=== PATIENT | female | born 1960 | race Caucasian/White ===

== ENCOUNTER 2016-06-26 20:22 | Inpatient (IN) | payer MEDICARE ==
[~2016-06-26] VITALS: Ht 162.6 cm; Wt 83.9 kg
[~2016-06-26 20:22] MED LIST: ASPI-482 PO; CARV6.25 PO; DOXY100C2 PO; FLUT1DIS3 IH; GABA-586 PO; INSU100C4 SQ; INSU100I13 SQ; LEVO125T5 PO; LISI2.5T PO; METF10002 PO; METO10TA81 PO; MONT10TA6 PO; OMEG1CAP6 PO; OXYC1TAB9 PO; PANT40GR PO; POTA20TA82 PO; PRED-220 PO; ROFL500T PO; SIMV80TA PO; SPIR25TA3 PO; TORS20TA2 PO; WARF5TAB PO; WARF7.5T PO
[2016-06-26 21:24] LABS: BASO # 0.1 x10^3/uL (0.0-0.2); BASO % 1 % (0-3); EOS % 1 % (0-3); HEMATOCRIT 34.4 % (36.0-47.0); LYMPH # 3.3 x10^3/uL (1.0-4.8); LYMPH % 22 % (24-48); MEAN CORPUSCULAR HEMOGLOBIN 30 pg (25-35); MEAN CORPUSCULAR HGB CONC 32 g/dL (31-37); MEAN CORPUSCULAR VOLUME 94 fL (79-100); MONO % 8 % (0-9); NEUT % 69 % (31-73); PLATELET COUNT 501 x10^3/uL (140-400); RED BLOOD COUNT 3.67 x10^6/uL (3.50-5.40)
[2016-06-26 21:37] LABS: CREATININE 1.4 mg/dL (0.6-1.0); GFR 38.8; POTASSIUM 3.4 mmol/L (3.5-5.1)
[2016-06-26 21:44] LABS: ALBUMIN 2.8 g/dL (3.4-5.0); ALBUMIN/GLOBULIN RATIO 0.5 (1.0-1.7); TOTAL BILIRUBIN 0.1 mg/dL (0.2-1.0); TOTAL PROTEIN 7.9 g/dL (6.4-8.2)
[2016-06-26 22:07] LABS: PROTHROMBIN TIME PATIENT 42.3 SEC (11.7-14.0)
[2016-06-26 22:09] LABS: INR 4.8 (0.8-1.1)
[2016-06-26 22:21] LABS: BILIRUBIN,URINE NEGATIVE (NEG); GLUCOSE,URINE NEGATIVE (NEG); NITRITE,URINE NEGATIVE (NEG); PROTEIN,URINE 30 mg/dL (NEG-TRACE); UROBILINOGEN,URINE 0.2 mg/dL (0.2 mg/dL)
[2016-06-26] MEDS ORDERED: methylPREDNISolone SOD SUCC PF 125 MG/2 ML VIAL. IV ONE (22:30)
[2016-06-26 22:31] LABS: BACTERIA,URINE FEW /HPF (0-FEW); SQUAMOUS EPITHELIAL CELL,UR FEW /LPF
--- NOTE | 2016-06-26 22:32 | ED.ADGEN ---
Past Medical History Past Medical History: Anxiety, CAD, CHF, COPD, CVA, Depression, Diabetes-Type II, High Cholesterol, Heart Disease, Hypertension, [place], Stroke, Other Additional Past Medical Histor: KS x 6, BLOOD CLOTS IN LLE AND ULE Past Surgical History: Angioplasty, Appendectomy, Cholecystectomy, Hysterectomy , Pacemaker, Other Additional Past Surgical Histo: THYROIDECTOMY, HEMORRHOIDECTOMY, PARTIAL HYST, R KNEE SCOPE, R CARPAL TUNNE Additional Information: 1 PACK EVERY 3-4 DAYS Alcohol Use: None Drug Use: None Adult General Chief Complaint Chief Complaint: SHORTNESS OF BREATH HPI HPI Patient is a 56 year old woman, history of COPD on 3 L nasal cannula at baseline as needed, CHF, history of DVT 3, on chronic anticoagulation with Coumadin, who presents the emergency department with a complaint of chills, cough productive of thick white sputum, generalized malaise and body aches over the past several days. Patient states that she is now having chest pressure and tightness, along with coughing that is worsened. She was seen by her primary care provider yesterday, received an x-ray but does not yet know the results of the x-ray. At that time physician was concerned that she had pneumonia in her left lower lobe, but was waiting for the results of the x-ray before prescribing antibiotics. Patient states that as she was feeling worse today she came to the ED for additional evaluation. She did do a breathing treatment at home prior to coming to the ED. Sick contacts in family members. She did receive a flu vaccination this year, and her pneumonia vaccine. No swelling extremities, no recent travel or surgery. States that her INR was checked last week and it was 3.4. Review of Systems Review of Systems Constitutional: Denies fever or chills. [] Eyes: Denies change in visual acuity. [] HENT: Denies nasal congestion or sore throat. [] Respiratory: Cough, shortness of breath, with chest heaviness. Cardiovascular: Denies chest pain or edema. [] GI: Denies abdominal pain, nausea, vomiting, bloody stools or diarrhea. [] : Denies dysuria. [] Musculoskeletal: Denies back pain or joint pain. [] Integument: Denies rash. [] Neurologic: Denies headache, focal weakness or sensory changes. [] Endocrine: Denies polyuria or polydipsia. [] Lymphatic: Denies swollen glands. [] Psychiatric: Denies depression or anxiety. [] Current Medications Current Medications Allergies Allergies Allergies Coded Allergies Type Severity Reaction Last Updated Verified Penicillins Allergy Intermediate Hives 11/28/14 Yes codeine Adverse Reaction Mild Nausea and Vomiting 06/26/16 Yes diphenhydramine HCl Adverse Reaction Mild hyperactive 06/26/16 Yes Physical Exam Physical Exam Constitutional: Well developed, well nourished, no acute distress, non-toxic appearance. [] HENT: Normocephalic, atraumatic, bilateral external ears normal, oropharynx moist, no oral exudates, nose normal. [] Eyes: PERRLA, EOMI, conjunctiva normal, no discharge. [] Neck: Normal range of motion, no tenderness, supple, no stridor. [] Cardiovascular:Heart rate regular rhythm, no murmur [] Lungs & Thorax: Bilateral breath sounds clear to auscultation [] Abdomen: Bowel sounds normal, soft, no tenderness, no masses, no pulsatile masses. [] Skin: Warm, dry, no erythema, no rash. [] Back: No tenderness, no CVA tenderness. [] Extremities: No tenderness, no cyanosis, no clubbing, ROM intact, no edema. [] Neurologic: Alert and oriented X 3, normal motor function, normal sensory function, no focal deficits noted. [] Psychologic: Affect normal, judgement normal, mood normal. [] Current Patient Data Vital Signs Vital Signs Date Time Temp Pulse Resp B/P Pulse Ox O2 Delivery O2 Flow Rate FiO2 06/26/16 22:00 78 109/63 95 Nasal Cannula 3 06/26/16 20:43 98.7 20 98.7 Lab Values Laboratory Tests Test 06/26/16 20:43 06/26/16 22:05 06/26/16 22:10 White Blood Count 15.0x10^3/uL (4.0-11.0) H Red Blood Count 3.67x10^6/uL (3.50-5.40) Hemoglobin 11.0g/dL (12.0-15.5) L Hematocrit 34.4% (36.0-47.0) L Mean Corpuscular Volume 94fL (79-100) Mean Corpuscular Hemoglobin 30pg (25-35) Mean Corpuscular Hemoglobin Concent 32g/dL (31-37) Red Cell Distribution Width 17.0% (11.5-14.5) H Platelet Count 501x10^3/uL (140-400) H Neutrophils (%) (Auto) 69% (31-73) Lymphocytes (%) (Auto) 22% (24-48) L Monocytes (%) (Auto) 8% (0-9) Eosinophils (%) (Auto) 1% (0-3) Basophils (%) (Auto) 1% (0-3) Neutrophils # (Auto) 10.4x10^3uL (1.8-7.7) H Lymphocytes # (Auto) 3.3x10^3/uL (1.0-4.8) Monocytes # (Auto) 1.1x10^3/uL (0.0-1.1) Eosinophils # (Auto) 0.1x10^3/uL (0.0-0.7) Basophils # (Auto) 0.1x10^3/uL (0.0-0.2) Prothrombin Time 42.3SEC (11.7-14.0) H Prothrombin Time INR 4.8 (0.8-1.1) *H PTT 56SEC (24-38) H Sodium Level 140mmol/L (136-145) Potassium Level 3.4mmol/L (3.5-5.1) L Chloride Level 99mmol/L (98-107) Carbon Dioxide Level 27mmol/L (21-32) Anion Gap 14 (6-14) Blood Urea Nitrogen 19mg/dL (7-20) Creatinine 1.4mg/dL (0.6-1.0) H Estimated GFR (Cockcroft-Gault) 38.8 BUN/Creatinine Ratio 14 (6-20) Glucose Level 228mg/dL (70-99) H Calcium Level 8.0mg/dL (8.5-10.1) L Total Bilirubin 0.1mg/dL (0.2-1.0) L Aspartate Amino Transferase (AST) 26U/L (15-37) Alanine Aminotransferase (ALT) 23U/L (14-59) Alkaline Phosphatase 60U/L (46-116) Troponin I Quantitative < 0.017ng/mL (0.000-0.055) YY-Sum-A-Type Natriuretic Peptide 729pg/mL (0-124) H Total Protein 7.9g/dL (6.4-8.2) Albumin 2.8g/dL (3.4-5.0) L Albumin/Globulin Ratio 0.5 (1.0-1.7) L Lipase 237U/L (73-393) Influenza Type A Antigen Negative (NEGATIVE) Influenza Type B Antigen Negative (NEGATIVE) Urine Collection Type Unknown Urine Color Yellow Urine Clarity Clear Urine pH 6.0 Urine Specific [place] 1.025 Urine Protein 30mg/dL (NEG-TRACE) Urine Glucose (UA) Negativemg/dL (NEG) Urine Ketones (Stick) Negativemg/dL (NEG) Urine Blood Small (NEG) Urine Nitrite Negative (NEG) Urine Bilirubin Negative (NEG) Urine Urobilinogen Dipstick 0.2mg/dL (0.2 mg/dL) Urine Leukocyte Esterase Negative (NEG) Urine RBC 1-2/HPF (0-2) Urine WBC 1-4/HPF (0-4) Urine Squamous Epithelial Cells Few/LPF Urine Bacteria Few/HPF (0-FEW) Urine Hyaline Casts Moderate/HPF Urine Mucus Slight/LPF Laboratory Tests 06/26/16 20:43 Laboratory Tests 06/26/16 20:43 EKG EKG EC: Sinus rhythm, heart rate 79 beats minute, moderate baseline artifact noted, patient with contour abnormalities noted in the lateral leads, inferior leads, with T-wave inversions noted, no ST elevations or depressions, QTC is mildly prolonged at 503, ID 110, QRS of 80, abnormal ECG, does not meet STEMI criteria. As interpreted by me. Radiology/Procedures Radiology/Procedures Chest x-ray: One view: Patient with hazy opacity noted in the left lower lobe, along with myocardial megaly, concerning for left lower lobe pneumonia. No pneumothorax, no effusion, no bony abnormalities identified. As interpreted by me. [] Course & Med Decision Making Course & Med Decision Making Pertinent Labs and Imaging studies reviewed. (See chart for details) Patient's examination and x-ray imaging are concerning for left lower lobe pneumonia, with patient's chest pain, worsening dyspnea and exertion, leukocytosis of 15, patient is agreeable for initial hospital for treatment with IV antibiotics and supportive measures. Steroids, nebulizer treatment, and Levaquin initiated in the emergency department, due to patient's history of anaphylactic type reaction to penicillins. Patient has tolerated Levaquin without issue previously. Community acquired pneumonia, no recent hospitalizations or other concerning history. Patient does not use steroids are the bases, she was given Solu-Medrol in the ED, along with antibiotics, findings as above discussed with Dr. Palmer, on-call for the patient's primary care provider, patient accepted on behalf of Dr. Gregorio, as a full admission to the medical surgical floor with oxygen monitoring, as patient remains stable on 3 L nasal cannula which is her baseline in the ED. Bridge orders entered per his request. Dragon Disclaimer Dragon Disclaimer This electronic medical record was generated, in whole or in part, using a voice recognition dictation system. Departure Impression: Primary Impression: CAP (community acquired pneumonia) Additional Impressions: Dyspnea on exertion Chest pain Disposition: ADMITTED INPATIENT Admitting Physician: Kristen Gregorio Condition: IMPROVED Problem Qualifiers Additional Impressions: Chest pain Chest pain type: unspecified Qualified Code: R07.9 - Chest pain, unspecified PÉREZ MIRZA DO Jun 26, 2016 22:32
[2016-06-26 22:34] LABS: OBC FLU VALID
[2016-06-26] MEDS ORDERED: LEVOFLOXACIN 750 MG TABLET. PO ONE (22:45)
[2016-06-26 23:45] VITALS: BP 128/79
[2016-06-26] MEDS ORDERED: ALPRAZOLAM 0.5 MG TABLET PO PRN (23:45)
[2016-06-26] MEDS ORDERED: ALBUTEROL SULFATE 2.5 MG/3 ML NEBU. NEB PRN (23:45)
[2016-06-26] MEDS: HYDROCODONE/APAP 5/325MG TABLET. PO PRN (23:49)
[2016-06-27] MEDS ORDERED: ACETAMINOPHEN 325 MG TABLET. PO PRN (00:30)
[2016-06-27] MEDS ORDERED: DEXTROSE 50% 25 GM / 50ML DISP.SYRIN. IV PRN (00:30)
[2016-06-27] MEDS ORDERED: HYDROCODONE/APAP 7.5/325MG TABLET. PO PRN (00:30)
[2016-06-27] MEDS ORDERED: ONDANSETRON PF 4 MG/2 ML VIAL. IV PRN (00:30)
--- NOTE | 2016-06-27 02:12 | EKG ---
[facility] [address] [place] [address] Test Date: 2016-06-26 Test Time: 20:31:36 Pat Name: ISATU LOUISE Department: Room: Gender: F Shirt Folder: : 1960 Requested By: PÉREZ MIRZA Order Number: [id number] Reading MD: Measurements Intervals Sloan Rate: 79 P: -114 LA: 110 QRS: 56 QRSD: 80 T: -154 QT: 438 QTc: 503 Interpretive Statements SINUS RHYTHM QRS(T) CONTOUR ABNORMALITY CONSISTENT WITH ANTEROSEPTAL INFARCT PROBABLY OLD T ABNORMALITY IN ANTEROLATERAL LEADS INFEROLATERAL LEADS ABNORMAL ECG RI6.01 No previous ECG available for comparison
[2016-06-27 03:03] VITALS: BP 116/71
[2016-06-27 07:00] VITALS: BP 115/55
[2016-06-27] MEDS ORDERED: IPRATRPIUM/ALBUTEROL 0.5/2.5MG 3 ML NEBU. NEB SCH (08:00)
[2016-06-27] MEDS: IPRATRPIUM/ALBUTEROL 0.5/2.5MG 3 ML NEBU. NEB SCH ×4 (08:16→19:20)
[2016-06-27] MEDS: HYDROCODONE/APAP 5/325MG TABLET. PO PRN ×3 (08:18→20:44)
[2016-06-27] MEDS: GUAIFENESIN DM 200MG/20MG 10 ML SYRUP. PO PRN ×3 (08:19→20:48)
--- NOTE | 2016-06-27 08:24 | RAD ---
Indication chest pain. A single view of the chest was obtained. Comparison is made to an examination 11/29/2014. Heart size is at the upper limits of normal. There are suspect background changes of fibrosis. There is no focal consolidated pneumonia. Gross congestive heart failure is not seen. Significant pleural fluid is not present and there is no pneumothorax. A significant change when compared to the previous exam is not seen. Defibrillating and bipolar cardiac pacing device is noted as well as a cardiac stent. IMPRESSION: Chronic changes. No acute process. No significant change
[2016-06-27] MEDS: INSULIN ASPART 300 UNITS/3 ML INSULN.PEN SQ SCH ×5 (08:28→17:12)
[2016-06-27] MEDS ORDERED: NON FORMULARY ITEM (Fluticasone/Salmeterol (Advair 250-50 Diskus) 1 EACH) IH SCH (09:00)
[2016-06-27] MEDS ORDERED: LISINOPRIL 2.5 MG TABLET PO SCH (09:00)
[2016-06-27] MEDS ORDERED: TORSEMIDE 20 MG TABLET. PO SCH (09:00)
[2016-06-27] MEDS ORDERED: PREDNISONE 10 MG TABLET PO SCH (09:00)
[2016-06-27] MEDS ORDERED: CARVEDILOL 6.25 MG TABLET PO SCH (09:00)
[2016-06-27] MEDS ORDERED: GABAPENTIN 300 MG CAPSULE. PO SCH (09:00)
[2016-06-27] MEDS ORDERED: ROFLUMILAST 500 MCG TABLET. PO SCH (09:00)
[2016-06-27] MEDS: METFORMIN 1,000 MG TABLET PO SCH ×2 (09:06→17:03)
[2016-06-27] MEDS: MONTELUKAST SODIUM 10 MG TABLET. PO SCH (09:06)
[2016-06-27] MEDS: METOCLOPRAMIDE 10 MG TABLET PO SCH ×2 (09:06→20:43)
[2016-06-27] MEDS: SPIRONOLACTONE 25 MG TABLET PO SCH (09:06)
[2016-06-27] MEDS: ASPIRIN ENTERIC COATED 81 MG TABLET.DR. PO SCH (09:06)
[2016-06-27] MEDS: PANTOPRAZOLE 40 MG TABLET. PO SCH ×2 (09:07→17:04)
[2016-06-27] MEDS: methylPREDNISolone SOD SUCC PF 125 MG/2 ML VIAL. IV SCH ×3 (09:07→22:13)
[2016-06-27] MEDS: NICOTINE 14MG PATCH. TD SCH (09:07)
[2016-06-27] MEDS ORDERED: CARV3.122 PO (09:24)
[2016-06-27] MEDS ORDERED: GABA-586 PO (09:24)
[2016-06-27] MEDS ORDERED: ALPR0.254 PO (09:24)
[2016-06-27] MEDS: CARVEDILOL 3.125 MG TABLET PO SCH ×2 (10:00→17:00)
[2016-06-27 11:00] VITALS: BP 112/62
[2016-06-27] MEDS: ALBUTEROL SULFATE 2.5 MG/3 ML NEBU. NEB SCH ×2 (12:03→16:15)
--- NOTE | 2016-06-27 12:13 | PDOC ---
Provider Note Provider Note Pt seen.H&P dictated. #[id number] MAYELIN ORTEGA MD Jun 27, 2016 12:13
[2016-06-27] MEDS: IV NORMAL SALINE 1000ML BAG 1,000 ML IV SCH (12:46)
[2016-06-27] MEDS: BUDESONIDE 0.5 MG/2 ML NEBU NEB SCH ×2 (13:00→19:20)
[2016-06-27] MEDS: GABAPENTIN 300 MG CAPSULE. PO SCH ×2 (14:37→20:43)
[2016-06-27 15:00] VITALS: BP 108/57
[2016-06-27] MEDS ORDERED: ALBUTEROL SULFATE 2.5 MG/3 ML NEBU. NEB PRN (17:45)
--- NOTE | 2016-06-27 18:23 | HP ---
ADMIT DATE: 06/27/2016 LOCATION: 404. ATTENDING PHYSICIAN: Sultana Gregorio MD. REASON FOR ADMISSION TO THE HOSPITAL: Healthcare-associated pneumonia. HISTORY OF PRESENT ILLNESS: The patient is a 56-year-old female, patient of Dr. Sultana Gregorio, was having cough and chest congestion, came to the Emergency Room, had an x-ray, shows infiltrate in the lung. White count was elevated at 15,000, was admitted for suspected gram-negative pneumonia. Influenza A and B was negative. PAST MEDICAL HISTORY: Coronary artery disease; heart attack, multiple times; heart failure; hypertension; peripheral disease; DVT, on Coumadin; COPD; fatty liver; diverticulosis; gastritis; hemorrhoids; IBS; arthritis; allergic rhinitis; diabetes. PAST SURGICAL HISTORY: Had a CT thrombectomy in the left arm, EGD with dilatation, hemorrhoidectomy, appendectomy, gallbladder surgery, bypass surgery in 2006, hysterectomy and PCI, 9 stents so far. FAMILY HISTORY: Colon cancer in the father, is alive. SOCIAL HISTORY: History of smoking for 30 years, quit smoking recently. Denies alcohol or drug abuse. ALLERGIES: PENICILLIN, CODEINE, BENADRYL. MEDICATIONS AT HOME: Coumadin 7.5 mg daily; doxycycline, recently; Xanax 0.25 twice a day; aspirin 81 mg daily; Coreg 3.125 twice a day; Advair 250/50 twice a day; gabapentin 300 mg 3 times a day; insulin 7 units three times daily; Lantus 36 units daily; levothyroxine 125 mcg daily; metformin 1000 mg twice a day; Reglan 10 mg 4 times a day; Singulair 10 mg daily; Protonix 40 mg daily; prednisone 10 mg daily; Zocor 80 mg daily; spironolactone 25 mg daily; torsemide 20 mg daily. REVIEW OF SYMPTOMS: LUNGS: Complains of cough, congestion, shortness of breath. GASTROINTESTINAL: No nausea or vomiting. CONSTITUTIONAL: Has some low-grade fever. Rest of the 14-system was reviewed and negative. PHYSICAL EXAMINATION: GENERAL: The patient is not in any distress. VITAL SIGNS: Temperature 98, pulse 85, respirations 20, blood pressure 132/72, and 91 on room air, 95% on 3 liters. HEENT: Head is atraumatic. Pupils equal. Oral cavity, no congestion. NECK: Supple. Thyroid not enlarged. JVD not elevated. CHEST: Symmetrical, scar of heart surgery. CARDIOVASCULAR: S1, S2. LUNGS: Few crackles at the base. ABDOMEN: Soft, bowel sounds present. No mass palpable. EXTERNAL GENITALIA: No Arias. RECTAL: Deferred. EXTREMITIES: No calf tenderness, no edema. Pulses 1+. NEUROLOGIC: Cranial nerves intact, power 5/5, moving all extremities. No focal deficits noted. LABORATORY DATA: Shows a white count of 15, hemoglobin 11, platelets 501. Electrolytes show sodium 140, potassium 3.4, chloride 99, bicarbonate 27, BUN 19, creatinine 1.4, glucose 228. LFTs were normal. BNP 729. Urine was negative. INR is 4.8. Serology was negative for influenza A and B. Chest x-ray shows questionable infiltrate in the right lung. FINAL IMPRESSION: 1. Pneumonia ?HCAP. 2. Suspect Gram-negative. 3. Chronic obstructive pulmonary disease, smoking history. 4. Coronary artery disease, bypass surgery. 5. Automatic implantable cardioverter-defibrillator. 6. Couple of cardiac stents. 7. Hypertension. 8. Hypothyroidism. 9. Hyperlipidemia. PLAN: At this time, was admitted to hospital. The patient is on IV Solu-Medrol, IV Levaquin. Monitor. Patient's INR is high. Hold Coumadin and monitor INR. Breathing treatments, sputum cultures, and see how the patient's condition improves MAYELIN ORTEGA MD DR: MARSHAL/natanael JOB#: [id number] / [id number] SULTANA Lozada MD
[2016-06-27 19:15] VITALS: BP 93/44
[2016-06-27] MEDS: SIMVASTATIN 40 MG TABLET. PO SCH (20:43)
[2016-06-27] MEDS: ALPRAZOLAM 0.25 MG TABLET PO SCH (20:43)
[2016-06-27] MEDS ORDERED: INSULIN DETEMIR 300 UNITS/3 ML INSULN.PEN. SQ SCH (21:00)
[2016-06-27] MEDS: INSULIN DETEMIR 300 UNITS/3 ML INSULN.PEN. SQ SCH (21:08)
[2016-06-27 23:09] VITALS: BP 119/72
[2016-06-28] MEDS: HYDROCODONE/APAP 5/325MG TABLET. PO PRN ×4 (02:46→20:31)
[2016-06-28 03:27] VITALS: BP 106/60
[2016-06-28] MEDS: IV NORMAL SALINE 1000ML BAG 1,000 ML IV SCH (05:02)
[2016-06-28] MEDS: methylPREDNISolone SOD SUCC PF 125 MG/2 ML VIAL. IV SCH (06:09)
[2016-06-28 06:49] LABS: BASO % 0 % (0-3); EOS % 0 % (0-3); HEMATOCRIT 33.1 % (36.0-47.0); HEMOGLOBIN 10.4 g/dL (12.0-15.5); LYMPH # 1.4 x10^3/uL (1.0-4.8); LYMPH % 8 % (24-48); MEAN CORPUSCULAR HEMOGLOBIN 29 pg (25-35); MEAN CORPUSCULAR HGB CONC 31 g/dL (31-37); MEAN CORPUSCULAR VOLUME 94 fL (79-100); MONO % 4 % (0-9); NEUT % 88 % (31-73); PLATELET COUNT 517 x10^3/uL (140-400); RED BLOOD COUNT 3.54 x10^6/uL (3.50-5.40); RED CELL DISTRIBUTION WIDTH 16.4 % (11.5-14.5); WHITE BLOOD COUNT 16.8 x10^3/uL (4.0-11.0)
[2016-06-28 06:52] LABS: PROTHROMBIN TIME PATIENT 41.4 SEC (11.7-14.0)
[2016-06-28 07:00] VITALS: BP 97/40
[2016-06-28 07:03] LABS: INR 4.6 (0.8-1.1)
[2016-06-28 07:06] LABS: CALCIUM 8.1 mg/dL (8.5-10.1); CREATININE 1.6 mg/dL (0.6-1.0); GFR 33.2; POTASSIUM 3.7 mmol/L (3.5-5.1)
[2016-06-28] MEDS: IPRATRPIUM/ALBUTEROL 0.5/2.5MG 3 ML NEBU. NEB SCH ×4 (07:16→20:07)
[2016-06-28] MEDS: BUDESONIDE 0.5 MG/2 ML NEBU NEB SCH ×2 (07:16→20:07)
[2016-06-28 07:29] LABS: PLT ESTIMATE INCREASED (ADEQUATE)
[2016-06-28] MEDS: CARVEDILOL 3.125 MG TABLET PO SCH ×2 (08:00→16:55)
[2016-06-28] MEDS: POTASSIUM CHLORIDE 20 MEQ TABLET.ER. PO SCH (08:00)
[2016-06-28] MEDS: ALPRAZOLAM 0.25 MG TABLET PO SCH ×2 (08:25→21:17)
[2016-06-28] MEDS: GUAIFENESIN DM 200MG/20MG 10 ML SYRUP. PO PRN ×3 (08:25→20:30)
[2016-06-28] MEDS: ASPIRIN ENTERIC COATED 81 MG TABLET.DR. PO SCH (08:26)
[2016-06-28] MEDS: GABAPENTIN 300 MG CAPSULE. PO SCH ×3 (08:26→21:17)
[2016-06-28] MEDS: SPIRONOLACTONE 25 MG TABLET PO SCH (08:27)
[2016-06-28] MEDS: PANTOPRAZOLE 40 MG TABLET. PO SCH ×2 (08:28→16:55)
[2016-06-28] MEDS: LEVOTHYROXINE 125 MCG TABLET PO SCH (08:28)
[2016-06-28] MEDS: METFORMIN 1,000 MG TABLET PO SCH ×2 (08:28→16:55)
[2016-06-28] MEDS: METOCLOPRAMIDE 10 MG TABLET PO SCH ×2 (08:28→21:17)
[2016-06-28] MEDS: NICOTINE 14MG PATCH. TD SCH (08:29)
[2016-06-28] MEDS: INSULIN ASPART 300 UNITS/3 ML INSULN.PEN SQ SCH ×5 (08:38→16:58)
[2016-06-28] MEDS: MONTELUKAST SODIUM 10 MG TABLET. PO SCH (08:39)
--- NOTE | 2016-06-28 10:19 | RAD ---
Indication pneumonia. PA and lateral views of the chest were obtained and are compared to a single view examination 2 days previously. There is now, in contrast to the previous exam, a patchy infiltrate in the right middle lobe compatible with atelectasis or pneumonia. A focal process in the left lung is not seen. The heart and pulmonary vessels are unchanged. There is no significant pleural fluid. There is no pneumothorax. Defibrillating and bipolar cardiac pacing device is noted. Cardiac stent is noted IMPRESSION: Patchy infiltrate, compatible with atelectasis or pneumonia, in the right middle lobe on today's exam
[2016-06-28 11:00] VITALS: BP 115/60
[2016-06-28] MEDS: LEVOFLOXACIN 500 MG TABLET PO SCH (13:41)
--- NOTE | 2016-06-28 13:42 | PDOC ---
PROGRESS NOTES Subjective Subjective feels better ,anxious to go home soon Objective Objective Vital Signs Date Time Temp Pulse Resp B/P Pulse Ox O2 Delivery O2 Flow Rate FiO2 06/28/16 11:03 97 Nasal Cannula 3.0 06/28/16 11:00 97.9 79 20 115/60 97.9 Intake and Output 06/28/16 07:00 Intake Total 2520 ml Balance 2520 ml Intake Oral 720 ml IV Total 900 ml Other 900 ml # Voids 4 Physical Exam Abdomen: Normal bowel sounds, Soft Heart: Regular rate, Normal S1, Normal S2 Extremities: No clubbing General: Alert HEENT: Atraumatic Lungs: Other (few crackles at bases) MUSCULOSKELETAL: No deformity Neck: Supple Neuro: Normal speech Psych/Mental Status: Mental status NL Skin: No breakdown Diagnosis Problem List Problems Medical Problems: (1) CAP (community acquired pneumonia) Status: Acute (2) Chest pain Status: Acute (3) Dyspnea on exertion Status: Acute (4) Supratherapeutic INR Status: Acute Assessment Assessment Problems Medical Problems: (1) CAP (community acquired pneumonia) Status: Acute (2) Chest pain Status: Acute (3) Dyspnea on exertion Status: Acute (4) Supratherapeutic INR Status: Acute FINAL IMPRESSION: 1. Pneumonia.community acquired 2. suspect Gram-negative. 3. Chronic obstructive pulmonary disease, smoking history. 4. Coronary artery disease, bypass surgery. 5. Automatic implantable cardioverter-defibrillator. 6. Couple of cardiac stents. 7. Hypertension. 8. Hypothyroidism. 9. Hyperlipidemia. PLAN: slow improvement change to oral today. may be d/c home tomorrow cxr showed pneumonia upper lobe. inr 4.2 hold coumadin. At this time, was admitted to hospital. The patient is on IV Solu-Medrol, IV Levaquin. Monitor. Patient's INR is high. Hold Coumadin and monitor INR. Breathing treatments, sputum cultures, and see how the patient's condition improves Problems: Plan Plan of Care Problems Medical Problems: (1) CAP (community acquired pneumonia) Status: Acute (2) Chest pain Status: Acute (3) Dyspnea on exertion Status: Acute (4) Supratherapeutic INR Status: Acute Comment Review of Relevant I have reviewed the following items jarod (where applicable) has been applied. Labs Laboratory Tests Test 06/27/16 16:59 06/27/16 21:04 06/28/16 05:15 06/28/16 07:38 Glucose (Fingerstick) 187mg/dL (70-99) 200mg/dL (70-99) 162mg/dL (70-99) White Blood Count 16.8x10^3/uL (4.0-11.0) Red Blood Count 3.54x10^6/uL (3.50-5.40) Hemoglobin 10.4g/dL (12.0-15.5) Hematocrit 33.1% (36.0-47.0) Mean Corpuscular Volume 94fL (79-100) Mean Corpuscular Hemoglobin 29pg (25-35) Mean Corpuscular Hemoglobin Concent 31g/dL (31-37) Red Cell Distribution Width 16.4% (11.5-14.5) Platelet Count 517x10^3/uL (140-400) Neutrophils (%) (Auto) 88% (31-73) Lymphocytes (%) (Auto) 8% (24-48) Monocytes (%) (Auto) 4% (0-9) Eosinophils (%) (Auto) 0% (0-3) Basophils (%) (Auto) 0% (0-3) Neutrophils # (Auto) 14.8x10^3uL (1.8-7.7) Lymphocytes # (Auto) 1.4x10^3/uL (1.0-4.8) Monocytes # (Auto) 0.6x10^3/uL (0.0-1.1) Eosinophils # (Auto) 0.0x10^3/uL (0.0-0.7) Basophils # (Auto) 0.0x10^3/uL (0.0-0.2) Segmented Neutrophils % 91% (35-66) Lymphocytes % 7% (24-48) Monocytes % 2% (0-10) Platelet Estimate Increased (ADEQUATE) Large Platelets Present Prothrombin Time 41.4SEC (11.7-14.0) Prothromb Time International Ratio 4.6 (0.8-1.1) Sodium Level 143mmol/L (136-145) Potassium Level 3.7mmol/L (3.5-5.1) Chloride Level 102mmol/L (98-107) Carbon Dioxide Level 28mmol/L (21-32) Anion Gap 13 (6-14) Blood Urea Nitrogen 32mg/dL (7-20) Creatinine 1.6mg/dL (0.6-1.0) Estimated GFR (Cockcroft-Gault) 33.2 Glucose Level 169mg/dL (70-99) Calcium Level 8.1mg/dL (8.5-10.1) Test 06/28/16 11:40 Glucose (Fingerstick) 183mg/dL (70-99) Medications Current Medications Albuterol Sulfate (Ventolin Neb Soln) 2.5 mg PRN Q4HRS PRN NEB SHORTNESS OF BREATH; Start 06/27/16 at 17:45 Alprazolam (Xanax) 0.25 mg BID PO Last administered on 06/28/16 08:25; Start 06/27/16 at 21:00 Gabapentin (Neurontin) 900 mg TID PO Last administered on 06/28/16 08:26; Start 06/27/16 at 14:00 Insulin Aspart (Novolog) 7 units TIDBFRMEAL SQ Last administered on 06/28/16 08:38; Start 06/27/16 at 16:30 Insulin Detemir (Levemir) 30 units QHS SQ ; Start 06/27/16 at 21:00; Status Cancel Insulin Detemir (Levemir) 44 units HS SQ Last administered on 06/27/16 21:08; Start 06/27/16 at 21:00 Levofloxacin (Levaquin) 500 mg DAILY06 PO ; Start 06/28/16 at 13:30 Levofloxacin/ Dextrose (LEVAQUIN 250mg PREMIX) 50 ml @ 50 mls/hr Q24H IV ; Start 06/28/16 at 17:00; Stop 06/28/16 at 17:00; Status DC Levofloxacin/ Dextrose (LEVAQUIN 500mg PREMIX) 100 ml @ 100 mls/hr Q24H IV Last administered on 06/27/16 17:08; Start 06/27/16 at 16:00; Stop 06/28/16 at 11:09; Status DC Levothyroxine Sodium (Synthroid) 125 mcg DAILYAC PO Last administered on 08:28; Start 06/28/16 at 07:30 Methylprednisolone Sodium Succinate (Solu-Medrol 125mg Vial) 60 mg BID IV ; Start 06/28/16 at 21:00; Stop 06/28/16 at 21:01 Montelukast Sodium 10 mg 10 mg HS PO ; Start 06/28/16 at 21:00 Non-Formulary Medication 20 meq 3X/WEEK PO ; Start 06/29/16 at 09:00; Stop 06/29 at 09:00; Status DC Potassium Chloride 20 meq 20 meq DAILYWBKFT PO ; Start 06/28/16 at 08:00 Prednisone (Prednisone) 50 mg DAILY PO ; Start 06/29/16 at 09:00 Simvastatin (Zocor) 80 mg QHS PO Last administered on 06/27/16t 20:43; Start at 21:00 Vitals/I & O Vital Sign - Last 24 Hours 06/27/16 06/27/16 06/27/16 06/27/16 14:37 15:00 16:14 19:15 Temp 98.5 97.6 98.5 97.6 Pulse 74 85 Resp 20 18 B/P 108/57 93/44 Pulse Ox 91 90 O2 Delivery Nasal Cannula Nasal Cannula Nasal Cannula Room Air O2 Flow Rate 3.0 3.0 06/27/16 06/27/16 06/27/16 06/27/16 19:20 19:22 19:50 20:44 Resp 18 Pulse Ox 88 88 O2 Delivery Room Air Room Air Nasal Cannula Nasal Cannula O2 Flow Rate 3.0 2.0 06/27/16 06/28/16 06/28/16 06/28/16 23:09 02:46 03:27 03:46 Temp 98.6 98.5 98.6 98.5 Pulse 89 75 Resp 18 18 20 18 B/P 119/72 106/60 Pulse Ox 95 96 O2 Delivery Nasal Cannula Nasal Cannula Nasal Cannula O2 Flow Rate 3.0 2.0 3.0 06/28/16 06/28/16 06/28/16 06/28/16 07:00 07:18 07:19 07:45 Temp 98.0 98.0 Pulse 77 Resp 20 B/P 97/40 Pulse Ox 91 97 97 O2 Delivery Nasal Cannula Nasal Cannula Nasal Cannula Room Air O2 Flow Rate 3.0 3.0 3.0 06/28/16 06/28/16 06/28/16 06/28/16 08:00 08:26 09:30 11:00 Temp 97.9 97.9 Pulse 77 79 Resp 20 B/P 97/40 115/60 Pulse Ox 97 90 O2 Delivery Nasal Cannula Nasal Cannula Nasal Cannula O2 Flow Rate 3.0 3.0 3.0 06/28/16 11:03 Pulse Ox 97 O2 Delivery Nasal Cannula O2 Flow Rate 3.0 Intake and Output 06/27/16 06/27/16 06/28/16 15:00 23:00 07:00 Intake Total 2520 ml Balance 2520 ml MAYELIN ORTEGA MD Jun 28, 2016 13:42
[2016-06-28 15:00] VITALS: BP 122/62
[2016-06-28 19:15] VITALS: BP 155/67
[2016-06-28] MEDS ORDERED: MONTELUKAST SODIUM 10 MG TABLET. PO SCH (21:00)
[2016-06-28] MEDS ORDERED: methylPREDNISolone SOD SUCC PF 125 MG/2 ML VIAL. IV SCH (21:00)
[2016-06-28] MEDS: SIMVASTATIN 40 MG TABLET. PO SCH (21:17)
[2016-06-28] MEDS: INSULIN DETEMIR 300 UNITS/3 ML INSULN.PEN. SQ SCH (21:22)
[2016-06-28 22:57] VITALS: BP 124/65
[2016-06-29] MEDS: HYDROCODONE/APAP 5/325MG TABLET. PO PRN ×2 (02:45→08:37)
[2016-06-29 03:00] VITALS: BP 111/56
[2016-06-29] MEDS: LEVOFLOXACIN 500 MG TABLET PO SCH (05:58)
[2016-06-29 06:08] LABS: BASO % 0 % (0-3); EOS % 0 % (0-3); HEMATOCRIT 32.4 % (36.0-47.0); HEMOGLOBIN 10.5 g/dL (12.0-15.5); LYMPH # 1.4 x10^3/uL (1.0-4.8); LYMPH % 10 % (24-48); MEAN CORPUSCULAR HEMOGLOBIN 30 pg (25-35); MEAN CORPUSCULAR HGB CONC 33 g/dL (31-37); MEAN CORPUSCULAR VOLUME 93 fL (79-100); MONO % 3 % (0-9); NEUT % 87 % (31-73); PLATELET COUNT 502 x10^3/uL (140-400); RED BLOOD COUNT 3.48 x10^6/uL (3.50-5.40); RED CELL DISTRIBUTION WIDTH 17.1 % (11.5-14.5); WHITE BLOOD COUNT 14.3 x10^3/uL (4.0-11.0)
[2016-06-29 06:32] LABS: INR 3.1 (0.8-1.1); PROTHROMBIN TIME PATIENT 30.4 SEC (11.7-14.0)
[2016-06-29 06:35] LABS: CREATININE 1.3 mg/dL (0.6-1.0); GFR 42.2; POTASSIUM 4.6 mmol/L (3.5-5.1)
[2016-06-29] MEDS: IPRATRPIUM/ALBUTEROL 0.5/2.5MG 3 ML NEBU. NEB SCH (06:52)
[2016-06-29] MEDS: BUDESONIDE 0.5 MG/2 ML NEBU NEB SCH (06:52)
[2016-06-29 07:00] VITALS: BP 124/64
[2016-06-29] MEDS: INSULIN ASPART 300 UNITS/3 ML INSULN.PEN SQ SCH ×4 (07:30→08:47)
--- NOTE | 2016-06-29 07:48 | PDOC3 ---
ANNETTEJOCELYN [employer]OR [employer]IC 06/29/16 0748: IM DISCHARGE & PROGRESS NOTES Date of Admission Date of Admission Date of Admission: Jun 26, 2016 at 22:19 Date of Discharge Date of Discharge 06/29/16 Primary Diagnosis Primary Diagnosis 1. HCAP pneumonia gram negative 2. mild AECOPD 3. CAD with h/o OH multiple, PCI Stents multiple, and CABG 4. CKD II no ARF, JIA 5. acute on chronic respiratory failure with underlying pneumonia, COPD, emphysema 6. DM II with neuropathy, PVD 7. DVT in past with chronic coumadin therapy 8. ICM/CHF systolic not acute 9. HTN 10. Hyperlipidemia 11. chronic pain management by [facility] 12. h/o fatty liver 13. h/o non obstructing R renal calculus 14. hypothyroid Consults Consults None Procedures Procedures None Labs Labs Laboratory Tests Test 06/26/16 20:43 06/26/16 22:05 06/26/16 22:10 06/27/16 01:50 White Blood Count 15.0x10^3/uL (4.0-11.0) Red Blood Count 3.67x10^6/uL (3.50-5.40) Hemoglobin 11.0g/dL (12.0-15.5) Hematocrit 34.4% (36.0-47.0) Mean Corpuscular Volume 94fL (79-100) Mean Corpuscular Hemoglobin 30pg (25-35) Mean Corpuscular Hemoglobin Concent 32g/dL (31-37) Red Cell Distribution Width 17.0% (11.5-14.5) Platelet Count 501x10^3/uL (140-400) Neutrophils (%) (Auto) 69% (31-73) Lymphocytes (%) (Auto) 22% (24-48) Monocytes (%) (Auto) 8% (0-9) Eosinophils (%) (Auto) 1% (0-3) Basophils (%) (Auto) 1% (0-3) Neutrophils # (Auto) 10.4x10^3uL (1.8-7.7) Lymphocytes # (Auto) 3.3x10^3/uL (1.0-4.8) Monocytes # (Auto) 1.1x10^3/uL (0.0-1.1) Eosinophils # (Auto) 0.1x10^3/uL (0.0-0.7) Basophils # (Auto) 0.1x10^3/uL (0.0-0.2) Prothrombin Time 42.3SEC (11.7-14.0) Prothromb Time International Ratio 4.8 (0.8-1.1) Activated Partial Thromboplast Time 56SEC (24-38) Sodium Level 140mmol/L (136-145) Potassium Level 3.4mmol/L (3.5-5.1) Chloride Level 99mmol/L (98-107) Carbon Dioxide Level 27mmol/L (21-32) Anion Gap 14 (6-14) Blood Urea Nitrogen 19mg/dL (7-20) Creatinine 1.4mg/dL (0.6-1.0) Estimated GFR (Cockcroft-Gault) 38.8 BUN/Creatinine Ratio 14 (6-20) Glucose Level 228mg/dL (70-99) Calcium Level 8.0mg/dL (8.5-10.1) Total Bilirubin 0.1mg/dL (0.2-1.0) Aspartate Amino Transf (AST/SGOT) 26U/L (15-37) Alanine Aminotransferase (ALT/SGPT) 23U/L (14-59) Alkaline Phosphatase 60U/L (46-116) Troponin I Quantitative < 0.017ng/mL (0.000-0.055) < 0.017ng/mL (0.000-0.055) KT-Eti-H-Type Natriuretic Peptide 729pg/mL (0-124) Total Protein 7.9g/dL (6.4-8.2) Albumin 2.8g/dL (3.4-5.0) Albumin/Globulin Ratio 0.5 (1.0-1.7) Lipase 237U/L (73-393) Influenza Type A Antigen Negative (NEGATIVE) Influenza Type B Antigen Negative (NEGATIVE) Urine Collection Type Unknown Urine Color Yellow Urine Clarity Clear Urine pH 6.0 Urine Specific [place] 1.025 Urine Protein 30mg/dL (NEG-TRACE) Urine Glucose (UA) Negativemg/dL (NEG) Urine Ketones (Stick) Negativemg/dL (NEG) Urine Blood Small (NEG) Urine Nitrite Negative (NEG) Urine Bilirubin Negative (NEG) Urine Urobilinogen Dipstick 0.2mg/dL (0.2 mg/dL) Urine Leukocyte Esterase Negative (NEG) Urine RBC 1-2/HPF (0-2) Urine WBC 1-4/HPF (0-4) Urine Squamous Epithelial Cells Few/LPF Urine Bacteria Few/HPF (0-FEW) Urine Hyaline Casts Moderate/HPF Urine Mucus Slight/LPF Test 06/27/16 07:48 06/27/16 08:05 06/27/16 11:51 06/27/16 16:59 Glucose (Fingerstick) 231mg/dL (70-99) 215mg/dL (70-99) 187mg/dL (70-99) Troponin I Quantitative < 0.017ng/mL (0.000-0.055) Test 06/27/16 21:04 06/28/16 05:15 06/28/16 07:38 06/28/16 11:40 Glucose (Fingerstick) 200mg/dL (70-99) 162mg/dL (70-99) 183mg/dL (70-99) White Blood Count 16.8x10^3/uL (4.0-11.0) Red Blood Count 3.54x10^6/uL (3.50-5.40) Hemoglobin 10.4g/dL (12.0-15.5) Hematocrit 33.1% (36.0-47.0) Mean Corpuscular Volume 94fL (79-100) Mean Corpuscular Hemoglobin 29pg (25-35) Mean Corpuscular Hemoglobin Concent 31g/dL (31-37) Red Cell Distribution Width 16.4% (11.5-14.5) Platelet Count 517x10^3/uL (140-400) Neutrophils (%) (Auto) 88% (31-73) Lymphocytes (%) (Auto) 8% (24-48) Monocytes (%) (Auto) 4% (0-9) Eosinophils (%) (Auto) 0% (0-3) Basophils (%) (Auto) 0% (0-3) Neutrophils # (Auto) 14.8x10^3uL (1.8-7.7) Lymphocytes # (Auto) 1.4x10^3/uL (1.0-4.8) Monocytes # (Auto) 0.6x10^3/uL (0.0-1.1) Eosinophils # (Auto) 0.0x10^3/uL (0.0-0.7) Basophils # (Auto) 0.0x10^3/uL (0.0-0.2) Segmented Neutrophils % 91% (35-66) Lymphocytes % 7% (24-48) Monocytes % 2% (0-10) Platelet Estimate Increased (ADEQUATE) Large Platelets Present Prothrombin Time 41.4SEC (11.7-14.0) Prothromb Time International Ratio 4.6 (0.8-1.1) Sodium Level 143mmol/L (136-145) Potassium Level 3.7mmol/L (3.5-5.1) Chloride Level 102mmol/L (98-107) Carbon Dioxide Level 28mmol/L (21-32) Anion Gap 13 (6-14) Blood Urea Nitrogen 32mg/dL (7-20) Creatinine 1.6mg/dL (0.6-1.0) Estimated GFR (Cockcroft-Gault) 33.2 Glucose Level 169mg/dL (70-99) Calcium Level 8.1mg/dL (8.5-10.1) Test 06/28/16 16:43 06/28/16 21:08 06/29/16 05:15 Glucose (Fingerstick) 127mg/dL (70-99) 136mg/dL (70-99) White Blood Count 14.3x10^3/uL (4.0-11.0) Red Blood Count 3.48x10^6/uL (3.50-5.40) Hemoglobin 10.5g/dL (12.0-15.5) Hematocrit 32.4% (36.0-47.0) Mean Corpuscular Volume 93fL (79-100) Mean Corpuscular Hemoglobin 30pg (25-35) Mean Corpuscular Hemoglobin Concent 33g/dL (31-37) Red Cell Distribution Width 17.1% (11.5-14.5) Platelet Count 502x10^3/uL (140-400) Neutrophils (%) (Auto) 87% (31-73) Lymphocytes (%) (Auto) 10% (24-48) Monocytes (%) (Auto) 3% (0-9) Eosinophils (%) (Auto) 0% (0-3) Basophils (%) (Auto) 0% (0-3) Neutrophils # (Auto) 12.4x10^3uL (1.8-7.7) Lymphocytes # (Auto) 1.4x10^3/uL (1.0-4.8) Monocytes # (Auto) 0.5x10^3/uL (0.0-1.1) Eosinophils # (Auto) 0.0x10^3/uL (0.0-0.7) Basophils # (Auto) 0.0x10^3/uL (0.0-0.2) Prothrombin Time 30.4SEC (11.7-14.0) Prothromb Time International Ratio 3.1 (0.8-1.1) Sodium Level 146mmol/L (136-145) Potassium Level 4.6mmol/L (3.5-5.1) Chloride Level 106mmol/L (98-107) Carbon Dioxide Level 27mmol/L (21-32) Anion Gap 13 (6-14) Blood Urea Nitrogen 33mg/dL (7-20) Creatinine 1.3mg/dL (0.6-1.0) Estimated GFR (Cockcroft-Gault) 42.2 Glucose Level 124mg/dL (70-99) Calcium Level 8.0mg/dL (8.5-10.1) Medications Medications Medications reviewed and reconciled for discharge. Brief hospital course Brief hospital course This 56 year old female who presented with acute on chronic respiratory failure with HCAP pneumonia was admitted. The following is a summary of her treatment: HCFA pneumonia (RML) negative sepsis Levaquin IV changed to oral 06/28/16 IV steroids changed to tapering steroids at discharge nebulizer treatment O2 chronic 3L NC continuous DM II FSBS SSI BS -124-183 HTN controlled continue home meds CKD II Admit BUN 06/29 33 Cr 1.4 1.3 K 3.4 4.6 no ARF anticoagulation INR 3.1 Warfarin held 06/28/16 leukocytosis Admit 15.0 06/29 14.3-steroid DVT/GI prophylaxis warfarin PPI For more details regarding the past history, family history, social history, surgical history and other details, please refer to History and Physical. Subjective still cough and wheezing,but is improving Objective no distress Vitals Vital Signs Date Time Temp Pulse Resp B/P Pulse Ox O2 Delivery O2 Flow Rate FiO2 06/29/16 06:53 94 Nasal Cannula 3.0 06/29/16 03:45 18 06/29/16 03:00 98.7 81 111/56 98.7 Physical Exam General appearance - alert, ill appearing, and in no distress Mental Status - alert, oriented to person, place, and time, affect appropriate to mood Head - normal Chest - wheezing ant/post, coarse R post > L Heart - S1 and S2 normal Abdomen - soft, nontender, nondistended, BS+, obese Neurological - no acute focal neurological deficit noted. Musculoskeletal - no muscular tenderness noted Extremities - no pedal edema Skin - warm and dry Medications Medications reviewed. Allergy Allergies Coded Allergies Type Severity Reaction Last Updated Verified Penicillins Allergy Intermediate Hives 11/28/14 Yes codeine Adverse Reaction Mild Nausea and Vomiting 06/26/16 Yes diphenhydramine HCl Adverse Reaction Mild hyperactive 06/26/16 Yes Follow up Wednesday Disposition: Home Comments Discharge Management - 35 minutes. For other details please refer to discharge instructions SULTANA MONTGOMERY MD 06/29/16 0956: IM DISCHARGE & PROGRESS NOTES Brief hospital course Brief hospital course Lungs clear. The patient was seen and examined by me. Chart reviewed and plan of care formulated. Discussed with, reviewed and agree with [facility]'s notes, plan of care and orders with modifications as necessary. For more details regarding further plans, please refer to the orders. JOCELYN BRYANT APRN Jun 29, 2016 07:48 SULTANA MONTGOMERY MD Jun 29, 2016 09:56
--- NOTE | 2016-06-29 07:50 | DISCH ---
DISCHARGE INSTRUCTIONS Condition on Discharge Condition on Discharge: Stable Activity After Discharge Activity Instructions for Disc: Activity as tolerated Diet after Discharge Diet after Discharge: Cardiac (no concentrated sweets ), Low Fat Checks after Discharge DC Comment: check blood sugar before meals Contacting the after DC Call your doctor for: Concerns you may have Follow-Up Follow up with: Dr. Gregorio on Wednesday Treatment/Equipment after DC Discharge Respiratory Equipmen: Oxygen (3L continuous ), Nebulizer (four times daily ) JOCELYN BRYANT APRN Jun 29, 2016 07:50
[2016-06-29] MEDS ORDERED: POTA20TA4 PO (07:59)
[2016-06-29] MEDS ORDERED: LEVO500T38 PO (07:59)
[2016-06-29] MEDS ORDERED: PRED-220 PO (07:59)
[2016-06-29] MEDS ORDERED: WARF5TAB7 PO (07:59)
[2016-06-29] MEDS ORDERED: GUAI12003 PO (07:59)
[2016-06-29] MEDS ORDERED: INSU100I17 SQ (07:59)
[2016-06-29] MEDS: ASPIRIN ENTERIC COATED 81 MG TABLET.DR. PO SCH (08:32)
[2016-06-29] MEDS: GABAPENTIN 300 MG CAPSULE. PO SCH (08:32)
[2016-06-29] MEDS: POTASSIUM CHLORIDE 20 MEQ TABLET.ER. PO SCH (08:33)
[2016-06-29 08:34] VITALS: BP 111/56
[2016-06-29] MEDS: SPIRONOLACTONE 25 MG TABLET PO SCH (08:34)
[2016-06-29] MEDS: PANTOPRAZOLE 40 MG TABLET. PO SCH (08:34)
[2016-06-29] MEDS: LEVOTHYROXINE 125 MCG TABLET PO SCH (08:34)
[2016-06-29] MEDS: METOCLOPRAMIDE 10 MG TABLET PO SCH (08:34)
[2016-06-29] MEDS: METFORMIN 1,000 MG TABLET PO SCH (08:34)
[2016-06-29] MEDS: CARVEDILOL 3.125 MG TABLET PO SCH (08:34)
[2016-06-29] MEDS: ALPRAZOLAM 0.25 MG TABLET PO SCH (08:35)
[2016-06-29] MEDS: NICOTINE 14MG PATCH. TD SCH (08:35)
[2016-06-29] MEDS ORDERED: NON FORMULARY ITEM (Potassium Chloride 20 MEQ) PO SCH (09:00)
[2016-06-29] MEDS ORDERED: PREDNISONE 10 MG TABLET PO SCH (09:00)
== END 2016-06-29 11:00 | disposition home or self-care (01) | DRG 189 ==
LOC: ER 20:22 → 4 NORTH 22:19
PROVIDERS: ADMIT Internal Medicine; ATTEND Internal Medicine
DX: J96.20 Acute and chronic respiratory failure, unspecified whether with hypoxia or hypercapnia (principal); J15.6 Pneumonia due to other Gram-negative bacteria; I13.0 Hypertensive heart and chronic kidney disease with heart failure and stage 1 through stage 4 chronic kidney disease, or unspecified chronic kidney disease; J44.0 Chronic obstructive pulmonary disease with (acute) lower respiratory infection; J44.1 Chronic obstructive pulmonary disease with (acute) exacerbation; I50.20 Unspecified systolic (congestive) heart failure; E03.9 Hypothyroidism, unspecified; E11.22 Type 2 diabetes mellitus with diabetic chronic kidney disease; E66.9 Obesity, unspecified; E78.00 Pure hypercholesterolemia, unspecified; E78.5 Hyperlipidemia, unspecified; I25.10 Atherosclerotic heart disease of native coronary artery without angina pectoris; K58.9 Irritable bowel syndrome, unspecified; K76.0 Fatty (change of) liver, not elsewhere classified; N18.2 Chronic kidney disease, stage 2 (mild); Y95 Nosocomial condition; F32.9 Major depressive disorder, single episode, unspecified; F41.9 Anxiety disorder, unspecified; E11.51 Type 2 diabetes mellitus with diabetic peripheral angiopathy without gangrene; J30.9 Allergic rhinitis, unspecified; K57.90 Diverticulosis of intestine, part unspecified, without perforation or abscess without bleeding; M19.90 Unspecified osteoarthritis, unspecified site; Z79.01 Long term (current) use of anticoagulants; Z80.0 Family history of malignant neoplasm of digestive organs; Z86.718 Personal history of other venous thrombosis and embolism; Z86.73 Personal history of transient ischemic attack (TIA), and cerebral infarction without residual deficits; I25.2 Old myocardial infarction; Z87.891 Personal history of nicotine dependence; Z95.5 Presence of coronary angioplasty implant and graft; Z90.49 Acquired absence of other specified parts of digestive tract; Z90.710 Acquired absence of both cervix and uterus; Z95.0 Presence of cardiac pacemaker; Z88.5 Allergy status to narcotic agent; Z88.0 Allergy status to penicillin; Z88.8 Allergy status to other drugs, medicaments and biological substances; Z68.31 Body mass index [BMI] 31.0-31.9, adult; Z79.82 Long term (current) use of aspirin; Z79.899 Other long term (current) drug therapy; Z79.4 Long term (current) use of insulin
CPT/HCPCS: 36415; 71010; 71020; 80048; 80053; 81001; 82947; 83690; 83880; 84484; 85007; 85027; 85610; 85730; 87804; 93005; 94250; 94640; 94760; 96374; J1815; J1956; J2930; J7030; J7512; J7620; J8597; 99285-25

== ENCOUNTER 2016-07-27 09:44 | Inpatient (IN) | payer MEDICARE ==
[~2016-07-27] VITALS: Ht 167.6 cm; Wt 90.0 kg
[~2016-07-27 09:44] MED LIST changes: +ALPR0.254 PO; +CARV3.122 PO; +GUAI12003 PO; +INSU100I17 SQ; +LEVO500T38 PO; +POTA20TA4 PO; +WARF5TAB7 PO
[2016-07-27] MEDS ORDERED: MORPHINE SULFATE 4 MG/ML DISP.SYRIN. IV ONE (10:30)
[2016-07-27 10:43] LABS: BASO # 0.1 x10^3/uL (0.0-0.2); BASO % 1 % (0-3); EOS % 3 % (0-3); HEMATOCRIT 35.5 % (36.0-47.0); HEMOGLOBIN 11.6 g/dL (12.0-15.5); LYMPH # 2.6 x10^3/uL (1.0-4.8); LYMPH % 28 % (24-48); MEAN CORPUSCULAR HEMOGLOBIN 30 pg (25-35); MEAN CORPUSCULAR HGB CONC 33 g/dL (31-37); MEAN CORPUSCULAR VOLUME 91 fL (79-100); MONO % 9 % (0-9); NEUT % 59 % (31-73); PLATELET COUNT 352 x10^3/uL (140-400); RED BLOOD COUNT 3.88 x10^6/uL (3.50-5.40); RED CELL DISTRIBUTION WIDTH 16.1 % (11.5-14.5); WHITE BLOOD COUNT 9.2 x10^3/uL (4.0-11.0)
[2016-07-27 10:53] LABS: INR 3.1 (0.8-1.1); PROTHROMBIN TIME PATIENT 30.2 SEC (11.7-14.0)
[2016-07-27 11:12] LABS: ANION GAP 14 (6-14); BLOOD UREA NITROGEN 17 mg/dL (7-20); CALCIUM 7.8 mg/dL (8.5-10.1); CARBON DIOXIDE 26 mmol/L (21-32); CHLORIDE 101 mmol/L (98-107); CREATININE 1.3 mg/dL (0.6-1.0); GFR 42.2; GLUCOSE 289 mg/dL (70-99); POTASSIUM 4.1 mmol/L (3.5-5.1); SODIUM 141 mmol/L (136-145)
--- NOTE | 2016-07-27 11:14 | RAD ---
Portable chest, 07/27/2016: History: Left arm weakness and heaviness Comparison is made to a study from 06/28/2016. A left-sided transvenous pacemaker remains in place with 2 leads extending into the right heart. The heart is at the upper limits of normal in size. A coronary artery stent is projected over the left side of the heart superiorly. The pulmonary vascularity is normal. No pulmonary infiltrates are seen. There is no evidence of pleural fluid. IMPRESSION: 1. A transvenous pacemaker remains in place. 2. Coronary artery disease. 3. No acute cardiopulmonary abnormality is detected.
[2016-07-27 11:15] LABS: ALBUMIN 3.4 g/dL (3.4-5.0); ALK PHOS 59 U/L (46-116); ALT (SGPT) 27 U/L (14-59); AST (SGOT) 24 U/L (15-37); DIRECT BILIRUBIN < 0.1 mg/dL (0.0-0.2); TOTAL BILIRUBIN 0.3 mg/dL (0.2-1.0); TOTAL PROTEIN 7.4 g/dL (6.4-8.2)
[2016-07-27] MEDS ORDERED: IOHEXOL 350 MG/ML 100ML VIAL. IV ONE (11:15)
--- NOTE | 2016-07-27 11:33 | RAD ---
Left upper extremity venous ultrasound, 07/27/2016: History: Arm heaviness Duplex evaluation of the major veins in the left upper extremity was performed including grayscale, color-flow and spectral Doppler analysis. The left internal jugular, subclavian, axillary and brachial veins are patent. Patent cephalic, basilic, radial and ulnar veins are also evident. IMPRESSION: No sonographic evidence of deep vein thrombosis in the left upper extremity.
[2016-07-27] MEDS ORDERED: IV NORMAL SALINE 1000ML BAG 1,000 ML IV ONE ×2 (12:00→14:00)
[2016-07-27] MEDS ORDERED: HYDROMORPHONE 2 MG/ML VIAL. IV ONE (12:00)
--- NOTE | 2016-07-27 12:41 | EKG ---
[facility] [address] [place] [address] Test Date: 2016-07-27 Test Time: 09:54:57 Pat Name: ISATU LOUISE Department: Room: Gender: F Record Center Coordinator: : 1960 Requested By: MELO MARINO Order Number: [id number] Reading MD: Measurements Intervals [place] Rate: 71 P: 34 UT: 164 QRS: 38 QRSD: 74 T: 118 QT: 428 QTc: 470 Interpretive Statements SINUS RHYTHM ATRIAL PREMATURE COMPLEX(ES) QRS(T) CONTOUR ABNORMALITY CONSISTENT WITH ANTERIOR INFARCT AGE UNDETERMINED T ABNORMALITY IN LATERAL LEADS ABNORMAL ECG RI6.01 No previous ECG available for comparison
--- NOTE | 2016-07-27 12:51 | RAD ---
CTA of the left upper extremity, 07/27/2016: History: Left upper extremity heaviness, decreased radial pulse Multidetector CT imaging was performed following an IV bolus injection of iodinated contrast material. Multiplanar reconstructions were produced as well as 3-D volume rendered reconstructions of the major arteries. The upper most scans included the lateral aspect of the subclavian artery which is widely patent. The left axillary artery is unremarkable. The brachial artery in the upper aspect of the upper arm is patent with atherosclerotic irregularity. Distally in the upper arm the brachial artery appears to be occluded. There is reconstitution more inferiorly, apparently via collateral circulation. The occluded segment measures approximately 4 cm. Opacification of the distal arteries is suboptimal due to the proximal occlusion, however, the radial and ulnar arteries both appear to be patent. IMPRESSION: Occlusion of the left brachial artery in the inferior aspect of the upper arm with reconstitution of distal blood flow via collateral circulation. PQRS Compliance Statement: One or more of the following individualized dose reduction techniques were utilized for this examination: 1. Automated exposure control 2. Adjustment of the mA and/or kV according to patient size 3. Use of iterative reconstruction technique
--- NOTE | 2016-07-27 13:25 | PHYS DOC ---
Past Medical History Past Medical History: Anxiety, CAD, CHF, COPD, CVA, Depression, Diabetes-Type II, High Cholesterol, Heart Disease, Hypertension, CO, Stroke, Other Additional Past Medical Histor: CO x 6, BLOOD CLOTS IN LLE AND ULE, + previous surgical removal of AC blood Past Surgical History: Angioplasty, Appendectomy, Cholecystectomy, Hysterectomy , Pacemaker, Other Additional Past Surgical Histo: THYROIDECTOMY, HEMORRHOIDECTOMY, PARTIAL HYST, R KNEE SCOPE, R CARPAL TUNNE Alcohol Use: None Drug Use: None Adult General Chief Complaint Chief Complaint: UPPER EXTREMITY PAIN HPI HPI Patient is a 56 year old female who presents with LUE pain. Patient reports she awoke ~0300 this morning with pain and heaviness in her LUE, most prominently just proximal to the elbow. Patient reports h/o clot in the same arm (she is unable to recall exactly whether it was in the artery or vein where the clot was) and has had surgery for it twice (Dr. Estevez). She does take warfarin and has been compliant with this med. She has not taken anything for pain today. She denies any chest discomfort or SOB. No other acute complaints. Review of Systems Review of Systems Constitutional: Denies fever or chills Eyes: Denies change in visual acuity or eye pain HENT: Denies nasal congestion or sore throat Respiratory: Denies cough or shortness of breath Cardiovascular: Denies chest pain GI: Denies abdominal pain, nausea, vomiting, bloody stools or diarrhea : Denies dysuria or hematuria Musculoskeletal: LUE pain and heaviness Integument: Denies rash or skin lesions Neurologic: Denies headache, focal weakness or sensory changes Current Medications Current Medications Current Medications Medications (Trade) Dose Ordered Sig/Irena Start Time Stop Time Status Last Admin Dose Admin Fentanyl Citrate (Fentanyl 2ml Vial) 50 mcg PRN Q5MIN PRN 07/27/16 14:00 07/28/16 13:59 Hydromorphone HCl (Dilaudid) 0.5 mg PRN Q10MIN PRN 07/27/16 14:00 07/28/16 13:59 Iohexol 75 ml 75 ml 1X ONCE 07/27/16 11:15 07/27/16 11:18 DC 07/27/16 12:10 75 ML Lactated Ringer's (Iv Lactated Ringers) 1,000 ml @ 30 mls/hr Q24H 07/27/16 13:47 07/28/16 01:46 Lidocaine HCl 2 ml 1X PRN PRN 07/27/16 14:00 07/28/16 13:59 Morphine Sulfate 1 mg 1 mg PRN Q10MIN PRN 07/27/16 14:00 07/28/16 13:59 Ondansetron HCl (Zofran) 4 mg PRN Q6HRS PRN 07/27/16 14:00 07/28/16 13:59 Sodium Chloride (Iv Sodium Chloride 0.9% 1000ml Bag) 1,000 ml @ 500 mls/hr 1X ONCE 07/27/16 12:00 07/27/16 13:59 07/27/16 12:00 500 MLS/HR Allergies Allergies Allergies Coded Allergies Type Severity Reaction Last Updated Verified Penicillins Allergy Intermediate Hives 11/28/14 Yes codeine Adverse Reaction Mild Nausea and Vomiting 06/26/16 Yes diphenhydramine HCl Adverse Reaction Mild hyperactive 06/26/16 Yes Physical Exam Physical Exam Constitutional: Well developed, well nourished, no acute distress, non-toxic appearance HENT: Normocephalic, atraumatic, bilateral external ears normal Eyes: EOMI, conjunctiva normal, no discharge Neck: Normal range of motion, no stridor Cardiovascular: Heart rate normal, regular rhythm, no murmur Lungs & Thorax: Bilateral breath sounds clear to auscultation Abdomen: Bowel sounds normal, soft, non-distended, no TTP Skin: Warm, dry, no erythema, no rash Back: No tenderness Extremities: LUE TTP at elbow and just proximal; no significant erythema or warmth to touch; minimally palpable radial pulse (but strong signal on doppler) , noticeably less strong than radial pulse on R; brisk cap refill on either side Neurologic: Alert and oriented X 3, no gross deficits noted Current Patient Data Vital Signs Vital Signs Date Time Temp Pulse Resp B/P Pulse Ox O2 Delivery O2 Flow Rate FiO2 07/27/16 13:00 70 18 132/64 98 Room Air 07/27/16 09:45 98.2 98.2 Lab Values Laboratory Tests Test 07/27/16 10:00 White Blood Count 9.2x10^3/uL (4.0-11.0) Red Blood Count 3.88x10^6/uL (3.50-5.40) Hemoglobin 11.6g/dL (12.0-15.5) L Hematocrit 35.5% (36.0-47.0) L Mean Corpuscular Volume 91fL (79-100) Mean Corpuscular Hemoglobin 30pg (25-35) Mean Corpuscular Hemoglobin Concent 33g/dL (31-37) Red Cell Distribution Width 16.1% (11.5-14.5) H Platelet Count 352x10^3/uL (140-400) Neutrophils (%) (Auto) 59% (31-73) Lymphocytes (%) (Auto) 28% (24-48) Monocytes (%) (Auto) 9% (0-9) Eosinophils (%) (Auto) 3% (0-3) Basophils (%) (Auto) 1% (0-3) Neutrophils # (Auto) 5.5x10^3uL (1.8-7.7) Lymphocytes # (Auto) 2.6x10^3/uL (1.0-4.8) Monocytes # (Auto) 0.8x10^3/uL (0.0-1.1) Eosinophils # (Auto) 0.3x10^3/uL (0.0-0.7) Basophils # (Auto) 0.1x10^3/uL (0.0-0.2) Prothrombin Time 30.2SEC (11.7-14.0) H Prothrombin Time INR 3.1 (0.8-1.1) H Sodium Level 141mmol/L (136-145) Potassium Level 4.1mmol/L (3.5-5.1) Chloride Level 101mmol/L (98-107) Carbon Dioxide Level 26mmol/L (21-32) Anion Gap 14 (6-14) Blood Urea Nitrogen 17mg/dL (7-20) Creatinine 1.3mg/dL (0.6-1.0) H Estimated GFR (Cockcroft-Gault) 42.2 Glucose Level 289mg/dL (70-99) H Calcium Level 7.8mg/dL (8.5-10.1) L Total Bilirubin 0.3mg/dL (0.2-1.0) Direct Bilirubin < 0.1mg/dL (0.0-0.2) Aspartate Amino Transferase (AST) 24U/L (15-37) Alanine Aminotransferase (ALT) 27U/L (14-59) Alkaline Phosphatase 59U/L (46-116) Troponin I Quantitative < 0.017ng/mL (0.000-0.055) Total Protein 7.4g/dL (6.4-8.2) Albumin 3.4g/dL (3.4-5.0) Laboratory Tests 07/27/16 10:00 Laboratory Tests 07/27/16 10:00 EKG EKG EKG (My read): sinus rhythm, rate 71, normal axis, QTc 470ms, TWI lead I/V5-6, nonspecific ST changes Radiology/Procedures Radiology/Procedures CXR: IMPRESSION: 1. A transvenous pacemaker remains in place. 2. Coronary artery disease. 3. No acute cardiopulmonary abnormality is detected. CTA LUE: IMPRESSION: Occlusion of the left brachial artery in the inferior aspect of the upper arm with reconstitution of distal blood flow via collateral circulation. LUE US: IMPRESSION: No sonographic evidence of deep vein thrombosis in the left upper extremity. Course & Med Decision Making Course & Med Decision Making Pertinent Labs and Imaging studies reviewed. (See chart for details) Patient is 56-year-old female who presents with left upper extremity heaviness and pain. Concerning for DVT or arterial occlusion, given history of same. Will obtain EKG, chest x-ray, imaging of left upper extremity including ultrasound CTA, labs to evaluate. Pain medication ordered for patient comfort. Imaging results as above. Labs unremarkable; INR 3.1, minimally supratherapeutic. Discussed results with patient, who continues to have significant pain. Discussed with Dr. Estevez, who will take patient to OR. FFP transfusion ordered per his request. Discussed with Dr. Montgomery, will admit under his care after OR. Dragon Disclaimer Dragon Disclaimer This electronic medical record was generated, in whole or in part, using a voice recognition dictation system. Departure Departure Impression: Primary Impression: Brachial artery occlusion, left Disposition: ADMITTED INPATIENT Admitting Physician: Sultana Montgomery Condition: STABLE Referrals: SULTANA MONTGOMERY MD (PCP) MELO MARINO MD Jul 27, 2016 13:25
[2016-07-27] MEDS ORDERED: IV RINGERS,LACTATED 1000ML 1,000 ML IV SCH (13:47)
[2016-07-27] MEDS ORDERED: ACETAMINOPHEN 325 MG TABLET. PO PRN (14:00)
[2016-07-27] MEDS ORDERED: ONDANSETRON PF 4 MG/2 ML VIAL. IV PRN ×2 (14:00)
[2016-07-27] MEDS ORDERED: FENTANYL PF 100 MCG/2 ML VIAL. IV PRN ×2 (14:00)
[2016-07-27] MEDS ORDERED: HYDROMORPHONE 2 MG/ML VIAL. IV PRN (14:00)
[2016-07-27] MEDS ORDERED: MORPHINE SULFATE 2 MG/ML DISP.SYRIN. IV PRN (14:00)
[2016-07-27] MEDS ORDERED: LIDOCAINE 1% 1 ML SYRINGE. ID PRN (14:00)
[2016-07-27] MEDS ORDERED: SURGICEL FIBRILLAR 1X2 EACH. ONE (14:04)
[2016-07-27] MEDS ORDERED: LIDOCAINE 1% PF 30 ML VIAL. ONE (14:04)
[2016-07-27] MEDS ORDERED: EPHEDRINE PF IN SALINE 50 MG/5 ML DISP.SYRIN. IV ONE (14:23)
[2016-07-27] MEDS ORDERED: CEFAZOLIN SODIUM 1 GM in IV NORMAL SALINE 500ML BAG 500 ML IRR ONE (14:30)
[2016-07-27] MEDS ORDERED: PHENYLEPHRINE in 0.9% NACL PF 1 MG/10 ML DISP.SYRIN. IV ONE (14:30)
[2016-07-27] MEDS ORDERED: HEPARIN S0DIUM 5,000 UNIT in IV NORMAL SALINE 500ML BAG 500 ML IRR ONE (14:30)
[2016-07-27] MEDS ORDERED: PROPOFOL 20 ML IV ONE (14:31)
[2016-07-27] MEDS ORDERED: LIDOCAINE 2% 100 MG/5 ML DISP.SYRIN. ONE (14:31)
[2016-07-27] MEDS ORDERED: SUCCINYLCHOLINE 200 MG/10 ML VIAL. ONE (14:33)
[2016-07-27] MEDS ORDERED: VANCOMYCIN 1GM IVPB FOR OMNI 250 ML ONE (14:42)
[2016-07-27] MEDS ORDERED: FENTANYL PF 100 MCG/2 ML VIAL. ONE (14:54)
--- NOTE | 2016-07-27 14:58 | PDOC2 ---
CONSULT Date of Consult Date of Consult DATE: 07/27/16 TIME: 14:55 Past Medical History Cardiovascular: CAD, CHF, HTN, VT, Other Pulmonary: Asthma, COPD CENTRAL NERVOUS SYSTEM: Carpal Tunnel Syndrome, CVA, Migraine, Other GI: Diverticulosis, GERD, Gastritis, Hemorrhoids, Irritable bowel disease, Peptic Ulcer disease, Other Psych: Anxiety Musculoskeletal: Osteoarthritis, Other Endocrine: Diabetes Past Surgical History Past Surgical History: Appendectomy, Cholecystectomy, CABG, Hysterectomy, Other Current Problem List Problem List Problems Medical Problems: (1) Brachial artery occlusion, left Status: Acute Current Medications Current Medications Current Medications Morphine Sulfate 4 mg 1X ONCE IV Last administered on 07/27/16 11:00; Start 07/27/16 at 10:30; Stop 07/27/16 at 10:34; Status DC Iohexol 75 ml 75 ml 1X ONCE IV Last administered on 07/27/16 12:10; Start at 11:15; Stop 07/27/16 at 11:18; Status DC Sodium Chloride (Iv Sodium Chloride 0.9% 1000ml Bag) 1,000 ml @ 500 mls/hr 1X ONCE IV Last administered on 07/27/16 12:00; Start 07/27/16 at 12:00; Stop at 13:59; Status DC Hydromorphone HCl (Dilaudid) 1 mg 1X ONCE IV Last administered on 07/27/16 12 :29; Start 07/27/16 at 12:00; Stop 07/27/16 at 12:02; Status DC Ondansetron HCl (Zofran) 4 mg PRN Q6HRS PRN IV Nausea; Start 07/27/16 at 14:00 ; Stop 07/27/16 at 14:14; Status DC Fentanyl Citrate (Fentanyl 2ml Vial) 25 mcg PRN Q5MIN PRN IV MILD PAIN; Start 07/27/16 at 14:00; Stop 07/27/16 at 14:14; Status DC Fentanyl Citrate (Fentanyl 2ml Vial) 50 mcg PRN Q5MIN PRN IV MODERATE PAIN; Start 07/27/16 at 14:00; Stop 07/27/16 at 14:14; Status DC Morphine Sulfate 1 mg 1 mg PRN Q10MIN PRN IV SEVERE PAIN; Start 07/27/16 at 14: 00; Stop 07/27/16 at 14:14; Status DC Lactated Ringer's (Iv Lactated Ringers) 1,000 ml @ 30 mls/hr Q24H IV ; Start at 13:47; Stop 07/27/16 at 14:14; Status DC Lidocaine HCl 2 ml 1X PRN PRN ID IV START; Start 07/27/16 at 14:00; Stop at 14:14; Status DC Hydromorphone HCl 0.5 mg 0.5 mg PRN Q10MIN PRN IV SEV PAIN,Second choice; Start 07/27/16 at 14:00; Stop 07/27/16 at 14:14; Status DC Heparin Sodium (Porcine) 5000 unit/Sodium Chloride 505 ml @ 505 mls/hr 1X PERIOP ONCE IRR ; Start 07/27/16 at 14:30; Stop 07/27/16 at 14:30; Status DC Cefazolin Sodium/ Sodium Chloride (Ancef/Iv Sodium Chloride 0.9% 500ml Bag) 500 ml @ 500 mls/hr 1X PERIOP ONCE IRR ; Start 07/27/16 at 14:30; Stop 07/27/16 at 14:30; Status DC Ondansetron HCl (Zofran) 4 mg PRN Q8HRS PRN IV NAUSEA/VOMITING; Start 07/27/16 at 14:00; Stop 07/27/16 at 14:14; Status DC Acetaminophen (Tylenol) 650 mg PRN Q4HRS PRN PO FEVER; Start 07/27/16 at 14:00 ; Stop 07/27/16 at 14:14; Status DC Hydromorphone HCl 0.5 mg 0.5 mg PRN Q2HRS PRN IV MODERATE TO SEVERE PAIN; Start 07/27/16 at 14:00; Stop 07/27/16 at 14:14; Status DC Sodium Chloride (Iv Sodium Chloride 0.9% 1000ml Bag) 1,000 ml @ 125 mls/hr 1X ONCE IV ; Start 07/27/16 at 14:00; Stop 07/27/16 at 14:14; Status DC Cellulose 1 each STK-MED ONCE .ROUTE ; Start 07/27/16 at 14:04; Stop 07/27/16 at 14:05; Status DC Lidocaine HCl 30 ml STK-MED ONCE .ROUTE ; Start 07/27/16 at 14:04; Stop at 14:05; Status DC Ephedrine Sulfate 50 mg STK-MED ONCE IV ; Start 07/27/16 at 14:23; Stop at 14:24; Status DC Phenylephrine HCl 1 mg 1 mg STK-MED ONCE IV ; Start 07/27/16 at 14:30; Stop at 14:31; Status DC Propofol (Diprivan) 20 ml @ As Directed STK-MED ONCE IV ; Start 07/27/16 at 14: 31; Stop 07/27/16 at 14:32; Status DC Lidocaine HCl 100 mg STK-MED ONCE .ROUTE ; Start 07/27/16 at 14:31; Stop at 14:32; Status DC Succinylcholine Chloride 200 mg 200 mg STK-MED ONCE .ROUTE ; Start 07/27/16 at 14:33; Stop 07/27/16 at 14:34; Status DC Vancomycin HCl 250 ml @ As Directed STK-MED ONCE .ROUTE ; Start 07/27/16 at 14: 42; Stop 07/27/16 at 14:43; Status DC Active Scripts Active Mucinex (Guaifenesin) 1,200 Mg Tbmp.12hr 1 Tab PO BID Prednisone 10 Mg Tablet 10 Mg PO DIRECTED Levaquin (Levofloxacin) 500 Mg Tablet 500 Mg PO DAILY06 Klor-Con M20 (Potassium Chloride) 20 Meq Tab.er.prt 20 Meq PO DAILYWBKFT Warfarin Sodium 5 Mg Tablet 1 Tab PO DAILY Novolog Flexpen (Insulin Aspart) 100 Unit/1 Ml Insuln.pen 7 Units SQ TIDBFRMEAL Reported Alprazolam 0.25 Mg Tablet 1 Tab PO BID Gabapentin 300 Mg Capsule 900 Mg PO TID Carvedilol 3.125 Mg Tablet 1 Tab PO BID Spironolactone 25 Mg Tablet 25 Mg PO DAILY Levothyroxine Sodium 125 Mcg Tablet 125 Mcg PO DAILYAC Torsemide 20 Mg Tablet 20 Mg PO Zocor (Simvastatin) 80 Mg Tablet 80 Mg PO DAILY Metformin Hcl 1,000 Mg Tablet 1,000 Mg PO BID Lantus Solostar (Insulin Glargine,Hum.rec.anlog) 100 Unit/1 Ml Insuln.pen 44 Unit SQ DAILYWBKFT Reglan (Metoclopramide Hcl) 10 Mg Tablet 10 Mg PO QID Protonix (Pantoprazole Sodium) 40 Mg Granpkt.dr 40 Mg PO BID Advair 250-50 Diskus (Fluticasone/Salmeterol) 1 Each Disk.w.dev 1 Each IH BID Singulair Tablet (Montelukast Sodium) 10 Mg Tablet 10 Mg PO DAILY Aspir 81 (Aspirin) 81 Mg Tablet.dr 81 Mg PO DAILY Allergies Allergies: Coded Allergies: Penicillins (Verified Allergy, Intermediate, Hives, 07/27/16) Tolerated rocephin during prior admit codeine (Verified Adverse Reaction, Mild, Nausea and Vomiting, 06/26/16) diphenhydramine HCl (Verified Adverse Reaction, Mild, hyperactive, 06/26/16 ) Vitals VITALS Vital Signs Date Time Temp Pulse Resp B/P Pulse Ox O2 Delivery O2 Flow Rate FiO2 07/27/16 13:00 70 18 132/64 98 Room Air 07/27/16 09:45 98.2 98.2 Labs Labs Laboratory Tests Test 07/27/16 10:00 White Blood Count 9.2x10^3/uL (4.0-11.0) Red Blood Count 3.88x10^6/uL (3.50-5.40) Hemoglobin 11.6g/dL (12.0-15.5) Hematocrit 35.5% (36.0-47.0) Mean Corpuscular Volume 91fL (79-100) Mean Corpuscular Hemoglobin 30pg (25-35) Mean Corpuscular Hemoglobin Concent 33g/dL (31-37) Red Cell Distribution Width 16.1% (11.5-14.5) Platelet Count 352x10^3/uL (140-400) Neutrophils (%) (Auto) 59% (31-73) Lymphocytes (%) (Auto) 28% (24-48) Monocytes (%) (Auto) 9% (0-9) Eosinophils (%) (Auto) 3% (0-3) Basophils (%) (Auto) 1% (0-3) Neutrophils # (Auto) 5.5x10^3uL (1.8-7.7) Lymphocytes # (Auto) 2.6x10^3/uL (1.0-4.8) Monocytes # (Auto) 0.8x10^3/uL (0.0-1.1) Eosinophils # (Auto) 0.3x10^3/uL (0.0-0.7) Basophils # (Auto) 0.1x10^3/uL (0.0-0.2) Prothrombin Time 30.2SEC (11.7-14.0) Prothromb Time International Ratio 3.1 (0.8-1.1) Sodium Level 141mmol/L (136-145) Potassium Level 4.1mmol/L (3.5-5.1) Chloride Level 101mmol/L (98-107) Carbon Dioxide Level 26mmol/L (21-32) Anion Gap 14 (6-14) Blood Urea Nitrogen 17mg/dL (7-20) Creatinine 1.3mg/dL (0.6-1.0) Estimated GFR (Cockcroft-Gault) 42.2 Glucose Level 289mg/dL (70-99) Calcium Level 7.8mg/dL (8.5-10.1) Total Bilirubin 0.3mg/dL (0.2-1.0) Direct Bilirubin < 0.1mg/dL (0.0-0.2) Aspartate Amino Transf (AST/SGOT) 24U/L (15-37) Alanine Aminotransferase (ALT/SGPT) 27U/L (14-59) Alkaline Phosphatase 59U/L (46-116) Troponin I Quantitative < 0.017ng/mL (0.000-0.055) Total Protein 7.4g/dL (6.4-8.2) Albumin 3.4g/dL (3.4-5.0) Laboratory Tests Test 07/27/16 10:00 White Blood Count 9.2x10^3/uL (4.0-11.0) Red Blood Count 3.88x10^6/uL (3.50-5.40) Hemoglobin 11.6g/dL (12.0-15.5) Hematocrit 35.5% (36.0-47.0) Mean Corpuscular Volume 91fL (79-100) Mean Corpuscular Hemoglobin 30pg (25-35) Mean Corpuscular Hemoglobin Concent 33g/dL (31-37) Red Cell Distribution Width 16.1% (11.5-14.5) Platelet Count 352x10^3/uL (140-400) Neutrophils (%) (Auto) 59% (31-73) Lymphocytes (%) (Auto) 28% (24-48) Monocytes (%) (Auto) 9% (0-9) Eosinophils (%) (Auto) 3% (0-3) Basophils (%) (Auto) 1% (0-3) Neutrophils # (Auto) 5.5x10^3uL (1.8-7.7) Lymphocytes # (Auto) 2.6x10^3/uL (1.0-4.8) Monocytes # (Auto) 0.8x10^3/uL (0.0-1.1) Eosinophils # (Auto) 0.3x10^3/uL (0.0-0.7) Basophils # (Auto) 0.1x10^3/uL (0.0-0.2) Prothrombin Time 30.2SEC (11.7-14.0) Prothromb Time International Ratio 3.1 (0.8-1.1) Sodium Level 141mmol/L (136-145) Potassium Level 4.1mmol/L (3.5-5.1) Chloride Level 101mmol/L (98-107) Carbon Dioxide Level 26mmol/L (21-32) Anion Gap 14 (6-14) Blood Urea Nitrogen 17mg/dL (7-20) Creatinine 1.3mg/dL (0.6-1.0) Estimated GFR (Cockcroft-Gault) 42.2 Glucose Level 289mg/dL (70-99) Calcium Level 7.8mg/dL (8.5-10.1) Total Bilirubin 0.3mg/dL (0.2-1.0) Direct Bilirubin < 0.1mg/dL (0.0-0.2) Aspartate Amino Transf (AST/SGOT) 24U/L (15-37) Alanine Aminotransferase (ALT/SGPT) 27U/L (14-59) Alkaline Phosphatase 59U/L (46-116) Troponin I Quantitative < 0.017ng/mL (0.000-0.055) Total Protein 7.4g/dL (6.4-8.2) Albumin 3.4g/dL (3.4-5.0) Assessment/Plan Assessment/Plan Vascular Consult dictated Imp: 1. 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 2. status post prior embolectomy with patch repair left brachial artery 3. dm 4. tobaccoism 5. obesity Rec: 1. left brachial artery exploration, possible thrombectomy, possible vein bypass left brachial artery. KYLE HAM II, MD Jul 27, 2016 14:58
--- NOTE | 2016-07-27 16:06 | ACF ---
Admission Forms Criteria VASCULAR DISEASE GRG Clinical Indications for Admission to Inpatient Care (Place 'X' for any and all applicable criteria): Hospital admission is needed for appropriate care of the patient because of ANY ONE of the following (1)(2)(3)(4): [ ]I. Life-threatening or limb-threatening skin ulcer as indicated by ANY ONE of the following(5): [ ]a) Surrounding cellulitis unresponsive to outpatient treatment [ ]b) Wet gangrene [ ]c) Lymphangitis [ ]d) Bacteremia [ ]II. Gangrene requiring intensity and frequency of care not manageable to outpatient, emergency, or observation level of care(5) [X]III. Severe pain requiring acute inpatient management [ ]IV. Interventional revascularization (eg, surgery, thrombolysis) needed (eg , critical limb ischemia)(21) [ ]V. Urgent inpatient IV anticoagulation needed due to ALL of the following: [ ]a) Temporary subtherapeutic anticoagulation unacceptable because of high risk of short-term venous or arterial thromboembolism due to ANY ONE of the following(7)(8)(9): [ ]i) Venous thromboembolism within the past 12 months [ ]ii) Underlying malignancy [ ]iii) Patient with mechanical cardiac valve(10)(11) [ ]iv) Underlying hypercoagulable state (eg, protein C or protein S deficiency, antithrombin deficiency, antiphospholipid antibodies) [ ]v) Patient at high risk of thromboembolism (eg, status post orthopedic surgery, history of recurrent venous thromboembolism) [ ]vi) Atrial fibrillation with rheumatic valvular heart disease [ ]vii) Atrial fibrillation with 3 or MORE of the following : [ ]1) Congestive heart failure [ ]2) Hypertension [ ]3) Age 65 years or older [ ]4) Diabetes mellitus [ ]5) History of thromboembolism (eg, stroke, TIA , or systemic embolization) more than 3 months ago [ ]6) Female gender [ ]b) Contraindications to outpatient use of "bridging" agent or alternative oral anticoagulant as indicated by ALL of the following: [ ]i) Contraindication to outpatient use of low-molecular -weight heparin as "bridging" agent as indicated by ANY ONE of the following(8) : [ ]1) Documented current or history of heparin- induced thrombocytopenia(12) [ ]2) Severe thrombocytopenia (eg, platelet count less than 50,000/mm3 (50 x109/L)) [ ]3) Documented allergy to heparin, low- molecular-weight heparin, or pork products [ ]4) Renal failure (creatinine clearance < 30 mL /min/1.73m2 (0.50 mL/sec/1.73m2) or on dialysis) [ ]5) Inability to manage self-injection (eg, by patient, caregiver, or visiting nurse) [ ]ii) Contraindication to outpatient use of fondaparinux as "bridging" agent as indicated by ANY ONE of the following(13)(14)(15)(16): [ ]1) Severe thrombocytopenia (eg, platelet count less than 50,000/mm3 (50 x109/L)) [ ]2) Hypersensitivity to fondaparinux, related drugs, or product components [ ]3) Renal failure (creatinine clearance less than 30 mL/min/1.73m2 (0.50 mL/sec/1.73m2) or on dialysis) [ ]4) Inability to manage self-injection (eg, by patient, caregiver, or visiting nurse) [ ]iii) Oral direct thrombin inhibitor (eg, dabigatran) or oral coagulation factor Xa inhibitor (eg, rivaroxaban) not appropriate as oral anticoagulation (eg, indication not appropriate) or contraindicated (eg, hypersensitivity, renal failure)(13)(16)(17)(18)(19)(20) [ ]. Suspected severe acute ischemia due to peripheral vascular disease as indicated by ANY ONE of the following(5)(6): [ ]a) Tissue necrosis [ ]b) Severe pain [ ]c) Acute pulselessness [ ]d) Other evidence of acute severe ischemia (eg, lactic acidosis , motor dysfunction) [ ]VII. Acute or newly diagnosed major vessel (eg, aorta) dissection, rupture, or leakage(5)(6)(22)(23) [ ]VIII.Vascular Disease and ALL of the following: [ ]a) Symptom or finding for which emergency and observation care have failed or are not considered appropriate (Use General Criteria: Observation Care as appropriate) [ ]b) Presence of ANY ONE of the following: [ ]i) A General Admission Criteria [ ]ii) A Pediatric General Admission Criteria The original [facility] content created by [facility] has been revised. The portions of the content which have been revised are identified through the use of italic text or in bold, and [facility] has neither reviewed nor approved the modified material. All other unmodified content is copyright [facility]. Please see references footnoted in the original [facility] edition 2016 Admission Criteria Met?: Yes RASHI CONROY Jul 27, 2016 16:06
[2016-07-27] MEDS ORDERED: HEPARIN for IV BOLUS 10,000 UNIT/10 ML VIAL. ONE (16:22)
[2016-07-27] MEDS ORDERED: SEVOFLURANE > 120 MINUTES. IH ONE (18:40)
[2016-07-27] MEDS ORDERED: PHENYLEPHRINE 10 MG/ML VIAL. ONE ×2 (18:40→20:10)
--- NOTE | 2016-07-27 20:49 | PDOC4 ---
Operative Note Operative Note Op note dictated DX; 1. chronic arterial insufficiency left arm secondary to severe diffuse intimal hyperpasia with webbing Op: 1. exploration left brachial artery, left proximal axillary artery to mid forearm radial artery bypass with saphenous vein Surg: Herb GOT to rr in sat cond; 2+ graft and radial pulses. KYLE HAM II, MD Jul 27, 2016 20:49
[2016-07-27 21:47] VITALS: BP 108/71
[2016-07-27 22:02] VITALS: BP 118/71
[2016-07-27 22:17] VITALS: BP 111/69
[2016-07-27 22:32] VITALS: BP 100/65
[2016-07-27] MEDS: HYDROMORPHONE 2 MG/ML VIAL. IV PRN (22:49)
[2016-07-27] MEDS ORDERED: DEXTROSE 50% 25 GM / 50ML DISP.SYRIN. IV PRN (23:00)
[2016-07-27 23:02] VITALS: BP 109/58
[2016-07-27 23:32] VITALS: BP 106/62
--- NOTE | 2016-07-27 23:42 | OP ---
DATE OF SURGERY: 07/27/2016 PREOPERATIVE DIAGNOSIS: Arterial insufficiency of the left arm and forearm, critical. 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 OPERATIONS PERFORMED: 1. Left brachial exploration with attempted thrombectomy. 2. Exploration of the mid forearm radial artery and left proximal axillary artery with left proximal axillary artery to mid left forearm artery bypass using nonreversed great saphenous vein harvested from the right leg. 3. Aneurysmectomy of the saphenous vein graft with end-to-end anastomosis. SURGEON: Kyle Estevez M.D. CAMPUS RECRUITING COORDINATOR: None. ANESTHESIA: General. INDICATIONS: This is a 56-year-old female who presented to the Emergency Room today with complaints of severe left arm and forearm pain. She has had prior left brachial thrombectomy with vein patch performed in 2006. At that time, she had adherent clots, probably due to chronicity. She had a CT angiogram today, which showed occlusion of the distal brachial artery with reconstitution of the radial and ulnar arteries in the forearm. The operation, risks, and benefits were explained. OPERATIVE FINDINGS: The brachial artery was small and upon opening contained significant amount of intimal hyperplastic changes with webbing. There was no thrombus present. The catheter was able to be passed proximally, but again, no clot was retrieved and there was severe resistance to withdrawal of the catheter with the balloon inflated likely due to all the intimal changes. For this reason, the artery was dissected in both directions. The artery seemed to be very unhealthy proximally and distally. For this reason, the radial artery was dissected in the mid forearm and this appeared to be a nice vessel by palpation. The proximal axillary artery likewise was dissected and it too was soft with a good pulse. Approximately 9 inches of great saphenous vein was then harvested from the right leg in the usual manner. There were two aneurysmal segments of the vein, which had to be resected with end-to-end anastomosis of the vein graft. This was then sutured end-to-side proximally to the axillary artery and end-to-side to the mid forearm radial artery. There was excellent flow through the graft and a palpable radial pulse and a palpable graft pulse at the end of the procedure. DESCRIPTION OF PROCEDURE: After general anesthetic was administered, the left arm and right leg were prepped and draped in the usual manner. A longitudinal incision was made over the brachial artery, which was audible with Doppler. Brachial artery was dissected and encircled with vessel loops proximally and distally. A longitudinal arteriotomy was made. The patient's INR was 3.2, and she was also given 3000 units of heparin. The catheter was then placed; however, upon opening of the artery, there was no clear-cut lumen. There was a lot of the intimal type scarring and webbing. A #2 catheter was placed proximally with a little bit of resistance, but a lot of resistance to withdraw the catheter with the balloon inflated. No clot was retrieved. It was thought therefore that her symptoms were due to severe tandem diffuse disease of the distal brachial and proximal radial and ulnar arteries. Dissection was then carried in both directions as described above. Finally, the radial artery was exposed in the mid forearm. This was a nice vessel. It was encircled with vessel loops proximally and distally. Likewise, the axillary artery was dissected and the left upper arm. Care was taken to preserve the nerve structures. The vein was then harvested from the great saphenous vein. Incision was made in the right groin. The great saphenous vein was identified and dissected for approximately 9-10 inches. The vein was harvested in the usual manner using 3-0 silk ligatures on the vein side and clips on the patient's side. The vein was distended with heparinized saline. A valve lysis was performed with the retrograde valvulotome. There were two aneurysmal segments, which were resected and end-to-end venoanastomosis was done using 7-0 Prolene, loupe magnification. The patient was then re-bolused with 3000 units of heparin and the axillary artery was incised longitudinally. There was fair amount of intimal type thickening at this location as well and the intimectomy was performed and approximately 4 inches of intimal cord was removed from the vessel. The vein graft was then sutured end-to-side using a 7-0 Prolene suture. After completing the anastomosis, there was excellent pulsatile flow through the vein graft, which was then irrigated retrograde with heparinized saline. The vein graft was then tunneled in a subcutaneous fashion down to the left radial artery, which had been previously exposed. A longitudinal arteriotomy was made and the graft was sutured end-to-side using 7-0 Prolene, loupe magnification. Prior to completing anastomosis, back bleeding was assessed ____ bleeding likewise and the flow was restored. Wounds were then irrigated with antibiotic irrigation and closed with absorbable suture, the skin with 4-0 nylon with regards to the arm. The right leg was closed with 2-0 Vicryl and cayla. Sterile dressings were applied to all wounds. The patient was taken to the recovery room in satisfactory condition. KYLE ESTEVEZ MD DR: FRANNIE/natanael JOB#: [id number] / [id number]
[2016-07-28] VITALS (8 sets, daily range): BP systolic 94–118; BP diastolic 53–70
--- NOTE | 2016-07-28 00:41 | CONS ---
DATE OF CONSULTATION: 07/27/2016 VASCULAR SURGERY CONSULTATION CLINICAL HISTORY: A 56-year-old female who was awakened from sleep at 3:00 this morning with acute pain in her left arm. She has had prior embolectomy on 2 occasions, the latest of which occurred in 2006 requiring thrombectomy of some adherent clot and a patch repair. She has been doing well until this morning. She has been maintained on warfarin for cardiac issues. She continues to smoke and she is a diabetic. She has a significant amount of pain in the left forearm requiring narcotic medication. She is noted to have arterial flow by Doppler in the radial artery. CT angiogram was done, which demonstrates occlusion of a fairly atherosclerotic brachial artery distally with reconstitution of the radial and ulnar arteries. PAST MEDICAL HISTORY: Significant for the above. MEDICATIONS: Reviewed. Include medication for diabetes. REVIEW OF SYSTEMS: She has no complaints of claudication, no complaints of abdominal pain, or weight loss. Only complaints are referable to the left arm. Otherwise, a 12-point review of systems is negative. ALLERGIES: INCLUDE PENICILLIN, CODEINE. PHYSICAL EXAMINATION: GENERAL: The patient is alert and awake. She is in no distress. LUNGS: Chest is clear. CARDIOVASCULAR: Tones are normal. EXTREMITIES: Radial and brachial pulses on the right are easily palpable. Carotid pulses are palpable. Absent left brachial and pedal pulses. The left hand is warm with intact neuromotor function. She has a palpable dorsal pedal pulses bilaterally. LABORATORY DATA: White count is 9000, hemoglobin is 11.6. Serum creatinine is 1.3. CT angiogram was done and was reviewed. ASSESSMENT: 1. Subacute arterial insufficiency of the left arm, recurrent, probably due to thrombotic occlusion of an atherosclerotic disease, brachial artery. 2. History of diabetes. 3. History of tobaccoism. 4. Moderate obesity. RECOMMENDATION: Urgent left brachial exploration with possible thrombectomy, but more likely vein bypass. The operation risks and benefits were explained to the patient and she understands and wishes to proceed. KYLE HAM MD DR: FRANNIE/natanael JOB#: [id number] / [id number]
[2016-07-28 05:12] LABS: BASO % 0 % (0-3); EOS % 0 % (0-3); HEMATOCRIT 31.7 % (36.0-47.0); LYMPH # 1.2 x10^3/uL (1.0-4.8); LYMPH % 10 % (24-48); MEAN CORPUSCULAR HEMOGLOBIN 30 pg (25-35); MEAN CORPUSCULAR HGB CONC 32 g/dL (31-37); MEAN CORPUSCULAR VOLUME 94 fL (79-100); MONO % 8 % (0-9); NEUT % 82 % (31-73); PLATELET COUNT 296 x10^3/uL (140-400); RED BLOOD COUNT 3.38 x10^6/uL (3.50-5.40); RED CELL DISTRIBUTION WIDTH 16.3 % (11.5-14.5); WHITE BLOOD COUNT 12.4 x10^3/uL (4.0-11.0)
[2016-07-28 05:24] LABS: INR 2.1 (0.8-1.1); PROTHROMBIN TIME PATIENT 22.3 SEC (11.7-14.0)
[2016-07-28 05:43] LABS: ALBUMIN 2.8 g/dL (3.4-5.0); ALBUMIN/GLOBULIN RATIO 0.6 (1.0-1.7); CALCIUM 7.2 mg/dL (8.5-10.1); CREATININE 1.3 mg/dL (0.6-1.0); GFR 42.2; POTASSIUM 4.4 mmol/L (3.5-5.1); TOTAL BILIRUBIN 0.4 mg/dL (0.2-1.0); TOTAL PROTEIN 7.2 g/dL (6.4-8.2)
[2016-07-28] MEDS: LEVOTHYROXINE 125 MCG TABLET PO SCH (06:17)
[2016-07-28] MEDS: PANTOPRAZOLE 40 MG TABLET. PO SCH ×2 (06:17→16:08)
[2016-07-28] MEDS: METOCLOPRAMIDE 10 MG TABLET PO SCH ×4 (06:17→21:09)
[2016-07-28] MEDS: INSULIN ASPART 300 UNITS/3 ML INSULN.PEN SQ SCH ×6 (07:30→17:00)
[2016-07-28] MEDS ORDERED: BUDESONIDE 0.5 MG/2 ML NEBU NEB SCH (08:00)
[2016-07-28] MEDS: HYDROMORPHONE 2 MG/ML VIAL. IV PRN (08:28)
--- NOTE | 2016-07-28 08:36 | PDOC1 ---
JOCELYN BRYANT [employer]ICKER 07/28/16 0836: HISTORY AND PHYSICAL Chief Complaint Chief Complaint This 56 year old female has been admitted with a chief complaint of acute LUE pain. She reports the onset of pain was 3AM this morning with heavy feeling present also. She presented to the ED for evaluation. Cardiac w/u was negative. Doppler RUE was negative DVT. A CT revealed an occlusion in the brachial artery. Dr. Song was consulted and saw Stacey in the ED. He diagnosed a subacute arterial insufficiency LA secondary to brachial artery occlusion. Stacey was taken to surgery urgently. Dr. Mcdowell's surgical note : Left brachial exploration with attempted thrombectomy. 2. Exploration of the mid forearm radial artery and left proximal axillary artery with left proximal axillary artery to mid left forearm artery bypass using nonreversed great saphenous vein harvested from the right leg. 3. Aneurysmectomy of the saphenous vein graft with end-to-end anastomosis. She is admitted to the [facility] post op. . Problem List Problems Medical Problems: (1) Brachial artery occlusion, left Status: Acute Past Medical History Cardiovascular: CAD (multiple IA, PCI stents multiple and CABG ), CHF (ICM systolic ), HTN, IA, Other Pulmonary: COPD (emphysema ), Pneumonia (Jun 2015) CENTRAL NERVOUS SYSTEM: Carpal Tunnel Syndrome, CVA, Migraine GI: Diverticulosis, GERD, Gastritis (h/o), Hemorrhoids, Irritable bowel disease , Peptic Ulcer disease (h/o), Other (h/o fatty liver) Heme/Onc: Anemia NOS Psych: Anxiety Musculoskeletal: Osteoarthritis, Other (chronic pain management by [facility] ) ENT: Allergic Rhinitis Renal/: Chronic renal insuff (CKD II ), Other (h/o non obstructing R renal calculus ) Endocrine: Diabetes (Type II neuropathy, PVD) Past Surgical History PSH h/o CT thrombectomy LA with dilation, hemorrhoidectomy, PCI CAD-h/o 9 stents Past Surgical History: Appendectomy, Cholecystectomy, CABG (2006), Hysterectomy , Other Past Family History Family History: Cancer (Colon father ) Past Social History PSH , disabled, h/o smoking x 30 year, quit 2016. Negative ETOH or illicit drug use. Review of Symptoms Review of Symptoms A 14 point ROS was completed with the following noted as positive: per HPI Other systems reviewed and negative. Medications Medications reviewed and reconciled Allergy Allergies Coded Allergies Type Severity Reaction Last Updated Verified Penicillins Allergy Intermediate Hives 07/27/16 Yes codeine Adverse Reaction Mild Nausea and Vomiting 07/27/16 Yes diphenhydramine HCl Adverse Reaction Mild hyperactive 07/27/16 Yes Physical Exam Physical Exam General appearance - alert, ill appearing, and in mild distress r/t post op pain Mental Status - alert, oriented to person, place, and time, affect appropriate to mood Head - normal Chest - clear to auscultation, no wheezes, rales or rhonchi, symmetric air entry Heart - S1 and S2 normal Abdomen - soft, nontender, nondistended, BS+ Neurological - no acute focal neurological deficit noted Musculoskeletal - no muscular tenderness noted Extremities - no pedal edema, dressings insitu LUE, R thigh. Circ check WNL RUE. Skin - warm and dry VTE Prophylaxis Ordered VTE Prophylaxis Devices: Yes VTE Pharmacological Prophylaxi: No Assessment Labs Laboratory Tests Test 07/27/16 10:00 07/27/16 20:58 07/27/16 21:54 07/28/16 04:10 White Blood Count 9.2x10^3/uL (4.0-11.0) 12.4x10^3/uL (4.0-11.0) Red Blood Count 3.88x10^6/uL (3.50-5.40) 3.38x10^6/uL (3.50-5.40) Hemoglobin 11.6g/dL (12.0-15.5) 10.0g/dL (12.0-15.5) Hematocrit 35.5% (36.0-47.0) 31.7% (36.0-47.0) Mean Corpuscular Volume 91fL (79-100) 94fL (79-100) Mean Corpuscular Hemoglobin 30pg (25-35) 30pg (25-35) Mean Corpuscular Hemoglobin Concent 33g/dL (31-37) 32g/dL (31-37) Red Cell Distribution Width 16.1% (11.5-14.5) 16.3% (11.5-14.5) Platelet Count 352x10^3/uL (140-400) 296x10^3/uL (140-400) Neutrophils (%) (Auto) 59% (31-73) 82% (31-73) Lymphocytes (%) (Auto) 28% (24-48) 10% (24-48) Monocytes (%) (Auto) 9% (0-9) 8% (0-9) Eosinophils (%) (Auto) 3% (0-3) 0% (0-3) Basophils (%) (Auto) 1% (0-3) 0% (0-3) Neutrophils # (Auto) 5.5x10^3uL (1.8-7.7) 10.1x10^3uL (1.8-7.7) Lymphocytes # (Auto) 2.6x10^3/uL (1.0-4.8) 1.2x10^3/uL (1.0-4.8) Monocytes # (Auto) 0.8x10^3/uL (0.0-1.1) 1.0x10^3/uL (0.0-1.1) Eosinophils # (Auto) 0.3x10^3/uL (0.0-0.7) 0.0x10^3/uL (0.0-0.7) Basophils # (Auto) 0.1x10^3/uL (0.0-0.2) 0.0x10^3/uL (0.0-0.2) Prothrombin Time 30.2SEC (11.7-14.0) 22.3SEC (11.7-14.0) Prothromb Time International Ratio 3.1 (0.8-1.1) 2.1 (0.8-1.1) Sodium Level 141mmol/L (136-145) Potassium Level 4.1mmol/L (3.5-5.1) Chloride Level 101mmol/L (98-107) Carbon Dioxide Level 26mmol/L (21-32) Anion Gap 14 (6-14) Blood Urea Nitrogen 17mg/dL (7-20) Creatinine 1.3mg/dL (0.6-1.0) Estimated GFR (Cockcroft-Gault) 42.2 Glucose Level 289mg/dL (70-99) Calcium Level 7.8mg/dL (8.5-10.1) Total Bilirubin 0.3mg/dL (0.2-1.0) Direct Bilirubin < 0.1mg/dL (0.0-0.2) Aspartate Amino Transf (AST/SGOT) 24U/L (15-37) Alanine Aminotransferase (ALT/SGPT) 27U/L (14-59) Alkaline Phosphatase 59U/L (46-116) Troponin I Quantitative < 0.017ng/mL (0.000-0.055) Total Protein 7.4g/dL (6.4-8.2) Albumin 3.4g/dL (3.4-5.0) Glucose (Fingerstick) 199mg/dL (70-99) 221mg/dL (70-99) Test 07/28/16 04:20 07/28/16 07:53 Sodium Level 142mmol/L (136-145) Potassium Level 4.4mmol/L (3.5-5.1) Chloride Level 104mmol/L (98-107) Carbon Dioxide Level 27mmol/L (21-32) Anion Gap 11 (6-14) Blood Urea Nitrogen 18mg/dL (7-20) Creatinine 1.3mg/dL (0.6-1.0) Estimated GFR (Cockcroft-Gault) 42.2 BUN/Creatinine Ratio 14 (6-20) Glucose Level 234mg/dL (70-99) Calcium Level 7.2mg/dL (8.5-10.1) Total Bilirubin 0.4mg/dL (0.2-1.0) Aspartate Amino Transf (AST/SGOT) 34U/L (15-37) Alanine Aminotransferase (ALT/SGPT) 30U/L (14-59) Alkaline Phosphatase 55U/L (46-116) Total Protein 7.2g/dL (6.4-8.2) Albumin 2.8g/dL (3.4-5.0) Albumin/Globulin Ratio 0.6 (1.0-1.7) Glucose (Fingerstick) 191mg/dL (70-99) Laboratory Tests Test 07/27/16 10:00 07/27/16 20:58 07/27/16 21:54 07/28/16 04:10 White Blood Count 9.2x10^3/uL (4.0-11.0) 12.4x10^3/uL (4.0-11.0) Red Blood Count 3.88x10^6/uL (3.50-5.40) 3.38x10^6/uL (3.50-5.40) Hemoglobin 11.6g/dL (12.0-15.5) 10.0g/dL (12.0-15.5) Hematocrit 35.5% (36.0-47.0) 31.7% (36.0-47.0) Mean Corpuscular Volume 91fL (79-100) 94fL (79-100) Mean Corpuscular Hemoglobin 30pg (25-35) 30pg (25-35) Mean Corpuscular Hemoglobin Concent 33g/dL (31-37) 32g/dL (31-37) Red Cell Distribution Width 16.1% (11.5-14.5) 16.3% (11.5-14.5) Platelet Count 352x10^3/uL (140-400) 296x10^3/uL (140-400) Neutrophils (%) (Auto) 59% (31-73) 82% (31-73) Lymphocytes (%) (Auto) 28% (24-48) 10% (24-48) Monocytes (%) (Auto) 9% (0-9) 8% (0-9) Eosinophils (%) (Auto) 3% (0-3) 0% (0-3) Basophils (%) (Auto) 1% (0-3) 0% (0-3) Neutrophils # (Auto) 5.5x10^3uL (1.8-7.7) 10.1x10^3uL (1.8-7.7) Lymphocytes # (Auto) 2.6x10^3/uL (1.0-4.8) 1.2x10^3/uL (1.0-4.8) Monocytes # (Auto) 0.8x10^3/uL (0.0-1.1) 1.0x10^3/uL (0.0-1.1) Eosinophils # (Auto) 0.3x10^3/uL (0.0-0.7) 0.0x10^3/uL (0.0-0.7) Basophils # (Auto) 0.1x10^3/uL (0.0-0.2) 0.0x10^3/uL (0.0-0.2) Prothrombin Time 30.2SEC (11.7-14.0) 22.3SEC (11.7-14.0) Prothromb Time International Ratio 3.1 (0.8-1.1) 2.1 (0.8-1.1) Sodium Level 141mmol/L (136-145) Potassium Level 4.1mmol/L (3.5-5.1) Chloride Level 101mmol/L (98-107) Carbon Dioxide Level 26mmol/L (21-32) Anion Gap 14 (6-14) Blood Urea Nitrogen 17mg/dL (7-20) Creatinine 1.3mg/dL (0.6-1.0) Estimated GFR (Cockcroft-Gault) 42.2 Glucose Level 289mg/dL (70-99) Calcium Level 7.8mg/dL (8.5-10.1) Total Bilirubin 0.3mg/dL (0.2-1.0) Direct Bilirubin < 0.1mg/dL (0.0-0.2) Aspartate Amino Transf (AST/SGOT) 24U/L (15-37) Alanine Aminotransferase (ALT/SGPT) 27U/L (14-59) Alkaline Phosphatase 59U/L (46-116) Troponin I Quantitative < 0.017ng/mL (0.000-0.055) Total Protein 7.4g/dL (6.4-8.2) Albumin 3.4g/dL (3.4-5.0) Glucose (Fingerstick) 199mg/dL (70-99) 221mg/dL (70-99) Test 07/28/16 04:20 07/28/16 07:53 Sodium Level 142mmol/L (136-145) Potassium Level 4.4mmol/L (3.5-5.1) Chloride Level 104mmol/L (98-107) Carbon Dioxide Level 27mmol/L (21-32) Anion Gap 11 (6-14) Blood Urea Nitrogen 18mg/dL (7-20) Creatinine 1.3mg/dL (0.6-1.0) Estimated GFR (Cockcroft-Gault) 42.2 BUN/Creatinine Ratio 14 (6-20) Glucose Level 234mg/dL (70-99) Calcium Level 7.2mg/dL (8.5-10.1) Total Bilirubin 0.4mg/dL (0.2-1.0) Aspartate Amino Transf (AST/SGOT) 34U/L (15-37) Alanine Aminotransferase (ALT/SGPT) 30U/L (14-59) Alkaline Phosphatase 55U/L (46-116) Total Protein 7.2g/dL (6.4-8.2) Albumin 2.8g/dL (3.4-5.0) Albumin/Globulin Ratio 0.6 (1.0-1.7) Glucose (Fingerstick) 191mg/dL (70-99) Plan Plan 1. 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 ICM CHF EF systolic, not acute 3. CAD with h/o IA multiple, PCI Stents multiple, and CABG 4. CKD II 5 chronic respiratory failure with underlying COPD, emphysema 6. 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 DVT in past with chronic coumadin therapy 8. hypothyroid 9. HTN 10. Hyperlipidemia 11. chronic pain management by [facility] 12. h/o fatty liver 13. h/o non obstructing R renal calculus PLAN: L brachial artery occlusion surgical consult s/p bypass with SVG obtained R thigh Tm 100.5 last evening Admit WBC 9.2 07/28 12.4 Ancef pre op CHF daily weight IO DM II FSBS /SSI BS [id number] Anemia chronic Admit 11.6 07/28 10.0 DVT/anticoagulation Admit INR 3.1 07/28 04:00 2.1 pharmacy managing warfarin CDK II Admit BUN 17 07/28 18 Cr 1.3 1.3 K 4.1 4.4 DVT/GI prophylaxis SCD/REYMUNDO warfarin PPI For more details regarding further plans, please refer to the orders. SULTANA MONTGOMERY MD 07/28/16 1104: HISTORY AND PHYSICAL Plan Plan The patient was seen and examined by me. Chart reviewed and plan of care formulated. Discussed with, reviewed and agree with APPRENTICE COOK's notes, plan of care and orders with modifications as necessary. For more details regarding further plans, please refer to the orders. JOCELYN BRYANT APRN Jul 28, 2016 08:36 SULTANA MONTGOMERY MD Jul 28, 2016 11:04
[2016-07-28] MEDS: INSULIN DETEMIR 300 UNITS/3 ML INSULN.PEN. SQ SCH (08:44)
[2016-07-28] MEDS ORDERED: NON FORMULARY ITEM (Fluticasone/Salmeterol (Advair 250-50 Diskus) 1 EACH) IH SCH (09:00)
[2016-07-28] MEDS ORDERED: GUAIFENESIN ER 600 MG TABLET.ER PO SCH (09:00)
[2016-07-28] MEDS: ALBUTEROL SULFATE 2.5 MG/3 ML NEBU. NEB SCH ×4 (09:01→20:13)
[2016-07-28] MEDS: CARVEDILOL 3.125 MG TABLET PO SCH ×2 (09:29→16:09)
[2016-07-28] MEDS: PREDNISONE 10 MG TABLET PO SCH (09:29)
[2016-07-28] MEDS: SPIRONOLACTONE 25 MG TABLET PO SCH (09:29)
[2016-07-28] MEDS: MONTELUKAST SODIUM 10 MG TABLET. PO SCH (09:29)
[2016-07-28] MEDS: ALPRAZOLAM 0.25 MG TABLET PO SCH ×2 (09:29→21:09)
[2016-07-28] MEDS: ASPIRIN ENTERIC COATED 81 MG TABLET.DR. PO SCH (09:29)
[2016-07-28] MEDS: GABAPENTIN 300 MG CAPSULE. PO SCH ×2 (09:30→21:09)
[2016-07-28] MEDS: POTASSIUM CHLORIDE 20 MEQ TABLET.ER. PO SCH (09:30)
[2016-07-28] MEDS: METFORMIN 1,000 MG TABLET PO SCH ×2 (09:30→16:08)
[2016-07-28] MEDS: TORSEMIDE 20 MG TABLET. PO SCH (09:33)
[2016-07-28] MEDS ORDERED: HYDROCODONE/APAP 7.5/325MG TABLET. PO PRN (11:00)
--- NOTE | 2016-07-28 11:08 | PDOC ---
PROGRESS NOTES Subjective Subjective "My arm feels so much better. No pain and it's warm." Objective Objective Vascular Surgery - POD#1 Urgent LUE bypass for acute occlusion O: No acute distress. at bedside. CV: RRR Pulm: Anteriorly with exp wheezes. Supplemental oxygen on at 2L Abd: + sounds. No nausea LUE: Dressing D&I. Left hand pink, warm and 1-2 sec circ return. [place] nail beds. Strong bypass graft palpated. RLE: Right thigh dressing D&I. Assessment/Plan: 1. Recurrent acute occlusion LUE - POD#1 urgent bypass to re-establish arterial circulation into hand using SVG from right thigh. Unable to perform thrombectomy. 2. Recurrent thrombus on warfarin. Continue to anticoagulation on warfarin and antiplatelet therapy on ASA. Will discuss with Dr. Estevez whether consideration should be made with adding Plavix in addition as patient did have recurrent clot while therapeutic on warfarin. Hypercoagulable? 3. ABSOLUTELY needs to stop smoking!! Long discussion with patient and about this. Will add Nicotine patch today. Patient verbalized understanding of what smoking does to her blood and blood vessels and that she is interested in continuing towards cessation. 4. Ambulate today, d/c ovalle, stop IV narcotics and anticipate dressing change in a.m. If INR remains therapeutic tomorrow, ready for d/c to home? 5. Follow up appt with Dr. Estevez scheduled for August 11 at 2:00 p.m. Vital Signs Date Time Temp Pulse Resp B/P Pulse Ox O2 Delivery O2 Flow Rate FiO2 07/28/16 09:29 79 118/64 07/28/16 09:06 96 Nasal Cannula 2.0 07/28/16 06:59 98.1 16 98.1 Intake and Output 07/28/16 07:00 Intake Total 1000 ml Output Total 650 ml Balance 350 ml Intake Oral 500 ml IV Total 500 ml Output Urine Total 650 ml Assessment Assessment Problems Medical Problems: (1) Brachial artery occlusion, left Status: Acute Comment Review of Relevant I have reviewed the following items jarod (where applicable) has been applied. Labs Laboratory Tests Test 07/27/16 10:00 07/27/16 20:58 07/27/16 21:54 07/28/16 04:10 White Blood Count 9.2x10^3/uL (4.0-11.0) 12.4x10^3/uL (4.0-11.0) Red Blood Count 3.88x10^6/uL (3.50-5.40) 3.38x10^6/uL (3.50-5.40) Hemoglobin 11.6g/dL (12.0-15.5) 10.0g/dL (12.0-15.5) Hematocrit 35.5% (36.0-47.0) 31.7% (36.0-47.0) Mean Corpuscular Volume 91fL (79-100) 94fL (79-100) Mean Corpuscular Hemoglobin 30pg (25-35) 30pg (25-35) Mean Corpuscular Hemoglobin Concent 33g/dL (31-37) 32g/dL (31-37) Red Cell Distribution Width 16.1% (11.5-14.5) 16.3% (11.5-14.5) Platelet Count 352x10^3/uL (140-400) 296x10^3/uL (140-400) Neutrophils (%) (Auto) 59% (31-73) 82% (31-73) Lymphocytes (%) (Auto) 28% (24-48) 10% (24-48) Monocytes (%) (Auto) 9% (0-9) 8% (0-9) Eosinophils (%) (Auto) 3% (0-3) 0% (0-3) Basophils (%) (Auto) 1% (0-3) 0% (0-3) Neutrophils # (Auto) 5.5x10^3uL (1.8-7.7) 10.1x10^3uL (1.8-7.7) Lymphocytes # (Auto) 2.6x10^3/uL (1.0-4.8) 1.2x10^3/uL (1.0-4.8) Monocytes # (Auto) 0.8x10^3/uL (0.0-1.1) 1.0x10^3/uL (0.0-1.1) Eosinophils # (Auto) 0.3x10^3/uL (0.0-0.7) 0.0x10^3/uL (0.0-0.7) Basophils # (Auto) 0.1x10^3/uL (0.0-0.2) 0.0x10^3/uL (0.0-0.2) Prothrombin Time 30.2SEC (11.7-14.0) 22.3SEC (11.7-14.0) Prothromb Time International Ratio 3.1 (0.8-1.1) 2.1 (0.8-1.1) Sodium Level 141mmol/L (136-145) Potassium Level 4.1mmol/L (3.5-5.1) Chloride Level 101mmol/L (98-107) Carbon Dioxide Level 26mmol/L (21-32) Anion Gap 14 (6-14) Blood Urea Nitrogen 17mg/dL (7-20) Creatinine 1.3mg/dL (0.6-1.0) Estimated GFR (Cockcroft-Gault) 42.2 Glucose Level 289mg/dL (70-99) Calcium Level 7.8mg/dL (8.5-10.1) Total Bilirubin 0.3mg/dL (0.2-1.0) Direct Bilirubin < 0.1mg/dL (0.0-0.2) Aspartate Amino Transf (AST/SGOT) 24U/L (15-37) Alanine Aminotransferase (ALT/SGPT) 27U/L (14-59) Alkaline Phosphatase 59U/L (46-116) Troponin I Quantitative < 0.017ng/mL (0.000-0.055) Total Protein 7.4g/dL (6.4-8.2) Albumin 3.4g/dL (3.4-5.0) Glucose (Fingerstick) 199mg/dL (70-99) 221mg/dL (70-99) Test 07/28/16 04:20 07/28/16 07:53 Sodium Level 142mmol/L (136-145) Potassium Level 4.4mmol/L (3.5-5.1) Chloride Level 104mmol/L (98-107) Carbon Dioxide Level 27mmol/L (21-32) Anion Gap 11 (6-14) Blood Urea Nitrogen 18mg/dL (7-20) Creatinine 1.3mg/dL (0.6-1.0) Estimated GFR (Cockcroft-Gault) 42.2 BUN/Creatinine Ratio 14 (6-20) Glucose Level 234mg/dL (70-99) Calcium Level 7.2mg/dL (8.5-10.1) Total Bilirubin 0.4mg/dL (0.2-1.0) Aspartate Amino Transf (AST/SGOT) 34U/L (15-37) Alanine Aminotransferase (ALT/SGPT) 30U/L (14-59) Alkaline Phosphatase 55U/L (46-116) Total Protein 7.2g/dL (6.4-8.2) Albumin 2.8g/dL (3.4-5.0) Albumin/Globulin Ratio 0.6 (1.0-1.7) Glucose (Fingerstick) 191mg/dL (70-99) Laboratory Tests Test 07/27/16 20:58 07/27/16 21:54 07/28/16 04:10 07/28/16 04:20 Glucose (Fingerstick) 199mg/dL (70-99) 221mg/dL (70-99) White Blood Count 12.4x10^3/uL (4.0-11.0) Red Blood Count 3.38x10^6/uL (3.50-5.40) Hemoglobin 10.0g/dL (12.0-15.5) Hematocrit 31.7% (36.0-47.0) Mean Corpuscular Volume 94fL (79-100) Mean Corpuscular Hemoglobin 30pg (25-35) Mean Corpuscular Hemoglobin Concent 32g/dL (31-37) Red Cell Distribution Width 16.3% (11.5-14.5) Platelet Count 296x10^3/uL (140-400) Neutrophils (%) (Auto) 82% (31-73) Lymphocytes (%) (Auto) 10% (24-48) Monocytes (%) (Auto) 8% (0-9) Eosinophils (%) (Auto) 0% (0-3) Basophils (%) (Auto) 0% (0-3) Neutrophils # (Auto) 10.1x10^3uL (1.8-7.7) Lymphocytes # (Auto) 1.2x10^3/uL (1.0-4.8) Monocytes # (Auto) 1.0x10^3/uL (0.0-1.1) Eosinophils # (Auto) 0.0x10^3/uL (0.0-0.7) Basophils # (Auto) 0.0x10^3/uL (0.0-0.2) Prothrombin Time 22.3SEC (11.7-14.0) Prothromb Time International Ratio 2.1 (0.8-1.1) Sodium Level 142mmol/L (136-145) Potassium Level 4.4mmol/L (3.5-5.1) Chloride Level 104mmol/L (98-107) Carbon Dioxide Level 27mmol/L (21-32) Anion Gap 11 (6-14) Blood Urea Nitrogen 18mg/dL (7-20) Creatinine 1.3mg/dL (0.6-1.0) Estimated GFR (Cockcroft-Gault) 42.2 BUN/Creatinine Ratio 14 (6-20) Glucose Level 234mg/dL (70-99) Calcium Level 7.2mg/dL (8.5-10.1) Total Bilirubin 0.4mg/dL (0.2-1.0) Aspartate Amino Transf (AST/SGOT) 34U/L (15-37) Alanine Aminotransferase (ALT/SGPT) 30U/L (14-59) Alkaline Phosphatase 55U/L (46-116) Total Protein 7.2g/dL (6.4-8.2) Albumin 2.8g/dL (3.4-5.0) Albumin/Globulin Ratio 0.6 (1.0-1.7) Test 07/28/16 07:53 Glucose (Fingerstick) 191mg/dL (70-99) Medications Current Medications Morphine Sulfate 4 mg 1X ONCE IV Last administered on 07/27/16 11:00; Start 07/27/16 at 10:30; Stop 07/27/16 at 10:34; Status DC Iohexol 75 ml 75 ml 1X ONCE IV Last administered on 07/27/16 12:10; Start at 11:15; Stop 07/27/16 at 11:18; Status DC Sodium Chloride (Iv Sodium Chloride 0.9% 1000ml Bag) 1,000 ml @ 500 mls/hr 1X ONCE IV Last administered on 07/27/16 12:00; Start 07/27/16 at 12:00; Stop at 13:59; Status DC Hydromorphone HCl (Dilaudid) 1 mg 1X ONCE IV Last administered on 07/27/16 12 :29; Start 07/27/16 at 12:00; Stop 07/27/16 at 12:02; Status DC Ondansetron HCl (Zofran) 4 mg PRN Q6HRS PRN IV Nausea; Start 07/27/16 at 14:00 ; Stop 07/28/16 at 13:59 Fentanyl Citrate (Fentanyl 2ml Vial) 25 mcg PRN Q5MIN PRN IV MILD PAIN; Start 07/27/16 at 14:00; Stop 07/28/16 at 10:52; Status DC Fentanyl Citrate (Fentanyl 2ml Vial) 50 mcg PRN Q5MIN PRN IV MODERATE PAIN Last administered on 07/27/16 21:34; Start 07/27/16 at 14:00; Stop 07/28/16 at 10:52; Status DC Morphine Sulfate 1 mg 1 mg PRN Q10MIN PRN IV SEVERE PAIN; Start 07/27/16 at 14: 00; Stop 07/28/16 at 13:59 Lactated Ringer's (Iv Lactated Ringers) 1,000 ml @ 30 mls/hr Q24H IV ; Start at 13:47; Stop 07/28/16 at 01:46; Status DC Lidocaine HCl 2 ml 1X PRN PRN ID IV START; Start 07/27/16 at 14:00; Stop at 13:59 Hydromorphone HCl 0.5 mg 0.5 mg PRN Q10MIN PRN IV SEV PAIN,Second choice Last administered on 07/28/16 10:51; Start 07/27/16 at 14:00; Stop 07/28/16 at 10:52 ; Status DC Heparin Sodium (Porcine) 5000 unit/Sodium Chloride 505 ml @ 505 mls/hr 1X PERIOP ONCE IRR Last administered on 07/27/16 15:39; Start 07/27/16 at 14:30 ; Stop 07/27/16 at 15:29; Status DC Cefazolin Sodium/ Sodium Chloride (Ancef/Iv Sodium Chloride 0.9% 500ml Bag) 500 ml @ 500 mls/hr 1X PERIOP ONCE IRR Last administered on 07/27/16t 15:38; Start 07/27/16 at 14:30; Stop 07/27/16 at 15:29; Status DC Ondansetron HCl (Zofran) 4 mg PRN Q8HRS PRN IV NAUSEA/VOMITING; Start 07/27/16 at 14:00; Stop 07/28/16 at 13:59 Acetaminophen (Tylenol) 650 mg PRN Q4HRS PRN PO FEVER; Start 07/27/16 at 14:00 ; Stop 07/28/16 at 13:59 Hydromorphone HCl 0.5 mg 0.5 mg PRN Q2HRS PRN IV MODERATE TO SEVERE PAIN Last administered on 07/28/16 08:28; Start 07/27/16 at 14:00; Stop 07/28/16 at 10:52 ; Status DC Sodium Chloride (Iv Sodium Chloride 0.9% 1000ml Bag) 1,000 ml @ 125 mls/hr 1X ONCE IV ; Start 07/27/16 at 14:00; Stop 07/27/16 at 21:59; Status DC Cellulose 1 each STK-MED ONCE .ROUTE ; Start 07/27/16 at 14:04; Stop 07/27/16 at 14:05; Status DC Lidocaine HCl 30 ml STK-MED ONCE .ROUTE ; Start 07/27/16 at 14:04; Stop at 14:05; Status DC Ephedrine Sulfate 50 mg STK-MED ONCE IV ; Start 07/27/16 at 14:23; Stop at 14:24; Status DC Phenylephrine HCl 1 mg 1 mg STK-MED ONCE IV ; Start 07/27/16 at 14:30; Stop at 14:31; Status DC Propofol (Diprivan) 20 ml @ As Directed STK-MED ONCE IV ; Start 07/27/16 at 14: 31; Stop 07/27/16 at 14:32; Status DC Lidocaine HCl 100 mg STK-MED ONCE .ROUTE ; Start 07/27/16 at 14:31; Stop at 14:32; Status DC Succinylcholine Chloride 200 mg 200 mg STK-MED ONCE .ROUTE ; Start 07/27/16 at 14:33; Stop 07/27/16 at 14:34; Status DC Vancomycin HCl 250 ml @ As Directed STK-MED ONCE .ROUTE ; Start 07/27/16 at 14: 42; Stop 07/27/16 at 14:43; Status DC Fentanyl Citrate (Fentanyl 2ml Vial) 100 mcg STK-MED ONCE .ROUTE ; Start at 14:54; Stop 07/27/16 at 14:55; Status DC Heparin Sodium (Porcine) 10,000 unit STK-MED ONCE .ROUTE ; Start 07/27/16 at 16: 22; Stop 07/27/16 at 16:23; Status DC Sevoflurane (Ultane) 90 ml STK-MED ONCE IH ; Start 07/27/16 at 18:40; Stop 07/27 at 18:41; Status DC Phenylephrine HCl (Francis-Synephrine Inj) 10 mg STK-MED ONCE .ROUTE ; Start at 18:40; Stop 07/27/16 at 18:41; Status DC Phenylephrine HCl (Francis-Synephrine Inj) 10 mg STK-MED ONCE .ROUTE ; Start at 20:10; Stop 07/27/16 at 20:11; Status DC Insulin Aspart (Novolog) 0-7 UNITS TIDWMEALS SQ Last administered on 07/28/16 08:00; Start 07/28/16 at 08:00 Dextrose 12.5 gm PRN Q15MIN PRN IV SEE COMMENTS; Start 07/27/16 at 23:00 Alprazolam (Xanax) 0.25 mg BID PO Last administered on 07/28/16 09:29; Start 07/28/16 at 09:00 Aspirin (Ecotrin) 81 mg DAILY PO Last administered on 07/28/16 09:29; Start at 09:00 Carvedilol (Coreg) 3.125 mg BIDWMEALS PO Last administered on 07/28/16 09:29; Start 07/28/16 at 08:00 Gabapentin (Neurontin) 900 mg BID PO Last administered on 07/28/16 09:30; Start 07/28/16 at 09:00 Insulin Aspart (Novolog) 7 units TIDBFRMEAL SQ Last administered on 07/28/16 07:30; Start 07/28/16 at 07:30 Levothyroxine Sodium (Synthroid) 125 mcg DAILY07 PO Last administered on 06:17; Start 07/28/16 at 07:00 Metformin HCl (Glucophage) 1,000 mg BIDWMEALS PO Last administered on 09:30; Start 07/28/16 at 08:00 Metoclopramide HCl (Reglan) 10 mg QIDACHS PO Last administered on 07/28/16 06: 17; Start 07/28/16 at 07:30 Montelukast Sodium (Singulair) 10 mg DAILY PO Last administered on 07/28/16 09 :29; Start 07/28/16 at 09:00 Potassium Chloride (Klor-Con) 20 meq DAILYWBKFT PO Last administered on 09:30; Start 07/28/16 at 08:00 Prednisone (Prednisone) 10 mg DAILY PO Last administered on 07/28/16 09:29; Start 07/28/16 at 09:00 Spironolactone (Aldactone) 25 mg DAILY PO Last administered on 07/28/16 09:29 ; Start 07/28/16 at 09:00 Torsemide (Demadex) 20 mg DAILY PO Last administered on 07/28/16 09:33; Start 07/28/16 at 09:00 Warfarin Sodium (Coumadin) 5 mg DAILY16 PO ; Start 07/28/16 at 16:00 Non-Formulary Medication 1 each BID IH ; Start 07/28/16 at 09:00; Status UNV Guaifenesin (Mucinex) 1,200 mg BID PO ; Start 07/28/16 at 09:00; Stop 07/28/16 at 09:00; Status DC Insulin Detemir (Levemir) 44 units DAILYWBKFT SQ Last administered on 08:44; Start 07/28/16 at 08:00 Pantoprazole Sodium (Protonix) 40 mg BIDAC PO Last administered on 07/28/16 06 :17; Start 07/28/16 at 07:30 Simvastatin (Zocor) 80 mg QHS PO ; Start 07/28/16 at 21:00 Warfarin Sodium (Coumadin Per Physician) 1 each PRN DAILY PRN MC SEE COMMENTS Last administered on 07/28/16 03:23; Start 07/27/16 at 23:45; Stop 07/28/16 at 08:15; Status DC Budesonide (Pulmicort) 0.5 mg RTBID NEB Last administered on 07/28/16 08:58; Start 07/28/16 at 08:00; Stop 07/28/16 at 10:52; Status DC Albuterol Sulfate (Ventolin Neb Soln) 2.5 mg RTQID NEB Last administered on 09:01; Start 07/28/16 at 08:00 Warfarin Sodium (Coumadin Per Pharmacy) 1 each PRN DAILY PRN MC SEE COMMENTS; Start 07/28/16 at 08:15 Active Scripts Active Mucinex (Guaifenesin) 1,200 Mg Tbmp.12hr 1 Tab PO BID Prednisone 10 Mg Tablet 10 Mg PO DIRECTED Levaquin (Levofloxacin) 500 Mg Tablet 500 Mg PO DAILY06 Klor-Con M20 (Potassium Chloride) 20 Meq Tab.er.prt 20 Meq PO DAILYWBKFT Warfarin Sodium 5 Mg Tablet 1 Tab PO DAILY Novolog Flexpen (Insulin Aspart) 100 Unit/1 Ml Insuln.pen 7 Units SQ TIDBFRMEAL Reported Alprazolam 0.25 Mg Tablet 1 Tab PO BID Gabapentin 300 Mg Capsule 900 Mg PO TID Carvedilol 3.125 Mg Tablet 1 Tab PO BID Spironolactone 25 Mg Tablet 25 Mg PO DAILY Levothyroxine Sodium 125 Mcg Tablet 125 Mcg PO DAILYAC Torsemide 20 Mg Tablet 20 Mg PO Zocor (Simvastatin) 80 Mg Tablet 80 Mg PO DAILY Metformin Hcl 1,000 Mg Tablet 1,000 Mg PO BID Lantus Solostar (Insulin Glargine,Hum.rec.anlog) 100 Unit/1 Ml Insuln.pen 44 Unit SQ DAILYWBKFT Reglan (Metoclopramide Hcl) 10 Mg Tablet 10 Mg PO QID Protonix (Pantoprazole Sodium) 40 Mg [place]t 40 Mg PO BID Advair 250-50 Diskus (Fluticasone/Salmeterol) 1 Each Disk.w.dev 1 Each IH BID Singulair Tablet (Montelukast Sodium) 10 Mg Tablet 10 Mg PO DAILY Aspir 81 (Aspirin) 81 Mg Tablet. 81 Mg PO DAILY Vitals/I & O Vital Sign - Last 24 Hours 07/27/16 07/27/16 07/27/16 07/27/16 11:00 11:28 12:30 13:00 Pulse 74 74 70 70 Resp 18 18 18 B/P 130/68 131/64 136/66 132/64 Pulse Ox 98 99 98 98 O2 Delivery Room Air Room Air Room Air Room Air 07/27/16 07/27/16 07/27/16 07/27/16 14:03 20:44 20:50 20:59 Temp 98.2 100.5 98.2 100.5 Pulse 70 94 100 Resp 16 16 16 B/P 119/67 137/70 129/63 Pulse Ox 92 100 94 O2 Delivery Room Air Simple Mask Mask Nasal Cannula O2 Flow Rate 10 3 07/27/16 07/27/16 07/27/16 07/27/16 21:14 21:29 21:34 21:47 Temp 98.8 98.8 Pulse 93 94 91 Resp 16 16 18 16 B/P 115/69 130/69 108/71 Pulse Ox 92 94 92 94 O2 Delivery Nasal Cannula Nasal Cannula Nasal Cannula Nasal Cannula O2 Flow Rate 2 2 3.0 07/27/16 07/27/16 07/27/16 07/27/16 21:47 21:50 22:02 22:17 Temp 98.8 98.6 98.0 98.8 98.6 98.0 Pulse 91 88 89 Resp 16 16 18 B/P 108/71 118/71 111/69 Pulse Ox 94 95 95 O2 Delivery Nasal Cannula Nasal Cannula Nasal Cannula Nasal Cannula O2 Flow Rate 3.0 3.0 2.0 2.0 07/27/16 07/27/16 07/27/16 07/27/16 22:32 22:49 22:50 23:02 Temp 97.9 98.0 97.9 98.0 Pulse 87 80 Resp 18 18 18 14 B/P 100/65 109/58 Pulse Ox 94 95 95 94 O2 Delivery Nasal Cannula Nasal Cannula Nasal Cannula Nasal Cannula O2 Flow Rate 2.0 3.0 3.0 2.0 07/27/16 07/27/16 07/28/16 07/28/16 23:20 23:32 00:32 01:32 Temp 97.7 97.9 98.3 97.7 97.9 98.3 Pulse 82 82 79 Resp 16 16 16 16 B/P 106/62 107/70 110/66 Pulse Ox 95 96 96 96 O2 Delivery Nasal Cannula Nasal Cannula Nasal Cannula Nasal Cannula O2 Flow Rate 2.0 2.0 2.0 07/28/16 07/28/16 07/28/16 07/28/16 03:19 06:59 08:28 09:06 Temp 97.7 98.1 97.7 98.1 Pulse 67 79 Resp 16 16 B/P 102/63 118/64 Pulse Ox 96 95 96 O2 Delivery Nasal Cannula Nasal Cannula Room Air Nasal Cannula O2 Flow Rate 2.0 2.0 3.0 2.0 07/28/16 09:29 Pulse 79 B/P 118/64 Intake and Output 07/27/16 07/27/16 07/28/16 15:00 23:00 07:00 Intake Total 500 ml 500 ml Output Total 350 ml 300 ml Balance 500 ml -350 ml 200 ml LUIS CHO APRN Jul 28, 2016 11:08
[2016-07-28] MEDS: NICOTINE 21MG PATCH. TD SCH (12:34)
[2016-07-28] MEDS ORDERED: WARFARIN 5 MG TABLET. PO SCH (16:00)
[2016-07-28] MEDS: HYDROCODONE/APAP 7.5/325MG TABLET. PO PRN ×2 (17:30→21:43)
[2016-07-28] MEDS ORDERED: SIMVASTATIN 40 MG TABLET. PO SCH (21:00)
[2016-07-29 03:00] VITALS: BP 132/60
[2016-07-29 04:41] LABS: BASO # 0.1 x10^3/uL (0.0-0.2); BASO % 1 % (0-3); EOS % 3 % (0-3); HEMATOCRIT 28.5 % (36.0-47.0); HEMOGLOBIN 9.3 g/dL (12.0-15.5); LYMPH # 2.2 x10^3/uL (1.0-4.8); LYMPH % 18 % (24-48); MEAN CORPUSCULAR HEMOGLOBIN 30 pg (25-35); MEAN CORPUSCULAR HGB CONC 33 g/dL (31-37); MEAN CORPUSCULAR VOLUME 92 fL (79-100); MONO % 11 % (0-9); NEUT % 68 % (31-73); PLATELET COUNT 269 x10^3/uL (140-400); RED BLOOD COUNT 3.11 x10^6/uL (3.50-5.40); RED CELL DISTRIBUTION WIDTH 16.2 % (11.5-14.5); WHITE BLOOD COUNT 12.2 x10^3/uL (4.0-11.0)
[2016-07-29 04:52] LABS: CREATININE 1.3 mg/dL (0.6-1.0); GFR 42.2; MAGNESIUM 1.8 mg/dL (1.8-2.4); POTASSIUM 3.8 mmol/L (3.5-5.1)
[2016-07-29 05:14] LABS: INR 1.7 (0.8-1.1); PROTHROMBIN TIME PATIENT 19.1 SEC (11.7-14.0)
[2016-07-29] MEDS: LEVOTHYROXINE 125 MCG TABLET PO SCH (05:31)
[2016-07-29] MEDS: PANTOPRAZOLE 40 MG TABLET. PO SCH (05:31)
[2016-07-29] MEDS: METOCLOPRAMIDE 10 MG TABLET PO SCH (05:31)
[2016-07-29] MEDS: HYDROCODONE/APAP 7.5/325MG TABLET. PO PRN (05:35)
[2016-07-29 07:00] VITALS: BP 112/62
[2016-07-29] MEDS: ALBUTEROL SULFATE 2.5 MG/3 ML NEBU. NEB SCH ×2 (07:44→11:25)
[2016-07-29] MEDS: INSULIN ASPART 300 UNITS/3 ML INSULN.PEN SQ SCH ×2 (08:00→09:16)
--- NOTE | 2016-07-29 08:20 | PDOC3 ---
IM DISCHARGE & PROGRESS NOTES Date of Admission Date of Admission Date of Admission: Jul 27, 2016 at 13:55 Date of Discharge Date of Discharge 07/29/16 Primary Diagnosis Primary Diagnosis Plan 1. 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 ICM CHF EF systolic, not acute 3. CAD with h/o CO multiple, PCI Stents multiple, and CABG 4. CKD II 5 chronic respiratory failure with underlying COPD, emphysema 6. 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 DVT in past with chronic coumadin therapy 8. hypothyroid 9. HTN 10. Hyperlipidemia 11. chronic pain management by [facility] 12. h/o fatty liver 13. h/o non obstructing R renal calculus 14. hypocalcemia POA Consults Consults Kyle Estevez II, MD Procedures Procedures DATE OF SURGERY: 07/27/2016 PREOPERATIVE DIAGNOSIS: Arterial insufficiency of the left arm and forearm, critical. 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 OPERATIONS PERFORMED: 1. Left brachial exploration with attempted thrombectomy. 2. Exploration of the mid forearm radial artery and left proximal axillary artery with left proximal axillary artery to mid left forearm artery bypass using nonreversed great saphenous vein harvested from the right leg. 3. Aneurysmectomy of the saphenous vein graft with end-to-end anastomosis. SURGEON: Kyle Estevez M.D. MEDICAL OFFICER: None. ANESTHESIA: General. INDICATIONS: This is a 56-year-old female who presented to the Emergency Room today with complaints of severe left arm and forearm pain. She has had prior left brachial thrombectomy with vein patch performed in 2006. At that time, she had adherent clots, probably due to chronicity. She had a CT angiogram today, which showed occlusion of the distal brachial artery with reconstitution of the radial and ulnar arteries in the forearm. The operation, risks, and benefits were explained. OPERATIVE FINDINGS: The brachial artery was small and upon opening contained significant amount of intimal hyperplastic changes with webbing. There was no thrombus present. The catheter was able to be passed proximally, but again, no clot was retrieved and there was severe resistance to withdrawal of the catheter with the balloon inflated likely due to all the intimal changes. For this reason, the artery was dissected in both directions. The artery seemed to be very unhealthy proximally and distally. For this reason, the radial artery was dissected in the mid forearm and this appeared to be a nice vessel by palpation. The proximal axillary artery likewise was dissected and it too was soft with a good pulse. Approximately 9 inches of great saphenous vein was then harvested from the right leg in the usual manner. There were two aneurysmal segments of the vein, which had to be resected with end-to-end anastomosis of the vein graft. This was then sutured end-to-side proximally to the axillary artery and end-to-side to the mid forearm radial artery. There was excellent flow through the graft and a palpable radial pulse and a palpable graft pulse at the end of the procedure. DESCRIPTION OF PROCEDURE: After general anesthetic was administered, the left arm and right leg were prepped and draped in the usual manner. A longitudinal incision was made over the brachial artery, which was audible with Doppler. Brachial artery was dissected and encircled with vessel loops proximally and distally. A longitudinal arteriotomy was made. The patient's INR was 3.2, and she was also given 3000 units of heparin. The catheter was then placed; however, upon opening of the artery, there was no clear-cut lumen. There was a lot of the intimal type scarring and webbing. A #2 catheter was placed proximally with a little bit of resistance, but a lot of resistance to withdraw the catheter with the balloon inflated. No clot was retrieved. It was thought therefore that her symptoms were due to severe tandem diffuse disease of the distal brachial and proximal radial and ulnar arteries. Dissection was then carried in both directions as described above. Finally, the radial artery was exposed in the mid forearm. This was a nice vessel. It was encircled with vessel loops proximally and distally. Likewise, the axillary artery was dissected and the left upper arm. Care was taken to preserve the nerve structures. The vein was then harvested from the great saphenous vein. Incision was made in the right groin. The great saphenous vein was identified and dissected for approximately 9-10 inches. The vein was harvested in the usual manner using 3-0 silk ligatures on the vein side and clips on the patient's side. The vein was distended with heparinized saline. A valve lysis was performed with the retrograde valvulotome. There were two aneurysmal segments, which were resected and end-to-end venoanastomosis was done using 7-0 Prolene, loupe magnification. The patient was then re-bolused with 3000 units of heparin and the axillary artery was incised longitudinally. There was fair amount of intimal type thickening at this location as well and the intimectomy was performed and approximately 4 inches of intimal cord was removed from the vessel. The vein graft was then sutured end-to-side using a 7-0 Prolene suture. After completing the anastomosis, there was excellent pulsatile flow through the vein graft, which was then irrigated retrograde with heparinized saline. The vein graft was then tunneled in a subcutaneous fashion down to the left radial artery, which had been previously exposed. A longitudinal arteriotomy was made and the graft was sutured end-to-side using 7-0 Prolene, loupe magnification. Prior to completing anastomosis, back bleeding was assessed ____ bleeding likewise and the flow was restored. Wounds were then irrigated with antibiotic irrigation and closed with absorbable suture, the skin with 4-0 nylon with regards to the arm. The right leg was closed with 2-0 Vicryl and cayla. Sterile dressings were applied to all wounds. The patient was taken to the recovery room in satisfactory condition. KYLE ESTEVEZ MD DR: FRANNIE/natanael JOB#: [id number] / [id number] DICTATED BY: KYLE ESTEVEZ II, MD 07/27/16 2100 Labs Labs Laboratory Tests Test 07/27/16 10:00 07/27/16 20:58 07/27/16 21:54 07/28/16 04:10 White Blood Count 9.2x10^3/uL (4.0-11.0) 12.4x10^3/uL (4.0-11.0) Red Blood Count 3.88x10^6/uL (3.50-5.40) 3.38x10^6/uL (3.50-5.40) Hemoglobin 11.6g/dL (12.0-15.5) 10.0g/dL (12.0-15.5) Hematocrit 35.5% (36.0-47.0) 31.7% (36.0-47.0) Mean Corpuscular Volume 91fL (79-100) 94fL (79-100) Mean Corpuscular Hemoglobin 30pg (25-35) 30pg (25-35) Mean Corpuscular Hemoglobin Concent 33g/dL (31-37) 32g/dL (31-37) Red Cell Distribution Width 16.1% (11.5-14.5) 16.3% (11.5-14.5) Platelet Count 352x10^3/uL (140-400) 296x10^3/uL (140-400) Neutrophils (%) (Auto) 59% (31-73) 82% (31-73) Lymphocytes (%) (Auto) 28% (24-48) 10% (24-48) Monocytes (%) (Auto) 9% (0-9) 8% (0-9) Eosinophils (%) (Auto) 3% (0-3) 0% (0-3) Basophils (%) (Auto) 1% (0-3) 0% (0-3) Neutrophils # (Auto) 5.5x10^3uL (1.8-7.7) 10.1x10^3uL (1.8-7.7) Lymphocytes # (Auto) 2.6x10^3/uL (1.0-4.8) 1.2x10^3/uL (1.0-4.8) Monocytes # (Auto) 0.8x10^3/uL (0.0-1.1) 1.0x10^3/uL (0.0-1.1) Eosinophils # (Auto) 0.3x10^3/uL (0.0-0.7) 0.0x10^3/uL (0.0-0.7) Basophils # (Auto) 0.1x10^3/uL (0.0-0.2) 0.0x10^3/uL (0.0-0.2) Prothrombin Time 30.2SEC (11.7-14.0) 22.3SEC (11.7-14.0) Prothromb Time International Ratio 3.1 (0.8-1.1) 2.1 (0.8-1.1) Sodium Level 141mmol/L (136-145) Potassium Level 4.1mmol/L (3.5-5.1) Chloride Level 101mmol/L (98-107) Carbon Dioxide Level 26mmol/L (21-32) Anion Gap 14 (6-14) Blood Urea Nitrogen 17mg/dL (7-20) Creatinine 1.3mg/dL (0.6-1.0) Estimated GFR (Cockcroft-Gault) 42.2 Glucose Level 289mg/dL (70-99) Calcium Level 7.8mg/dL (8.5-10.1) Total Bilirubin 0.3mg/dL (0.2-1.0) Direct Bilirubin < 0.1mg/dL (0.0-0.2) Aspartate Amino Transf (AST/SGOT) 24U/L (15-37) Alanine Aminotransferase (ALT/SGPT) 27U/L (14-59) Alkaline Phosphatase 59U/L (46-116) Troponin I Quantitative < 0.017ng/mL (0.000-0.055) Total Protein 7.4g/dL (6.4-8.2) Albumin 3.4g/dL (3.4-5.0) Glucose (Fingerstick) 199mg/dL (70-99) 221mg/dL (70-99) Test 07/28/16 04:20 07/28/16 07:53 07/28/16 12:10 07/28/16 16:53 Sodium Level 142mmol/L (136-145) Potassium Level 4.4mmol/L (3.5-5.1) Chloride Level 104mmol/L (98-107) Carbon Dioxide Level 27mmol/L (21-32) Anion Gap 11 (6-14) Blood Urea Nitrogen 18mg/dL (7-20) Creatinine 1.3mg/dL (0.6-1.0) Estimated GFR (Cockcroft-Gault) 42.2 BUN/Creatinine Ratio 14 (6-20) Glucose Level 234mg/dL (70-99) Calcium Level 7.2mg/dL (8.5-10.1) Total Bilirubin 0.4mg/dL (0.2-1.0) Aspartate Amino Transf (AST/SGOT) 34U/L (15-37) Alanine Aminotransferase (ALT/SGPT) 30U/L (14-59) Alkaline Phosphatase 55U/L (46-116) Total Protein 7.2g/dL (6.4-8.2) Albumin 2.8g/dL (3.4-5.0) Albumin/Globulin Ratio 0.6 (1.0-1.7) Glucose (Fingerstick) 191mg/dL (70-99) 175mg/dL (70-99) 201mg/dL (70-99) Test 07/28/16 20:49 07/29/16 04:12 Glucose (Fingerstick) 143mg/dL (70-99) White Blood Count 12.2x10^3/uL (4.0-11.0) Red Blood Count 3.11x10^6/uL (3.50-5.40) Hemoglobin 9.3g/dL (12.0-15.5) Hematocrit 28.5% (36.0-47.0) Mean Corpuscular Volume 92fL (79-100) Mean Corpuscular Hemoglobin 30pg (25-35) Mean Corpuscular Hemoglobin Concent 33g/dL (31-37) Red Cell Distribution Width 16.2% (11.5-14.5) Platelet Count 269x10^3/uL (140-400) Neutrophils (%) (Auto) 68% (31-73) Lymphocytes (%) (Auto) 18% (24-48) Monocytes (%) (Auto) 11% (0-9) Eosinophils (%) (Auto) 3% (0-3) Basophils (%) (Auto) 1% (0-3) Neutrophils # (Auto) 8.3x10^3uL (1.8-7.7) Lymphocytes # (Auto) 2.2x10^3/uL (1.0-4.8) Monocytes # (Auto) 1.3x10^3/uL (0.0-1.1) Eosinophils # (Auto) 0.3x10^3/uL (0.0-0.7) Basophils # (Auto) 0.1x10^3/uL (0.0-0.2) Prothrombin Time 19.1SEC (11.7-14.0) Prothromb Time International Ratio 1.7 (0.8-1.1) Sodium Level 143mmol/L (136-145) Potassium Level 3.8mmol/L (3.5-5.1) Chloride Level 105mmol/L (98-107) Carbon Dioxide Level 30mmol/L (21-32) Anion Gap 8 (6-14) Blood Urea Nitrogen 22mg/dL (7-20) Creatinine 1.3mg/dL (0.6-1.0) Estimated GFR (Cockcroft-Gault) 42.2 Glucose Level 88mg/dL (70-99) Calcium Level 7.0mg/dL (8.5-10.1) Magnesium Level 1.8mg/dL (1.8-2.4) Medications Medications Medications reviewed and reconciled for discharge. Brief hospital course Brief hospital course This 58 year old female who presented with acute LUE pain due to L brachial artery occlusion was admitted. The following is a summary of her treatment: L brachial artery occlusion surgical consult s/p bypass with SVG obtained R thigh Tm 100.5 last evening Admit WBC 9.2 07/28 12.4 Ancef pre op POD #2-pain decreased, bending arm at elbow. Leukocytosis Admit WBC 9.2 07/29 12.2 no fever CHF daily weight IO Admit 196.3# 07/29 198.37 DM II FSBS /SSI BS 88-201 Anemia chronic Admit 11.6 07/29 9.3 DVT/anticoagulation Admit INR 3.1 07/28 04:00 2.1 07/29 1.7 pharmacy managing warfarin 07/28 Warfarin 7.5mg CDK II Admit BUN 17 07/29 22 Cr 1.3 1.3 K 4.1 3.8 DVT/GI prophylaxis SCD/REYMUNDO warfarin PPI hypocalcemia Admit Ca 7.8 07/28 7.2 07/29 7.0 Alb 3.4 2.8 For more details regarding the past history, family history, social history, surgical history and other details, please refer to History and Physical. Subjective pain improved LUE Objective no distress Vitals Vital Signs Date Time Temp Pulse Resp B/P Pulse Ox O2 Delivery O2 Flow Rate FiO2 07/29/16 07:45 94 Room Air 07/29/16 05:35 16 07/29/16 03:00 98.4 77 132/60 3.0 98.4 Physical Exam General appearance - alert,well appearing, and in no distress Mental Status - alert, oriented to person, place, and time, affect appropriate to mood Head - normal Chest - clear to auscultation, no wheezes, rales or rhonchi, symmetric air entry Heart - S1 and S2 normal Abdomen - soft, nontender, nondistended, no masses or organomegaly Neurological - no acute focal neurological deficit noted Musculoskeletal - no muscular tenderness noted dressing LUE R thigh Extremities - no pedal edema Skin - warm and dry Medications Medications reviewed. Allergy Allergies Coded Allergies Type Severity Reaction Last Updated Verified Penicillins Allergy Intermediate Hives 07/27/16 Yes codeine Adverse Reaction Mild Nausea and Vomiting 07/27/16 Yes diphenhydramine HCl Adverse Reaction Mild hyperactive 07/27/16 Yes Follow up Wednesday Disposition: Home Comments Discharge Management - 35 minutes. For other details please refer to discharge instructions JOCELYN BRYANT APRN Jul 29, 2016 08:20
--- NOTE | 2016-07-29 08:25 | DISCH ---
DISCHARGE FINAL DIAGNOSIS Problems Medical Problems: (1) Brachial artery occlusion, left Status: Acute CONDITION ON DISCHARGE: Stable POST DISCHARGE ORDERS ACTIVITY ORDERS: Activity as tolerated WEIGHT BEARING STATUS: No restrictions DIET AFTER DISCHARGE: Cardiac OTHER WOUND INSTRUCTIONS: Wound care per Dr. Mcdowell instructions CHECKS AFTER DISCHARGE COMMENTS: Check blood sugar before breakfast and at supper. FOLLOW-UP PHYSICIAN FOLLOW-UP: Dr. Gregorio on Wednesday ADDITIONAL FOLLOW-UP: Dr. Mcdowell per his instructions WARFARIN FOLLOW-UP NEEDED: Dr. Milton-she has home machine to monitor and calls to his office TREATMENT/EQUIPMENT ORDERS RESPIRATORY EQUIPMENT NEEDED: Oxygen (3L NC), Nebulizer (QID ) JOCELYN BRYANT APRN Jul 29, 2016 08:25
[2016-07-29] MEDS ORDERED: HYDR-2762 PO (08:30)
[2016-07-29] MEDS ORDERED: WARF2TAB7 PO (08:30)
[2016-07-29] MEDS: NICOTINE 21MG PATCH. TD SCH (09:07)
[2016-07-29] MEDS: MONTELUKAST SODIUM 10 MG TABLET. PO SCH (09:08)
[2016-07-29] MEDS: METFORMIN 1,000 MG TABLET PO SCH (09:08)
[2016-07-29] MEDS: ALPRAZOLAM 0.25 MG TABLET PO SCH (09:08)
[2016-07-29] MEDS: SPIRONOLACTONE 25 MG TABLET PO SCH (09:08)
[2016-07-29] MEDS: PREDNISONE 10 MG TABLET PO SCH (09:08)
[2016-07-29] MEDS: POTASSIUM CHLORIDE 20 MEQ TABLET.ER. PO SCH (09:08)
[2016-07-29 09:09] VITALS: BP 112/88
[2016-07-29] MEDS: TORSEMIDE 20 MG TABLET. PO SCH (09:09)
[2016-07-29] MEDS: GABAPENTIN 300 MG CAPSULE. PO SCH (09:09)
[2016-07-29] MEDS: ASPIRIN ENTERIC COATED 81 MG TABLET.DR. PO SCH (09:09)
[2016-07-29] MEDS: CARVEDILOL 3.125 MG TABLET PO SCH (09:09)
[2016-07-29] MEDS: INSULIN DETEMIR 300 UNITS/3 ML INSULN.PEN. SQ SCH (09:17)
--- NOTE | 2016-07-29 10:21 | PDOC ---
PROGRESS NOTES Subjective Subjective "I've been up, my pain is well controlled and I hope to go home today." Objective Objective Vascular Surgery - POD#2 Urgent bypass to LUE for acute occlusion O: In no acute distress. at bedside. CV: Vital signs stable. Pulm: On room air now. No audible wheezing this morning. RA SaO2=94% LUE: Hand warm and pink. Strong, palpable bypass graft and radial pulse. No motor or sensory deficits. Incisions: Dressings removed from LUE and RLE thigh. Leg incision intact and without drainage. LUE incisions x2 intact. Noted skin markings around upper incision that appears like the patient had a skin reaction to something square - hyper reactive? No blistering or rash just deep reddish, purple in color. Protime: 1.7 today. Assessment/Plan: 1. PAD with acute occlusion to LUE - urgent bypass with SVG from right thigh. Patent bypass graft. 2. Dr. Estevez states occlusion was chronic and not fresh clot. Ok to just be on anticoagulation with warfarin and daily aspirin. 3. INR 1.7 today. Patient already has lovenox at home and does her own INR checks. Ok to discharge from vascular surgery perspective with plan to bridge anticoagulation with Lovenox - as directed by Dr. Gregorio. 4. Follow up with Dr. Yan on August 11 at 2:00 p.m. 5. Reviewed once again that patient MUST stop smoking. Patient is working on this and states her goal is to stop COLE. Vital Signs Date Time Temp Pulse Resp B/P Pulse Ox O2 Delivery O2 Flow Rate FiO2 07/29/16 09:09 112/88 07/29/16 07:45 94 Room Air 07/29/16 07:00 98.0 89 18 3.0 98.0 Intake and Output 07/29/16 07:00 Intake Total 410 ml Balance 410 ml Intake Oral 410 ml Assessment Assessment Problems Medical Problems: (1) Brachial artery occlusion, left Status: Acute Comment Review of Relevant I have reviewed the following items jarod (where applicable) has been applied. Labs Laboratory Tests Test 07/27/16 20:58 07/27/16 21:54 07/28/16 04:10 07/28/16 04:20 Glucose (Fingerstick) 199mg/dL (70-99) 221mg/dL (70-99) White Blood Count 12.4x10^3/uL (4.0-11.0) Red Blood Count 3.38x10^6/uL (3.50-5.40) Hemoglobin 10.0g/dL (12.0-15.5) Hematocrit 31.7% (36.0-47.0) Mean Corpuscular Volume 94fL (79-100) Mean Corpuscular Hemoglobin 30pg (25-35) Mean Corpuscular Hemoglobin Concent 32g/dL (31-37) Red Cell Distribution Width 16.3% (11.5-14.5) Platelet Count 296x10^3/uL (140-400) Neutrophils (%) (Auto) 82% (31-73) Lymphocytes (%) (Auto) 10% (24-48) Monocytes (%) (Auto) 8% (0-9) Eosinophils (%) (Auto) 0% (0-3) Basophils (%) (Auto) 0% (0-3) Neutrophils # (Auto) 10.1x10^3uL (1.8-7.7) Lymphocytes # (Auto) 1.2x10^3/uL (1.0-4.8) Monocytes # (Auto) 1.0x10^3/uL (0.0-1.1) Eosinophils # (Auto) 0.0x10^3/uL (0.0-0.7) Basophils # (Auto) 0.0x10^3/uL (0.0-0.2) Prothrombin Time 22.3SEC (11.7-14.0) Prothromb Time International Ratio 2.1 (0.8-1.1) Sodium Level 142mmol/L (136-145) Potassium Level 4.4mmol/L (3.5-5.1) Chloride Level 104mmol/L (98-107) Carbon Dioxide Level 27mmol/L (21-32) Anion Gap 11 (6-14) Blood Urea Nitrogen 18mg/dL (7-20) Creatinine 1.3mg/dL (0.6-1.0) Estimated GFR (Cockcroft-Gault) 42.2 BUN/Creatinine Ratio 14 (6-20) Glucose Level 234mg/dL (70-99) Calcium Level 7.2mg/dL (8.5-10.1) Total Bilirubin 0.4mg/dL (0.2-1.0) Aspartate Amino Transf (AST/SGOT) 34U/L (15-37) Alanine Aminotransferase (ALT/SGPT) 30U/L (14-59) Alkaline Phosphatase 55U/L (46-116) Total Protein 7.2g/dL (6.4-8.2) Albumin 2.8g/dL (3.4-5.0) Albumin/Globulin Ratio 0.6 (1.0-1.7) Test 07/28/16 07:53 07/28/16 12:10 07/28/16 16:53 07/28/16 20:49 Glucose (Fingerstick) 191mg/dL (70-99) 175mg/dL (70-99) 201mg/dL (70-99) 143mg/dL (70-99) Test 07/29/16 04:12 07/29/16 08:36 White Blood Count 12.2x10^3/uL (4.0-11.0) Red Blood Count 3.11x10^6/uL (3.50-5.40) Hemoglobin 9.3g/dL (12.0-15.5) Hematocrit 28.5% (36.0-47.0) Mean Corpuscular Volume 92fL (79-100) Mean Corpuscular Hemoglobin 30pg (25-35) Mean Corpuscular Hemoglobin Concent 33g/dL (31-37) Red Cell Distribution Width 16.2% (11.5-14.5) Platelet Count 269x10^3/uL (140-400) Neutrophils (%) (Auto) 68% (31-73) Lymphocytes (%) (Auto) 18% (24-48) Monocytes (%) (Auto) 11% (0-9) Eosinophils (%) (Auto) 3% (0-3) Basophils (%) (Auto) 1% (0-3) Neutrophils # (Auto) 8.3x10^3uL (1.8-7.7) Lymphocytes # (Auto) 2.2x10^3/uL (1.0-4.8) Monocytes # (Auto) 1.3x10^3/uL (0.0-1.1) Eosinophils # (Auto) 0.3x10^3/uL (0.0-0.7) Basophils # (Auto) 0.1x10^3/uL (0.0-0.2) Prothrombin Time 19.1SEC (11.7-14.0) Prothromb Time International Ratio 1.7 (0.8-1.1) Sodium Level 143mmol/L (136-145) Potassium Level 3.8mmol/L (3.5-5.1) Chloride Level 105mmol/L (98-107) Carbon Dioxide Level 30mmol/L (21-32) Anion Gap 8 (6-14) Blood Urea Nitrogen 22mg/dL (7-20) Creatinine 1.3mg/dL (0.6-1.0) Estimated GFR (Cockcroft-Gault) 42.2 Glucose Level 88mg/dL (70-99) Calcium Level 7.0mg/dL (8.5-10.1) Magnesium Level 1.8mg/dL (1.8-2.4) Glucose (Fingerstick) 105mg/dL (70-99) Laboratory Tests Test 07/28/16 12:10 07/28/16 16:53 07/28/16 20:49 07/29/16 04:12 Glucose (Fingerstick) 175mg/dL (70-99) 201mg/dL (70-99) 143mg/dL (70-99) White Blood Count 12.2x10^3/uL (4.0-11.0) Red Blood Count 3.11x10^6/uL (3.50-5.40) Hemoglobin 9.3g/dL (12.0-15.5) Hematocrit 28.5% (36.0-47.0) Mean Corpuscular Volume 92fL (79-100) Mean Corpuscular Hemoglobin 30pg (25-35) Mean Corpuscular Hemoglobin Concent 33g/dL (31-37) Red Cell Distribution Width 16.2% (11.5-14.5) Platelet Count 269x10^3/uL (140-400) Neutrophils (%) (Auto) 68% (31-73) Lymphocytes (%) (Auto) 18% (24-48) Monocytes (%) (Auto) 11% (0-9) Eosinophils (%) (Auto) 3% (0-3) Basophils (%) (Auto) 1% (0-3) Neutrophils # (Auto) 8.3x10^3uL (1.8-7.7) Lymphocytes # (Auto) 2.2x10^3/uL (1.0-4.8) Monocytes # (Auto) 1.3x10^3/uL (0.0-1.1) Eosinophils # (Auto) 0.3x10^3/uL (0.0-0.7) Basophils # (Auto) 0.1x10^3/uL (0.0-0.2) Prothrombin Time 19.1SEC (11.7-14.0) Prothromb Time International Ratio 1.7 (0.8-1.1) Sodium Level 143mmol/L (136-145) Potassium Level 3.8mmol/L (3.5-5.1) Chloride Level 105mmol/L (98-107) Carbon Dioxide Level 30mmol/L (21-32) Anion Gap 8 (6-14) Blood Urea Nitrogen 22mg/dL (7-20) Creatinine 1.3mg/dL (0.6-1.0) Estimated GFR (Cockcroft-Gault) 42.2 Glucose Level 88mg/dL (70-99) Calcium Level 7.0mg/dL (8.5-10.1) Magnesium Level 1.8mg/dL (1.8-2.4) Test 07/29/16 08:36 Glucose (Fingerstick) 105mg/dL (70-99) Medications Current Medications Morphine Sulfate 4 mg 1X ONCE IV Last administered on 07/27/16 11:00; Start 07/27/16 at 10:30; Stop 07/27/16 at 10:34; Status DC Iohexol 75 ml 75 ml 1X ONCE IV Last administered on 07/27/16 12:10; Start at 11:15; Stop 07/27/16 at 11:18; Status DC Sodium Chloride (Iv Sodium Chloride 0.9% 1000ml Bag) 1,000 ml @ 500 mls/hr 1X ONCE IV Last administered on 07/27/16 12:00; Start 07/27/16 at 12:00; Stop at 13:59; Status DC Hydromorphone HCl (Dilaudid) 1 mg 1X ONCE IV Last administered on 07/27/16 12 :29; Start 07/27/16 at 12:00; Stop 07/27/16 at 12:02; Status DC Ondansetron HCl (Zofran) 4 mg PRN Q6HRS PRN IV Nausea; Start 07/27/16 at 14:00 ; Stop 07/28/16 at 13:59; Status DC Fentanyl Citrate (Fentanyl 2ml Vial) 25 mcg PRN Q5MIN PRN IV MILD PAIN; Start 07/27/16 at 14:00; Stop 07/28/16 at 10:52; Status DC Fentanyl Citrate (Fentanyl 2ml Vial) 50 mcg PRN Q5MIN PRN IV MODERATE PAIN Last administered on 07/27/16 21:34; Start 07/27/16 at 14:00; Stop 07/28/16 at 10:52; Status DC Morphine Sulfate 1 mg 1 mg PRN Q10MIN PRN IV SEVERE PAIN; Start 07/27/16 at 14: 00; Stop 07/28/16 at 13:59; Status DC Lactated Ringer's (Iv Lactated Ringers) 1,000 ml @ 30 mls/hr Q24H IV ; Start at 13:47; Stop 07/28/16 at 01:46; Status DC Lidocaine HCl 2 ml 1X PRN PRN ID IV START; Start 07/27/16 at 14:00; Stop at 13:59; Status DC Hydromorphone HCl 0.5 mg 0.5 mg PRN Q10MIN PRN IV SEV PAIN,Second choice Last administered on 07/28/16 10:51; Start 07/27/16 at 14:00; Stop 07/28/16 at 10:52 ; Status DC Heparin Sodium (Porcine) 5000 unit/Sodium Chloride 505 ml @ 505 mls/hr 1X PERIOP ONCE IRR Last administered on 07/27/16 15:39; Start 07/27/16 at 14:30 ; Stop 07/27/16 at 15:29; Status DC Cefazolin Sodium/ Sodium Chloride (Ancef/Iv Sodium Chloride 0.9% 500ml Bag) 500 ml @ 500 mls/hr 1X PERIOP ONCE IRR Last administered on 07/27/16 15:38; Start 07/27/16 at 14:30; Stop 07/27/16 at 15:29; Status DC Ondansetron HCl (Zofran) 4 mg PRN Q8HRS PRN IV NAUSEA/VOMITING; Start 07/27/16 at 14:00; Stop 07/28/16 at 13:59; Status DC Acetaminophen (Tylenol) 650 mg PRN Q4HRS PRN PO FEVER; Start 07/27/16 at 14:00 ; Stop 07/28/16 at 13:59; Status DC Hydromorphone HCl 0.5 mg 0.5 mg PRN Q2HRS PRN IV MODERATE TO SEVERE PAIN Last administered on 07/28/16t 08:28; Start 07/27/16 at 14:00; Stop 07/28/16 at 10:52 ; Status DC Sodium Chloride (Iv Sodium Chloride 0.9% 1000ml Bag) 1,000 ml @ 125 mls/hr 1X ONCE IV ; Start 07/27/16 at 14:00; Stop 07/27/16 at 21:59; Status DC Cellulose 1 each STK-MED ONCE .ROUTE ; Start 07/27/16 at 14:04; Stop 07/27/16 at 14:05; Status DC Lidocaine HCl 30 ml STK-MED ONCE .ROUTE ; Start 07/27/16 at 14:04; Stop at 14:05; Status DC Ephedrine Sulfate 50 mg STK-MED ONCE IV ; Start 07/27/16 at 14:23; Stop at 14:24; Status DC Phenylephrine HCl 1 mg 1 mg STK-MED ONCE IV ; Start 07/27/16 at 14:30; Stop at 14:31; Status DC Propofol (Diprivan) 20 ml @ As Directed STK-MED ONCE IV ; Start 07/27/16 at 14: 31; Stop 07/27/16 at 14:32; Status DC Lidocaine HCl 100 mg STK-MED ONCE .ROUTE ; Start 07/27/16 at 14:31; Stop at 14:32; Status DC Succinylcholine Chloride 200 mg 200 mg STK-MED ONCE .ROUTE ; Start 07/27/16 at 14:33; Stop 07/27/16 at 14:34; Status DC Vancomycin HCl 250 ml @ As Directed STK-MED ONCE .ROUTE ; Start 07/27/16 at 14: 42; Stop 07/27/16 at 14:43; Status DC Fentanyl Citrate (Fentanyl 2ml Vial) 100 mcg STK-MED ONCE .ROUTE ; Start at 14:54; Stop 07/27/16 at 14:55; Status DC Heparin Sodium (Porcine) 10,000 unit STK-MED ONCE .ROUTE ; Start 07/27/16 at 16: 22; Stop 07/27/16 at 16:23; Status DC Sevoflurane (Ultane) 90 ml STK-MED ONCE IH ; Start 07/27/16 at 18:40; Stop 07/27 at 18:41; Status DC Phenylephrine HCl (Francis-Synephrine Inj) 10 mg STK-MED ONCE .ROUTE ; Start at 18:40; Stop 07/27/16 at 18:41; Status DC Phenylephrine HCl (Francis-Synephrine Inj) 10 mg STK-MED ONCE .ROUTE ; Start at 20:10; Stop 07/27/16 at 20:11; Status DC Insulin Aspart (Novolog) 0-7 UNITS TIDWMEALS SQ Last administered on 07/28/16 17:00; Start 07/28/16 at 08:00 Dextrose 12.5 gm PRN Q15MIN PRN IV SEE COMMENTS; Start 07/27/16 at 23:00 Alprazolam (Xanax) 0.25 mg BID PO Last administered on 07/29/16 09:08; Start 07/28/16 at 09:00 Aspirin (Ecotrin) 81 mg DAILY PO Last administered on 07/29/16 09:09; Start at 09:00 Carvedilol (Coreg) 3.125 mg BIDWMEALS PO Last administered on 07/29/16 09:09; Start 07/28/16 at 08:00 Gabapentin (Neurontin) 900 mg BID PO Last administered on 07/29/16 09:09; Start 07/28/16 at 09:00 Insulin Aspart (Novolog) 7 units TIDBFRMEAL SQ Last administered on 07/29/16 09:16; Start 07/28/16 at 07:30 Levothyroxine Sodium (Synthroid) 125 mcg DAILY07 PO Last administered on 05:31; Start 07/28/16 at 07:00 Metformin HCl (Glucophage) 1,000 mg BIDWMEALS PO Last administered on 09:08; Start 07/28/16 at 08:00 Metoclopramide HCl (Reglan) 10 mg QIDACHS PO Last administered on 07/29/16 05: 31; Start 07/28/16 at 07:30 Montelukast Sodium (Singulair) 10 mg DAILY PO Last administered on 07/29/16 09 :08; Start 07/28/16 at 09:00 Potassium Chloride (Klor-Con) 20 meq DAILYWBKFT PO Last administered on 09:08; Start 07/28/16 at 08:00 Prednisone (Prednisone) 10 mg DAILY PO Last administered on 07/29/16 09:08; Start 07/28/16 at 09:00 Spironolactone (Aldactone) 25 mg DAILY PO Last administered on 07/29/16 09:08 ; Start 07/28/16 at 09:00 Torsemide (Demadex) 20 mg DAILY PO Last administered on 07/29/16 09:09; Start 07/28/16 at 09:00 Warfarin Sodium (Coumadin) 5 mg DAILY16 PO Last administered on 07/28/16 16:08 ; Start 07/28/16 at 16:00; Stop 07/29/16 at 07:51; Status DC Non-Formulary Medication 1 each BID IH ; Start 07/28/16 at 09:00; Status UNV Guaifenesin (Mucinex) 1,200 mg BID PO ; Start 07/28/16 at 09:00; Stop 07/28/16 at 09:00; Status DC Insulin Detemir (Levemir) 44 units DAILYWBKFT SQ Last administered on 09:17; Start 07/28/16 at 08:00 Pantoprazole Sodium (Protonix) 40 mg BIDAC PO Last administered on 07/29/16 05 :31; Start 07/28/16 at 07:30 Simvastatin (Zocor) 80 mg QHS PO Last administered on 07/28/16 21:09; Start at 21:00 Warfarin Sodium (Coumadin Per Physician) 1 each PRN DAILY PRN MC SEE COMMENTS Last administered on 07/28/16 03:23; Start 07/27/16 at 23:45; Stop 07/28/16 at 08:15; Status DC Budesonide (Pulmicort) 0.5 mg RTBID NEB Last administered on 07/28/16 08:58; Start 07/28/16 at 08:00; Stop 07/28/16 at 10:52; Status DC Albuterol Sulfate (Ventolin Neb Soln) 2.5 mg RTQID NEB Last administered on 07:44; Start 07/28/16 at 08:00 Warfarin Sodium (Coumadin Per Pharmacy) 1 each PRN DAILY PRN MC SEE COMMENTS Last administered on 07/29/16 07:56; Start 07/28/16 at 08:15 Acetaminophen/ Hydrocodone Bitart (Lortab 7.5/325) 1 tab PRN Q4HRS PRN PO PAIN Last administered on 07/28/16 12:34; Start 07/28/16 at 11:00 Acetaminophen/ Hydrocodone Bitart (Lortab 7.5/325) 2 tab PRN Q4HRS PRN PO SEVERE PAIN Last administered on 07/29/16 05:35; Start 07/28/16 at 11:00 Nicotine (Nicoderm Cq 21mg) 1 patch DAILY TD Last administered on 07/29/16 09: 07; Start 07/28/16 at 11:00 Warfarin Sodium (Coumadin) 7.5 mg 1X WARF ONCE PO ; Start 07/29/16 at 16:00; Stop 07/29/16 at 16:01 Active Scripts Active Mucinex (Guaifenesin) 1,200 Mg Tbmp.12hr 1 Tab PO BID Klor-Con M20 (Potassium Chloride) 20 Meq Tab.er.prt 20 Meq PO DAILYWBKFT Novolog Flexpen (Insulin Aspart) 100 Unit/1 Ml Insuln.pen 7 Units SQ TIDBFRMEAL Reported Alprazolam 0.25 Mg Tablet 1 Tab PO BID Gabapentin 300 Mg Capsule 900 Mg PO TID Carvedilol 3.125 Mg Tablet 1 Tab PO BID Spironolactone 25 Mg Tablet 25 Mg PO DAILY Levothyroxine Sodium 125 Mcg Tablet 125 Mcg PO DAILYAC Torsemide 20 Mg Tablet 20 Mg PO Zocor (Simvastatin) 80 Mg Tablet 80 Mg PO DAILY Metformin Hcl 1,000 Mg Tablet 1,000 Mg PO BID Lantus Solostar (Insulin Glargine,Hum.rec.anlog) 100 Unit/1 Ml Insuln.pen 44 Unit SQ DAILYWBKFT Reglan (Metoclopramide Hcl) 10 Mg Tablet 10 Mg PO QID Protonix (Pantoprazole Sodium) 40 Mg Granlynn. 40 Mg PO BID Advair 250-50 Diskus (Fluticasone/Salmeterol) 1 Each Disk.w.dev 1 Each IH BID Singulair Tablet (Montelukast Sodium) 10 Mg Tablet 10 Mg PO DAILY Aspir 81 (Aspirin) 81 Mg Tablet. 81 Mg PO DAILY Vitals/I & O Vital Sign - Last 24 Hours 07/28/16 07/28/16 07/28/16 07/28/16 11:02 12:18 12:34 14:59 Temp 97.8 97.9 97.8 97.9 Pulse 72 79 Resp 18 18 B/P 94/53 114/62 Pulse Ox 95 93 O2 Delivery Room Air Nasal Cannula Room Air Room Air O2 Flow Rate 2.0 07/28/16 07/28/16 07/28/16 07/28/16 15:08 16:09 17:30 19:05 Pulse 79 B/P 114/62 O2 Delivery Room Air Room Air Room Air 07/28/16 07/28/16 07/28/16 07/28/16 19:05 20:13 21:43 22:41 Temp 98.2 98.2 Pulse 78 Resp 18 16 16 B/P 113/61 Pulse Ox 92 92 92 O2 Delivery Room Air Nasal Cannula Room Air O2 Flow Rate 2.0 07/28/16 07/29/16 07/29/16 07/29/16 22:56 03:00 05:35 06:35 Temp 98.2 98.4 98.2 98.4 Pulse 85 77 Resp 20 18 16 B/P 110/59 132/60 Pulse Ox 93 95 93 O2 Delivery Nasal Cannula Nasal Cannula Room Air Room Air O2 Flow Rate 2.0 3.0 07/29/16 07/29/16 07/29/16 07:00 07:45 09:09 Temp 98.0 98.0 Pulse 89 Resp 18 B/P 112/62 112/88 Pulse Ox 97 94 O2 Delivery Nasal Cannula Room Air O2 Flow Rate 3.0 Intake and Output 07/28/16 07/28/16 07/29/16 15:00 23:00 07:00 Intake Total 300 ml 110 ml Balance 300 ml 110 ml LUIS CHO APRN Jul 29, 2016 10:21
[2016-07-29] MEDS ORDERED: WARFARIN 7.5 MG TABLET. PO ONE (16:00)
== END 2016-07-29 12:16 | disposition home or self-care (01) | DRG 253 ==
LOC: ER 09:44 → 4 NORTH 13:55 → 2 SOUTH 21:25
PROVIDERS: ADMIT Internal Medicine; ATTEND Internal Medicine
PROC: 06BP0ZZ Excision of Right Saphenous Vein, Open Approach (ICD-10-PCS; 2016-07-27)
PROC: 031 Upper Arteries, Bypass (ICD-10-PCS; principal; 2016-07-27 14:00)
DX: E11.51 Type 2 diabetes mellitus with diabetic peripheral angiopathy without gangrene (principal); I50.22 Chronic systolic (congestive) heart failure; I13.0 Hypertensive heart and chronic kidney disease with heart failure and stage 1 through stage 4 chronic kidney disease, or unspecified chronic kidney disease; J96.10 Chronic respiratory failure, unspecified whether with hypoxia or hypercapnia; I74.2 Embolism and thrombosis of arteries of the upper extremities; I74.9 Embolism and thrombosis of unspecified artery; D72.829 Elevated white blood cell count, unspecified; D64.9 Anemia, unspecified; E11.22 Type 2 diabetes mellitus with diabetic chronic kidney disease; E11.40 Type 2 diabetes mellitus with diabetic neuropathy, unspecified; Z68.32 Body mass index [BMI] 32.0-32.9, adult; E78.00 Pure hypercholesterolemia, unspecified; F17.200 Nicotine dependence, unspecified, uncomplicated; E66.8 Other obesity; I25.10 Atherosclerotic heart disease of native coronary artery without angina pectoris; J44.9 Chronic obstructive pulmonary disease, unspecified; J45.909 Unspecified asthma, uncomplicated; K21.9 Gastro-esophageal reflux disease without esophagitis; K58.9 Irritable bowel syndrome, unspecified; K76.0 Fatty (change of) liver, not elsewhere classified; N18.2 Chronic kidney disease, stage 2 (mild); Z79.01 Long term (current) use of anticoagulants; Z80.0 Family history of malignant neoplasm of digestive organs; Z86.73 Personal history of transient ischemic attack (TIA), and cerebral infarction without residual deficits; Z87.11 Personal history of peptic ulcer disease; Z87.442 Personal history of urinary calculi; Z95.1 Presence of aortocoronary bypass graft; Z90.710 Acquired absence of both cervix and uterus; Z90.49 Acquired absence of other specified parts of digestive tract; Z88.0 Allergy status to penicillin; Z88.6 Allergy status to analgesic agent; Z88.8 Allergy status to other drugs, medicaments and biological substances
CPT/HCPCS: 36415; 71010; 73201; 80048; 80053; 80076; 82947; 83735; 84484; 85027; 85610; 86850; 86900; 86901; 93005; 93971; 94250; 94640; 96361; 96374; 96375; J0330; J0690; J1170; J1815; J2270; J2370; J2704; J3010; J3370; J7030; J7040; J7512; J8597; Q9967; 99285-25

== ENCOUNTER → 2016-09-28 | Outpatient (CLI) | payer MEDICARE ==
[~2016-09-28] MED LIST changes: +HYDR-2762 PO; +METF-620 PO; -METF10002 PO; -ROFL500T PO; +ROFL500T7 PO; +WARF-78 PO; +WARF2TAB7 PO; -WARF5TAB PO; -WARF7.5T PO; +WARF7.5T48 PO
--- NOTE | 2016-09-28 09:23 | RAD ---
Indication chronic pain. AP and frog leg views of the left hip were obtained. There is suspect bony demineralization. An acute finding is not seen. Substantial degenerative changes are not apparent on plain films.
--- NOTE | 2016-09-28 09:48 | RAD ---
Indication swelling and pain. Axial images through the left knee were obtained. Images were reformatted in the coronal and sagittal planes. Note is made that the patient is not a candidate for MRI. A significant soft tissue finding is not seen. There is a small joint effusion. No acute or significant bony finding is seen. There appears to be ossification or calcification associated with the lateral meniscus. This is probably a reflection of chondrocalcinosis. IMPRESSION: No acute finding. Probable chondrocalcinosis. Plain film imaging may be useful. PQRS Compliance Statement: One or more of the following individualized dose reduction techniques were utilized for this examination: 1. Automated exposure control 2. Adjustment of the mA and/or kV according to patient size 3. Use of iterative reconstruction technique
== END | disposition home or self-care (01) ==
LOC: CT 09:05
PROVIDERS: ATTEND Internal Medicine
DX: M25.552 Pain in left hip (principal); M25.462 Effusion, left knee
CPT/HCPCS: 73502; 73700

== ENCOUNTER → 2016-12-01 | Day surgery (SDC) | payer MEDICARE ==
[~2016-12-01] MED LIST changes: -LEVO500T38 PO; +LEVO500T59 PO; +LIDOCAINE 2% PF Vial for OR 5 ML VIAL. ONE; +PROPOFOL 40 ML IV ONE
--- NOTE | 2016-12-01 09:34 | PDOC1 ---
HISTORY & PHYSICAL H&P Stacey Salazar [id number] 1960 11/06/2016 10:00 AM 05/10 [place] [employer] [facility], [facility] OUR PATIENTS COME FIRST [address] [place] [address] Ph. [phone] Patient: Stacey Salazar Date of : 1960 Date: 11/06/2016 10:00 AM Visit Type: Office Visit This 56 year old female presents for Diarrhea and H/o colorectal polyp. History of Present Illness: 1. Diarrhea Stool frequency: 8 to 10 times a day. The patient describes it as loose and watery. Associated symptoms include abdominal pain and tenesmus. Pertinent negatives include blood in stool, fecal incontinence, fever and vomiting. 2. H/o colorectal polyp Prior screening: colonoscopy. Denies risk factors. Associated symptoms include abdominal pain and diarrhea. Pertinent negatives include change in bowel habits, change in stool caliber, constipation, decreased appetite, melena , nausea, rectal bleeding, vomiting, weight gain and weight loss. Additional information: No family history of colon cancer, No family history of Crohn's/ colitis and No NSAID/ASA use. INTAKE COMMENTS: Intake Comments: Nurse Note: the pt is here today with complaints of diarrhea. The pt has a hx of colon polyp in 2004. PROBLEM LIST: Problem Description Onset Date Allergic conjunctivitis, bilateral 09/17/2015 Vaginal pain 03/25/2015 Frequent loose stools 04/08/2015 Herpes zoster without complication 04/08/2015 Bilateral carpal tunnel syndrome 06/13/2015 Uncontrolled type 2 diabetes mellitus with diabetic polyneuropathy, with long- term current use of insulin 02/05/2016 Recurrent major depressive disorder, in partial remission 02/05/2016 Anxiety 02/05/2016 Dysphagia, unspecified type 05/15/2015 Closed fracture of pelvis 10/31/2012 COPD mixed type 11/15/2015 Skin rash 11/15/2015 H/O adenomatous polyp of colon 05/15/2015 Peripheral artery disease 01/10/2016 Acute exacerbation of COPD 10/31/2012 Diabetes with neurological manifestations 02/05/2010 Benign essential hypertension 02/05/2010 Old myocardial infarction 02/05/2010 Peripheral vascular disease 02/05/2010 H/O: cardiovascular disease 02/05/2010 Gastro-esophageal reflux disease with esophagitis 02/05/2010 Chronic systolic heart failure 02/05/2010 Hyperlipidemia 02/05/2010 Medicare annual wellness visit, subsequent 07/11/2014 Dry mouth 12/13/2015 Irritable bowel syndrome 03/10/2010 Coronary atherosclerosis 03/10/2010 Chronic obstructive lung disease 03/10/2010 Allergic rhinitis 03/10/2010 Degenerative joint disease involving multiple joints 03/10/2010 Headache 03/10/2010 Congestive heart failure 03/10/2010 Chronic respiratory failure with hypoxia and hypercapnia 10/18/2015 PAST MEDICAL/SURGICAL HISTORY (Detailed) Disease/disorder Onset Date Management Date Comments Cholecystectomy Appendectomy EGD with biopsy 04/21/2007 Arthrocentesis of the right knee joint Arthrocentesis of the right ankle joint Oophorectomy Lt foot surgery stent placement x 9 pacemaker placement Allergies anal fissure 2009 Anxiety asthma as child Bronchitis Carpal tunnel syndrome carpal tunnel release Carpal tunnel syndrome Carpal tunnel release 09/26/2015 Chronic Pain Syndrome Colonic polyps colonoscopy with polypectomy 04/21/2005 COPD Coronary artery disease 2009 Coronary artery bypass graft (CABG) Deep vein thrombosis left arm brachial thromboembolectomy 2006 Diabetes mellitus with neuropathy Diverticulosis esophageal reflux Protonix bid Esophageal Stricture EGD with dilation 02/22/2009 Fatty infiltration of the liver 2013 gastritis Headaches Migraine Hemorrhoids hemorrhoidectomy Hiatal Hernia History of post hysterectomy bleeding Hyperlipidemia Hypertension ICM AICD placement Dr. Milton Insomnia Irritable bowel disease Ischemic cardiomyopathy with severe LV dysfunction EF 30% systolic/diastolic dysfunction ECHO 09/21/2011 DR. Milton Myocardial infarction x6 multiple stents OA Knee arthroscopy 1998 OA bilateral knees Peptic ulcer disease Peripheral vascular disease 2010 atherectomy and REGISTERED ART THERAPIST of left popliteal artery R cerebral stroke post CC 2007 RA as child uterine fibroids hyst with bilat ooph 1998 Varicose Veins DIAGNOSTICS HISTORY: Test Ordered Interpretation Result completed CT of Lt knee 08/05/2009 Mild DJD, no acute fracture 08/05/2009 EGD 12/31/2009 HH, reflux esophagitis 12/31/2009 Cardiac Cath 02/13/2008 stent LAD EF 20% 02/13/2008 CT brain 03/06/2008 R parietal infarct 03/06/2008 Echocardiogram 06/07/2008 EF 25-30% diastolic 06/07/2008 US LUE 01/17/2007 DVT 01/17/2007 arteriogram bilat LE 04/20/2005 segmental occlusion distal R ant tibial art. R tibioperoneal trunk occluded at origin. R post tibial artery reconstitutes in the midcalf & cont to ankle where fills plantar artery. Occlusion L popliteal art just below knee. L ant tibial reconstitutes at the proxiaml calf & is patent to the anlkle filling the dorsalis pedis art. 04/20/2005 CT abd/ pelvis 02/06/2010 Mod diffuse fatty infiltration of the liver, Decompressed colon, no acute findings 02/06/2010 Colonoscopy 04/21/2005 04/21/2005 EGD 04/21/2005 04/21/2005 RT lower venous doppler 09/01/2009 Normal 09/01/2009 X-ray Rt ankle 09/01/2009 Normal no acute findings 09/01/2009 X-ray chest 05/23/2009 Normal No acute disease is seen in the chest 05/23/2009 EGD 12/31/2009 12/31/2009 EGD 02/22/2009 02/22/2009 Stress Test 02/16/2009 EF 37% 02/16/2009 Cardiac Cath 09/18/2010 Had cardiac stent 09/18/2010 [facility] GI ENDOSCOPY, DIAGNOSIS 08/19/2011 abnormal Imp: Small hiatal hernia, initial difficulity of the esophageal intubation probably secondary to cricopharyngeal hypertrophy or dysfunction, Successful Hunt dilation with 54 lao. 12/25/[address] WITH Contrast 07/20/2012 Imp: No acute abdominal or pelvic abnormality. There is diffuse fatty infiltration of the liver. There is bilateral renal cortical scarring, worse on the left. 07/22/2012 Test Ordered Ordering Comments Modifier CT of Lt knee 08/05/2009 Diagnostic Images EGD 12/31/2009 Gastroenterology Cardiac Cath 02/13/[address] brain 03/06/2008 Other Reports Echocardiogram 06/07/2008 Cardiac Studies US LUE 01/17/2007 Other Reports arteriogram bilat LE 04/20/[address] abd/ pelvis 02/06/2010 Diagnostic Images Colonoscopy 04/21/2005 Gastroenterology EGD 04/21/2005 Gastroenterology RT lower venous doppler 09/01/2009 Diagnostic Images X-ray Rt ankle 09/01/2009 Diagnostic Images X-ray chest 05/23/2009 Diagnostic Images EGD 12/31/2009 Gastroenterology EGD 02/22/2009 Gastroenterology Stress Test 02/16/2009 Cardiac Studies Cardiac Cath 09/18/2010 Cardiac Studies [facility] GI ENDOSCOPY, DIAGNOSIS 08/19/[address] WITH Contrast 07/20/2012 Patient is postmenopausal. OBSTETRIC HISTORY: Not currently . Medications (Active): Started Medication Directions Instruction Stopped 11/11/2012 Advair Diskus 250 mcg-50 mcg/dose for Inhalation inhale 1 puff by inhalation route 2 times every day in the morning and evening approximately 12 hours apart 10/23/2016 alprazolam 0.25 mg tablet take 1 tablet po BID PRN 10/13/2010 Aspir-81 81 mg Tab take 1 tablet (81MG) by oral route every day 08/04/2016 CELEXA 20 MG TABLET TAKE ONE TABLET BY MOUTH DAILY. 08/04/2016 COREG 3.125 MG TABLET TAKE ONE TABLET BY MOUTH 2 TIMES DAILY WITH FOOD 03/14/2013 Coumadin 1 mg tablet 5mg one day weekly and 7.[address] Milton manages 09/17/2015 Flonase 50 mcg/actuation nasal spray,suspension spray 2 spray by intranasal route every day in each nostril 10/23/2016 hydrocodone 7.5 mg-acetaminophen 325 mg tablet take 1 tablet by oral route every 6 hours as needed for pain 05/07/2016 Lantus Solostar 100 unit/mL (3 mL) subcutaneous insulin pen 40 UNITS EVERY MORNING 06/21/2016 levothyroxine 150 mcg tablet take 1 tablet by oral route every day 08/09/2016 magnesium oxide 400 mg tablet take 1 tablet by oral route 3 times every day 10/29/2016 metformin ER 500 mg tablet,extended release 24 hr take 2 tablet by oral route 2 times every day with meals 06/15/2016 mupirocin 2 % topical ointment apply by topical route 2 times every day a small amount to the affected area 08/11/2016 Neurontin 300 mg capsule take 3 capsule by oral route twice a day and 4 at bed time daily Nitrostat 0.[address] 1 tablet (0.4MG) by sublingual route at the 1st sign of attack; may repeat every 5 min until relief; if pain persists after 3 tablets in 15 min, prompt medical attention is recommended 05/13/2010 Novolog 100 unit/mL Sub-Q inject by Subcutaneous route 7 UNITS TID 03/06/2009 omega-3 fatty acids-vitamin E 1,000 mg Cap 1 cap po bid 01/14/2011 One Touch Ultra Test Strips TO CHECK BLOOD SUGAR QID DIABETES 250.02 01/14/2011 One Touch UltraSoft Lancets TO CHECK BLOOD SUGAR 4 TIMES DAILY DIABETES UNCONTROLLED 250.02 10/27/2016 POTASSIUM CL ER 20 MEQ TABLET TAKE ONE TABLET BY MOUTH DAILY WITH BREAKFAST 08/14/2016 SINGULAIR 10 MG TABLET TAKE (1) TABLET BY MOUTH ONCE DAILY AT BEDTIME spironolactone 25 mg tablet take 1 tablet by oral route every day 09/02/2015 Symbicort 160 mcg-4.5 mcg/actuation HFA aerosol inhaler inhale 2 puff by inhalation route 2 times every day in the morning and evening.Rinse mouth after use. 06/13/2015 tizanidine 4 mg tablet take 1 tablet by oral route every 6 hours as needed for muscle spasms torsemide 20 mg tablet take one tablet by mouth daily Tudorza Pressair 400 mcg/actuation Breath Activated inhale 1 puff (400MCG) by inhalation in the am and 1 puff in the pm 03/31/2013 Ultra Comfort Insulin Syringe 1/2 mL 31 x 5/16" USE ONE PER INSULIN AWHLUPUXU-3-5 TIMES DAILY Vitamin D3 1,000 unit capsule take 1 capsule by oral route every day 08/22/2014 Voltaren 1 % topical gel apply (2G) by topical route 4 times every day to left side neck 1 tube = 100 gram 09/17/2015 Zaditor 0.025 % (0.035 %) eye drops instill 1 drop by ophthalmic route 2 times every day into affected eye(s) 08/17/2016 Zocor 80 mg tablet TAKE [1] TABLET EVERY EVENING. 09/17/2015 Zyrtec 10 mg tablet take 1 tablet by ORAL route every day at bedtime Allergies: Ingredient Reaction Medication Name Comment CODEINE Nausea PENICILLINS Hives IODINE REVIEW OF SYSTEMS System Neg/Pos Details Constitutional Negative Chills, fever, malaise, weight gain and weight loss. ENMT Negative Sore throat. Eyes Negative Double vision. Respiratory Negative Dyspnea and wheezing. Cardio Negative Chest pain and irregular heartbeat/palpitations. GI Positive Abdominal pain, Diarrhea, Tenesmus, See HPI. GI Negative Blood in stool, change in bowel habits, change in stool caliber, constipation, decreased appetite, fecal incontinence, melena, nausea, see HPI, rectal bleeding and vomiting. Negative Dysuria and hematuria. Endocrine Negative Cold intolerance and heat intolerance. Psych Negative Anxiety. Integumentary Negative Hives and rash. MS Negative Joint pain. Moises/Lymph Negative Easy bleeding and easy bruising. Allergic/Immuno Negative Food allergies. VITAL SIGNS Time BP mm/Hg Pulse /min Resp /min Temp F Ht ft Ht in Ht cm Wt lb Wt kg BMI kg/ m2 BSA m2 O2 Sat% 10:46 AM 138/86 90 98.2 5.0 6.00 167.64 195.60 88.723 31.57 91 Time Measured by 10:46 AM Soha Reilly PHYSICAL EXAM: Exam Findings Details Constitutional Normal Well developed. Eyes Normal Conjunctiva - Right: Normal, Left: Normal. Sclera - Right: Normal, Left: Normal. Nasopharynx Normal Lips/teeth/gums - Normal. Neck Exam Normal Inspection - Normal. Thyroid gland - Normal. Respiratory Normal Inspection - Normal. Auscultation - Normal. Cardiovascular Normal Regular rate and rhythm. No murmurs, gallops, or rubs. Vascular Normal Pulses - Carotids: Normal, Femoral: Normal, Dorsalis pedis: Normal. Abdomen Normal Inspection - Normal. Anterior palpation - No guarding. No abdominal tenderness. No hepatic enlargement. No splenic enlargement. No hernia. No Ascites. Skin Normal Inspection - Normal. Extremity Normal No edema. Psychiatric Normal Oriented to time, place, person, and situation. Appropriate mood and effect. Assessment/Plan # Detail Type Description 1. Assessment Functional diarrhea (K59.1). Patient Plan Stool c.diff. Stool culture. Stool for wbc. Discontinue Protonix and Reglan Plan Orders C. Diff, Fecal WBC today and Stool Culture to be performed today. 2. Assessment History of colon polyps (Z86.010). Plan Orders Further diagnostic evaluations ordered today include(s) Colonoscopy to be performed today. She is to schedule a follow-up visit with Anita Gregorio MD upon completion of work-up Electronically signed by: Anita Gregorio MD 11/06/2016 12:37 PM Document generated by: Anita Gregorio 11/06/2016 12:37 PM Stephen Grubbs MD, Family Practice; Pedro Peters MD Internal Medicine; Nitesh Palmer MD, Internal Medicine; Kristen Gregorio MD Internal Medicine; Anita Gregorio MD, Gastroenterology; Arvin Barker MD, Rheumatology, S. Stanton Resendiz, Physical Medicine/Rehab Jane Tuttle DIGITAL MANAGER ------ 12/01/16 Patient seen and examined. Patient has been also having significant upper abdominal pain and GERD. Will also do EGD along with colonoscopy for further evaluation. ANITA GREGORIO MD Dec 01, 2016 09:33
[2016-12-01 10:37] VITALS: BP 125/65
--- NOTE | 2016-12-02 11:28 | PATHOLOGY ---
PATHOLOGY REPORT * * * * * * * * FINAL DIAGNOSIS: Colonic mucosa, random colon biopsies: - No significant pathologic abnormalities. COMMENT: Sections of the random colon biopsy reveal multiple segments of colonic mucosa. There is no evidence of a chronic destructive colitis, lymphocytic colitis, or collagenous colitis. (JPM:mgr; 12/02/2016) REPORT ELECTRONICALLY SIGNED BY: Jack Henriquez M.D. DATE/TIME: 12/02/2016 11:25 * * * * * * * * GROSS PATHOLOGY: Received in formalin labeled "Stacey Louise, random colon biopsies," are multiple segments of pitts soft tissue measuring from 0.1 up to 0.3 cm in maximum dimension. The specimen is submitted entirely in cassette A1. (JPM; 12/01/16) INITIAL CPT CODE(S): A; 14243 Professional services performed [place] [facility] [place] [address] Technical services performed by [facility] at [address] [place] [address], [facility] [address], [place] [address]. SPECIMEN(S) RECEIVED: A.Random colon biopsies CLINICAL HISTORY: Diarrhea PATIENT: STACEY LOUISE S /AGE: 9 1960 (Age: 56) PATIENT #: [id number] ALT CASE #: SPECIMEN COLLECTION DATE: 12/01/2016 SPECIMEN RECEIVED DATE: 12/01/2016 [facility] - [address] [place] [address] - PHONE: [phone] * * * END OF REPORT * * *
== END ==
LOC: ENDOS 09:03
PROVIDERS: ATTEND Internal Medicine Gastroenterology
DX: K57.30 Diverticulosis of large intestine without perforation or abscess without bleeding (principal); Z86.010 Personal history of colon polyps; K21.0 Gastro-esophageal reflux disease with esophagitis; K44.9 Diaphragmatic hernia without obstruction or gangrene; Z86.69 Personal history of other diseases of the nervous system and sense organs; Z86.73 Personal history of transient ischemic attack (TIA), and cerebral infarction without residual deficits; I25.10 Atherosclerotic heart disease of native coronary artery without angina pectoris; E10.51 Type 1 diabetes mellitus with diabetic peripheral angiopathy without gangrene; E78.00 Pure hypercholesterolemia, unspecified; I10 Essential (primary) hypertension; J44.9 Chronic obstructive pulmonary disease, unspecified; E03.9 Hypothyroidism, unspecified; F41.9 Anxiety disorder, unspecified; F32.9 Major depressive disorder, single episode, unspecified; Z86.718 Personal history of other venous thrombosis and embolism; Z87.01 Personal history of pneumonia (recurrent); Z90.49 Acquired absence of other specified parts of digestive tract; Z90.710 Acquired absence of both cervix and uterus; Z87.39 Personal history of other diseases of the musculoskeletal system and connective tissue; Z88.6 Allergy status to analgesic agent; Z88.0 Allergy status to penicillin; Z88.8 Allergy status to other drugs, medicaments and biological substances
CPT/HCPCS: 43235; 45380; 82962; 88305; J2001; J2704

== ENCOUNTER 2017-02-10 10:02 | Emergency (ER) | payer MEDICARE ==
[~2017-02-10] VITALS: Ht 162.6 cm; Wt 83.9 kg
[~2017-02-10 10:02] MED LIST changes: -LIDOCAINE 2% PF Vial for OR 5 ML VIAL. ONE; -PROPOFOL 40 ML IV ONE
--- NOTE | 2017-02-10 10:20 | PHYS DOC ---
Past Medical History Past Medical History: Anxiety, CAD, CHF, COPD, CVA, Depression, Diabetes-Type II, High Cholesterol, Heart Disease, Hypertension, [place], Stroke, Other Additional Past Medical Histor: IN x 6, BLOOD CLOTS IN LLE AND ULE, + previous surgical removal of AC blood Past Surgical History: Angioplasty, Appendectomy, Cholecystectomy, Hysterectomy , Pacemaker, Other Additional Past Surgical Histo: THYROIDECTOMY, HEMORRHOIDECTOMY, PARTIAL HYST, R KNEE SCOPE, R CARPAL TUNNE Alcohol Use: None Drug Use: None Adult General Chief Complaint Chief Complaint: LOWER EXTREMITY SWELLING HPI HPI Patient is a 57 year old female presents the ED complaining of left ankle injury 2 weeks. Patient states that she tripped over her dog and twisted her ankle. Denies fall. States she had it x-rayed and she was told no fracture but the pain has continued. Describes the pain as sharp. Rates the pain as 7 out of 10. Denies LOC, vision changes, head/neck injury, chest pain or shortness of breath. Review of Systems Review of Systems Constitutional: Denies fever or chills [] Eyes: Denies change in visual acuity, redness, or eye pain [] HENT: Denies nasal congestion or sore throat [] Respiratory: Denies cough or shortness of breath [] Cardiovascular: No additional information not addressed in HPI [] GI: Denies abdominal pain, nausea, vomiting, bloody stools or diarrhea [] : Denies dysuria or hematuria [] Musculoskeletal: Denies back pain. Complains of left ankle pain [] Integument: Denies rash or skin lesions [] Neurologic: Denies headache, focal weakness or sensory changes [] Endocrine: Denies polyuria or polydipsia [] Current Medications Current Medications Current Medications Medications (Trade) Dose Ordered Sig/Irena Start Time Stop Time Status Last Admin Dose Admin Acetaminophen/ Hydrocodone Bitart (Lortab 5/325) 1 tab 1X ONCE 02/10/17 10:30 02/10/17 10:31 DC 02/10/17 10:35 1 TAB Allergies Allergies Allergies Coded Allergies Type Severity Reaction Last Updated Verified Penicillins Allergy Intermediate Hives 02/10/17 Yes codeine Adverse Reaction Mild Nausea and Vomiting 02/10/17 Yes diphenhydramine HCl Adverse Reaction Mild hyperactive 02/10/17 Yes Physical Exam Physical Exam Constitutional: Well developed, well nourished, no acute distress, non-toxic appearance. [] HENT: Normocephalic, atraumatic, bilateral external ears normal, oropharynx moist, no oral exudates, nose normal. [] Eyes: PERRLA, EOMI, conjunctiva normal, no discharge. [] Neck: Normal range of motion, no tenderness, supple, no stridor. [] Cardiovascular:Heart rate regular rhythm, no murmur [] Lungs & Thorax: Bilateral breath sounds clear to auscultation [] Abdomen: Bowel sounds normal, soft, no tenderness, no masses, no pulsatile masses. [] Skin: Warm, dry, no erythema, no rash. [] Back: No tenderness, no CVA tenderness. [] Extremities: MILD LEFT LATERAL ANKLE TENDERNESS/SWELLING, no cyanosis, no clubbing, ROM intact, no edema. [] Neurologic: Alert and oriented X 3, normal motor function, normal sensory function, no focal deficits noted. [] Psychologic: Affect normal, judgement normal, mood normal. [] Current Patient Data Vital Signs Vital Signs Date Time Temp Pulse Resp B/P (MAP) Pulse Ox O2 Delivery O2 Flow Rate FiO2 02/10/17 12:15 68 20 108/56 (73) 94 Room Air 02/10/17 10:15 98.6 98.6 EKG EKG [] Radiology/Procedures Radiology/Procedures PATIENT: ISATU LOUISE ACCOUNT: [id number] : 1960 LOCATION: ER AGE: 57 SEX: F EXAM [id number] STATUS: REG ER ORD. PHYSICIAN: RAINER JEFFERSON REASON: injury,pt states fell 6 weeks ago, having pain ankle and foot. PROCEDURE: ANKLE LEFT 3V; FOOT LEFT 3V Left ankle, 3 views, 02/10/2017: History: Fall, pain There is patchy bony demineralization. No acute fracture or dislocation is identified. There is mild spurring at the ankle joint. There is moderate diffuse soft tissue swelling. Left foot, 3 views, 02/10/2017: There is moderate patchy bony demineralization. There are mild scattered degenerative changes. No fracture or destructive bony lesion is seen. There is diffuse subcutaneous edema. IMPRESSION: 1. Severe patchy bony demineralization. 2. No acute bony abnormality is detected. [] PROCEDURE: VENOUS LOWER EXTREMITY LEFT Ultrasound venous left lower activity Indication: Left leg pain Technique: Grayscale, color Doppler and spectral waveform ultrasound images of the left lower extremity deep veins. Comparison: None Findings: The left lower extremity deep veins are compressible and demonstrate evidence of blood flow with normal respiratory variation and response to augmentation. Impression: No sonographic evidence of acute DVT of the interrogated left lower extremity deep veins. Course & Med Decision Making Course & Med Decision Making Pertinent Labs and Imaging studies reviewed. (See chart for details) []Discussed imaging with patient. Patient's pain improved. Vital stable, no acute distress. Pee wrap placed. Neurovascular intact post placement. Walker given. Patient able to ambulate safely with a walker. Discussed symptomatic treatment at home. Discussed follow-up with patient. Discussed reasons to return to the ED. Patient understands and agrees with plan. Dragon Disclaimer Dragon Disclaimer This electronic medical record was generated, in whole or in part, using a voice recognition dictation system. Departure Departure Impression: Primary Impression: Ankle sprain Disposition: 01 HOME, SELF-CARE Condition: IMPROVED Referrals: SULTANA MONTGOMERY MD (PCP) Patient Instructions: Ankle Sprain Scripts Hydrocodone/Apap 5-325 (NORCO 5-325 TABLET) 1 Each Tablet 1 TAB PO BID, #8 TAB Prov: RAINER JEFFERSON 02/10/17 RAINER JEFFERSON Feb 10, 2017 10:20
[2017-02-10] MEDS: HYDROcodone/APAP 5/325MG 1 TAB TABLET PO ONE (10:35)
--- NOTE | 2017-02-10 10:52 | RAD ---
Left ankle, 3 views, 02/10/2017: History: Fall, pain There is patchy bony demineralization. No acute fracture or dislocation is identified. There is mild spurring at the ankle joint. There is moderate diffuse soft tissue swelling. Left foot, 3 views, 02/10/2017: There is moderate patchy bony demineralization. There are mild scattered degenerative changes. No fracture or destructive bony lesion is seen. There is diffuse subcutaneous edema. IMPRESSION: 1. Severe patchy bony demineralization. 2. No acute bony abnormality is detected.
--- NOTE | 2017-02-10 11:04 | RAD ---
Ultrasound venous left lower activity Indication: Left leg pain Technique: Grayscale, color Doppler and spectral waveform ultrasound images of the left lower extremity deep veins. Comparison: None Findings: The left lower extremity deep veins are compressible and demonstrate evidence of blood flow with normal respiratory variation and response to augmentation. Impression: No sonographic evidence of acute DVT of the interrogated left lower extremity deep veins.
--- NOTE | 2017-02-10 11:58 | RAD ---
Tibia and fibula x-ray Indication: Patient fell and has pain in the lower leg above ankle. Comparison: None Technique: AP and lateral views of the left tibia and fibula Findings: No acute fracture or dislocation. Knee joint is within normal limits. No soft tissue abnormality. Mild demineralization of the bones. Impression: No acute findings.
[2017-02-10] MEDS ORDERED: HYDR-971 PO (12:04)
[2017-02-10 12:15] VITALS: BP 108/56
== END 2017-02-10 12:30 | disposition home or self-care (01) ==
LOC: ER 10:02
DX: S93.402A Sprain of unspecified ligament of left ankle, initial encounter (principal); E78.00 Pure hypercholesterolemia, unspecified; E11.9 Type 2 diabetes mellitus without complications; I11.0 Hypertensive heart disease with heart failure; I50.9 Heart failure, unspecified; I25.10 Atherosclerotic heart disease of native coronary artery without angina pectoris; Z86.73 Personal history of transient ischemic attack (TIA), and cerebral infarction without residual deficits; J44.9 Chronic obstructive pulmonary disease, unspecified; Z95.0 Presence of cardiac pacemaker; I25.2 Old myocardial infarction; Z90.710 Acquired absence of both cervix and uterus; Z90.49 Acquired absence of other specified parts of digestive tract; Z88.0 Allergy status to penicillin; Z88.5 Allergy status to narcotic agent; W01.0XXA Fall on same level from slipping, tripping and stumbling without subsequent striking against object, initial encounter; Y93.89 Activity, other specified; Y99.8 Other external cause status; Y92.89 Other specified places as the place of occurrence of the external cause; Z88.8 Allergy status to other drugs, medicaments and biological substances
CPT/HCPCS: 73590; 73610; 73630; 93971; 99284

== ENCOUNTER 2017-05-25 13:01 | Inpatient (IN) | payer MEDICARE ==
[2017-05-25 13:38] LABS: ADD MAN DIFF? NO
[2017-05-25 13:41] LABS: BASO # 0.1 x10^3/uL (0.0-0.2); BASO % 1 % (0-3); EOS # 0.1 x10^3/uL (0.0-0.7); EOS % 2 % (0-3); HEMATOCRIT 35.1 % (36.0-47.0); HEMOGLOBIN 11.2 g/dL (12.0-15.5); LYMPH # 2.7 x10^3/uL (1.0-4.8); LYMPH % 33 % (24-48); MEAN CORPUSCULAR HEMOGLOBIN 26 pg (25-35); MEAN CORPUSCULAR HGB CONC 32 g/dL (31-37); MEAN CORPUSCULAR VOLUME 83 fL (79-100); MONO # 0.7 x10^3/uL (0.0-1.1); MONO % 8 % (0-9); NEUT # 4.8 x10^3uL (1.8-7.7); NEUT % 57 % (31-73); PLATELET COUNT 498 x10^3/uL (140-400); RED BLOOD COUNT 4.24 x10^6/uL (3.50-5.40); WHITE BLOOD COUNT 8.4 x10^3/uL (4.0-11.0)
[2017-05-25 13:44] LABS: BILIRUBIN,URINE NEGATIVE (NEG); CLARITY,URINE CLEAR; COLOR,URINE YELLOW; GLUCOSE,URINE NEGATIVE (NEG); NITRITE,URINE NEGATIVE (NEG); PROTEIN,URINE NEGATIVE (NEG-TRACE); UROBILINOGEN,URINE 0.2 mg/dL (0.2 mg/dL)
[2017-05-25 13:54] LABS: ANION GAP 13 (6-14); BACTERIA,URINE 0 /HPF (0-FEW); BLOOD UREA NITROGEN 15 mg/dL (7-20); CALCIUM 8.1 mg/dL (8.5-10.1); CARBON DIOXIDE 27 mmol/L (21-32); CHLORIDE 101 mmol/L (98-107); CREATININE 1.4 mg/dL (0.6-1.0); GFR 38.6; GLUCOSE 142 mg/dL (70-99); POTASSIUM 4.2 mmol/L (3.5-5.1); RBC,URINE 0 /HPF (0-2); SODIUM 141 mmol/L (136-145); SQUAMOUS EPITHELIAL CELL,UR FEW /LPF; WBC,URINE 0 /HPF (0-4)
[2017-05-25 13:57] LABS: BARBITURATES NEG (NEG); BENZODIAZEPINES NEG (NEG); CANNABINOIDS NEG (NEG); COCAINE NEG (NEG); METHADONE NEG (NEG); OPIATES NEG (NEG); PHENCYCLIDINE NEG (NEG)
[2017-05-25 13:59] LABS: AMPHETAMINE/METHAMPHETAMINE NEG (NEG); ETHANOL, URINE NEG (NEG); INFLUENZA A PATIENT NEGATIVE (NEGATIVE); INFLUENZA B PATIENT NEGATIVE (NEGATIVE); OBC FLU VALID
[2017-05-25 14:01] LABS: ALBUMIN 2.9 g/dL (3.4-5.0); ALK PHOS 86 U/L (46-116); ALT (SGPT) 16 U/L (14-59); AST (SGOT) 24 U/L (15-37); DIRECT BILIRUBIN 0.1 mg/dL (0.0-0.2); MAGNESIUM 1.8 mg/dL (1.8-2.4); TOTAL BILIRUBIN 0.2 mg/dL (0.2-1.0); TOTAL PROTEIN 8.1 g/dL (6.4-8.2)
[2017-05-25 14:03] LABS: TROPONINI < 0.017 ng/mL (0.000-0.055)
[2017-05-25 14:08] LABS: THYROID STIM HORMONE (TSH) 3.244 uIU/mL (0.358-3.74)
[2017-05-25 14:10] LABS: CKMB MASS < 0.5 ng/mL (0.0-3.6); CREATINE KINASE 51 U/L (26-192)
[2017-05-25] MEDS ORDERED: fentaNYL PF VIAL 100 MCG/2 ML VIAL IV (14:45)
[2017-05-25] MEDS ORDERED: ONDANSETRON PF 4 MG/2 ML VIAL. IV (14:45)
[2017-05-25] MEDS: fentaNYL PF VIAL 100 MCG/2 ML VIAL IV ×3 (15:03→16:04)
[2017-05-25] MEDS: HYDROcodone/APAP 7.5/325MG 1 TAB TABLET PO ×2 (17:58→22:13)
[2017-05-25] MEDS: PANTOPRAZOLE 40 MG TABLET.DR. PO (20:05)
[2017-05-25] MEDS: GABAPENTIN 300 MG CAPSULE. PO (20:05)
[2017-05-25] MEDS ORDERED: HYDROcodone/APAP 7.5/325MG 1 TAB TABLET PO (20:15)
[2017-05-25 20:50] LABS: POC GLUCOSE 174 mg/dL (70-99)
[2017-05-25] MEDS ORDERED: NON FORMULARY ITEM (Fluticasone/Salmeterol (Advair 250-50 Diskus) 1 EACH) IH (21:00)
[2017-05-25] MEDS: BUDESONIDE 0.5 MG/2 ML NEBU. NEB (22:00)
[2017-05-25] MEDS: GABAPENTIN 400 MG CAPSULE. PO (22:00)
[2017-05-25] MEDS: METOCLOPRAMIDE 10 MG TABLET. PO (22:12)
[2017-05-25] MEDS: ALPRAZolam 0.25 MG TABLET PO (22:13)
[2017-05-25 23:34] LABS: INR 2.9 (0.8-1.1); PROTHROMBIN TIME PATIENT 28.4 SEC (11.7-14.0)
[2017-05-25 23:48] LABS: TROPONINI < 0.017 ng/mL (0.000-0.055)
[2017-05-26] MEDS ORDERED: INFLUENZA VAX SCREEN BY RX. MC (02:00)
[2017-05-26 02:50] LABS: ADD MAN DIFF? NO
[2017-05-26 02:53] LABS: BASO # 0.1 x10^3/uL (0.0-0.2); BASO % 1 % (0-3); EOS # 0.2 x10^3/uL (0.0-0.7); EOS % 2 % (0-3); HEMATOCRIT 32.5 % (36.0-47.0); HEMOGLOBIN 10.3 g/dL (12.0-15.5); LYMPH # 3.1 x10^3/uL (1.0-4.8); LYMPH % 35 % (24-48); MEAN CORPUSCULAR HEMOGLOBIN 26 pg (25-35); MEAN CORPUSCULAR HGB CONC 32 g/dL (31-37); MEAN CORPUSCULAR VOLUME 82 fL (79-100); MONO # 0.7 x10^3/uL (0.0-1.1); MONO % 8 % (0-9); NEUT # 4.6 x10^3uL (1.8-7.7); NEUT % 53 % (31-73); PLATELET COUNT 447 x10^3/uL (140-400); RED BLOOD COUNT 3.95 x10^6/uL (3.50-5.40); RED CELL DISTRIBUTION WIDTH 20.4 % (11.5-14.5); WHITE BLOOD COUNT 8.7 x10^3/uL (4.0-11.0)
[2017-05-26 03:03] LABS: INR 2.6 (0.8-1.1); PROTHROMBIN TIME PATIENT 26.6 SEC (11.7-14.0)
[2017-05-26 03:18] LABS: TROPONINI < 0.017 ng/mL (0.000-0.055)
[2017-05-26 03:25] LABS: ANION GAP 11 (6-14); BLOOD UREA NITROGEN 21 mg/dL (7-20); CALCIUM 8.2 mg/dL (8.5-10.1); CARBON DIOXIDE 29 mmol/L (21-32); CHLORIDE 102 mmol/L (98-107); CREATININE 1.5 mg/dL (0.6-1.0); GFR 35.7; GLUCOSE 110 mg/dL (70-99); POTASSIUM 4.3 mmol/L (3.5-5.1); SODIUM 142 mmol/L (136-145)
[2017-05-26 03:35] LABS: ANISOCYTOSIS MOD; HYPOCHROMIA MOD; PLT ESTIMATE ADEQUATE (ADEQUATE)
[2017-05-26] MEDS: HYDROcodone/APAP 7.5/325MG 1 TAB TABLET PO ×4 (06:26→20:46)
[2017-05-26] MEDS: LEVOTHYROXINE 125 MCG TABLET PO (06:26)
[2017-05-26] MEDS: BUDESONIDE 0.5 MG/2 ML NEBU. NEB ×2 (07:28→20:58)
[2017-05-26] MEDS: ALBUTEROL SULFATE 2.5 MG/3 ML NEBU. NEB ×5 (07:28→23:58)
[2017-05-26 07:40] LABS: POC GLUCOSE 112 mg/dL (70-99)
[2017-05-26] MEDS: GABAPENTIN 300 MG CAPSULE. PO ×3 (09:58→20:47)
[2017-05-26] MEDS: ALPRAZolam 0.25 MG TABLET PO ×2 (09:59→20:46)
[2017-05-26] MEDS: METOCLOPRAMIDE 10 MG TABLET. PO ×2 (09:59→16:16)
[2017-05-26] MEDS: MAGNESIUM OXIDE 400 MG TABLET PO (09:59)
[2017-05-26] MEDS: TORSEMIDE 20 MG TABLET. PO (09:59)
[2017-05-26] MEDS: POTASSIUM CHLORIDE 20 MEQ TABLET.ER. PO (09:59)
[2017-05-26] MEDS: PANTOPRAZOLE 40 MG TABLET.DR. PO ×2 (10:00→16:16)
[2017-05-26] MEDS: ASPIRIN ENTERIC COATED 81 MG TABLET.DR. PO (10:00)
[2017-05-26] MEDS: CARVEDILOL 3.125 MG TABLET. PO ×2 (10:00→18:36)
[2017-05-26] MEDS: MONTELUKAST SODIUM 10 MG TABLET. PO (10:02)
[2017-05-26] MEDS: SPIRONOLACTONE 25 MG TABLET PO (10:06)
[2017-05-26] MEDS: INSULIN DETEMIR 300 UNITS/3 ML INSULN.PEN. SQ (10:10)
[2017-05-26] MEDS: INSULIN ASPART 300 UNITS/3 ML INSULN.PEN SQ ×3 (10:11→18:39)
[2017-05-26] MEDS: BUPIVACAINE MPF 0.25% 10 ML VIAL. IJ (10:30)
[2017-05-26] MEDS: methylPREDNISolone ACETATE 40 MG/ML VIAL. IM (10:30)
[2017-05-26 10:41] LABS: CREATINE KINASE 46 U/L (26-192)
[2017-05-26 10:41] LABS: MAGNESIUM 1.9 mg/dL (1.8-2.4)
[2017-05-26 11:18] LABS: POC GLUCOSE 227 mg/dL (70-99)
[2017-05-26] MEDS: predniSONE 10 MG TABLET PO (12:14)
[2017-05-26] MEDS: DICLOFENAC SODIUM 1% TOPICAL GEL 100GM TUBE. TP ×2 (12:15→20:45)
[2017-05-26] MEDS: WARFARIN 2 MG TABLET. PO (16:16)
[2017-05-26] MEDS: FLU VACC QS2017-18 (36MOS+)/PF 0.5 ML SYRINGE. VAX IM (16:25)
[2017-05-26 16:37] LABS: POC GLUCOSE 156 mg/dL (70-99)
[2017-05-26] MEDS: SIMVASTATIN 40 MG TABLET. PO (20:47)
[2017-05-26 21:16] LABS: POC GLUCOSE 225 mg/dL (70-99)
[2017-05-27] MEDS: HYDROcodone/APAP 7.5/325MG 1 TAB TABLET PO ×4 (05:06→22:38)
[2017-05-27 05:57] LABS: ADD MAN DIFF? NO
[2017-05-27 06:16] LABS: BASO # 0.1 x10^3/uL (0.0-0.2); BASO % 1 % (0-3); EOS # 0.1 x10^3/uL (0.0-0.7); EOS % 1 % (0-3); HEMATOCRIT 32.2 % (36.0-47.0); HEMOGLOBIN 10.3 g/dL (12.0-15.5); LYMPH # 2.7 x10^3/uL (1.0-4.8); LYMPH % 25 % (24-48); MEAN CORPUSCULAR HEMOGLOBIN 27 pg (25-35); MEAN CORPUSCULAR HGB CONC 32 g/dL (31-37); MEAN CORPUSCULAR VOLUME 83 fL (79-100); MONO % 9 % (0-9); NEUT # 6.9 x10^3uL (1.8-7.7); NEUT % 64 % (31-73); PLATELET COUNT 430 x10^3/uL (140-400); RED CELL DISTRIBUTION WIDTH 20.3 % (11.5-14.5); WHITE BLOOD COUNT 10.8 x10^3/uL (4.0-11.0)
[2017-05-27 06:28] LABS: INR 1.7 (0.8-1.1); PROTHROMBIN TIME PATIENT 18.8 SEC (11.7-14.0)
[2017-05-27] MEDS: LEVOTHYROXINE 125 MCG TABLET PO (06:44)
[2017-05-27 06:54] LABS: ALBUMIN 2.8 g/dL (3.4-5.0); ALBUMIN/GLOBULIN RATIO 0.6 (1.0-1.7); ALK PHOS 77 U/L (46-116); ALT (SGPT) 16 U/L (14-59); ANION GAP 11 (6-14); AST (SGOT) 30 U/L (15-37); BLOOD UREA NITROGEN 24 mg/dL (7-20); BUN/CREATININE RATIO 20 (6-20); CALCIUM 8.5 mg/dL (8.5-10.1); CARBON DIOXIDE 28 mmol/L (21-32); CHLORIDE 102 mmol/L (98-107); CREATININE 1.2 mg/dL (0.6-1.0); GFR 46.1; GLUCOSE 88 mg/dL (70-99); POTASSIUM 4.3 mmol/L (3.5-5.1); SODIUM 141 mmol/L (136-145); TOTAL BILIRUBIN 0.2 mg/dL (0.2-1.0); TOTAL PROTEIN 7.7 g/dL (6.4-8.2)
[2017-05-27] MEDS: BUDESONIDE 0.5 MG/2 ML NEBU. NEB ×2 (07:00→20:38)
[2017-05-27] MEDS: ALBUTEROL SULFATE 2.5 MG/3 ML NEBU. NEB ×3 (07:00→20:38)
[2017-05-27] MEDS: SPIRONOLACTONE 25 MG TABLET PO (09:05)
[2017-05-27] MEDS: PANTOPRAZOLE 40 MG TABLET.DR. PO ×2 (09:05→17:13)
[2017-05-27] MEDS: TORSEMIDE 20 MG TABLET. PO (09:05)
[2017-05-27] MEDS: GABAPENTIN 300 MG CAPSULE. PO ×3 (09:05→22:38)
[2017-05-27] MEDS: MAGNESIUM OXIDE 400 MG TABLET PO (09:05)
[2017-05-27] MEDS: predniSONE 10 MG TABLET PO (09:06)
[2017-05-27] MEDS: MONTELUKAST SODIUM 10 MG TABLET. PO (09:06)
[2017-05-27] MEDS: ASPIRIN ENTERIC COATED 81 MG TABLET.DR. PO (09:06)
[2017-05-27] MEDS: POTASSIUM CHLORIDE 20 MEQ TABLET.ER. PO (09:06)
[2017-05-27] MEDS: CARVEDILOL 3.125 MG TABLET. PO ×2 (09:07→17:12)
[2017-05-27] MEDS: INSULIN ASPART 300 UNITS/3 ML INSULN.PEN SQ ×3 (09:10→17:22)
[2017-05-27] MEDS: METOCLOPRAMIDE 10 MG TABLET. PO ×2 (09:24→17:13)
[2017-05-27] MEDS: ALPRAZolam 0.25 MG TABLET PO ×2 (09:24→22:38)
[2017-05-27] MEDS: INSULIN DETEMIR 300 UNITS/3 ML INSULN.PEN. SQ (09:32)
[2017-05-27] MEDS: DICLOFENAC SODIUM 1% TOPICAL GEL 100GM TUBE. TP ×2 (09:34→21:00)
[2017-05-27] MEDS: WARFARIN 3 MG TABLET. PO (17:13)
[2017-05-27 17:24] LABS: POC GLUCOSE 121 mg/dL (70-99)
[2017-05-27 21:25] LABS: POC GLUCOSE 132 mg/dL (70-99)
[2017-05-27] MEDS: SIMVASTATIN 40 MG TABLET. PO (22:39)
[2017-05-28] MEDS: ALBUTEROL SULFATE 2.5 MG/3 ML NEBU. NEB ×3 (01:52→10:59)
[2017-05-28 02:23] LABS: POC GLUCOSE 85 mg/dL (70-99)
[2017-05-28 02:23] LABS: POC GLUCOSE 132 mg/dL (70-99)
[2017-05-28] MEDS: HYDROcodone/APAP 7.5/325MG 1 TAB TABLET PO ×2 (03:29→08:55)
[2017-05-28] MEDS: BUDESONIDE 0.5 MG/2 ML NEBU. NEB (06:53)
[2017-05-28 07:00] LABS: ADD MAN DIFF? NO
[2017-05-28 07:07] LABS: BASO # 0.1 x10^3/uL (0.0-0.2); BASO % 1 % (0-3); EOS # 0.2 x10^3/uL (0.0-0.7); EOS % 2 % (0-3); HEMATOCRIT 33.6 % (36.0-47.0); HEMOGLOBIN 10.5 g/dL (12.0-15.5); LYMPH # 2.8 x10^3/uL (1.0-4.8); LYMPH % 30 % (24-48); MEAN CORPUSCULAR HEMOGLOBIN 26 pg (25-35); MEAN CORPUSCULAR HGB CONC 31 g/dL (31-37); MEAN CORPUSCULAR VOLUME 83 fL (79-100); MONO # 0.8 x10^3/uL (0.0-1.1); MONO % 9 % (0-9); NEUT # 5.6 x10^3uL (1.8-7.7); NEUT % 59 % (31-73); PLATELET COUNT 441 x10^3/uL (140-400); RED BLOOD COUNT 4.06 x10^6/uL (3.50-5.40); RED CELL DISTRIBUTION WIDTH 19.6 % (11.5-14.5); WHITE BLOOD COUNT 9.5 x10^3/uL (4.0-11.0)
[2017-05-28 07:15] LABS: INR 1.4 (0.8-1.1); PROTHROMBIN TIME PATIENT 16.7 SEC (11.7-14.0)
[2017-05-28 07:31] LABS: ALBUMIN 2.9 g/dL (3.4-5.0); ALBUMIN/GLOBULIN RATIO 0.6 (1.0-1.7); ALK PHOS 80 U/L (46-116); ALT (SGPT) 29 U/L (14-59); ANION GAP 11 (6-14); AST (SGOT) 42 U/L (15-37); BLOOD UREA NITROGEN 28 mg/dL (7-20); BUN/CREATININE RATIO 22 (6-20); CALCIUM 8.4 mg/dL (8.5-10.1); CARBON DIOXIDE 30 mmol/L (21-32); CHLORIDE 101 mmol/L (98-107); CREATININE 1.3 mg/dL (0.6-1.0); GFR 42.1; GLUCOSE 66 mg/dL (70-99); POTASSIUM 3.9 mmol/L (3.5-5.1); SODIUM 142 mmol/L (136-145); TOTAL BILIRUBIN 0.3 mg/dL (0.2-1.0); TOTAL PROTEIN 7.7 g/dL (6.4-8.2)
[2017-05-28] MEDS: MONTELUKAST SODIUM 10 MG TABLET. PO (08:53)
[2017-05-28] MEDS: CARVEDILOL 3.125 MG TABLET. PO (08:54)
[2017-05-28] MEDS: GABAPENTIN 300 MG CAPSULE. PO (08:54)
[2017-05-28] MEDS: METOCLOPRAMIDE 10 MG TABLET. PO (08:55)
[2017-05-28] MEDS: TORSEMIDE 20 MG TABLET. PO (08:55)
[2017-05-28] MEDS: predniSONE 10 MG TABLET PO (08:55)
[2017-05-28] MEDS: ALPRAZolam 0.25 MG TABLET PO (08:56)
[2017-05-28] MEDS: PANTOPRAZOLE 40 MG TABLET.DR. PO (08:56)
[2017-05-28] MEDS: LEVOTHYROXINE 125 MCG TABLET PO (08:56)
[2017-05-28] MEDS: POTASSIUM CHLORIDE 20 MEQ TABLET.ER. PO (08:56)
[2017-05-28] MEDS: SPIRONOLACTONE 25 MG TABLET PO (08:56)
[2017-05-28] MEDS: ASPIRIN ENTERIC COATED 81 MG TABLET.DR. PO (09:00)
[2017-05-28] MEDS: DICLOFENAC SODIUM 1% TOPICAL GEL 100GM TUBE. TP (09:00)
[2017-05-28] MEDS: INSULIN DETEMIR 300 UNITS/3 ML INSULN.PEN. SQ (09:05)
[2017-05-28] MEDS: INSULIN ASPART 300 UNITS/3 ML INSULN.PEN SQ ×2 (09:06→11:30)
[2017-05-28] MEDS: MAGNESIUM OXIDE 400 MG TABLET PO (09:53)
[2017-05-28 11:08] LABS: POC GLUCOSE 132 mg/dL (70-99)
[2017-05-28 11:08] LABS: POC GLUCOSE 81 mg/dL (70-99)
== END 2017-05-28 12:10 | disposition home health service (06) | DRG 558 ==
LOC: ER 13:01 → ED HOLD 14:20 → 6 SOUTH 18:09
DX: M77.9 Enthesopathy, unspecified (principal); J96.10 Chronic respiratory failure, unspecified whether with hypoxia or hypercapnia; E11.22 Type 2 diabetes mellitus with diabetic chronic kidney disease; E11.40 Type 2 diabetes mellitus with diabetic neuropathy, unspecified; I50.22 Chronic systolic (congestive) heart failure; I13.0 Hypertensive heart and chronic kidney disease with heart failure and stage 1 through stage 4 chronic kidney disease, or unspecified chronic kidney disease; I50.20 Unspecified systolic (congestive) heart failure; R53.1 Weakness; D64.9 Anemia, unspecified; E03.9 Hypothyroidism, unspecified; E11.51 Type 2 diabetes mellitus with diabetic peripheral angiopathy without gangrene; E66.9 Obesity, unspecified; E78.5 Hyperlipidemia, unspecified; G89.29 Other chronic pain; I25.10 Atherosclerotic heart disease of native coronary artery without angina pectoris; I25.2 Old myocardial infarction; I70.202 Unspecified atherosclerosis of native arteries of extremities, left leg; J43.9 Emphysema, unspecified; K21.9 Gastro-esophageal reflux disease without esophagitis; K58.9 Irritable bowel syndrome, unspecified; K76.0 Fatty (change of) liver, not elsewhere classified; M16.11 Unilateral primary osteoarthritis, right hip; F41.9 Anxiety disorder, unspecified; G43.909 Migraine, unspecified, not intractable, without status migrainosus; M17.0 Bilateral primary osteoarthritis of knee; K57.90 Diverticulosis of intestine, part unspecified, without perforation or abscess without bleeding; M81.0 Age-related osteoporosis without current pathological fracture; N18.2 Chronic kidney disease, stage 2 (mild); Z79.01 Long term (current) use of anticoagulants; Z86.718 Personal history of other venous thrombosis and embolism; Z86.73 Personal history of transient ischemic attack (TIA), and cerebral infarction without residual deficits; Z87.11 Personal history of peptic ulcer disease; Z87.442 Personal history of urinary calculi; Z88.0 Allergy status to penicillin; Z88.5 Allergy status to narcotic agent; Z90.710 Acquired absence of both cervix and uterus; Z95.0 Presence of cardiac pacemaker; Z95.1 Presence of aortocoronary bypass graft; Z95.5 Presence of coronary angioplasty implant and graft; Z99.81 Dependence on supplemental oxygen; Z87.01 Personal history of pneumonia (recurrent); Z68.30 Body mass index [BMI] 30.0-30.9, adult
CPT/HCPCS: 36415; 71045; 73501; 73565; 73610; 80048; 80053; 80076; 80307; 81001; 82550; 82553; 82962; 83735; 84443; 84484; 85025; 85610; 87804; 87804-59; 90686; 93005; 93971; 94640; 94760; 96374; 97162-GP; 97166-GO; 99285; 99285-25; J1815; J3010; J7512; J7613; J7626; J8597

== ENCOUNTER 2017-10-22 05:43 | Day surgery (SDC) | payer MEDICARE ==
[2017-10-22] MEDS ORDERED: LIDOCAINE 1% PF 2 ML VIAL. ID (07:00)
[2017-10-22] MEDS ORDERED: ONDANSETRON PF 4 MG/2 ML VIAL. IV (07:00)
[2017-10-22] MEDS ORDERED: MORPHINE SULFATE 2 MG/ML DISP.SYRIN. IV (07:00)
[2017-10-22] MEDS ORDERED: PROPOFOL 20 ML IV (07:06)
[2017-10-22] MEDS ORDERED: LIDOCAINE 2% PF Vial for OR 5 ML VIAL. (07:06)
[2017-10-22] MEDS ORDERED: ONDANSETRON PF 4 MG/2 ML VIAL. (07:08)
[2017-10-22] MEDS ORDERED: DEXAMETHASONE SOD PHOS 20 MG/5 ML VIAL. (07:08)
[2017-10-22] MEDS ORDERED: MIDAZOLAM HCL/PF 2 MG/2 ML VIAL. (07:09)
[2017-10-22] MEDS: IV RINGERS,LACTATED 1000ML 1,000 ML IV (07:12)
[2017-10-22 07:18] LABS: ADD MAN DIFF? NO
[2017-10-22 07:23] LABS: BASO # 0.1 x10^3/uL (0.0-0.2); BASO % 1 % (0-3); EOS # 0.3 x10^3/uL (0.0-0.7); EOS % 4 % (0-3); HEMATOCRIT 29.9 % (36.0-47.0); HEMOGLOBIN 9.8 g/dL (12.0-15.5); LYMPH # 2.5 x10^3/uL (1.0-4.8); LYMPH % 27 % (24-48); MEAN CORPUSCULAR HEMOGLOBIN 26 pg (25-35); MEAN CORPUSCULAR HGB CONC 33 g/dL (31-37); MEAN CORPUSCULAR VOLUME 81 fL (79-100); MONO # 0.8 x10^3/uL (0.0-1.1); MONO % 9 % (0-9); NEUT # 5.3 x10^3uL (1.8-7.7); NEUT % 59 % (31-73); PLATELET COUNT 498 x10^3/uL (140-400); RED BLOOD COUNT 3.69 x10^6/uL (3.50-5.40); RED CELL DISTRIBUTION WIDTH 19.5 % (11.5-14.5)
[2017-10-22 07:33] LABS: POC GLUCOSE 146 mg/dL (70-99)
[2017-10-22 07:34] LABS: ANION GAP 11 (6-14); BLOOD UREA NITROGEN 18 mg/dL (7-20); CALCIUM 7.9 mg/dL (8.5-10.1); CARBON DIOXIDE 26 mmol/L (21-32); CHLORIDE 96 mmol/L (98-107); CREATININE 1.4 mg/dL (0.6-1.0); GFR 38.6; GLUCOSE 172 mg/dL (70-99); SODIUM 133 mmol/L (136-145)
[2017-10-22 07:37] LABS: INR 1.3 (0.8-1.1); PARTIAL THROMBOPLASTIN TIME 28 SEC (24-38); PROTHROMBIN TIME PATIENT 15.7 SEC (11.7-14.0)
[2017-10-22] MEDS ORDERED: fentaNYL PF VIAL 100 MCG/2 ML VIAL ×4 (08:03→13:00)
[2017-10-22] MEDS ORDERED: SEVOFLURANE 31 TO 60 MINUTES. IH (08:20)
[2017-10-22 08:35] LABS: POC GLUCOSE 138 mg/dL (70-99)
[2017-10-22] MEDS: fentaNYL PF VIAL 100 MCG/2 ML VIAL IV ×5 (09:08→13:29)
[2017-10-22] MEDS ORDERED: HYDROcodone/APAP 5/325MG 1 TAB TABLET (10:50)
[2017-10-22] MEDS: HYDROcodone/APAP 5/325MG 1 TAB TABLET PO (11:01)
[2017-10-22] MEDS ORDERED: fentaNYL PF VIAL 100 MCG/2 ML VIAL IV (13:30)
== END 2017-10-22 13:25 | disposition home or self-care (01) ==
LOC: SURG 05:43
DX: L76.34 Postprocedural seroma of skin and subcutaneous tissue following other procedure (principal); I11.0 Hypertensive heart disease with heart failure; I50.9 Heart failure, unspecified; K21.9 Gastro-esophageal reflux disease without esophagitis; I25.119 Atherosclerotic heart disease of native coronary artery with unspecified angina pectoris; J44.9 Chronic obstructive pulmonary disease, unspecified; E66.9 Obesity, unspecified; Z68.32 Body mass index [BMI] 32.0-32.9, adult; Z88.0 Allergy status to penicillin; Z88.5 Allergy status to narcotic agent; Z88.8 Allergy status to other drugs, medicaments and biological substances; Z98.890 Other specified postprocedural states; Z86.73 Personal history of transient ischemic attack (TIA), and cerebral infarction without residual deficits; Z95.1 Presence of aortocoronary bypass graft; Z95.5 Presence of coronary angioplasty implant and graft; Z95.810 Presence of automatic (implantable) cardiac defibrillator; Z79.01 Long term (current) use of anticoagulants; E78.00 Pure hypercholesterolemia, unspecified; Z86.718 Personal history of other venous thrombosis and embolism; Z86.010 Personal history of colon polyps; Z90.49 Acquired absence of other specified parts of digestive tract; Z87.01 Personal history of pneumonia (recurrent); Z90.710 Acquired absence of both cervix and uterus; Z90.79 Acquired absence of other genital organ(s); Z90.721 Acquired absence of ovaries, unilateral; M17.11 Unilateral primary osteoarthritis, right knee; M81.0 Age-related osteoporosis without current pathological fracture; F41.9 Anxiety disorder, unspecified; F32.9 Major depressive disorder, single episode, unspecified; E89.0 Postprocedural hypothyroidism; F17.200 Nicotine dependence, unspecified, uncomplicated; Y83.8 Other surgical procedures as the cause of abnormal reaction of the patient, or of later complication, without mention of misadventure at the time of the procedure; I25.5 Ischemic cardiomyopathy; G43.909 Migraine, unspecified, not intractable, without status migrainosus; I25.2 Old myocardial infarction; E11.42 Type 2 diabetes mellitus with diabetic polyneuropathy; I47.2 Ventricular tachycardia; Z79.899 Other long term (current) drug therapy; Z79.4 Long term (current) use of insulin; Z83.3 Family history of diabetes mellitus; Z82.49 Family history of ischemic heart disease and other diseases of the circulatory system; Z82.3 Family history of stroke; Z81.8 Family history of other mental and behavioral disorders; Z83.49 Family history of other endocrine, nutritional and metabolic diseases
CPT/HCPCS: 10140; 36415; 80048; 82962; 85025; 85610; 85730; 87071; 87075; 87205; J0690; J1100; J2001; J2250; J2405; J2704; J3010

== ENCOUNTER → 2017-10-25 | Outpatient (CLI) | payer MEDICARE | END | disposition home or self-care (01) | LOC: PMGWOUND 12:14 | DX: T81.31XA Disruption of external operation (surgical) wound, not elsewhere classified, initial encounter (principal); E11.40 Type 2 diabetes mellitus with diabetic neuropathy, unspecified; E11.51 Type 2 diabetes mellitus with diabetic peripheral angiopathy without gangrene; E11.22 Type 2 diabetes mellitus with diabetic chronic kidney disease; I13.0 Hypertensive heart and chronic kidney disease with heart failure and stage 1 through stage 4 chronic kidney disease, or unspecified chronic kidney disease; N18.2 Chronic kidney disease, stage 2 (mild); I50.20 Unspecified systolic (congestive) heart failure; F41.9 Anxiety disorder, unspecified; M19.071 Primary osteoarthritis, right ankle and foot; M16.11 Unilateral primary osteoarthritis, right hip; G89.29 Other chronic pain; I25.10 Atherosclerotic heart disease of native coronary artery without angina pectoris; K21.9 Gastro-esophageal reflux disease without esophagitis; E78.5 Hyperlipidemia, unspecified; E03.9 Hypothyroidism, unspecified; G43.909 Migraine, unspecified, not intractable, without status migrainosus; I25.2 Old myocardial infarction; M81.0 Age-related osteoporosis without current pathological fracture; J96.11 Chronic respiratory failure with hypoxia; F17.210 Nicotine dependence, cigarettes, uncomplicated; Z79.01 Long term (current) use of anticoagulants; Z90.710 Acquired absence of both cervix and uterus; Z86.73 Personal history of transient ischemic attack (TIA), and cerebral infarction without residual deficits; Z95.1 Presence of aortocoronary bypass graft; Y83.8 Other surgical procedures as the cause of abnormal reaction of the patient, or of later complication, without mention of misadventure at the time of the procedure; Y92.89 Other specified places as the place of occurrence of the external cause | CPT/HCPCS: 97605 ==

== ENCOUNTER → 2017-11-01 | Outpatient (CLI) | payer MEDICARE | END | disposition home or self-care (01) | LOC: PMGWOUND 13:03 | DX: T81.31XD Disruption of external operation (surgical) wound, not elsewhere classified, subsequent encounter (principal); E11.40 Type 2 diabetes mellitus with diabetic neuropathy, unspecified; E11.51 Type 2 diabetes mellitus with diabetic peripheral angiopathy without gangrene; E11.22 Type 2 diabetes mellitus with diabetic chronic kidney disease; I13.0 Hypertensive heart and chronic kidney disease with heart failure and stage 1 through stage 4 chronic kidney disease, or unspecified chronic kidney disease; N18.2 Chronic kidney disease, stage 2 (mild); I50.20 Unspecified systolic (congestive) heart failure; F41.9 Anxiety disorder, unspecified; M19.071 Primary osteoarthritis, right ankle and foot; M16.11 Unilateral primary osteoarthritis, right hip; G89.29 Other chronic pain; I25.10 Atherosclerotic heart disease of native coronary artery without angina pectoris; K21.9 Gastro-esophageal reflux disease without esophagitis; E78.5 Hyperlipidemia, unspecified; E03.9 Hypothyroidism, unspecified; G43.909 Migraine, unspecified, not intractable, without status migrainosus; I25.2 Old myocardial infarction; M81.0 Age-related osteoporosis without current pathological fracture; J96.11 Chronic respiratory failure with hypoxia; F17.210 Nicotine dependence, cigarettes, uncomplicated; Z79.01 Long term (current) use of anticoagulants; Z90.710 Acquired absence of both cervix and uterus; Z86.73 Personal history of transient ischemic attack (TIA), and cerebral infarction without residual deficits; Z95.1 Presence of aortocoronary bypass graft; Y83.8 Other surgical procedures as the cause of abnormal reaction of the patient, or of later complication, without mention of misadventure at the time of the procedure | CPT/HCPCS: 97605 ==

== ENCOUNTER → 2017-11-08 | Outpatient (CLI) | payer MEDICARE | END | disposition home or self-care (01) | LOC: PMGWOUND 12:37 | DX: T81.31XD Disruption of external operation (surgical) wound, not elsewhere classified, subsequent encounter (principal); E11.40 Type 2 diabetes mellitus with diabetic neuropathy, unspecified; E11.51 Type 2 diabetes mellitus with diabetic peripheral angiopathy without gangrene; E11.22 Type 2 diabetes mellitus with diabetic chronic kidney disease; I13.0 Hypertensive heart and chronic kidney disease with heart failure and stage 1 through stage 4 chronic kidney disease, or unspecified chronic kidney disease; N18.2 Chronic kidney disease, stage 2 (mild); I50.20 Unspecified systolic (congestive) heart failure; F41.9 Anxiety disorder, unspecified; M19.071 Primary osteoarthritis, right ankle and foot; M16.11 Unilateral primary osteoarthritis, right hip; G89.29 Other chronic pain; I25.10 Atherosclerotic heart disease of native coronary artery without angina pectoris; K21.9 Gastro-esophageal reflux disease without esophagitis; E78.5 Hyperlipidemia, unspecified; E03.9 Hypothyroidism, unspecified; G43.909 Migraine, unspecified, not intractable, without status migrainosus; I25.2 Old myocardial infarction; M81.0 Age-related osteoporosis without current pathological fracture; J96.11 Chronic respiratory failure with hypoxia; F17.210 Nicotine dependence, cigarettes, uncomplicated; Z79.01 Long term (current) use of anticoagulants; Z90.710 Acquired absence of both cervix and uterus; Z86.73 Personal history of transient ischemic attack (TIA), and cerebral infarction without residual deficits; Z95.1 Presence of aortocoronary bypass graft; Y83.8 Other surgical procedures as the cause of abnormal reaction of the patient, or of later complication, without mention of misadventure at the time of the procedure | CPT/HCPCS: 99214 ==

== ENCOUNTER → 2017-11-15 | Outpatient (CLI) | payer MEDICARE | END | disposition home or self-care (01) | LOC: PMGWOUND 12:05 | DX: T81.31XD Disruption of external operation (surgical) wound, not elsewhere classified, subsequent encounter (principal); E11.40 Type 2 diabetes mellitus with diabetic neuropathy, unspecified; E11.51 Type 2 diabetes mellitus with diabetic peripheral angiopathy without gangrene; E11.22 Type 2 diabetes mellitus with diabetic chronic kidney disease; I13.0 Hypertensive heart and chronic kidney disease with heart failure and stage 1 through stage 4 chronic kidney disease, or unspecified chronic kidney disease; N18.2 Chronic kidney disease, stage 2 (mild); I50.20 Unspecified systolic (congestive) heart failure; F41.9 Anxiety disorder, unspecified; M19.071 Primary osteoarthritis, right ankle and foot; M16.11 Unilateral primary osteoarthritis, right hip; G89.29 Other chronic pain; I25.10 Atherosclerotic heart disease of native coronary artery without angina pectoris; K21.9 Gastro-esophageal reflux disease without esophagitis; E78.5 Hyperlipidemia, unspecified; E03.9 Hypothyroidism, unspecified; G43.909 Migraine, unspecified, not intractable, without status migrainosus; I25.2 Old myocardial infarction; M81.0 Age-related osteoporosis without current pathological fracture; E78.00 Pure hypercholesterolemia, unspecified; F32.9 Major depressive disorder, single episode, unspecified; J96.11 Chronic respiratory failure with hypoxia; F17.210 Nicotine dependence, cigarettes, uncomplicated; Z79.01 Long term (current) use of anticoagulants; Z90.710 Acquired absence of both cervix and uterus; Z79.4 Long term (current) use of insulin; Z86.73 Personal history of transient ischemic attack (TIA), and cerebral infarction without residual deficits; Z95.1 Presence of aortocoronary bypass graft; Y83.8 Other surgical procedures as the cause of abnormal reaction of the patient, or of later complication, without mention of misadventure at the time of the procedure | CPT/HCPCS: 99214 ==

== ENCOUNTER → 2017-11-22 | Outpatient (CLI) | payer MEDICARE | END | disposition home or self-care (01) | LOC: PMGWOUND 11:36 | DX: T81.31XD Disruption of external operation (surgical) wound, not elsewhere classified, subsequent encounter (principal); M81.0 Age-related osteoporosis without current pathological fracture; F41.9 Anxiety disorder, unspecified; F32.9 Major depressive disorder, single episode, unspecified; I25.10 Atherosclerotic heart disease of native coronary artery without angina pectoris; K21.9 Gastro-esophageal reflux disease without esophagitis; E11.22 Type 2 diabetes mellitus with diabetic chronic kidney disease; I13.0 Hypertensive heart and chronic kidney disease with heart failure and stage 1 through stage 4 chronic kidney disease, or unspecified chronic kidney disease; N18.2 Chronic kidney disease, stage 2 (mild); I50.20 Unspecified systolic (congestive) heart failure; E78.5 Hyperlipidemia, unspecified; E03.9 Hypothyroidism, unspecified; I25.2 Old myocardial infarction; G89.29 Other chronic pain; M19.071 Primary osteoarthritis, right ankle and foot; M16.11 Unilateral primary osteoarthritis, right hip; M17.11 Unilateral primary osteoarthritis, right knee; E78.00 Pure hypercholesterolemia, unspecified; J44.9 Chronic obstructive pulmonary disease, unspecified; E11.51 Type 2 diabetes mellitus with diabetic peripheral angiopathy without gangrene; E11.42 Type 2 diabetes mellitus with diabetic polyneuropathy; F17.210 Nicotine dependence, cigarettes, uncomplicated; Z90.49 Acquired absence of other specified parts of digestive tract; Z90.710 Acquired absence of both cervix and uterus; Z86.73 Personal history of transient ischemic attack (TIA), and cerebral infarction without residual deficits; Z86.718 Personal history of other venous thrombosis and embolism; Z95.1 Presence of aortocoronary bypass graft; Z95.810 Presence of automatic (implantable) cardiac defibrillator; Z79.4 Long term (current) use of insulin; Z79.01 Long term (current) use of anticoagulants; Y83.8 Other surgical procedures as the cause of abnormal reaction of the patient, or of later complication, without mention of misadventure at the time of the procedure | CPT/HCPCS: 17250 ==

== ENCOUNTER 2018-01-14 18:34 | Inpatient (IN) | payer MEDICARE ==
[~2018-01-14] VITALS: Ht 162.6 cm; Wt 86.9 kg
[~2018-01-14 18:34] MED LIST changes: +BUDE10.2 IH; +CETI10TA16 PO; +DICL100G18 TP; +FLUT16SP NS; +HYDR-971 PO; +IPRA3AMP29 NEB; +LEVO150T PO; +MAGN400T22 PO; -METF-620 PO; +METF10007 PO; +OXYC-411 PO; -OXYC1TAB9 PO; +PROAIR HFA8.5 GM INH; -SPIR25TA3 PO; +SPIR25TA5 PO; +TIZA4TAB PO; +WARF-31 PO; +WARF2.5T83 PO; -WARF2TAB7 PO; +WARF2TAB96 PO; -WARF5TAB7 PO
[2018-01-14] MEDS ORDERED: IPRATRPIUM/ALBUTEROL 0.5/2.5MG 3 ML NEBU. NEB ONE (19:00)
[2018-01-14] MEDS ORDERED: methylPREDNISolone SOD SUCC PF 125 MG/2 ML VIAL. IV ONE (19:00)
[2018-01-14] MEDS ORDERED: methylPREDNISolone SOD SUCC PF 125 MG/2 ML VIAL. ONE (19:04)
[2018-01-14 19:21] LABS: BASO # 0.1 x10^3/uL (0.0-0.2); BASO % 1 % (0-3); EOS % 0 % (0-3); HEMATOCRIT 32.2 % (36.0-47.0); HEMOGLOBIN 10.1 g/dL (12.0-15.5); LYMPH % 10 % (24-48); MEAN CORPUSCULAR HEMOGLOBIN 24 pg (25-35); MEAN CORPUSCULAR HGB CONC 31 g/dL (31-37); MEAN CORPUSCULAR VOLUME 78 fL (79-100); MONO # 0.7 x10^3/uL (0.0-1.1); MONO % 7 % (0-9); NEUT # 7.5 x10^3uL (1.8-7.7); NEUT % 81 % (31-73); PLATELET COUNT 426 x10^3/uL (140-400); RED BLOOD COUNT 4.15 x10^6/uL (3.50-5.40); RED CELL DISTRIBUTION WIDTH 19.7 % (11.5-14.5); WHITE BLOOD COUNT 9.3 x10^3/uL (4.0-11.0)
[2018-01-14 19:28] LABS: PROTHROMBIN TIME PATIENT 31.9 SEC (11.7-14.0)
--- NOTE | 2018-01-14 19:35 | RAD ---
Examination: Right Lower Extremity Venous Doppler Ultrasound History: Right leg swelling Comparison: None Procedure: Manzano scale, color flow 2D and spectal waveform analysis images are obtained with and without compression in the area of the common femoral vein, superficial femoral vein - femoral vein junction, main femoral vein (superficial femoral vein) and popliteal vein. Veins of the proximal calf are also imaged. Findings: There is normal duplex flow, color flow and compressibility of all visualized vein segments. No evidence of deep venous thrombus is present. Impression: No evidence of DVT in the visualized right lower extremity venous system. Electronically signed by: Shar Garcia MD (01/14/2018 7:32 PM) [facility]
[2018-01-14 19:53] LABS: CALCIUM 6.9 mg/dL (8.5-10.1); CREATININE 1.4 mg/dL (0.6-1.0); GFR 38.6; POTASSIUM 4.1 mmol/L (3.5-5.1)
[2018-01-14 19:58] LABS: ALBUMIN 2.9 g/dL (3.4-5.0); ALBUMIN/GLOBULIN RATIO 0.5 (1.0-1.7); TOTAL BILIRUBIN 0.3 mg/dL (0.2-1.0); TOTAL PROTEIN 8.5 g/dL (6.4-8.2)
[2018-01-14] MEDS ORDERED: DOXYCYCLINE HYCLATE 100 MG in IV DEXTROSE 5% 100ML 100 ML IV ONE (20:00)
[2018-01-14] MEDS ORDERED: ALBUTEROL SULFATE 2.5 MG/3 ML NEBU. CONT NEB ONE (20:00)
--- NOTE | 2018-01-14 20:13 | PHYS DOC ---
Past Medical History Past Medical History: COPD, CVA, Diabetes-Type II, Hypertension, OR Additional Past Medical Histor: OR x 6, BLOOD CLOTS IN LLE AND ULE, + previous surgical removal of AC blood Past Surgical History: Hysterectomy, Pacemaker, Tonsillectomy, Other Additional Past Surgical Histo: thyroid removed, R knee scope, ballon- DVT- behind L knee cap Alcohol Use: None Drug Use: None Adult General Chief Complaint Chief Complaint: SHORTNESS OF BREATH HPI HPI Patient is a 57 year old BIBA W shortness of breath, she has been feeling badly for over a week now and then the shortness of breath got much worse this morning she was 80% on her home 3 L according to paramedics she is coughing more she has chest pain with coughing only she cannot lay flat that is baseline her right leg is swollen that has been going on for 2-3 months symptoms are worse despite treatment. Review of Systems Review of Systems Constitutional: Denies fever or chills [] Eyes: Denies change in visual acuity, redness, or eye pain [] GI: Denies abdominal pain, nausea, vomiting, bloody stools or diarrhea [] : Denies dysuria or hematuria [] Neurologic: Denies headache, focal weakness or sensory changes [] Endocrine: Denies polyuria or polydipsia [] All other systems were reviewed and found to be within normal limits, except as documented in this note. Current Medications Current Medications Current Medications Medications (Trade) Dose Ordered Sig/Irena Start Time Stop Time Status Last Admin Dose Admin Albuterol Sulfate (Ventolin Neb Soln) 10 mg 1X ONCE 01/14/18 20:00 01/14/18 20:01 DC 01/14/18 20:05 10 MG Albuterol/ Ipratropium (Duoneb) 3 ml RTQID 01/15/18 08:00 01/16/18 07:59 Doxycycline Hyclate 100 mg/ Dextrose 100 ml @ 50 mls/hr 1X ONCE 01/14/18 20:00 01/14/18 21:59 01/14/18 19:56 50 MLS/HR Methylprednisolone Sodium Succinate (SOLU-Medrol 125MG VIAL) 125 mg STK-MED ONCE 01/14/18 19:04 01/14/18 19:05 DC Allergies Allergies Allergies Coded Allergies Type Severity Reaction Last Updated Verified Penicillins Allergy Intermediate Hives 10/22/17 Yes codeine Adverse Reaction Mild Nausea and Vomiting 10/22/17 Yes diphenhydramine HCl Adverse Reaction Mild hyperactive 10/22/17 Yes Physical Exam Physical Exam Constitutional: Well developed, well nourished, no acute distress, non-toxic appearance. [] HENT: Normocephalic, atraumatic, bilateral external ears normal, oropharynx moist, no oral exudates, nose normal. [] Eyes: PERRLA, EOMI, conjunctiva normal, no discharge. [] Neck: Normal range of motion, no tenderness, supple, no stridor. [] Cardiovascular:Heart rate regular rhythm, no murmur [] Lungs & Thorax: Diffuse wheezing noted mild tachypnea patient speaking full sentences Abdomen: Bowel sounds normal, soft, no tenderness, no masses, no pulsatile masses. [] Skin: Warm, dry, no erythema, no rash. [] Back: No tenderness, no CVA tenderness. [] Extremities: No tenderness, no cyanosis, no clubbing, ROM intact, 1-2+ edema in the right greater than left lower extremity. Neurologic: Alert and oriented X 3, normal motor function, normal sensory function, no focal deficits noted. [] Psychologic: Affect normal, judgement normal, mood normal. [] Current Patient Data Vital Signs Vital Signs Date Time Temp Pulse Resp B/P (MAP) Pulse Ox O2 Delivery O2 Flow Rate FiO2 01/14/18 19:17 92 Nasal Cannula 4.0 01/14/18 18:46 98.5 97 22 126/62 (83) 98.5 Lab Values Laboratory Tests Test 01/14/18 18:45 White Blood Count 9.3 x10^3/uL (4.0-11.0) Red Blood Count 4.15 x10^6/uL (3.50-5.40) Hemoglobin 10.1 g/dL (12.0-15.5) L Hematocrit 32.2 % (36.0-47.0) L Mean Corpuscular Volume 78 fL (79-100) L Mean Corpuscular Hemoglobin 24 pg (25-35) L Mean Corpuscular Hemoglobin Concent 31 g/dL (31-37) Red Cell Distribution Width 19.7 % (11.5-14.5) H Platelet Count 426 x10^3/uL (140-400) H Neutrophils (%) (Auto) 81 % (31-73) H Lymphocytes (%) (Auto) 10 % (24-48) L Monocytes (%) (Auto) 7 % (0-9) Eosinophils (%) (Auto) 0 % (0-3) Basophils (%) (Auto) 1 % (0-3) Neutrophils # (Auto) 7.5 x10^3uL (1.8-7.7) Lymphocytes # (Auto) 1.0 x10^3/uL (1.0-4.8) Monocytes # (Auto) 0.7 x10^3/uL (0.0-1.1) Eosinophils # (Auto) 0.0 x10^3/uL (0.0-0.7) Basophils # (Auto) 0.1 x10^3/uL (0.0-0.2) Prothrombin Time 31.9 SEC (11.7-14.0) H Prothrombin Time INR 3.2 (0.8-1.1) H Sodium Level 138 mmol/L (136-145) Potassium Level 4.1 mmol/L (3.5-5.1) Chloride Level 98 mmol/L (98-107) Carbon Dioxide Level 28 mmol/L (21-32) Anion Gap 12 (6-14) Blood Urea Nitrogen 10 mg/dL (7-20) Creatinine 1.4 mg/dL (0.6-1.0) H Estimated GFR (Cockcroft-Gault) 38.6 BUN/Creatinine Ratio 7 (6-20) Glucose Level 236 mg/dL (70-99) H Calcium Level 6.9 mg/dL (8.5-10.1) L Total Bilirubin 0.3 mg/dL (0.2-1.0) Aspartate Amino Transferase (AST) 42 U/L (15-37) H Alanine Aminotransferase (ALT) 23 U/L (14-59) Alkaline Phosphatase 128 U/L (46-116) H Troponin I Quantitative < 0.017 ng/mL (0.000-0.055) RO-Kux-T-Type Natriuretic Peptide 706 pg/mL (0-124) H Total Protein 8.5 g/dL (6.4-8.2) H Albumin 2.9 g/dL (3.4-5.0) L Albumin/Globulin Ratio 0.5 (1.0-1.7) L Laboratory Tests 01/14/18 18:45 Laboratory Tests 01/14/18 18:45 EKG EKG [] Interpretation Time: EKG shows a sinu rhythm rate of [address] changes noted laterally but there is no obvious ischemia noted this was interpreted by me the time of encounter. Chest x-ray as interpreted by me showed no definite pneumonia there was some probable atelectasis at the right lung base Radiology/Procedures Radiology/Procedures [] Course & Med Decision Making Course & Med Decision Making Pertinent Labs and Imaging studies reviewed. (See chart for details) []57-year-old female with history of CHF COPD she is on Coumadin brought in by [facility] with shortness of breath the right leg was swollen but the wet read on the ultrasound is negative for DVT. Patient was given a DuoNeb in the emergency room and was still wheezing a fair amount however her saturation was in the mid 90s sometimes low 90s on 3 L nasal cannula. She is alert and awake. I spoke with Dr. Montgomery the primary doctor who will admit her to the hospital. I think that COPD his primary diagnosis ultrasound negative for DVT she is on Coumadin INR 3.2 BNP is only mildly elevated troponin was negative. Dragon Disclaimer Dragon Disclaimer This electronic medical record was generated, in whole or in part, using a voice recognition dictation system. Departure Departure Impression: Primary Impression: COPD exacerbation Disposition: ADMITTED INPATIENT Admitting Physician: Sultana Montgomery Condition: STABLE Referrals: SULTANA MONTGOMERY MD (PCP) LUBNA ROMAN MD Jan 14, 2018 20:13
[2018-01-14] MEDS ORDERED: CALCIUM GLUCONATE 1,000 MG/10 ML VIAL. IVP ONE (20:30)
[2018-01-14 21:00] VITALS: BP 176/89
[2018-01-14] MEDS ORDERED: DEXTROSE 50% 25 GM / 50ML DISP.SYRIN. IV PRN (21:30)
[2018-01-14] MEDS ORDERED: tiZANidine 4 MG TABLET. PO PRN (21:45)
[2018-01-14] MEDS: MAGNESIUM OXIDE 400 MG TABLET PO SCH (22:14)
[2018-01-14] MEDS: ALPRAZolam 0.25 MG TABLET PO SCH (22:14)
[2018-01-14] MEDS: GABAPENTIN 400 MG CAPSULE. PO SCH (22:14)
[2018-01-14] MEDS: MONTELUKAST SODIUM 10 MG TABLET. PO SCH (22:14)
[2018-01-14] MEDS: METOCLOPRAMIDE 10 MG TABLET. PO SCH (22:16)
[2018-01-14] MEDS: INSULIN GLARGINE 300 UNITS/3 ML INSULN.PEN. SQ SCH (22:18)
[2018-01-14 23:00] VITALS: BP 129/63
[2018-01-15] VITALS (9 sets, daily range): BP systolic 86–146; BP diastolic 51–76
[2018-01-15] MEDS ORDERED: IPRATRPIUM/ALBUTEROL 0.5/2.5MG 3 ML NEBU. NEB ONE (00:45)
[2018-01-15] MEDS: HYDROcodone/APAP 7.5/325MG 1 TAB TABLET PO PRN ×2 (01:02→22:05)
[2018-01-15 03:24] LABS: BASO % 0 % (0-3); EOS % 0 % (0-3); HEMATOCRIT 31.4 % (36.0-47.0); HEMOGLOBIN 9.9 g/dL (12.0-15.5); LYMPH # 0.6 x10^3/uL (1.0-4.8); LYMPH % 6 % (24-48); MEAN CORPUSCULAR HEMOGLOBIN 25 pg (25-35); MEAN CORPUSCULAR HGB CONC 32 g/dL (31-37); MEAN CORPUSCULAR VOLUME 78 fL (79-100); MONO # 0.2 x10^3/uL (0.0-1.1); MONO % 2 % (0-9); NEUT # 9.1 x10^3uL (1.8-7.7); NEUT % 91 % (31-73); PLATELET COUNT 439 x10^3/uL (140-400); RED BLOOD COUNT 4.01 x10^6/uL (3.50-5.40); RED CELL DISTRIBUTION WIDTH 19.5 % (11.5-14.5)
[2018-01-15 03:51] LABS: ALBUMIN 2.9 g/dL (3.4-5.0); ALBUMIN/GLOBULIN RATIO 0.5 (1.0-1.7); CALCIUM 7.3 mg/dL (8.5-10.1); CREATININE 1.5 mg/dL (0.6-1.0); GFR 35.7; POTASSIUM 4.3 mmol/L (3.5-5.1); TOTAL BILIRUBIN 0.3 mg/dL (0.2-1.0); TOTAL PROTEIN 8.6 g/dL (6.4-8.2)
[2018-01-15] MEDS: PANTOPRAZOLE 40 MG TABLET.DR. PO SCH ×2 (06:28→09:50)
[2018-01-15] MEDS: LEVOTHYROXINE 150 MCG TABLET PO SCH (06:28)
[2018-01-15] MEDS ORDERED: INSULIN LISPRO 300 UNITS/3 ML INSULN.PEN. SQ SCH (08:00)
[2018-01-15] MEDS ORDERED: IPRATRPIUM/ALBUTEROL 0.5/2.5MG 3 ML NEBU. NEB SCH ×4 (08:00→12:00)
[2018-01-15] MEDS: INSULIN LISPRO 300 UNITS/3 ML INSULN.PEN. SQ SCH ×5 (08:00→17:37)
--- NOTE | 2018-01-15 08:23 | PDOC ---
Provider Note Provider Note [id number] acute on chronic resp fail ae of copd acute sys chf acute bronchitis see orders WALDEMAR DUMONT MD Jan 15, 2018 08:23
[2018-01-15] MEDS ORDERED: FUROSEMIDE 20 MG/2 ML VIAL. IVP ONE ×2 (08:30→13:00)
[2018-01-15] MEDS ORDERED: methylPREDNISolone SOD SUCC PF 125 MG/2 ML VIAL. IV ONE (08:30)
--- NOTE | 2018-01-15 09:05 | CONS ---
DATE OF CONSULTATION: 01/15/2018 REASON FOR CONSULTATION: I was asked to see this 57-year-old lady for acute on chronic respiratory failure: HISTORY OF PRESENT ILLNESS: She has history of [id number] smoking, continues to smoke about 1 pack per day. She is on oxygen 3 liters per minute via nasal cannula. She was admitted for increased shortness of breath, cough, wheezing for the past week. The nurse asked me to see the patient emergently since her oxygen saturation was in the 80s. She is on Ventimask 50% FiO2 and nasal cannula 5 liters per minute via nasal cannula. She has audible wheezing. She is tachypneic. She has had cough with yellow sputum production for the past week. She has had occasional fever and chills. She denies chest pain. She has had lower extremity edema. PAST MEDICAL HISTORY: COPD, CHF, chronic renal failure, cardiomyopathy, AICD, peripheral vascular disease, status post bypass surgery, status post thrombectomy, DVT. ALLERGIES: PENICILLIN, CODEINE, DIPHENHYDRAMINE. CURRENT MEDICATIONS: She is on furosemide, Zocor, Aldactone, Flonase, cetirizine, Ecotrin, metformin, DuoNeb q.i.d., insulin, Protonix, Synthroid, Singulair, metoclopramide. The patient was given Solu-Medrol and DuoNeb in the Emergency Room. Doxycycline. SOCIAL HISTORY: History of [id number] smoking, continues to smoke 1 pack per day. FAMILY HISTORY: There is no history of lung disease. REVIEW OF SYSTEMS: As mentioned above. She has had runny nose, but denies gastroesophageal reflux symptoms. Other systems are otherwise negative. PHYSICAL EXAMINATION: GENERAL: This is an obese lady. She appears tachypneic. VITAL SIGNS: Her O2 saturation is in the 80s, respiratory rate 28, heart rate 100, blood pressure 190/72, temperature 98. HEENT: Normocephalic, atraumatic. Pupils equal, round, reactive to light. Nose is clear. NECK: Positive JVD. No lymphadenopathy or thyromegaly. CARDIOVASCULAR: Regular rate and rhythm. PMI is nondisplaced. CHEST: On inspection, she appears tachypneic. LUNGS: There is bilateral end expiratory wheezing, bibasilar crackles, dullness at the bases. ABDOMEN: Soft and obese. Bowel sounds are good. There is no mass. EXTREMITIES: There is edema. LYMPHATICS: There is no lymphadenopathy. NEUROLOGIC: Alert and oriented. SKIN: Chronic changes. LABORATORY DATA: I reviewed the following lab data: Chest x-ray shows cardiomegaly, AICD in place, increased vascular marking. WBC 10, hemoglobin 9.9, platelets 439. Sodium 137, potassium 4.3, chloride 98, CO2 of 26, glucose 354, BUN 11, creatinine 1.5. Troponin less than 0.01. BNP 706. INR 3.2. IMPRESSION: 1. Acute on chronic respiratory failure with hypoxemia secondary to acute exacerbation of chronic obstructive pulmonary disease, acute systolic congestive heart failure, acute bronchitis versus others. 2. Acute exacerbation of chronic obstructive pulmonary disease. 3. Acute bronchitis. 4. Acute systolic congestive heart failure. 5. Tobacco habituation. 6. History of deep venous thrombosis. 7. Peripheral vascular disease. 8. Snoring and excessive daytime sleepiness, probable obstructive sleep apnea-hypopnea syndrome. 9. Diabetes mellitus. 10. Hypertension. 11. Hypothyroidism. RECOMMENDATIONS: 1. I talked to RN and RT. We will start the patient on the BiPAP, titrate Fi02 to keep O2 saturation 91%, We will do ABG in 1 hour, adjust BiPAP per ABG. 2. Solu-Medrol 125 mg IV now, then 40 mg IV every 8. 3. Lasix 20 mg IV now. 4. Keep intake less than output. Continue torsemide. Monitor creatinine and potassium. 5. I agree with the doxycycline. 6. Continue BiPAP until respiratory status is improved. We will monitor respiratory status very closely. She may require transfer to ICU. 7. Protonix for stress ulcer prophylaxis. 8. Continue Coumadin, adjust dose to keep INR between 2 and 3, monitor for bleeding. 9. Elevate head of bed. 10. I had a long discussion with her regarding smoking cessation. I have advised her to stop smoking forever. 11. I have discussed obstructive sleep apnea-hypopnea syndrome, the importance of diagnosis and treatment, if untreated, increased cardiovascular and INSERTER morbidity or mortality. I do recommend a split night sleep study as an outpatient. 12. I agree with cardiology consultation. 13. The findings and recommendations were discussed with the patient, RN and RT. Thank you very much for allowing me to participate in care of this very nice lady. WALDEMAR DUMONT M.D. DR: Uli JOB#: [id number] / [id number] JAMES
--- NOTE | 2018-01-15 09:18 | RAD ---
EXAM: CHEST PA LATERAL DATE: 01/14/2018 7:19 PM INDICATION: shortness of breath X2 days hx of COPD COMPARISON: 05/25/2017 FINDINGS: Cardiac generator pack obscures a portion left chest with leads in stable position. The heart is mildly enlarged. Cardiac stent is seen. Mediastinal and hilar contours are stable. Minimal patchy opacities medial right lung base likely atelectasis or consolidation. Mild emphysematous changes are seen. No pleural effusion or pneumothorax. IMPRESSION: 1. Minimal patchy opacities in the medial right lung base, nonspecific, possibly atelectasis or consolidation. 2. Mild cardiomegaly. Electronically signed by: Martín Ferrera MD (01/15/2018 9:14 AM) [facility]
[2018-01-15] MEDS ORDERED: ENOXAPARIN 40 MG/0.4 ML SYRINGE. SQ SCH (09:45)
[2018-01-15] MEDS ORDERED: ACETAMINOPHEN 325 MG TABLET. PO PRN (09:45)
[2018-01-15] MEDS: LACTOBACILLUS RHAMNOSUS GG 1 CAPSULE. PO SCH ×2 (09:49→20:55)
[2018-01-15] MEDS: DOXYCYCLINE HYCLATE 100 MG TABLET PO SCH ×2 (09:49→20:55)
[2018-01-15] MEDS: CARVEDILOL 3.125 MG TABLET. PO SCH ×2 (09:50→17:31)
[2018-01-15] MEDS: POTASSIUM CHLORIDE 20 MEQ TABLET.ER. PO SCH (09:50)
[2018-01-15] MEDS: MAGNESIUM OXIDE 400 MG TABLET PO SCH ×3 (09:50→20:55)
[2018-01-15] MEDS: ASPIRIN ENTERIC COATED 81 MG TABLET.DR. PO SCH (09:50)
[2018-01-15] MEDS: SPIRONOLACTONE 25 MG TABLET PO SCH (09:50)
[2018-01-15] MEDS: METOCLOPRAMIDE 10 MG TABLET. PO SCH ×4 (09:50→20:55)
[2018-01-15] MEDS: TORSEMIDE 20 MG TABLET. PO SCH (09:50)
[2018-01-15] MEDS: ALPRAZolam 0.25 MG TABLET PO SCH ×2 (09:51→19:48)
[2018-01-15] MEDS: CETIRIZINE HCL 10 MG TABLET. PO SCH (09:51)
[2018-01-15] MEDS: FLUTICASONE 50MCG/NASAL SPRAY 16GM BOTTLE. NS SCH (09:54)
[2018-01-15] MEDS: DICLOFENAC SODIUM 1% TOPICAL GEL 100GM TUBE. TP SCH ×4 (09:54→20:56)
[2018-01-15 10:01] LABS: BASE EXCESS ABG 4 mmol/L (-3-3); HCO3 ABG 30 mmol/L (21-28); PCO2 ABG 50 mmHg (35-46); PO2 ABG 59 mmHg (75-108); SAT O2 ABG 90 % (92-99)
[2018-01-15] MEDS: INSULIN GLARGINE 300 UNITS/3 ML INSULN.PEN. SQ SCH ×2 (10:07→20:56)
[2018-01-15] MEDS ORDERED: NON FORMULARY ITEM (Warfarin Sodium (Coumadin) 1 TAB) PO SCH (10:30)
[2018-01-15 11:09] LABS: PROTHROMBIN TIME PATIENT 32.2 SEC (11.7-14.0)
[2018-01-15] MEDS: BUDESONIDE 0.5 MG/2 ML NEBU. NEB SCH ×2 (11:34→20:57)
[2018-01-15] MEDS: IPRATRPIUM/ALBUTEROL 0.5/2.5MG 3 ML NEBU. NEB SCH ×3 (11:38→20:57)
--- NOTE | 2018-01-15 11:43 | PDOC ---
Provider Note Provider Note Patient seen. History and Physical dictated. See dictation# [id number] SULTANA MONTGOMERY MD Jan 15, 2018 11:43
--- NOTE | 2018-01-15 12:29 | HP ---
ADMIT DATE: HISTORY OF PRESENT ILLNESS: This 57-year-old female has been getting worse for last 1 week. She ran out of her insulin and did not have money to buy some more, office gave her some samples. She has been having cough with congestion, progressively getting worse. Oxygen was 80% at home by 3 liters nasal cannula, this morning her O2 sat dropped to 70% and she was placed on BiPAP. She also has increased fluid retention. She denies any nausea, vomiting, diarrhea. The patient was admitted to the hospital because of acute bronchitis with exacerbation of COPD. The cough is dry and she has not been able to expectorate any mucus. Other systems were reviewed and are negative other than being feeling very weak and also joint pains. She denies any chest pains or palpitations. She does admit to dyspnea. PAST MEDICAL HISTORY: The patient was last admitted here in 09/2017. She is known to have history of coronary artery disease; multiple myocardial infarctions; CHF, ejection fraction 35%, systolic; has history of AICD; hypertension; myocardial infarction; valvular insufficiency; trace mitral regurgitation and tricuspid regurgitation; peripheral artery disease; left popliteal artery occlusion with balloon angioplasty; right anterior tibial angioplasty tibioperoneal trunk, 100% occluded with history of thrombectomy; angioplasty posterior tibial artery. In 09/2011, she had left popliteal and left anterior tibial [employer] at , left upper extremity brachial artery occlusion with history of left brachial to radial artery bypass. She also has COPD; emphysema; chronic respiratory failure, oxygen dependent; pneumonia. She has carpal tunnel syndrome; CVA; migraine; diverticulosis; gastroesophageal reflux disease; gastritis; hemorrhoids; irritable bowel syndrome; peptic ulcer disease; fatty liver; anemia; anxiety; osteoarthritis; chronic renal insufficiency; history of nonobstructing right renal calculus; diabetes mellitus type 2 with neuropathy, insulin-dependent and peripheral vascular disease; hypothyroidism, surgical. Had multinodular goiter. PAST SURGICAL HISTORY: The patient had cardiothoracic surgery; left upper extremity thrombectomy with dilation; hemorrhoidectomy; PCI with coronary artery disease and stents x 9. She also had appendectomy, cholecystectomy, CABG in 2006, tonsillectomy, hysterectomy, left upper extremity arterial bypass surgery. FAMILY HISTORY: Positive for cancer. SOCIAL HISTORY: The patient continues to smoke. The patient is . No history of alcoholism or drug abuse. ALLERGIES: The patient is allergic to PENICILLIN, CODEINE, DIPHENHYDRAMINE. MEDICATIONS: I reviewed the medications. The patient ran out of insulin as noted earlier. OBJECTIVE: GENERAL APPEARANCE: The patient is an elderly female who is alert, oriented, in moderate to severe respiratory distress. The patient is alert, oriented, on BiPAP currently. VITAL SIGNS: Temperature 98.3, pulse 86 per minute, respirations 24 per minute, blood pressure 110/70 mmHg. EYES: Pupils reacting to light. Conjunctivae pale. Sclerae muddy. HEENT: Mild congestion of throat. NECK: JVP normal. No thyromegaly. Trachea midline. LUNGS: Bilateral wheezing. CARDIOVASCULAR: S1, S2 regular, tachycardia present. ABDOMEN: Soft, nontender, no guarding, no rigidity. Bowel sounds present. EXTREMITIES: 3+ edema bilaterally. No calf tenderness, no cyanosis. LABORATORY DATA: WBC count 9.3; hemoglobin 10.1; platelet count 426,000. Sodium 138, potassium 4.1, BUN 10, creatinine 1.4, glucose 236, calcium 6.9, AST 42, albumin 2.9. Glucose 267, 364, 343. Chest x-ray, minimal patchy opacities in the medial right lung base, nonspecific, probably atelectasis versus consolidation; mild cardiomegaly. Left extremity ultrasound, no evidence of DVT in the right lower extremity. IMPRESSION: 1. Ijbyb-[id number] hypoxic respiratory failure secondary to acute exacerbation of chronic obstructive pulmonary disease. 2. Acute exacerbation of chronic obstructive pulmonary disease. 3. Acute bronchitis. 4. Xglce-cy-ijaiyiw systolic congestive heart failure, previous ejection fraction of 35%. 5. Diabetes mellitus type 2, not controlled, with diabetic neuropathy and peripheral artery disease. 6. History of deep venous thrombosis in the past with chronic Coumadin therapy. 7. Hypothyroidism, surgically induced. 8. Recent thrombus of the right femoral artery, status post thrombectomy, on heparin infusion and was also started on warfarin. 9. Hypertension. 10. Hyperlipidemia. 11. Chronic kidney disease. 12. History of nonobstructing right renal calculus. 13. Noncompliance. 14. Obesity. 15. Chronic smoking. 16. Osteoporosis. 17. Degenerative joint disease, right ankle, chronic. 18. Degenerative joint disease, right hip. PLAN: Start IV steroids. Monitor blood sugars closely. I have started her on her Lantus that she was taking at home 54 units along with high dose sliding scale insulin. The patient will be on IV steroids, BiPAP. Consultation has been obtained with Dr. Jose Miguel Banegas for pulmonary evaluation and management. I will also consult Dr. Rosenthal for cardiology evaluation and management. Monitor blood sugars closely. Condition and treatment discussed with the patient and her . Prognosis of this patient is very poor due to her multiple medical problems. Monitor oxygenation. For details, please refer to the orders. Continue Coumadin. We will ask pharmacy to manage. The patient takes Coumadin 5 mg 5 times a week and then 2.5 mg twice a week. For details, please refer to the orders. SULTANA MONTGOMERY MD DR: DANIS/natanael JOB#: [id number] / [id number]
[2018-01-15] MEDS: methylPREDNISolone SOD SUCC PF 40 MG/ML VIAL. IV SCH ×2 (14:12→20:55)
[2018-01-15] MEDS: HYDROcodone/APAP 5/325MG 1 TAB TABLET PO PRN (17:38)
[2018-01-15] MEDS: MONTELUKAST SODIUM 10 MG TABLET. PO SCH (20:55)
[2018-01-15] MEDS: GABAPENTIN 400 MG CAPSULE. PO SCH (20:55)
[2018-01-15] MEDS: SIMVASTATIN 40 MG TABLET. PO SCH (20:55)
[2018-01-16] MEDS: IPRATRPIUM/ALBUTEROL 0.5/2.5MG 3 ML NEBU. NEB SCH ×7 (00:30→22:39)
[2018-01-16 02:34] VITALS: BP 92/47
[2018-01-16 05:03] LABS: BASO # 0.1 x10^3/uL (0.0-0.2); BASO % 1 % (0-3); EOS % 0 % (0-3); HEMATOCRIT 30.8 % (36.0-47.0); HEMOGLOBIN 9.4 g/dL (12.0-15.5); LYMPH # 1.6 x10^3/uL (1.0-4.8); LYMPH % 11 % (24-48); MEAN CORPUSCULAR HEMOGLOBIN 24 pg (25-35); MEAN CORPUSCULAR HGB CONC 31 g/dL (31-37); MEAN CORPUSCULAR VOLUME 78 fL (79-100); MONO % 7 % (0-9); NEUT # 11.9 x10^3uL (1.8-7.7); NEUT % 82 % (31-73); PLATELET COUNT 420 x10^3/uL (140-400); RED BLOOD COUNT 3.96 x10^6/uL (3.50-5.40); RED CELL DISTRIBUTION WIDTH 19.5 % (11.5-14.5); WHITE BLOOD COUNT 14.6 x10^3/uL (4.0-11.0)
[2018-01-16 05:40] LABS: ALBUMIN 2.6 g/dL (3.4-5.0); ALBUMIN/GLOBULIN RATIO 0.5 (1.0-1.7); CALCIUM 6.9 mg/dL (8.5-10.1); CREATININE 1.6 mg/dL (0.6-1.0); GFR 33.1; POTASSIUM 4.2 mmol/L (3.5-5.1); TOTAL BILIRUBIN 0.2 mg/dL (0.2-1.0); TOTAL PROTEIN 7.4 g/dL (6.4-8.2)
[2018-01-16] MEDS: methylPREDNISolone SOD SUCC PF 40 MG/ML VIAL. IV SCH ×3 (06:31→20:31)
[2018-01-16] MEDS: LEVOTHYROXINE 150 MCG TABLET PO SCH (06:31)
[2018-01-16] MEDS: BUDESONIDE 0.5 MG/2 ML NEBU. NEB SCH ×2 (06:38→19:27)
[2018-01-16] MEDS: INSULIN LISPRO 300 UNITS/3 ML INSULN.PEN. SQ SCH ×6 (07:30→17:25)
[2018-01-16 07:40] VITALS: BP 118/60
--- NOTE | 2018-01-16 07:44 | PDOC ---
PULMONARY PROGRESS NOTES Subjective on bipap, sob cough better, no pain, Vitals Vital Signs Date Time Temp Pulse Resp B/P (MAP) Pulse Ox O2 Delivery O2 Flow Rate FiO2 01/16/18 06:38 95 BiPAP/CPAP 01/16/18 02:34 97.6 82 22 92/47 (62) 97.6 01/15/18 07:53 15.0 ROS: No Nausea, No Chest Pain General: Alert, Oriented X4 HEENT: Other (nc at perrl nose throat clear) Lungs: Crackles Cardiovascular: S1, S2 Abdomen: Soft, Non-tender Neuro Exam: Alert Extremities: No Edema Skin: Warm Labs Laboratory Tests Test 01/14/18 18:45 01/14/18 21:21 01/15/18 03:00 01/15/18 07:51 White Blood Count 9.3 x10^3/uL (4.0-11.0) 10.0 x10^3/uL (4.0-11.0) Red Blood Count 4.15 x10^6/uL (3.50-5.40) 4.01 x10^6/uL (3.50-5.40) Hemoglobin 10.1 g/dL (12.0-15.5) 9.9 g/dL (12.0-15.5) Hematocrit 32.2 % (36.0-47.0) 31.4 % (36.0-47.0) Mean Corpuscular Volume 78 fL (79-100) 78 fL (79-100) Mean Corpuscular Hemoglobin 24 pg (25-35) 25 pg (25-35) Mean Corpuscular Hemoglobin Concent 31 g/dL (31-37) 32 g/dL (31-37) Red Cell Distribution Width 19.7 % (11.5-14.5) 19.5 % (11.5-14.5) Platelet Count 426 x10^3/uL (140-400) 439 x10^3/uL (140-400) Neutrophils (%) (Auto) 81 % (31-73) 91 % (31-73) Lymphocytes (%) (Auto) 10 % (24-48) 6 % (24-48) Monocytes (%) (Auto) 7 % (0-9) 2 % (0-9) Eosinophils (%) (Auto) 0 % (0-3) 0 % (0-3) Basophils (%) (Auto) 1 % (0-3) 0 % (0-3) Neutrophils # (Auto) 7.5 x10^3uL (1.8-7.7) 9.1 x10^3uL (1.8-7.7) Lymphocytes # (Auto) 1.0 x10^3/uL (1.0-4.8) 0.6 x10^3/uL (1.0-4.8) Monocytes # (Auto) 0.7 x10^3/uL (0.0-1.1) 0.2 x10^3/uL (0.0-1.1) Eosinophils # (Auto) 0.0 x10^3/uL (0.0-0.7) 0.0 x10^3/uL (0.0-0.7) Basophils # (Auto) 0.1 x10^3/uL (0.0-0.2) 0.0 x10^3/uL (0.0-0.2) Prothrombin Time 31.9 SEC (11.7-14.0) Prothromb Time International Ratio 3.2 (0.8-1.1) Sodium Level 138 mmol/L (136-145) 137 mmol/L (136-145) Potassium Level 4.1 mmol/L (3.5-5.1) 4.3 mmol/L (3.5-5.1) Chloride Level 98 mmol/L (98-107) 98 mmol/L (98-107) Carbon Dioxide Level 28 mmol/L (21-32) 26 mmol/L (21-32) Anion Gap 12 (6-14) 13 (6-14) Blood Urea Nitrogen 10 mg/dL (7-20) 11 mg/dL (7-20) Creatinine 1.4 mg/dL (0.6-1.0) 1.5 mg/dL (0.6-1.0) Estimated GFR (Cockcroft-Gault) 38.6 35.7 BUN/Creatinine Ratio 7 (6-20) 7 (6-20) Glucose Level 236 mg/dL (70-99) 354 mg/dL (70-99) Calcium Level 6.9 mg/dL (8.5-10.1) 7.3 mg/dL (8.5-10.1) Total Bilirubin 0.3 mg/dL (0.2-1.0) 0.3 mg/dL (0.2-1.0) Aspartate Amino Transf (AST/SGOT) 42 U/L (15-37) 48 U/L (15-37) Alanine Aminotransferase (ALT/SGPT) 23 U/L (14-59) 27 U/L (14-59) Alkaline Phosphatase 128 U/L (46-116) 120 U/L (46-116) Troponin I Quantitative < 0.017 ng/mL (0.000-0.055) BP-Yce-C-Type Natriuretic Peptide 706 pg/mL (0-124) Total Protein 8.5 g/dL (6.4-8.2) 8.6 g/dL (6.4-8.2) Albumin 2.9 g/dL (3.4-5.0) 2.9 g/dL (3.4-5.0) Albumin/Globulin Ratio 0.5 (1.0-1.7) 0.5 (1.0-1.7) Glucose (Fingerstick) 267 mg/dL (70-99) 343 mg/dL (70-99) Test 01/15/18 09:45 01/15/18 10:15 01/15/18 12:13 01/15/18 17:30 O2 Saturation 90 % (92-99) Arterial Blood pH 7.39 (7.35-7.45) Arterial Blood pCO2 at Patient Temp 50 mmHg (35-46) Arterial Blood pO2 at Patient Temp 59 mmHg (75-108) Arterial Blood HCO3 30 mmol/L (21-28) Arterial Blood Base Excess 4 mmol/L (-3-3) FiO2 40.0 Prothrombin Time 32.2 SEC (11.7-14.0) Prothromb Time International Ratio 3.2 (0.8-1.1) Glucose (Fingerstick) 308 mg/dL (70-99) 211 mg/dL (70-99) Test 01/15/18 20:05 01/16/18 04:44 Glucose (Fingerstick) 172 mg/dL (70-99) White Blood Count 14.6 x10^3/uL (4.0-11.0) Red Blood Count 3.96 x10^6/uL (3.50-5.40) Hemoglobin 9.4 g/dL (12.0-15.5) Hematocrit 30.8 % (36.0-47.0) Mean Corpuscular Volume 78 fL (79-100) Mean Corpuscular Hemoglobin 24 pg (25-35) Mean Corpuscular Hemoglobin Concent 31 g/dL (31-37) Red Cell Distribution Width 19.5 % (11.5-14.5) Platelet Count 420 x10^3/uL (140-400) Neutrophils (%) (Auto) 82 % (31-73) Lymphocytes (%) (Auto) 11 % (24-48) Monocytes (%) (Auto) 7 % (0-9) Eosinophils (%) (Auto) 0 % (0-3) Basophils (%) (Auto) 1 % (0-3) Neutrophils # (Auto) 11.9 x10^3uL (1.8-7.7) Lymphocytes # (Auto) 1.6 x10^3/uL (1.0-4.8) Monocytes # (Auto) 1.0 x10^3/uL (0.0-1.1) Eosinophils # (Auto) 0.0 x10^3/uL (0.0-0.7) Basophils # (Auto) 0.1 x10^3/uL (0.0-0.2) Sodium Level 139 mmol/L (136-145) Potassium Level 4.2 mmol/L (3.5-5.1) Chloride Level 100 mmol/L (98-107) Carbon Dioxide Level 31 mmol/L (21-32) Anion Gap 8 (6-14) Blood Urea Nitrogen 26 mg/dL (7-20) Creatinine 1.6 mg/dL (0.6-1.0) Estimated GFR (Cockcroft-Gault) 33.1 BUN/Creatinine Ratio 16 (6-20) Glucose Level 152 mg/dL (70-99) Calcium Level 6.9 mg/dL (8.5-10.1) Total Bilirubin 0.2 mg/dL (0.2-1.0) Aspartate Amino Transf (AST/SGOT) 39 U/L (15-37) Alanine Aminotransferase (ALT/SGPT) 27 U/L (14-59) Alkaline Phosphatase 103 U/L (46-116) Total Protein 7.4 g/dL (6.4-8.2) Albumin 2.6 g/dL (3.4-5.0) Albumin/Globulin Ratio 0.5 (1.0-1.7) Laboratory Tests Test 01/15/18 07:51 01/15/18 09:45 01/15/18 10:15 01/15/18 12:13 Glucose (Fingerstick) 343 mg/dL (70-99) 308 mg/dL (70-99) O2 Saturation 90 % (92-99) Arterial Blood pH 7.39 (7.35-7.45) Arterial Blood pCO2 at Patient Temp 50 mmHg (35-46) Arterial Blood pO2 at Patient Temp 59 mmHg (75-108) Arterial Blood HCO3 30 mmol/L (21-28) Arterial Blood Base Excess 4 mmol/L (-3-3) FiO2 40.0 Prothrombin Time 32.2 SEC (11.7-14.0) Prothromb Time International Ratio 3.2 (0.8-1.1) Test 01/15/18 17:30 01/15/18 20:05 01/16/18 04:44 Glucose (Fingerstick) 211 mg/dL (70-99) 172 mg/dL (70-99) White Blood Count 14.6 x10^3/uL (4.0-11.0) Red Blood Count 3.96 x10^6/uL (3.50-5.40) Hemoglobin 9.4 g/dL (12.0-15.5) Hematocrit 30.8 % (36.0-47.0) Mean Corpuscular Volume 78 fL (79-100) Mean Corpuscular Hemoglobin 24 pg (25-35) Mean Corpuscular Hemoglobin Concent 31 g/dL (31-37) Red Cell Distribution Width 19.5 % (11.5-14.5) Platelet Count 420 x10^3/uL (140-400) Neutrophils (%) (Auto) 82 % (31-73) Lymphocytes (%) (Auto) 11 % (24-48) Monocytes (%) (Auto) 7 % (0-9) Eosinophils (%) (Auto) 0 % (0-3) Basophils (%) (Auto) 1 % (0-3) Neutrophils # (Auto) 11.9 x10^3uL (1.8-7.7) Lymphocytes # (Auto) 1.6 x10^3/uL (1.0-4.8) Monocytes # (Auto) 1.0 x10^3/uL (0.0-1.1) Eosinophils # (Auto) 0.0 x10^3/uL (0.0-0.7) Basophils # (Auto) 0.1 x10^3/uL (0.0-0.2) Sodium Level 139 mmol/L (136-145) Potassium Level 4.2 mmol/L (3.5-5.1) Chloride Level 100 mmol/L (98-107) Carbon Dioxide Level 31 mmol/L (21-32) Anion Gap 8 (6-14) Blood Urea Nitrogen 26 mg/dL (7-20) Creatinine 1.6 mg/dL (0.6-1.0) Estimated GFR (Cockcroft-Gault) 33.1 BUN/Creatinine Ratio 16 (6-20) Glucose Level 152 mg/dL (70-99) Calcium Level 6.9 mg/dL (8.5-10.1) Total Bilirubin 0.2 mg/dL (0.2-1.0) Aspartate Amino Transf (AST/SGOT) 39 U/L (15-37) Alanine Aminotransferase (ALT/SGPT) 27 U/L (14-59) Alkaline Phosphatase 103 U/L (46-116) Total Protein 7.4 g/dL (6.4-8.2) Albumin 2.6 g/dL (3.4-5.0) Albumin/Globulin Ratio 0.5 (1.0-1.7) Medications Active Scripts Medications Dose Route/Sig Max Daily Dose Days Date Category Dose Instructions [place] 5-325 Tablet (Acetaminophen/Hydrocodone Bitart) 1 Each Tablet 1-2 Tab PO Q4HRS 10/22/17 Reported Coumadin (Warfarin Sodium) 5 Mg Tablet 1 Tab PO SUMOWETHSA 10/22/17 Reported Coumadin (Warfarin Sodium) 2.5 Mg Tablet 1 Tab PO TUFR 10/22/17 Reported Hydrocodone-Apap 7.5-325 (Hydrocodone Bit/Acetaminophen) 1 Each Tablet 1 Tab PO PRN Q6HRS PRN 10/21/17 Reported Duoneb 0.5-3(2.5) Mg/3 Ml (Albuterol/Ipratropium) 3 Ml Ampul.neb 3 Ml NEB RTQID 09/17/17 Rx Proair Hfa Inhaler (Albuterol Sulfate) 8.5 Gm Hfa.aer.ad 1 Puff INH PRN Q6HRS PRN 09/17/17 Rx Symbicort 160-4.5 Mcg Inhaler (Budesonide/Formoterol Fumarate) 10.2 Gm Hfa.aer.ad 2 Puff IH BID 09/17/17 Rx Mag-Oxide (Magnesium Oxide) 400 Mg Tablet 400 Mg PO TID 09/17/17 Rx Fluticasone Propionate Nasal [place] (Fluticasone Propionate) 16 Gm [place].susp 2 [place] NS DAILY 09/17/17 Rx Tizanidine Hcl 4 Mg Tablet 4 Mg PO PRN QHS PRN 09/17/17 Rx Cetirizine Hcl 10 Mg Tablet 10 Mg PO DAILY 09/17/17 Rx Synthroid (Levothyroxine Sodium) 150 Mcg Tablet 150 Mcg PO DAILY07 09/17/17 Rx Metformin Hcl 1,000 Mg Tablet 1,000 Mg PO BID 09/17/17 Rx Restart metformin 09/18 Voltaren (Diclofenac Sodium) 100 Gm Gel..gram. 4 Gm TP QID 05/28/17 Rx Gabapentin 300 Mg Capsule 1,200 Mg PO HS 05/25/17 Reported Klor-Con M20 (Potassium Chloride) 20 Meq Tab.er.prt 20 Meq PO DAILYWBKFT 06/29/16 Rx Novolog Flexpen (Insulin Aspart) 100 Unit/1 Ml Insuln.pen 7 Units SQ TIDBFRMEAL 06/29/16 Rx Alprazolam 0.25 Mg Tablet 1 Tab PO BID 06/27/16 Reported Carvedilol 3.125 Mg Tablet 1 Tab PO BID 06/27/16 Reported Spironolactone 25 Mg Tablet 25 Mg PO DAILY 05/24/15 Reported Torsemide 20 Mg Tablet 20 Mg PO DAILY 05/24/15 Reported Zocor (Simvastatin) 80 Mg Tablet 80 Mg PO DAILY 07/19/13 Reported Lantus Solostar (Insulin Glargine,Hum.rec.anlog) 100 Unit/1 Ml Insuln.pen 54 Unit SQ DAILYWBKFT 07/19/13 Reported Reglan (Metoclopramide Hcl) 10 Mg Tablet 10 Mg PO QID 07/19/13 Reported Protonix (Pantoprazole Sodium) 40 Mg Granpkt.dr 40 Mg PO BID 07/19/13 Reported Singulair Tablet (Montelukast Sodium) 10 Mg Tablet 10 Mg PO DAILY 07/19/13 Reported Aspir 81 (Aspirin) 81 Mg Tablet.dr 81 Mg PO DAILY 07/19/13 Reported Impression . IMPRESSION: 1. Acute on chronic respiratory failure with hypoxemia secondary to acute exacerbation of chronic obstructive pulmonary disease, acute systolic congestive heart failure, acute bronchitis versus others. 2. Acute exacerbation of chronic obstructive pulmonary disease. 3. Acute bronchitis. 4. Acute systolic congestive heart failure. 5. Tobacco habituation. 6. History of deep venous thrombosis. 7. Peripheral vascular disease. 8. Snoring and excessive daytime sleepiness, probable obstructive sleep apnea-hypopnea syndrome. 9. Diabetes mellitus. 10. Hypertension. 11. Hypothyroidism. Plan . RECOMMENDATIONS: 1. BiPAP prn during day, cont at night, setting reviewed, titrate Fi02 to keep O2 saturation 91%, 2. change Solu-Medrol to 40 mg IV every 12. 3. cont Lasix , keep I<O, monitor k, cr 4. I agree with cardiology consultation. 5. cont doxycycline. 6. I have discussed obstructive sleep apnea-hypopnea syndrome, the importance of diagnosis and treatment, if untreated, increased cardiovascular and [employer] morbidity or mortality. I do recommend a split night sleep study as an outpatient. 7. Protonix for stress ulcer prophylaxis. 8. Continue Coumadin, adjust dose to keep INR between 2 and 3, monitor for bleeding. 9. Elevate head of bed. 10. I had a long discussion with her regarding smoking cessation. I have advised her to stop smoking forever. The findings and recommendations were discussed with the patient, RN and RT. WALDEMAR DUMONT MD Jan 16, 2018 07:44
[2018-01-16] MEDS: CARVEDILOL 3.125 MG TABLET. PO SCH ×2 (07:58→17:19)
[2018-01-16] MEDS: POTASSIUM CHLORIDE 20 MEQ TABLET.ER. PO SCH (07:58)
[2018-01-16] MEDS: HYDROcodone/APAP 5/325MG 1 TAB TABLET PO PRN ×3 (07:58→17:19)
[2018-01-16] MEDS: ASPIRIN ENTERIC COATED 81 MG TABLET.DR. PO SCH (07:58)
[2018-01-16] MEDS: CETIRIZINE HCL 10 MG TABLET. PO SCH (07:58)
[2018-01-16] MEDS: METOCLOPRAMIDE 10 MG TABLET. PO SCH ×5 (07:58→21:00)
[2018-01-16] MEDS: MAGNESIUM OXIDE 400 MG TABLET PO SCH ×3 (07:59→20:31)
[2018-01-16] MEDS: DICLOFENAC SODIUM 1% TOPICAL GEL 100GM TUBE. TP SCH ×4 (07:59→20:27)
[2018-01-16] MEDS: TORSEMIDE 20 MG TABLET. PO SCH (07:59)
[2018-01-16] MEDS: LACTOBACILLUS RHAMNOSUS GG 1 CAPSULE. PO SCH ×2 (07:59→20:31)
[2018-01-16] MEDS: ALPRAZolam 0.25 MG TABLET PO SCH ×3 (07:59→20:31)
[2018-01-16] MEDS: DOXYCYCLINE HYCLATE 100 MG TABLET PO SCH ×2 (07:59→21:00)
[2018-01-16] MEDS: PANTOPRAZOLE 40 MG TABLET.DR. PO SCH ×2 (07:59→17:18)
[2018-01-16] MEDS: SPIRONOLACTONE 25 MG TABLET PO SCH (07:59)
[2018-01-16] MEDS: FLUTICASONE 50MCG/NASAL SPRAY 16GM BOTTLE. NS SCH (08:00)
[2018-01-16 08:09] LABS: PROTHROMBIN TIME PATIENT 26.6 SEC (11.7-14.0)
[2018-01-16] MEDS: INSULIN GLARGINE 300 UNITS/3 ML INSULN.PEN. SQ SCH (08:11)
--- NOTE | 2018-01-16 09:32 | EKG ---
[facility] [address] [place] [id number] Test Date: 2018-01-14 Test Time: 19:24:57 Pat Name: ISATU LOUISE Department: Room: 260 1 Gender: F Occupational Ther: : 1960 Requested By: LUBNA ROMAN Order Number: [id number] Reading MD: Danyel Rosenthal MD Measurements Intervals [place] Rate: 83 P: 45 IA: 160 QRS: 36 QRSD: 74 T: 72 QT: 420 QTc: 494 Interpretive Statements SINUS RHYTHM QRS(T) CONTOUR ABNORMALITY CONSISTENT WITH ANTERIOR INFARCT Electronically Signed On 01-16-2018 13:36:37 CDT by Danyel Rosenthal MD
--- NOTE | 2018-01-16 10:15 | PDOC ---
IM PROGRESS NOTES- Subjective Subjective Dyspnea, cough and congestion are improving. Objective Vitals Vital Signs Date Time Temp Pulse Resp B/P (MAP) Pulse Ox O2 Delivery O2 Flow Rate FiO2 01/16/18 09:16 94 Venturi Mask 12.0 01/16/18 07:58 81 01/16/18 07:40 97.0 24 118/60 (79) 97.0 Input & Output Intake and Output 01/16/18 07:00 Intake Total 1250 ml Output Total 1801 ml Balance -551 ml Intake Oral 1250 ml Output Urine Total 1800 ml Stool Total 1 ml # Voids 2 Physical Exam Physical Exam General Appearance - in mild to moderate distress and chronically ill appearing Mental Status - alert, oriented to person, place, and time, affect appropriate to mood Eyes - pupils equal and reactive, extraocular eye movements intact Mouth - mucous membranes moist, pharynx normal without lesions Head - normal Neck - supple, no significant adenopathy Lymphatics - few small anterior cervical nodes Chest -mild tachypnea with decreased wheezing bilaterally. Heart - S1 and S2 normal Abdomen - soft, nontender, nondistended, no masses or organomegaly Musculoskeletal - no swelling or tenderness Extremities -edema decreased Skin - warm and dry Labs Laboratory Tests Test 01/14/18 18:45 01/14/18 21:21 01/15/18 03:00 01/15/18 07:51 White Blood Count 9.3 x10^3/uL (4.0-11.0) 10.0 x10^3/uL (4.0-11.0) Red Blood Count 4.15 x10^6/uL (3.50-5.40) 4.01 x10^6/uL (3.50-5.40) Hemoglobin 10.1 g/dL (12.0-15.5) 9.9 g/dL (12.0-15.5) Hematocrit 32.2 % (36.0-47.0) 31.4 % (36.0-47.0) Mean Corpuscular Volume 78 fL (79-100) 78 fL (79-100) Mean Corpuscular Hemoglobin 24 pg (25-35) 25 pg (25-35) Mean Corpuscular Hemoglobin Concent 31 g/dL (31-37) 32 g/dL (31-37) Red Cell Distribution Width 19.7 % (11.5-14.5) 19.5 % (11.5-14.5) Platelet Count 426 x10^3/uL (140-400) 439 x10^3/uL (140-400) Neutrophils (%) (Auto) 81 % (31-73) 91 % (31-73) Lymphocytes (%) (Auto) 10 % (24-48) 6 % (24-48) Monocytes (%) (Auto) 7 % (0-9) 2 % (0-9) Eosinophils (%) (Auto) 0 % (0-3) 0 % (0-3) Basophils (%) (Auto) 1 % (0-3) 0 % (0-3) Neutrophils # (Auto) 7.5 x10^3uL (1.8-7.7) 9.1 x10^3uL (1.8-7.7) Lymphocytes # (Auto) 1.0 x10^3/uL (1.0-4.8) 0.6 x10^3/uL (1.0-4.8) Monocytes # (Auto) 0.7 x10^3/uL (0.0-1.1) 0.2 x10^3/uL (0.0-1.1) Eosinophils # (Auto) 0.0 x10^3/uL (0.0-0.7) 0.0 x10^3/uL (0.0-0.7) Basophils # (Auto) 0.1 x10^3/uL (0.0-0.2) 0.0 x10^3/uL (0.0-0.2) Prothrombin Time 31.9 SEC (11.7-14.0) Prothromb Time International Ratio 3.2 (0.8-1.1) Sodium Level 138 mmol/L (136-145) 137 mmol/L (136-145) Potassium Level 4.1 mmol/L (3.5-5.1) 4.3 mmol/L (3.5-5.1) Chloride Level 98 mmol/L (98-107) 98 mmol/L (98-107) Carbon Dioxide Level 28 mmol/L (21-32) 26 mmol/L (21-32) Anion Gap 12 (6-14) 13 (6-14) Blood Urea Nitrogen 10 mg/dL (7-20) 11 mg/dL (7-20) Creatinine 1.4 mg/dL (0.6-1.0) 1.5 mg/dL (0.6-1.0) Estimated GFR (Cockcroft-Gault) 38.6 35.7 BUN/Creatinine Ratio 7 (6-20) 7 (6-20) Glucose Level 236 mg/dL (70-99) 354 mg/dL (70-99) Calcium Level 6.9 mg/dL (8.5-10.1) 7.3 mg/dL (8.5-10.1) Total Bilirubin 0.3 mg/dL (0.2-1.0) 0.3 mg/dL (0.2-1.0) Aspartate Amino Transf (AST/SGOT) 42 U/L (15-37) 48 U/L (15-37) Alanine Aminotransferase (ALT/SGPT) 23 U/L (14-59) 27 U/L (14-59) Alkaline Phosphatase 128 U/L (46-116) 120 U/L (46-116) Troponin I Quantitative < 0.017 ng/mL (0.000-0.055) GL-Ydl-T-Type Natriuretic Peptide 706 pg/mL (0-124) Total Protein 8.5 g/dL (6.4-8.2) 8.6 g/dL (6.4-8.2) Albumin 2.9 g/dL (3.4-5.0) 2.9 g/dL (3.4-5.0) Albumin/Globulin Ratio 0.5 (1.0-1.7) 0.5 (1.0-1.7) Glucose (Fingerstick) 267 mg/dL (70-99) 343 mg/dL (70-99) Test 01/15/18 09:45 01/15/18 10:15 01/15/18 12:13 01/15/18 17:30 O2 Saturation 90 % (92-99) Arterial Blood pH 7.39 (7.35-7.45) Arterial Blood pCO2 at Patient Temp 50 mmHg (35-46) Arterial Blood pO2 at Patient Temp 59 mmHg (75-108) Arterial Blood HCO3 30 mmol/L (21-28) Arterial Blood Base Excess 4 mmol/L (-3-3) FiO2 40.0 Prothrombin Time 32.2 SEC (11.7-14.0) Prothromb Time International Ratio 3.2 (0.8-1.1) Glucose (Fingerstick) 308 mg/dL (70-99) 211 mg/dL (70-99) Test 01/15/18 20:05 01/16/18 04:44 01/16/18 07:40 01/16/18 07:45 Glucose (Fingerstick) 172 mg/dL (70-99) 129 mg/dL (70-99) White Blood Count 14.6 x10^3/uL (4.0-11.0) Red Blood Count 3.96 x10^6/uL (3.50-5.40) Hemoglobin 9.4 g/dL (12.0-15.5) Hematocrit 30.8 % (36.0-47.0) Mean Corpuscular Volume 78 fL (79-100) Mean Corpuscular Hemoglobin 24 pg (25-35) Mean Corpuscular Hemoglobin Concent 31 g/dL (31-37) Red Cell Distribution Width 19.5 % (11.5-14.5) Platelet Count 420 x10^3/uL (140-400) Neutrophils (%) (Auto) 82 % (31-73) Lymphocytes (%) (Auto) 11 % (24-48) Monocytes (%) (Auto) 7 % (0-9) Eosinophils (%) (Auto) 0 % (0-3) Basophils (%) (Auto) 1 % (0-3) Neutrophils # (Auto) 11.9 x10^3uL (1.8-7.7) Lymphocytes # (Auto) 1.6 x10^3/uL (1.0-4.8) Monocytes # (Auto) 1.0 x10^3/uL (0.0-1.1) Eosinophils # (Auto) 0.0 x10^3/uL (0.0-0.7) Basophils # (Auto) 0.1 x10^3/uL (0.0-0.2) Sodium Level 139 mmol/L (136-145) Potassium Level 4.2 mmol/L (3.5-5.1) Chloride Level 100 mmol/L (98-107) Carbon Dioxide Level 31 mmol/L (21-32) Anion Gap 8 (6-14) Blood Urea Nitrogen 26 mg/dL (7-20) Creatinine 1.6 mg/dL (0.6-1.0) Estimated GFR (Cockcroft-Gault) 33.1 BUN/Creatinine Ratio 16 (6-20) Glucose Level 152 mg/dL (70-99) Calcium Level 6.9 mg/dL (8.5-10.1) Total Bilirubin 0.2 mg/dL (0.2-1.0) Aspartate Amino Transf (AST/SGOT) 39 U/L (15-37) Alanine Aminotransferase (ALT/SGPT) 27 U/L (14-59) Alkaline Phosphatase 103 U/L (46-116) Total Protein 7.4 g/dL (6.4-8.2) Albumin 2.6 g/dL (3.4-5.0) Albumin/Globulin Ratio 0.5 (1.0-1.7) Prothrombin Time 26.6 SEC (11.7-14.0) Prothromb Time International Ratio 2.5 (0.8-1.1) Laboratory Tests Test 01/15/18 10:15 01/15/18 12:13 01/15/18 17:30 01/15/18 20:05 Prothrombin Time 32.2 SEC (11.7-14.0) Prothromb Time International Ratio 3.2 (0.8-1.1) Glucose (Fingerstick) 308 mg/dL (70-99) 211 mg/dL (70-99) 172 mg/dL (70-99) Test 01/16/18 04:44 01/16/18 07:40 01/16/18 07:45 White Blood Count 14.6 x10^3/uL (4.0-11.0) Red Blood Count 3.96 x10^6/uL (3.50-5.40) Hemoglobin 9.4 g/dL (12.0-15.5) Hematocrit 30.8 % (36.0-47.0) Mean Corpuscular Volume 78 fL (79-100) Mean Corpuscular Hemoglobin 24 pg (25-35) Mean Corpuscular Hemoglobin Concent 31 g/dL (31-37) Red Cell Distribution Width 19.5 % (11.5-14.5) Platelet Count 420 x10^3/uL (140-400) Neutrophils (%) (Auto) 82 % (31-73) Lymphocytes (%) (Auto) 11 % (24-48) Monocytes (%) (Auto) 7 % (0-9) Eosinophils (%) (Auto) 0 % (0-3) Basophils (%) (Auto) 1 % (0-3) Neutrophils # (Auto) 11.9 x10^3uL (1.8-7.7) Lymphocytes # (Auto) 1.6 x10^3/uL (1.0-4.8) Monocytes # (Auto) 1.0 x10^3/uL (0.0-1.1) Eosinophils # (Auto) 0.0 x10^3/uL (0.0-0.7) Basophils # (Auto) 0.1 x10^3/uL (0.0-0.2) Sodium Level 139 mmol/L (136-145) Potassium Level 4.2 mmol/L (3.5-5.1) Chloride Level 100 mmol/L (98-107) Carbon Dioxide Level 31 mmol/L (21-32) Anion Gap 8 (6-14) Blood Urea Nitrogen 26 mg/dL (7-20) Creatinine 1.6 mg/dL (0.6-1.0) Estimated GFR (Cockcroft-Gault) 33.1 BUN/Creatinine Ratio 16 (6-20) Glucose Level 152 mg/dL (70-99) Calcium Level 6.9 mg/dL (8.5-10.1) Total Bilirubin 0.2 mg/dL (0.2-1.0) Aspartate Amino Transf (AST/SGOT) 39 U/L (15-37) Alanine Aminotransferase (ALT/SGPT) 27 U/L (14-59) Alkaline Phosphatase 103 U/L (46-116) Total Protein 7.4 g/dL (6.4-8.2) Albumin 2.6 g/dL (3.4-5.0) Albumin/Globulin Ratio 0.5 (1.0-1.7) Prothrombin Time 26.6 SEC (11.7-14.0) Prothromb Time International Ratio 2.5 (0.8-1.1) Glucose (Fingerstick) 129 mg/dL (70-99) Meds Current Medications Albuterol/ Ipratropium (Duoneb) 3 ml Q4HRS NEB ; Start 01/15/18 at 12:00; Stop at 12:00; Status DC Albuterol/ Ipratropium (Duoneb) 3 ml Q4HRS NEB Last administered on 01/16/18at 06 :37; Start 01/15/18 at 12:00 Albuterol/ Ipratropium (Duoneb) 3 ml RTQID NEB ; Start 01/15/18 at 12:00; Stop at 12:00; Status DC Alprazolam (Xanax) 0.25 mg TID PO Last administered on 01/16/18at 07:59; Start at 21:00 Furosemide (Lasix) 20 mg 1X ONCE IVP Last administered on 01/15/18at 14:13; Start 01/15/18 at 13:00; Stop 01/15/18 at 13:01; Status DC Insulin Human Lispro (HumaLOG) 0-20 UNITS TIDBFRMEAL SQ Last administered on 01/15/18at 17:37; Start 01/15/18 at 11:30 Methylprednisolone Sodium Succinate (SOLU-Medrol 40MG VIAL) 40 mg Q8HRS IV Last administered on 01/16/18at 06:31; Start 01/15/18 at 14:00 Non-Formulary Medication (Warfarin Sodium (Coumadin)) 1 tab SuMoWeThSa PO ; Start 01/15/18 at 10:30; Status UNV Simvastatin (Zocor) 80 mg QHS PO Last administered on 01/15/18at 20:55; Start 01/15/18 at 21:00 Warfarin Sodium (Coumadin - No Dose Today) 1 each 1X WARF ONCE MC ; Start at 16:00; Stop 01/15/18 at 16:01; Status DC Warfarin Sodium (Coumadin - No Dose Today) 1 each TuFr MC ; Start 01/18/18 at 10 :30; Status UNV Assessment Assessment 1. Neerf-vn-xipurge hypoxic respiratory failure secondary to acute exacerbation of chronic obstructive pulmonary disease. 2. Acute exacerbation of chronic obstructive pulmonary disease. 3. Acute bronchitis. 4. Aznvr-jq-awxblhv systolic congestive heart failure, previous ejection fraction of 35%. 5. Diabetes mellitus type 2, not controlled, with diabetic neuropathy and peripheral artery disease. 6. History of deep venous thrombosis in the past with chronic Coumadin therapy. 7. Hypothyroidism, surgically induced. 8. Recent thrombus of the right femoral artery, status post thrombectomy, on heparin infusion and was also started on warfarin. 9. Hypertension. 10. Hyperlipidemia. 11. Chronic kidney disease. 12. History of nonobstructing right renal calculus. 13. Noncompliance. 14. Obesity. 15. Chronic smoking. 16. Osteoporosis. 17. Degenerative joint disease, right ankle, chronic. 18. Degenerative joint disease, right hip. PLAN: Start IV steroids. Monitor blood sugars closely. I have started her on her Lantus that she was taking at home 54 units along with high dose sliding scale insulin. The patient will be on IV steroids, BiPAP. Consultation has been obtained with Dr. Jose Miguel Banegas for pulmonary evaluation and management. I will also consult Dr. oRsenthal for cardiology evaluation and management. Monitor blood sugars closely. Condition and treatment discussed with the patient and her . Prognosis of this patient is very poor due to her multiple medical problems. Monitor oxygenation. For details, please refer to the orders. Continue Coumadin. We will ask pharmacy to manage. The patient takes Coumadin 5 mg 5 times a week and then 2.5 mg twice a week. For details, please refer to the orders. Acute hypoxic respiratory failure -improving Acute exacerbation of COPD -improving Uncontrolled diabetes mellitus with neuropathyblood sugar is 129 this morning. Patient only takes Lantus 54 units subcutaneous once a day in a.m. and not at bedtime so we will change it to that dose. Monitor blood sugars due to use of steroids. Acute on chronic systolic congestive heart failureimproving. Patient was given IV Lasix yesterday. Continue torsemide today. Plan Plan For more details regarding further plans, please refer to the orders. SULTANA MONTGOMERY MD Jan 16, 2018 10:15
[2018-01-16 11:30] VITALS: BP 126/64
--- NOTE | 2018-01-16 13:39 | PDOC2 ---
CARDIOLOGY CONSULT NOTE CHEIF COMPLAINT: Cough, dyspnea HPI: 57 y.o vasculopath with NICM presenting with dyspnea. She has hypoxic resp failure related to COPD and continued smoking. Denies any chest pain, +dyspnea, improved since admission. Follows with Dr. Milton, ? EF of 35% No new LE edema, orthopnea or PND. PMHX: COPD NICM PAD SOCHX: Smoker FAMHX: NC CURRENT MEDS: Current Medications Medications (Trade) Dose Ordered Sig/Irena Start Time Stop Time Status Last Admin Dose Admin Acetaminophen (Tylenol) 650 mg PRN Q6HRS PRN 01/15/18 09:45 Acetaminophen/ Hydrocodone Bitart (Lortab 5/325) 1 tab Q4HRS PRN 01/14/18 21:15 01/16/18 12:16 1 TAB Acetaminophen/ Hydrocodone Bitart (Lortab 7.5/325) 1 tab PRN Q6HRS PRN 01/14/18 21:15 01/15/18 22:05 1 TAB Albuterol Sulfate (Ventolin Neb Soln) 10 mg 1X ONCE 01/14/18 20:00 01/14/18 20:01 DC 01/14/18 20:05 10 MG Albuterol/ Ipratropium (Duoneb) 3 ml Q4HRS 01/15/18 12:00 01/16/18 12:13 3 ML Alprazolam (Xanax) 0.25 mg TID 01/15/18 21:00 01/16/18 12:16 0.25 MG Aspirin (Ecotrin) 81 mg DAILY 01/15/18 09:00 01/16/18 07:58 81 MG Budesonide (Pulmicort) 0.5 mg RTBID 01/15/18 09:00 01/16/18 06:38 0.5 MG Calcium Gluconate (Calcium Gluconate) 1,000 mg 1X ONCE 01/14/18 20:30 01/14/18 20:31 DC 01/14/18 22:14 1,000 MG Carvedilol (Coreg) 3.125 mg BIDWMEALS 01/15/18 08:00 01/16/18 07:58 3.125 MG Cetirizine HCl (ZyrTEC) 10 mg DAILY 01/15/18 09:00 01/16/18 07:58 10 MG Dextrose (Dextrose 50%-Water Syringe) 12.5 gm PRN Q15MIN PRN 01/14/18 21:30 Diclofenac Sodium (Voltaren) 4 kiana QID 01/15/18 09:00 01/16/18 12:16 4 KIANA Doxycycline Hyclate (Vibra-Tab) 100 mg BID 01/15/18 09:00 01/16/18 07:59 100 MG Doxycycline Hyclate 100 mg/ Dextrose 100 ml @ 50 mls/hr 1X ONCE 01/14/18 20:00 01/14/18 21:59 DC 01/14/18 19:56 50 MLS/HR Enoxaparin Sodium (Lovenox 40mg Syringe) 40 mg Q24H 01/15/18 09:45 UNV Fluticasone Propionate (Flonase) 2 spray DAILY 01/15/18 09:00 01/16/18 08:00 2 SPRAY Furosemide (Lasix) 20 mg 1X ONCE 01/15/18 13:00 01/15/18 13:01 DC 01/15/18 14:13 20 MG Gabapentin (Neurontin) 1,200 mg QHS 01/14/18 22:00 01/15/18 20:55 1,200 MG Insulin Glargine (Lantus) 54 units QHS 01/14/18 22:00 01/16/18 09:27 DC 01/15/18 20:56 54 UNITS Insulin Human Lispro (HumaLOG) 0-20 UNITS TIDBFRMEAL 01/15/18 11:30 01/16/18 12:29 3 UNITS Lactobacillus Rhamnosus (Culturelle) 1 cap BID 01/15/18 09:00 01/16/18 07:59 1 CAP Levothyroxine Sodium (Synthroid) 150 mcg DAILY07 01/15/18 07:00 01/16/18 06:31 150 MCG Magnesium Oxide (Magnesium Oxide) 400 mg TID 01/14/18 22:00 01/16/18 07:59 400 MG Metformin HCl (Glucophage) 1,000 mg BIDWMEALS 01/15/18 08:00 01/16/18 07:58 1,000 MG Methylprednisolone Sodium Succinate (SOLU-Medrol 40MG VIAL) 40 mg Q8HRS 01/15/18 14:00 01/16/18 06:31 40 MG Methylprednisolone Sodium Succinate (SOLU-Medrol 125MG VIAL) 125 mg 1X ONCE 01/15/18 08:30 01/15/18 08:31 DC 01/15/18 08:10 125 MG Metoclopramide HCl (Reglan) 10 mg QIDAFTMEAL 01/14/18 22:00 01/16/18 07:58 10 MG Montelukast Sodium (Singulair) 10 mg QHS 01/14/18 22:00 01/15/18 20:55 10 MG Non-Formulary Medication (Warfarin Sodium (Coumadin)) 1 tab SuMoWeThSa 01/15/18 10:30 UNV Pantoprazole Sodium (Protonix) 40 mg BIDAC 01/15/18 07:30 01/16/18 07:59 40 MG Potassium Chloride (Klor-Con) 20 meq DAILYWBKFT 01/15/18 08:00 01/16/18 07:58 20 MEQ Simvastatin (Zocor) 80 mg QHS 01/15/18 21:00 01/15/18 20:55 80 MG Spironolactone (Aldactone) 25 mg DAILY 01/15/18 09:00 01/16/18 07:59 25 MG Tizanidine HCl (Zanaflex) 4 mg PRN QHS PRN 01/14/18 21:45 Torsemide (Demadex) 20 mg DAILY 01/15/18 09:00 01/16/18 07:59 20 MG Warfarin Sodium (Coumadin - No Dose Today) 1 each 1X WARF ONCE 01/15/18 16:00 01/15/18 16:01 DC Warfarin Sodium (Coumadin Per Pharmacy) 1 each PRN DAILY PRN 01/15/18 09:45 01/16/18 10:16 1 EACH Warfarin Sodium (Coumadin) 4 mg 1X WARF ONCE 01/16/18 16:00 01/16/18 16:01 ALLERGIES: Allergies Coded Allergies Type Severity Reaction Last Updated Verified Penicillins Allergy Intermediate Hives 10/22/17 Yes codeine Adverse Reaction Mild Nausea and Vomiting 10/22/17 Yes diphenhydramine HCl Adverse Reaction Mild hyperactive 10/22/17 Yes ROS: negative for 02/20 systems reviewed. PHYSICAL EXAM: Vital Signs: Vital Signs Date Time Temp Pulse Resp B/P (MAP) Pulse Ox O2 Delivery O2 Flow Rate FiO2 01/16/18 12:14 92 Venturi Mask 15.0 01/16/18 11:30 97.4 78 20 126/64 (84) 97.4 I & O Intake and Output 01/16/18 07:00 Intake Total 1250 ml Output Total 1801 ml Balance -551 ml Intake Oral 1250 ml Output Urine Total 1800 ml Stool Total 1 ml # Voids 2 Physical Exam: GEN.: No apparent distress. Alert and oriented. HEENT: Head is normocephalic, atraumatic NECK: Supple. LUNGS: Severely decreased breath sounds. HEART: RRR, S1, S2 present. Peripheral pulses intact ABDOMEN: Soft, nontender. Positive bowel sounds. EXTREMITIES: Without any cyanosis. NEUROLOGIC: Normal speech, normal tone PSYCHIATRIC: Normal affect, normal mood. SKIN: No ulcerations DIAGNOSTIC TESTING: Cr 1.6 BNP 706 EKG prior anterior infarct pattern ASSESSMENT: 1. ?ischemic versus NICM based on EKG and history 2. Resp failure is mostly all COPD exacerbation with minimal systolic HF/ decompensation 3. PAD on anticoagulation PLAN: 1. Continue present meds including diuretics at low doses. No further aggressive diuresis. BP at goal. 2. f/u with Dr. Milton for extermination inspector mgmt of HF. If EF truly less than 35%, consider ICD and benjamin-inh when cr stable on outpt basis. Thanks. pls call with questions. ANNY HASSAN MD Jan 16, 2018 13:39
[2018-01-16 14:50] VITALS: BP 113/64
[2018-01-16] MEDS ORDERED: WARFARIN 4 MG TABLET. PO ONE (16:00)
[2018-01-16 19:00] VITALS: BP 112/59
[2018-01-16] MEDS: SIMVASTATIN 40 MG TABLET. PO SCH (20:31)
[2018-01-16] MEDS: MONTELUKAST SODIUM 10 MG TABLET. PO SCH (20:31)
[2018-01-16] MEDS: GABAPENTIN 400 MG CAPSULE. PO SCH (20:31)
[2018-01-16] MEDS: HYDROcodone/APAP 7.5/325MG 1 TAB TABLET PO PRN (21:39)
[2018-01-16 23:00] VITALS: BP 131/68
[2018-01-17 03:00] VITALS: BP 108/50
[2018-01-17] MEDS: IPRATRPIUM/ALBUTEROL 0.5/2.5MG 3 ML NEBU. NEB SCH ×6 (03:41→23:39)
[2018-01-17] MEDS: BUDESONIDE 0.5 MG/2 ML NEBU. NEB SCH ×2 (06:04→20:11)
[2018-01-17] MEDS: LEVOTHYROXINE 150 MCG TABLET PO SCH ×2 (06:06→08:39)
[2018-01-17] MEDS: methylPREDNISolone SOD SUCC PF 40 MG/ML VIAL. IV SCH ×2 (06:06→14:18)
[2018-01-17 06:20] LABS: PROTHROMBIN TIME PATIENT 22.3 SEC (11.7-14.0)
[2018-01-17] MEDS: HYDROcodone/APAP 7.5/325MG 1 TAB TABLET PO PRN ×2 (06:24→23:59)
[2018-01-17 06:50] LABS: ALBUMIN 2.9 g/dL (3.4-5.0); ALBUMIN/GLOBULIN RATIO 0.6 (1.0-1.7); CALCIUM 7.3 mg/dL (8.5-10.1); CREATININE 1.8 mg/dL (0.6-1.0); GFR 28.9; TOTAL BILIRUBIN 0.3 mg/dL (0.2-1.0); TOTAL PROTEIN 7.9 g/dL (6.4-8.2)
[2018-01-17 07:13] VITALS: BP 123/69
[2018-01-17] MEDS: INSULIN LISPRO 300 UNITS/3 ML INSULN.PEN. SQ SCH ×6 (07:30→17:00)
--- NOTE | 2018-01-17 08:36 | PDOC ---
PULMONARY PROGRESS NOTES Subjective NOT MORE SOA OFF BIPAP Vitals Vital Signs Date Time Temp Pulse Resp B/P (MAP) Pulse Ox O2 Delivery O2 Flow Rate FiO2 01/17/18 07:47 Venturi Mask 15.0 01/17/18 07:13 97.9 83 20 123/69 (87) 96 97.9 ROS: No Nausea, No Chest Pain General: Alert Lungs: Crackles Cardiovascular: S1, S2 Abdomen: Soft, Non-tender Neuro Exam: Alert Extremities: No Edema Skin: Warm Labs Laboratory Tests Test 01/15/18 09:45 01/15/18 10:15 01/15/18 12:13 01/15/18 17:30 O2 Saturation 90 % (92-99) Arterial Blood pH 7.39 (7.35-7.45) Arterial Blood pCO2 at Patient Temp 50 mmHg (35-46) Arterial Blood pO2 at Patient Temp 59 mmHg (75-108) Arterial Blood HCO3 30 mmol/L (21-28) Arterial Blood Base Excess 4 mmol/L (-3-3) FiO2 40.0 Prothrombin Time 32.2 SEC (11.7-14.0) Prothromb Time International Ratio 3.2 (0.8-1.1) Glucose (Fingerstick) 308 mg/dL (70-99) 211 mg/dL (70-99) Test 01/15/18 20:05 01/16/18 04:44 01/16/18 07:40 01/16/18 07:45 Glucose (Fingerstick) 172 mg/dL (70-99) 129 mg/dL (70-99) White Blood Count 14.6 x10^3/uL (4.0-11.0) Red Blood Count 3.96 x10^6/uL (3.50-5.40) Hemoglobin 9.4 g/dL (12.0-15.5) Hematocrit 30.8 % (36.0-47.0) Mean Corpuscular Volume 78 fL (79-100) Mean Corpuscular Hemoglobin 24 pg (25-35) Mean Corpuscular Hemoglobin Concent 31 g/dL (31-37) Red Cell Distribution Width 19.5 % (11.5-14.5) Platelet Count 420 x10^3/uL (140-400) Neutrophils (%) (Auto) 82 % (31-73) Lymphocytes (%) (Auto) 11 % (24-48) Monocytes (%) (Auto) 7 % (0-9) Eosinophils (%) (Auto) 0 % (0-3) Basophils (%) (Auto) 1 % (0-3) Neutrophils # (Auto) 11.9 x10^3uL (1.8-7.7) Lymphocytes # (Auto) 1.6 x10^3/uL (1.0-4.8) Monocytes # (Auto) 1.0 x10^3/uL (0.0-1.1) Eosinophils # (Auto) 0.0 x10^3/uL (0.0-0.7) Basophils # (Auto) 0.1 x10^3/uL (0.0-0.2) Sodium Level 139 mmol/L (136-145) Potassium Level 4.2 mmol/L (3.5-5.1) Chloride Level 100 mmol/L (98-107) Carbon Dioxide Level 31 mmol/L (21-32) Anion Gap 8 (6-14) Blood Urea Nitrogen 26 mg/dL (7-20) Creatinine 1.6 mg/dL (0.6-1.0) Estimated GFR (Cockcroft-Gault) 33.1 BUN/Creatinine Ratio 16 (6-20) Glucose Level 152 mg/dL (70-99) Calcium Level 6.9 mg/dL (8.5-10.1) Total Bilirubin 0.2 mg/dL (0.2-1.0) Aspartate Amino Transf (AST/SGOT) 39 U/L (15-37) Alanine Aminotransferase (ALT/SGPT) 27 U/L (14-59) Alkaline Phosphatase 103 U/L (46-116) Total Protein 7.4 g/dL (6.4-8.2) Albumin 2.6 g/dL (3.4-5.0) Albumin/Globulin Ratio 0.5 (1.0-1.7) Prothrombin Time 26.6 SEC (11.7-14.0) Prothromb Time International Ratio 2.5 (0.8-1.1) Test 01/16/18 11:34 01/16/18 16:40 01/16/18 20:40 01/17/18 05:30 Glucose (Fingerstick) 160 mg/dL (70-99) 127 mg/dL (70-99) 85 mg/dL (70-99) Prothrombin Time 22.3 SEC (11.7-14.0) Prothromb Time International Ratio 2.0 (0.8-1.1) Sodium Level 140 mmol/L (136-145) Potassium Level 4.0 mmol/L (3.5-5.1) Chloride Level 100 mmol/L (98-107) Carbon Dioxide Level 32 mmol/L (21-32) Anion Gap 8 (6-14) Blood Urea Nitrogen 41 mg/dL (7-20) Creatinine 1.8 mg/dL (0.6-1.0) Estimated GFR (Cockcroft-Gault) 28.9 BUN/Creatinine Ratio 23 (6-20) Glucose Level 70 mg/dL (70-99) Calcium Level 7.3 mg/dL (8.5-10.1) Total Bilirubin 0.3 mg/dL (0.2-1.0) Aspartate Amino Transf (AST/SGOT) 42 U/L (15-37) Alanine Aminotransferase (ALT/SGPT) 31 U/L (14-59) Alkaline Phosphatase 98 U/L (46-116) Total Protein 7.9 g/dL (6.4-8.2) Albumin 2.9 g/dL (3.4-5.0) Albumin/Globulin Ratio 0.6 (1.0-1.7) Test 01/17/18 08:19 Glucose (Fingerstick) 76 mg/dL (70-99) Laboratory Tests Test 01/16/18 11:34 01/16/18 16:40 01/16/18 20:40 01/17/18 05:30 Glucose (Fingerstick) 160 mg/dL (70-99) 127 mg/dL (70-99) 85 mg/dL (70-99) Prothrombin Time 22.3 SEC (11.7-14.0) Prothromb Time International Ratio 2.0 (0.8-1.1) Sodium Level 140 mmol/L (136-145) Potassium Level 4.0 mmol/L (3.5-5.1) Chloride Level 100 mmol/L (98-107) Carbon Dioxide Level 32 mmol/L (21-32) Anion Gap 8 (6-14) Blood Urea Nitrogen 41 mg/dL (7-20) Creatinine 1.8 mg/dL (0.6-1.0) Estimated GFR (Cockcroft-Gault) 28.9 BUN/Creatinine Ratio 23 (6-20) Glucose Level 70 mg/dL (70-99) Calcium Level 7.3 mg/dL (8.5-10.1) Total Bilirubin 0.3 mg/dL (0.2-1.0) Aspartate Amino Transf (AST/SGOT) 42 U/L (15-37) Alanine Aminotransferase (ALT/SGPT) 31 U/L (14-59) Alkaline Phosphatase 98 U/L (46-116) Total Protein 7.9 g/dL (6.4-8.2) Albumin 2.9 g/dL (3.4-5.0) Albumin/Globulin Ratio 0.6 (1.0-1.7) Test 01/17/18 08:19 Glucose (Fingerstick) 76 mg/dL (70-99) Medications Active Scripts Medications Dose Route/Sig Max Daily Dose Days Date Category Dose Instructions [place] 5-325 Tablet (Acetaminophen/Hydrocodone Bitart) 1 Each Tablet 1-2 Tab PO Q4HRS 10/22/17 Reported Coumadin (Warfarin Sodium) 5 Mg Tablet 1 Tab PO SUMOWETHSA 10/22/17 Reported Coumadin (Warfarin Sodium) 2.5 Mg Tablet 1 Tab PO TUFR 10/22/17 Reported Hydrocodone-Apap 7.5-325 (Hydrocodone Bit/Acetaminophen) 1 Each Tablet 1 Tab PO PRN Q6HRS PRN 10/21/17 Reported Duoneb 0.5-3(2.5) Mg/3 Ml (Albuterol/Ipratropium) 3 Ml Ampul.neb 3 Ml NEB RTQID 09/17/17 Rx Proair Hfa Inhaler (Albuterol Sulfate) 8.5 Gm Hfa.aer.ad 1 Puff INH PRN Q6HRS PRN 09/17/17 Rx Symbicort 160-4.5 Mcg Inhaler (Budesonide/Formoterol Fumarate) 10.2 Gm Hfa.aer.ad 2 Puff IH BID 09/17/17 Rx Mag-Oxide (Magnesium Oxide) 400 Mg Tablet 400 Mg PO TID 09/17/17 Rx Fluticasone Propionate Nasal [place] (Fluticasone Propionate) 16 Gm [place].susp 2 [place] NS DAILY 09/17/17 Rx Tizanidine Hcl 4 Mg Tablet 4 Mg PO PRN QHS PRN 09/17/17 Rx Cetirizine Hcl 10 Mg Tablet 10 Mg PO DAILY 09/17/17 Rx Synthroid (Levothyroxine Sodium) 150 Mcg Tablet 150 Mcg PO DAILY07 09/17/17 Rx Metformin Hcl 1,000 Mg Tablet 1,000 Mg PO BID 09/17/17 Rx Restart metformin 09/18 Voltaren (Diclofenac Sodium) 100 Gm Gel..gram. 4 Gm TP QID 05/28/17 Rx Gabapentin 300 Mg Capsule 1,200 Mg PO HS 05/25/17 Reported Klor-Con M20 (Potassium Chloride) 20 Meq Tab.er.prt 20 Meq PO DAILYWBKFT 06/29/16 Rx Novolog Flexpen (Insulin Aspart) 100 Unit/1 Ml Insuln.pen 7 Units SQ TIDBFRMEAL 06/29/16 Rx Alprazolam 0.25 Mg Tablet 1 Tab PO BID 06/27/16 Reported Carvedilol 3.125 Mg Tablet 1 Tab PO BID 06/27/16 Reported Spironolactone 25 Mg Tablet 25 Mg PO DAILY 05/24/15 Reported Torsemide 20 Mg Tablet 20 Mg PO DAILY 05/24/15 Reported Zocor (Simvastatin) 80 Mg Tablet 80 Mg PO DAILY 07/19/13 Reported Lantus Solostar (Insulin Glargine,Hum.rec.anlog) 100 Unit/1 Ml Insuln.pen 54 Unit SQ DAILYWBKFT 07/19/13 Reported Reglan (Metoclopramide Hcl) 10 Mg Tablet 10 Mg PO QID 07/19/13 Reported Protonix (Pantoprazole Sodium) 40 Mg Granpkt.dr 40 Mg PO BID 07/19/13 Reported Singulair Tablet (Montelukast Sodium) 10 Mg Tablet 10 Mg PO DAILY 07/19/13 Reported Aspir 81 (Aspirin) 81 Mg Tablet.dr 81 Mg PO DAILY 07/19/13 Reported Impression . IMPRESSION: 1. Acute on chronic respiratory failure with hypoxemia secondary to acute exacerbation of chronic obstructive pulmonary disease, acute systolic congestive heart failure, acute bronchitis 2. Acute exacerbation of chronic obstructive pulmonary disease. 3. Acute bronchitis. 4. Acute systolic congestive heart failure. 5. Tobacco habituation. 6. History of deep venous thrombosis. 7. Peripheral vascular disease. 8. Snoring and excessive daytime sleepiness, probable obstructive sleep apnea-hypopnea syndrome. 9. Diabetes mellitus. 10. Hypertension. 11. Hypothyroidism. Plan . 02 NEBS SOLUMEDROL OK TO CHANGE IN THE AM AND DC IF PT CONTINUES TO IMPROVE LASIX OUTPT SLEEP STUDY D/C MITCH LUCIO MD Jan 17, 2018 08:36
[2018-01-17] MEDS: LACTOBACILLUS RHAMNOSUS GG 1 CAPSULE. PO SCH ×2 (08:39→20:01)
[2018-01-17] MEDS: ASPIRIN ENTERIC COATED 81 MG TABLET.DR. PO SCH (08:39)
[2018-01-17] MEDS: SPIRONOLACTONE 25 MG TABLET PO SCH (08:39)
[2018-01-17] MEDS: PANTOPRAZOLE 40 MG TABLET.DR. PO SCH ×2 (08:39→17:19)
[2018-01-17] MEDS: CARVEDILOL 3.125 MG TABLET. PO SCH ×2 (08:39→17:18)
[2018-01-17] MEDS: TORSEMIDE 20 MG TABLET. PO SCH (08:39)
[2018-01-17] MEDS: CETIRIZINE HCL 10 MG TABLET. PO SCH (08:39)
[2018-01-17] MEDS: METOCLOPRAMIDE 10 MG TABLET. PO SCH ×4 (08:40→20:01)
[2018-01-17] MEDS: POTASSIUM CHLORIDE 20 MEQ TABLET.ER. PO SCH (08:40)
[2018-01-17] MEDS: MAGNESIUM OXIDE 400 MG TABLET PO SCH ×3 (08:40→20:01)
[2018-01-17] MEDS: ALPRAZolam 0.25 MG TABLET PO SCH ×3 (08:40→20:01)
[2018-01-17] MEDS: FLUTICASONE 50MCG/NASAL SPRAY 16GM BOTTLE. NS SCH (08:40)
[2018-01-17] MEDS: DOXYCYCLINE HYCLATE 100 MG TABLET PO SCH ×2 (08:40→20:01)
[2018-01-17] MEDS: DICLOFENAC SODIUM 1% TOPICAL GEL 100GM TUBE. TP SCH ×4 (08:43→20:02)
--- NOTE | 2018-01-17 10:00 | PDOC ---
IM PROGRESS NOTES- Subjective Subjective Dyspnea, cough and congestion are improving. Objective Vitals Vital Signs Date Time Temp Pulse Resp B/P (MAP) Pulse Ox O2 Delivery O2 Flow Rate FiO2 01/17/18 08:39 83 123/69 01/17/18 07:47 Venturi Mask 15.0 01/17/18 07:13 97.9 20 96 97.9 Input & Output Intake and Output 01/17/18 07:00 Intake Total 1280 ml Output Total 1200 ml Balance 80 ml Intake Oral 1280 ml Output Urine Total 1200 ml # Voids 2 # Bowel Movements 3 Physical Exam Physical Exam General Appearance - in mild to moderate distress and chronically ill appearing Mental Status - alert, oriented to person, place, and time, affect appropriate to mood Eyes - pupils equal and reactive, extraocular eye movements intact Mouth - mucous membranes moist, pharynx normal without lesions Head - normal Neck - supple, no significant adenopathy Lymphatics - few small anterior cervical nodes Chest -mild tachypnea with decreased wheezing bilaterally. Heart - S1 and S2 normal Abdomen - soft, nontender, nondistended, no masses or organomegaly Musculoskeletal - no swelling or tenderness Extremities -edema decreased Skin - warm and dry Labs Laboratory Tests Test 01/15/18 10:15 01/15/18 12:13 01/15/18 17:30 01/15/18 20:05 Prothrombin Time 32.2 SEC (11.7-14.0) Prothromb Time International Ratio 3.2 (0.8-1.1) Glucose (Fingerstick) 308 mg/dL (70-99) 211 mg/dL (70-99) 172 mg/dL (70-99) Test 01/16/18 04:44 01/16/18 07:40 01/16/18 07:45 01/16/18 11:34 White Blood Count 14.6 x10^3/uL (4.0-11.0) Red Blood Count 3.96 x10^6/uL (3.50-5.40) Hemoglobin 9.4 g/dL (12.0-15.5) Hematocrit 30.8 % (36.0-47.0) Mean Corpuscular Volume 78 fL (79-100) Mean Corpuscular Hemoglobin 24 pg (25-35) Mean Corpuscular Hemoglobin Concent 31 g/dL (31-37) Red Cell Distribution Width 19.5 % (11.5-14.5) Platelet Count 420 x10^3/uL (140-400) Neutrophils (%) (Auto) 82 % (31-73) Lymphocytes (%) (Auto) 11 % (24-48) Monocytes (%) (Auto) 7 % (0-9) Eosinophils (%) (Auto) 0 % (0-3) Basophils (%) (Auto) 1 % (0-3) Neutrophils # (Auto) 11.9 x10^3uL (1.8-7.7) Lymphocytes # (Auto) 1.6 x10^3/uL (1.0-4.8) Monocytes # (Auto) 1.0 x10^3/uL (0.0-1.1) Eosinophils # (Auto) 0.0 x10^3/uL (0.0-0.7) Basophils # (Auto) 0.1 x10^3/uL (0.0-0.2) Sodium Level 139 mmol/L (136-145) Potassium Level 4.2 mmol/L (3.5-5.1) Chloride Level 100 mmol/L (98-107) Carbon Dioxide Level 31 mmol/L (21-32) Anion Gap 8 (6-14) Blood Urea Nitrogen 26 mg/dL (7-20) Creatinine 1.6 mg/dL (0.6-1.0) Estimated GFR (Cockcroft-Gault) 33.1 BUN/Creatinine Ratio 16 (6-20) Glucose Level 152 mg/dL (70-99) Calcium Level 6.9 mg/dL (8.5-10.1) Total Bilirubin 0.2 mg/dL (0.2-1.0) Aspartate Amino Transf (AST/SGOT) 39 U/L (15-37) Alanine Aminotransferase (ALT/SGPT) 27 U/L (14-59) Alkaline Phosphatase 103 U/L (46-116) Total Protein 7.4 g/dL (6.4-8.2) Albumin 2.6 g/dL (3.4-5.0) Albumin/Globulin Ratio 0.5 (1.0-1.7) Prothrombin Time 26.6 SEC (11.7-14.0) Prothromb Time International Ratio 2.5 (0.8-1.1) Glucose (Fingerstick) 129 mg/dL (70-99) 160 mg/dL (70-99) Test 01/16/18 16:40 01/16/18 20:40 01/17/18 05:30 01/17/18 08:19 Glucose (Fingerstick) 127 mg/dL (70-99) 85 mg/dL (70-99) 76 mg/dL (70-99) Prothrombin Time 22.3 SEC (11.7-14.0) Prothromb Time International Ratio 2.0 (0.8-1.1) Sodium Level 140 mmol/L (136-145) Potassium Level 4.0 mmol/L (3.5-5.1) Chloride Level 100 mmol/L (98-107) Carbon Dioxide Level 32 mmol/L (21-32) Anion Gap 8 (6-14) Blood Urea Nitrogen 41 mg/dL (7-20) Creatinine 1.8 mg/dL (0.6-1.0) Estimated GFR (Cockcroft-Gault) 28.9 BUN/Creatinine Ratio 23 (6-20) Glucose Level 70 mg/dL (70-99) Calcium Level 7.3 mg/dL (8.5-10.1) Total Bilirubin 0.3 mg/dL (0.2-1.0) Aspartate Amino Transf (AST/SGOT) 42 U/L (15-37) Alanine Aminotransferase (ALT/SGPT) 31 U/L (14-59) Alkaline Phosphatase 98 U/L (46-116) Total Protein 7.9 g/dL (6.4-8.2) Albumin 2.9 g/dL (3.4-5.0) Albumin/Globulin Ratio 0.6 (1.0-1.7) Laboratory Tests Test 01/16/18 11:34 01/16/18 16:40 01/16/18 20:40 01/17/18 05:30 Glucose (Fingerstick) 160 mg/dL (70-99) 127 mg/dL (70-99) 85 mg/dL (70-99) Prothrombin Time 22.3 SEC (11.7-14.0) Prothromb Time International Ratio 2.0 (0.8-1.1) Sodium Level 140 mmol/L (136-145) Potassium Level 4.0 mmol/L (3.5-5.1) Chloride Level 100 mmol/L (98-107) Carbon Dioxide Level 32 mmol/L (21-32) Anion Gap 8 (6-14) Blood Urea Nitrogen 41 mg/dL (7-20) Creatinine 1.8 mg/dL (0.6-1.0) Estimated GFR (Cockcroft-Gault) 28.9 BUN/Creatinine Ratio 23 (6-20) Glucose Level 70 mg/dL (70-99) Calcium Level 7.3 mg/dL (8.5-10.1) Total Bilirubin 0.3 mg/dL (0.2-1.0) Aspartate Amino Transf (AST/SGOT) 42 U/L (15-37) Alanine Aminotransferase (ALT/SGPT) 31 U/L (14-59) Alkaline Phosphatase 98 U/L (46-116) Total Protein 7.9 g/dL (6.4-8.2) Albumin 2.9 g/dL (3.4-5.0) Albumin/Globulin Ratio 0.6 (1.0-1.7) Test 01/17/18 08:19 Glucose (Fingerstick) 76 mg/dL (70-99) Meds Current Medications Insulin Human Lispro (HumaLOG) 0-10 UNITS TIDBFRMEAL SQ ; Start 01/17/18 at 11: 30 Methylprednisolone Sodium Succinate (SOLU-Medrol 40MG VIAL) 40 mg BID92 IV ; Start 01/17/18 at 14:00 Warfarin Sodium (Coumadin - No Dose Today) 1 each TuFr MC ; Start 01/18/18 at 10 :30; Status UNV Warfarin Sodium (Coumadin) 4 mg 1X WARF ONCE PO Last administered on 01/16/18at 17:18; Start 01/16/18 at 16:00; Stop 01/16/18 at 16:01; Status DC Assessment Assessment 1. Ghfcm-[id number]-[id number] hypoxic respiratory failure secondary to acute exacerbation of chronic obstructive pulmonary disease. 2. Acute exacerbation of chronic obstructive pulmonary disease. 3. Acute bronchitis. 4. Lrwcx-lw-[id number] systolic congestive heart failure, previous ejection fraction of 35%. 5. Diabetes mellitus type 2, not controlled, with diabetic neuropathy and peripheral artery disease. 6. History of deep venous thrombosis in the past with chronic Coumadin therapy. 7. Hypothyroidism, surgically induced. 8. Recent thrombus of the right femoral artery, status post thrombectomy, on heparin infusion and was also started on warfarin. 9. Hypertension. 10. Hyperlipidemia. 11. Chronic kidney disease. 12. History of nonobstructing right renal calculus. 13. Noncompliance. 14. Obesity. 15. Chronic smoking. 16. Osteoporosis. 17. Degenerative joint disease, right ankle, chronic. 18. Degenerative joint disease, right hip. PLAN: Start IV steroids. Monitor blood sugars closely. I have started her on her Lantus that she was taking at home 54 units along with high dose sliding scale insulin. The patient will be on IV steroids, BiPAP. Consultation has been obtained with Dr. Jose Miguel Banegas for pulmonary evaluation and management. I will also consult Dr. Rosenthal for cardiology evaluation and management. Monitor blood sugars closely. Condition and treatment discussed with the patient and her . Prognosis of this patient is very poor due to her multiple medical problems. Monitor oxygenation. For details, please refer to the orders. Continue Coumadin. We will ask pharmacy to manage. The patient takes Coumadin 5 mg 5 times a week and then 2.5 mg twice a week. For details, please refer to the orders. Acute hypoxic respiratory failure -improving Acute exacerbation of COPD -improving. Decrease Solu-Medrol to 40 mg twice daily. Uncontrolled diabetes mellitus with neuropathyblood sugar is 129 this morning. Patient only takes Lantus 54 units subcutaneous once a day in a.m. and not at bedtime so we will change it to that dose. Monitor blood sugars due to use of steroids. Acute on chronic systolic congestive heart failureimproving. Patient was given IV Lasix yesterday. Continue torsemide today. Hypertension with Chronic kidney disease stage IV. Renal function is worse with creatinine of 1.8 and BUN increased to 41. This is likely due to steroids and diuretics. Condition treatment discussed with the patient and her . She is improving. Discharged tomorrow if stable. Plan Plan For more details regarding further plans, please refer to the orders. SULTANA MONTGOMERY MD Jan 17, 2018 10:00
[2018-01-17 11:00] VITALS: BP 106/63
[2018-01-17] MEDS: HYDROcodone/APAP 5/325MG 1 TAB TABLET PO PRN ×2 (12:03→17:17)
[2018-01-17] MEDS: INSULIN GLARGINE 300 UNITS/3 ML INSULN.PEN. SQ SCH (12:06)
[2018-01-17 15:00] VITALS: BP 114/64
[2018-01-17] MEDS ORDERED: WARFARIN 4 MG TABLET. PO ONE (16:00)
[2018-01-17 19:00] VITALS: BP 103/56
[2018-01-17] MEDS: MONTELUKAST SODIUM 10 MG TABLET. PO SCH (20:01)
[2018-01-17] MEDS: GABAPENTIN 400 MG CAPSULE. PO SCH (20:01)
[2018-01-17] MEDS: SIMVASTATIN 40 MG TABLET. PO SCH (20:02)
[2018-01-17 23:00] VITALS: BP 125/81
[2018-01-18 03:00] VITALS: BP 94/56
[2018-01-18] MEDS: IPRATRPIUM/ALBUTEROL 0.5/2.5MG 3 ML NEBU. NEB SCH ×2 (03:09→07:23)
[2018-01-18 07:00] VITALS: BP 126/75
[2018-01-18] MEDS: BUDESONIDE 0.5 MG/2 ML NEBU. NEB SCH (07:23)
[2018-01-18] MEDS: INSULIN LISPRO 300 UNITS/3 ML INSULN.PEN. SQ SCH ×2 (07:30→08:00)
[2018-01-18] MEDS: INSULIN GLARGINE 300 UNITS/3 ML INSULN.PEN. SQ SCH (08:00)
[2018-01-18 08:13] LABS: PROTHROMBIN TIME PATIENT 21.9 SEC (11.7-14.0)
[2018-01-18 08:27] LABS: CALCIUM 7.7 mg/dL (8.5-10.1); CREATININE 1.7 mg/dL (0.6-1.0); GFR 30.9; POTASSIUM 3.6 mmol/L (3.5-5.1)
[2018-01-18] MEDS: DICLOFENAC SODIUM 1% TOPICAL GEL 100GM TUBE. TP SCH (08:38)
[2018-01-18] MEDS: METOCLOPRAMIDE 10 MG TABLET. PO SCH (08:39)
[2018-01-18] MEDS: ASPIRIN ENTERIC COATED 81 MG TABLET.DR. PO SCH (08:40)
[2018-01-18] MEDS: DOXYCYCLINE HYCLATE 100 MG TABLET PO SCH (08:40)
[2018-01-18] MEDS: CETIRIZINE HCL 10 MG TABLET. PO SCH (08:40)
[2018-01-18] MEDS: SPIRONOLACTONE 25 MG TABLET PO SCH (08:40)
[2018-01-18] MEDS: MAGNESIUM OXIDE 400 MG TABLET PO SCH (08:40)
[2018-01-18] MEDS: TORSEMIDE 20 MG TABLET. PO SCH (08:42)
[2018-01-18] MEDS: CARVEDILOL 3.125 MG TABLET. PO SCH (08:42)
[2018-01-18] MEDS: PANTOPRAZOLE 40 MG TABLET.DR. PO SCH (08:42)
[2018-01-18] MEDS: ALPRAZolam 0.25 MG TABLET PO SCH (08:43)
[2018-01-18] MEDS: LACTOBACILLUS RHAMNOSUS GG 1 CAPSULE. PO SCH (08:43)
[2018-01-18] MEDS: POTASSIUM CHLORIDE 20 MEQ TABLET.ER. PO SCH (08:44)
[2018-01-18] MEDS: HYDROcodone/APAP 7.5/325MG 1 TAB TABLET PO PRN (08:44)
[2018-01-18] MEDS: methylPREDNISolone SOD SUCC PF 40 MG/ML VIAL. IV SCH (08:46)
[2018-01-18] MEDS: FLUTICASONE 50MCG/NASAL SPRAY 16GM BOTTLE. NS SCH (08:46)
--- NOTE | 2018-01-18 09:46 | DISCH ---
DISCHARGE INSTRUCTIONS Condition on Discharge Condition on Discharge: Stable Activity After Discharge Activity Instructions for Disc: Activity as tolerated Other activity instructions: Walk with walker Exercise Instruction after Dis: Progress as tolerated Weight Bearing Status after Di: As tolerated Diet after Discharge Diet after Discharge: Cardiac, Diabetic No Calorie Level Additional Diet Restrictions: 1800 Ayo ADA Diet Texture: Regular Liquid Texture: Thin Liquid Checks after Discharge Checks after discharge: Check blood sugar, ac/hs Contacting the DR. after DC Call your doctor for: Concerns you may have Follow-Up Follow up with: Dr. SULTANA Montgomery in 5 days. Treatment/Equipment after DC Adaptive Equipment Issued: Walker Discharge Respiratory Equipmen: Oxygen (3 L/m) SULTANA MONTGOMERY MD Jan 18, 2018 09:46
[2018-01-18] MEDS ORDERED: INSU100I17 SQ (09:54)
[2018-01-18] MEDS ORDERED: PRED-220 PO (09:54)
[2018-01-18] MEDS ORDERED: DOXY100T PO (09:56)
--- NOTE | 2018-01-18 10:06 | PDOC3 ---
IM DISCHARGE SUMMARY Date of Admission Date of Admission Date of Admission: Jan 14, 2018 at 20:00 Date of Discharge Date of Discharge January 18, 2018 Primary Diagnosis Primary Diagnosis 1. Dmkua-uy-[id number] hypoxic respiratory failure secondary to acute exacerbation of chronic obstructive pulmonary disease. 2. Acute exacerbation of chronic obstructive pulmonary disease. 3. Acute bronchitis. 4. Onfjt-ac-oumhisq systolic congestive heart failure, previous ejection fraction of 35%. 5. Diabetes mellitus type 2, not controlled, with diabetic neuropathy and peripheral artery disease. 6. History of deep venous thrombosis in the past with chronic Coumadin therapy. 7. Hypothyroidism, surgically induced. 8. Recent thrombus of the right femoral artery, status post thrombectomy, on heparin infusion and was also started on warfarin. 9. Hypertension. 10. Hyperlipidemia. 11. Chronic kidney disease. 12. History of nonobstructing right renal calculus. 13. Noncompliance. 14. Obesity. 15. Chronic smoking. 16. Osteoporosis. 17. Degenerative joint disease, right ankle, chronic. 18. Degenerative joint disease, right hip. 19. Diabetes with hypoglycemia Consults Consults Danyel Rosenthal MD, Dr. Cueva Labs Labs Laboratory Tests Test 01/15/18 10:15 01/15/18 12:13 01/15/18 17:30 01/15/18 20:05 Prothrombin Time 32.2 SEC (11.7-14.0) Prothromb Time International Ratio 3.2 (0.8-1.1) Glucose (Fingerstick) 308 mg/dL (70-99) 211 mg/dL (70-99) 172 mg/dL (70-99) Test 01/16/18 04:44 01/16/18 07:40 01/16/18 07:45 01/16/18 11:34 White Blood Count 14.6 x10^3/uL (4.0-11.0) Red Blood Count 3.96 x10^6/uL (3.50-5.40) Hemoglobin 9.4 g/dL (12.0-15.5) Hematocrit 30.8 % (36.0-47.0) Mean Corpuscular Volume 78 fL (79-100) Mean Corpuscular Hemoglobin 24 pg (25-35) Mean Corpuscular Hemoglobin Concent 31 g/dL (31-37) Red Cell Distribution Width 19.5 % (11.5-14.5) Platelet Count 420 x10^3/uL (140-400) Neutrophils (%) (Auto) 82 % (31-73) Lymphocytes (%) (Auto) 11 % (24-48) Monocytes (%) (Auto) 7 % (0-9) Eosinophils (%) (Auto) 0 % (0-3) Basophils (%) (Auto) 1 % (0-3) Neutrophils # (Auto) 11.9 x10^3uL (1.8-7.7) Lymphocytes # (Auto) 1.6 x10^3/uL (1.0-4.8) Monocytes # (Auto) 1.0 x10^3/uL (0.0-1.1) Eosinophils # (Auto) 0.0 x10^3/uL (0.0-0.7) Basophils # (Auto) 0.1 x10^3/uL (0.0-0.2) Sodium Level 139 mmol/L (136-145) Potassium Level 4.2 mmol/L (3.5-5.1) Chloride Level 100 mmol/L (98-107) Carbon Dioxide Level 31 mmol/L (21-32) Anion Gap 8 (6-14) Blood Urea Nitrogen 26 mg/dL (7-20) Creatinine 1.6 mg/dL (0.6-1.0) Estimated GFR (Cockcroft-Gault) 33.1 BUN/Creatinine Ratio 16 (6-20) Glucose Level 152 mg/dL (70-99) Calcium Level 6.9 mg/dL (8.5-10.1) Total Bilirubin 0.2 mg/dL (0.2-1.0) Aspartate Amino Transf (AST/SGOT) 39 U/L (15-37) Alanine Aminotransferase (ALT/SGPT) 27 U/L (14-59) Alkaline Phosphatase 103 U/L (46-116) Total Protein 7.4 g/dL (6.4-8.2) Albumin 2.6 g/dL (3.4-5.0) Albumin/Globulin Ratio 0.5 (1.0-1.7) Prothrombin Time 26.6 SEC (11.7-14.0) Prothromb Time International Ratio 2.5 (0.8-1.1) Glucose (Fingerstick) 129 mg/dL (70-99) 160 mg/dL (70-99) Test 01/16/18 16:40 01/16/18 20:40 01/17/18 05:30 01/17/18 08:19 Glucose (Fingerstick) 127 mg/dL (70-99) 85 mg/dL (70-99) 76 mg/dL (70-99) Prothrombin Time 22.3 SEC (11.7-14.0) Prothromb Time International Ratio 2.0 (0.8-1.1) Sodium Level 140 mmol/L (136-145) Potassium Level 4.0 mmol/L (3.5-5.1) Chloride Level 100 mmol/L (98-107) Carbon Dioxide Level 32 mmol/L (21-32) Anion Gap 8 (6-14) Blood Urea Nitrogen 41 mg/dL (7-20) Creatinine 1.8 mg/dL (0.6-1.0) Estimated GFR (Cockcroft-Gault) 28.9 BUN/Creatinine Ratio 23 (6-20) Glucose Level 70 mg/dL (70-99) Calcium Level 7.3 mg/dL (8.5-10.1) Total Bilirubin 0.3 mg/dL (0.2-1.0) Aspartate Amino Transf (AST/SGOT) 42 U/L (15-37) Alanine Aminotransferase (ALT/SGPT) 31 U/L (14-59) Alkaline Phosphatase 98 U/L (46-116) Total Protein 7.9 g/dL (6.4-8.2) Albumin 2.9 g/dL (3.4-5.0) Albumin/Globulin Ratio 0.6 (1.0-1.7) Test 01/17/18 10:54 01/17/18 16:16 01/17/18 21:08 01/18/18 07:00 Glucose (Fingerstick) 128 mg/dL (70-99) 92 mg/dL (70-99) 97 mg/dL (70-99) Prothrombin Time 21.9 SEC (11.7-14.0) Prothromb Time International Ratio 2.0 (0.8-1.1) Sodium Level 142 mmol/L (136-145) Potassium Level 3.6 mmol/L (3.5-5.1) Chloride Level 99 mmol/L (98-107) Carbon Dioxide Level 33 mmol/L (21-32) Anion Gap 10 (6-14) Blood Urea Nitrogen 46 mg/dL (7-20) Creatinine 1.7 mg/dL (0.6-1.0) Estimated GFR (Cockcroft-Gault) 30.9 Glucose Level 50 mg/dL (70-99) Calcium Level 7.7 mg/dL (8.5-10.1) Test 01/18/18 07:36 01/18/18 07:53 Glucose (Fingerstick) 59 mg/dL (70-99) 70 mg/dL (70-99) Brief hospital course Brief hospital course This 57year old female who presented with dyspnea and swelling of the legs was admitted for acute respiratory failure with acute exacerbation of COPD and there acute on chronic heart failure. For more details regarding the past history, family history, social history, surgical history and other details, please refer to History and Physical. Start IV steroids. Monitor blood sugars closely. I have started her on Lantus that she was taking at home 54 units along with high dose sliding scale insulin. The patient will be on IV steroids, BiPAP. Consultation has been obtained with Dr. Jose Miguel Banegas for pulmonary evaluation and management. I will also consult Dr. Rosenthal for cardiology evaluation and management. Monitor blood sugars closely. Condition and treatment discussed with the patient and her . Prognosis of this patient is very poor due to her multiple medical problems. Monitor oxygenation. For details, please refer to the orders. Continue Coumadin. We will ask pharmacy to manage. The patient takes Coumadin 5 mg 5 times a week and then 2.5 mg twice a week. For details, please refer to the orders. Acute hypoxic respiratory failure -improving Acute exacerbation of COPD -improving. Patient was initially treated with IV Solu-Medrol and consultation was obtained with for pulmonary evaluation and management. Patient will now be discharged on prednisone 10 mg 3 tablets daily for 3 days, 2 tablets daily for 3 days and then 1 tablet daily for 3 days. Acute bronchitiscontinue doxycycline for 3 more days at home. Uncontrolled diabetes mellitus with neuropathyblood sugar is 129 this morning. Patient only takes Lantus 54 units subcutaneous once a day in a.m. and not at bedtime so we will change it to that dose. Monitor blood sugars due to use of steroids. Diabetes with hypoglycemia- blood sugar dropped in January 17, 2018. I will discharge patient home on NovoLog to 3 times a day and the Lantus 54 units subcutaneous daily. Even with these doses the blood sugars were remaining high at home. I advised her to hold insulin if blood sugar less than 100 Acute on chronic systolic congestive heart failureimproving. Patient was given IV Lasix initially after admission.. Continue torsemide today. Hypertension with Chronic kidney disease stage IV. Renal function is worse with creatinine of 1.8 and BUN increased to 41. This is likely due to steroids and diuretics. BUN has increased to 47 on January 18, 2018. We will continue to monitor in the office. This may be partly due to steroids. Creatinine has decreased to 1.7. Condition treatment discussed with the patient and her . Her condition has improved significantly and will discharge her home. Medications Medications reviewed and reconciled for discharge. Allergy Allergies Coded Allergies Type Severity Reaction Last Updated Verified Penicillins Allergy Intermediate Hives 10/22/17 Yes codeine Adverse Reaction Mild Nausea and Vomiting 10/22/17 Yes diphenhydramine HCl Adverse Reaction Mild hyperactive 10/22/17 Yes Follow up in 5 days. DISPOSITION: Home Comments Discharge Management - 35 minutes. For other details please refer to discharge instructions SULTANA MONTGOMERY MD Jan 18, 2018 10:06
[2018-01-18 10:51] VITALS: BP 128/72
--- NOTE | 2018-01-18 11:00 | PDOC ---
PULMONARY PROGRESS NOTES Subjective NOT MORE SOA OFF BIPAP Vitals Vital Signs Date Time Temp Pulse Resp B/P (MAP) Pulse Ox O2 Delivery O2 Flow Rate FiO2 01/18/18 10:51 97.7 70 20 128/72 (90) 96 Nasal Cannula 4.0 97.7 ROS: No Nausea, No Chest Pain General: Alert Lungs: Crackles Cardiovascular: S1, S2 Abdomen: Soft, Non-tender Neuro Exam: Alert Extremities: No Edema Skin: Warm Labs Laboratory Tests Test 01/16/18 11:34 01/16/18 16:40 01/16/18 20:40 01/17/18 05:30 Glucose (Fingerstick) 160 mg/dL (70-99) 127 mg/dL (70-99) 85 mg/dL (70-99) Prothrombin Time 22.3 SEC (11.7-14.0) Prothromb Time International Ratio 2.0 (0.8-1.1) Sodium Level 140 mmol/L (136-145) Potassium Level 4.0 mmol/L (3.5-5.1) Chloride Level 100 mmol/L (98-107) Carbon Dioxide Level 32 mmol/L (21-32) Anion Gap 8 (6-14) Blood Urea Nitrogen 41 mg/dL (7-20) Creatinine 1.8 mg/dL (0.6-1.0) Estimated GFR (Cockcroft-Gault) 28.9 BUN/Creatinine Ratio 23 (6-20) Glucose Level 70 mg/dL (70-99) Calcium Level 7.3 mg/dL (8.5-10.1) Total Bilirubin 0.3 mg/dL (0.2-1.0) Aspartate Amino Transf (AST/SGOT) 42 U/L (15-37) Alanine Aminotransferase (ALT/SGPT) 31 U/L (14-59) Alkaline Phosphatase 98 U/L (46-116) Total Protein 7.9 g/dL (6.4-8.2) Albumin 2.9 g/dL (3.4-5.0) Albumin/Globulin Ratio 0.6 (1.0-1.7) Test 01/17/18 08:19 01/17/18 10:54 01/17/18 16:16 01/17/18 21:08 Glucose (Fingerstick) 76 mg/dL (70-99) 128 mg/dL (70-99) 92 mg/dL (70-99) 97 mg/dL (70-99) Test 01/18/18 07:00 01/18/18 07:36 01/18/18 07:53 Prothrombin Time 21.9 SEC (11.7-14.0) Prothromb Time International Ratio 2.0 (0.8-1.1) Sodium Level 142 mmol/L (136-145) Potassium Level 3.6 mmol/L (3.5-5.1) Chloride Level 99 mmol/L (98-107) Carbon Dioxide Level 33 mmol/L (21-32) Anion Gap 10 (6-14) Blood Urea Nitrogen 46 mg/dL (7-20) Creatinine 1.7 mg/dL (0.6-1.0) Estimated GFR (Cockcroft-Gault) 30.9 Glucose Level 50 mg/dL (70-99) Calcium Level 7.7 mg/dL (8.5-10.1) Glucose (Fingerstick) 59 mg/dL (70-99) 70 mg/dL (70-99) Laboratory Tests Test 01/17/18 16:16 01/17/18 21:08 01/18/18 07:00 01/18/18 07:36 Glucose (Fingerstick) 92 mg/dL (70-99) 97 mg/dL (70-99) 59 mg/dL (70-99) Prothrombin Time 21.9 SEC (11.7-14.0) Prothromb Time International Ratio 2.0 (0.8-1.1) Sodium Level 142 mmol/L (136-145) Potassium Level 3.6 mmol/L (3.5-5.1) Chloride Level 99 mmol/L (98-107) Carbon Dioxide Level 33 mmol/L (21-32) Anion Gap 10 (6-14) Blood Urea Nitrogen 46 mg/dL (7-20) Creatinine 1.7 mg/dL (0.6-1.0) Estimated GFR (Cockcroft-Gault) 30.9 Glucose Level 50 mg/dL (70-99) Calcium Level 7.7 mg/dL (8.5-10.1) Test 01/18/18 07:53 Glucose (Fingerstick) 70 mg/dL (70-99) Medications Active Scripts Medications Dose Route/Sig Max Daily Dose Days Date Category Dose Instructions [place] 5-325 Tablet (Acetaminophen/Hydrocodone Bitart) 1 Each Tablet 1-2 Tab PO Q4HRS 10/22/17 Reported Coumadin (Warfarin Sodium) 5 Mg Tablet 1 Tab PO SUMOWETHSA 10/22/17 Reported Coumadin (Warfarin Sodium) 2.5 Mg Tablet 1 Tab PO TUFR 10/22/17 Reported Hydrocodone-Apap 7.5-325 (Hydrocodone Bit/Acetaminophen) 1 Each Tablet 1 Tab PO PRN Q6HRS PRN 10/21/17 Reported Duoneb 0.5-3(2.5) Mg/3 Ml (Albuterol/Ipratropium) 3 Ml Ampul.neb 3 Ml NEB RTQID 09/17/17 Rx Proair Hfa Inhaler (Albuterol Sulfate) 8.5 Gm Hfa.aer.ad 1 Puff INH PRN Q6HRS PRN 09/17/17 Rx Symbicort 160-4.5 Mcg Inhaler (Budesonide/Formoterol Fumarate) 10.2 Gm Hfa.aer.ad 2 Puff IH BID 09/17/17 Rx Mag-Oxide (Magnesium Oxide) 400 Mg Tablet 400 Mg PO TID 09/17/17 Rx Fluticasone Propionate Nasal [place] (Fluticasone Propionate) 16 Gm [place].susp 2 [place] NS DAILY 09/17/17 Rx Tizanidine Hcl 4 Mg Tablet 4 Mg PO PRN QHS PRN 09/17/17 Rx Cetirizine Hcl 10 Mg Tablet 10 Mg PO DAILY 09/17/17 Rx Synthroid (Levothyroxine Sodium) 150 Mcg Tablet 150 Mcg PO DAILY07 09/17/17 Rx Metformin Hcl 1,000 Mg Tablet 1,000 Mg PO BID 09/17/17 Rx Restart metformin 09/18 Voltaren (Diclofenac Sodium) 100 Gm Gel..gram. 4 Gm TP QID 05/28/17 Rx Gabapentin 300 Mg Capsule 1,200 Mg PO HS 05/25/17 Reported Klor-Con M20 (Potassium Chloride) 20 Meq Tab.er.prt 20 Meq PO DAILYWBKFT 06/29/16 Rx Novolog Flexpen (Insulin Aspart) 100 Unit/1 Ml Insuln.pen 7 Units SQ TIDBFRMEAL 06/29/16 Rx Alprazolam 0.25 Mg Tablet 1 Tab PO BID 06/27/16 Reported Carvedilol 3.125 Mg Tablet 1 Tab PO BID 06/27/16 Reported Spironolactone 25 Mg Tablet 25 Mg PO DAILY 05/24/15 Reported Torsemide 20 Mg Tablet 20 Mg PO DAILY 05/24/15 Reported Zocor (Simvastatin) 80 Mg Tablet 80 Mg PO DAILY 07/19/13 Reported Lantus Solostar (Insulin Glargine,Hum.rec.anlog) 100 Unit/1 Ml Insuln.pen 54 Unit SQ DAILYWBKFT 07/19/13 Reported Reglan (Metoclopramide Hcl) 10 Mg Tablet 10 Mg PO QID 07/19/13 Reported Protonix (Pantoprazole Sodium) 40 Mg Granpkt.dr 40 Mg PO BID 07/19/13 Reported Singulair Tablet (Montelukast Sodium) 10 Mg Tablet 10 Mg PO DAILY 07/19/13 Reported Aspir 81 (Aspirin) 81 Mg Tablet.dr 81 Mg PO DAILY 07/19/13 Reported Impression . IMPRESSION: 1. Acute on chronic respiratory failure with hypoxemia secondary to acute exacerbation of chronic obstructive pulmonary disease, acute systolic congestive heart failure, acute bronchitis 2. Acute exacerbation of chronic obstructive pulmonary disease. 3. Acute bronchitis. 4. Acute systolic congestive heart failure. 5. Tobacco habituation. 6. History of deep venous thrombosis. 7. Peripheral vascular disease. 8. Snoring and excessive daytime sleepiness, probable obstructive sleep apnea-hypopnea syndrome. 9. Diabetes mellitus. 10. Hypertension. 11. Hypothyroidism. Plan . 02 NEBS SOLUMEDROL OK TO CHANGE IN THE AM AND DC IF PT CONTINUES TO IMPROVE LASIX OUTPT SLEEP STUDY D/C MITCH LUCIO MD Jan 18, 2018 11:00
== END 2018-01-18 11:33 | disposition home or self-care (01) | DRG 291 ==
LOC: ER 18:34 → 2 SOUTH 20:00 → 5 SOUTH 01-17 13:33
PROVIDERS: ADMIT Internal Medicine; ATTEND Internal Medicine
PROC: 5A09357 Assistance with Respiratory Ventilation, Less than 24 Consecutive Hours, Continuous Positive Airway Pressure (ICD-10-PCS; principal; 2018-01-15)
PROC: 5A09357 Assistance with Respiratory Ventilation, Less than 24 Consecutive Hours, Continuous Positive Airway Pressure (ICD-10-PCS; 2018-01-16)
PROC: 5A09357 Assistance with Respiratory Ventilation, Less than 24 Consecutive Hours, Continuous Positive Airway Pressure (ICD-10-PCS; 2018-01-17)
DX: I13.0 Hypertensive heart and chronic kidney disease with heart failure and stage 1 through stage 4 chronic kidney disease, or unspecified chronic kidney disease (principal); I50.23 Acute on chronic systolic (congestive) heart failure; J96.21 Acute and chronic respiratory failure with hypoxia; J44.1 Chronic obstructive pulmonary disease with (acute) exacerbation; J44.0 Chronic obstructive pulmonary disease with (acute) lower respiratory infection; I42.9 Cardiomyopathy, unspecified; I25.2 Old myocardial infarction; I25.10 Atherosclerotic heart disease of native coronary artery without angina pectoris; I08.1 Rheumatic disorders of both mitral and tricuspid valves; E11.51 Type 2 diabetes mellitus with diabetic peripheral angiopathy without gangrene; G43.909 Migraine, unspecified, not intractable, without status migrainosus; K21.9 Gastro-esophageal reflux disease without esophagitis; K57.90 Diverticulosis of intestine, part unspecified, without perforation or abscess without bleeding; K58.9 Irritable bowel syndrome, unspecified; F41.9 Anxiety disorder, unspecified; M19.90 Unspecified osteoarthritis, unspecified site; N18.9 Chronic kidney disease, unspecified; E03.9 Hypothyroidism, unspecified; E04.2 Nontoxic multinodular goiter; F17.200 Nicotine dependence, unspecified, uncomplicated; J20.9 Acute bronchitis, unspecified; E11.40 Type 2 diabetes mellitus with diabetic neuropathy, unspecified; E11.65 Type 2 diabetes mellitus with hyperglycemia; E11.22 Type 2 diabetes mellitus with diabetic chronic kidney disease; E78.5 Hyperlipidemia, unspecified; E66.9 Obesity, unspecified; M81.0 Age-related osteoporosis without current pathological fracture; M19.071 Primary osteoarthritis, right ankle and foot; M16.11 Unilateral primary osteoarthritis, right hip; E11.649 Type 2 diabetes mellitus with hypoglycemia without coma; T38.0X5A Adverse effect of glucocorticoids and synthetic analogues, initial encounter; K76.0 Fatty (change of) liver, not elsewhere classified; Z87.01 Personal history of pneumonia (recurrent); Z86.73 Personal history of transient ischemic attack (TIA), and cerebral infarction without residual deficits; Z90.710 Acquired absence of both cervix and uterus; Z99.81 Dependence on supplemental oxygen; Z88.5 Allergy status to narcotic agent; Z88.0 Allergy status to penicillin; Z88.8 Allergy status to other drugs, medicaments and biological substances; Z95.810 Presence of automatic (implantable) cardiac defibrillator; Z87.11 Personal history of peptic ulcer disease; Z87.442 Personal history of urinary calculi; Z79.4 Long term (current) use of insulin; Z86.718 Personal history of other venous thrombosis and embolism; Z79.01 Long term (current) use of anticoagulants; Z91.19 Patient's noncompliance with other medical treatment and regimen; Z68.32 Body mass index [BMI] 32.0-32.9, adult; Z95.1 Presence of aortocoronary bypass graft; Z95.5 Presence of coronary angioplasty implant and graft
CPT/HCPCS: 36415; 36600; 71046; 80048; 80053; 82805; 82962; 83880; 84484; 85025; 85610; 93005; 93971; 94640; 94644; 94660; 94760; 96374; J0610; J1815; J1940; J2920; J2930; J3490; J7613; J7620; J7626; J8597; 99285-25

== ENCOUNTER → 2018-06-21 | Outpatient (CLI) | payer MEDICARE ==
[2018-05-20 11:00] VITALS: BP 105/68
[~2018-06-21] MED LIST changes: +ALBU2.5V8 INH; +CARV3.1210 PO; -CARV3.122 PO; +DOXY100T PO; -GABA-586 PO; +GABA300C18 PO; -HYDR-2762 PO; +HYDR-2765 PO; +HYDR-3164 PO; -HYDR-971 PO; -PROAIR HFA8.5 GM INH
--- NOTE | 2018-06-21 13:16 | RAD ---
Chest, 2 views, 06/21/2018: HISTORY: Chest pain, right scapular pain Comparison is made to a study from 05/18/2018. A left-sided transvenous pacing device remains in place with 2 leads extending into the right heart. A coronary artery stent is projected over the left side of the heart. The heart is mildly enlarged. A density projected adjacent to the aortic knob on the PA view is probably due to anterior mediastinal enlargement due to abundant mediastinal fat. The nodule seen in this region on the 05/14/2018 CT study is not clearly visualized radiographically. There are also prominent epicardial fat pads producing densities at the cardiophrenic angle levels. The pulmonary vascularity is normal. There is minimal linear atelectasis or scarring in the right base. No new pulmonary abnormality is seen. There is no evidence of pleural fluid. IMPRESSION: 1. Mild right basilar linear atelectasis or scarring. 2. No new cardiopulmonary abnormality is evident. 3. CT follow-up of the chest findings described on the 05/14/2018 CT exam is again suggested. Electronically signed by: Bari Tate MD (06/21/2018 1:13 PM) [facility]
--- NOTE | 2018-06-21 13:17 | RAD ---
Right scapula, 3 views, 06/21/2018: HISTORY: Pain No fracture or destructive bony lesion is seen. There is minimal arthritic change at the AC joint. IMPRESSION: No acute right scapular abnormality is detected. Electronically signed by: Bari Tate MD (06/21/2018 1:14 PM) [facility]
== END | disposition home or self-care (01) ==
LOC: RAD 11:30
PROVIDERS: ATTEND Internal Medicine
DX: M19.011 Primary osteoarthritis, right shoulder (principal); R07.9 Chest pain, unspecified
CPT/HCPCS: 71046; 73010

== ENCOUNTER 2018-07-03 19:05 | Emergency (ER) | payer MEDICARE ==
[~2018-07-03] VITALS: Ht 162.6 cm; Wt 83.9 kg
--- NOTE | 2018-07-03 19:57 | PHYS DOC ---
Past Medical History Past Medical History: COPD, CVA, Diabetes-Type II, Hypertension, IL Additional Past Medical Histor: IL x 6, BLOOD CLOTS IN LLE AND LUE, + previous surgical removal of AC blood Past Surgical History: Hysterectomy, Pacemaker, Tonsillectomy, Other Additional Past Surgical Histo: thyroid removed, R knee scope, ballon- DVT- behind L knee cap Alcohol Use: None Drug Use: None Adult General Chief Complaint Chief Complaint: UPPER EXTREMITY SWELLING HPI HPI Patient is a 58 year old female who is presenting with pain and swelling to the left upper extremity patient is accompanied to the left upper extremity history to include saphenous vein graft to an occluded brachial artery in 2017 she is on Coumadin. She said at around 3 PM she began to have A sharp and burning pain with a swelling sensation overlying her incisions in her medial bicep area. Pain is moderate nonradiating but she does feel some tightness in her third and fourth fingers no chest pain otherwise was feeling well previously. Review of Systems Review of Systems Constitutional: Denies fever or chills [] Eyes: Denies change in visual acuity, redness, or eye pain [] Cardiovascular: No additional information not addressed in HPI [] GI: Denies abdominal pain, nausea, vomiting, bloody stools or diarrhea [] : Denies dysuria or hematuria [] Integument: Denies rash or skin lesions [] Neurologic: Denies headache, focal weakness Endocrine: Denies polyuria or polydipsia [] All other systems were reviewed and found to be within normal limits, except as documented in this note. Current Medications Current Medications Current Medications Medications (Trade) Dose Ordered Sig/[facility] Start Time Stop Time Status Last Admin Dose Admin Fentanyl Citrate (Fentanyl 2ml Vial) 50 mcg 1X ONCE 07/03/18 22:00 07/03/18 22:01 DC 07/03/18 22:03 50 MCG Allergies Allergies Allergies Coded Allergies Type Severity Reaction Last Updated Verified Penicillins Allergy Intermediate Hives 10/22/17 Yes codeine Adverse Reaction Mild Nausea and Vomiting 10/22/17 Yes diphenhydramine HCl Adverse Reaction Mild hyperactive 10/22/17 Yes Physical Exam Physical Exam Constitutional: Well developed, well nourished, no acute distress, non-toxic appearance. [] HENT: Normocephalic, atraumatic, bilateral external ears normal, oropharynx moist, no oral exudates, nose normal. [] Eyes: PERRLA, EOMI, conjunctiva normal, no discharge. [] Neck: Normal range of motion, no tenderness, supple, no stridor. [] Cardiovascular:Heart rate regular rhythm, no murmur [] Lungs & Thorax: Bilateral breath sounds clear to auscultation [] Abdomen: Bowel sounds normal, soft, no tenderness, no masses, no pulsatile masses. [] Skin: Warm, dry, no erythema, no rash. [] Back: No tenderness, no CVA tenderness. [] Extremities: Radial pulses present sensation is intact distally in the left arm there is possibly mild swelling and some tenderness located at the medial brachial and bicep incision area. Neurologic: Alert and oriented X 3, normal motor function, normal sensory function, no focal deficits noted. [] Psychologic: Affect normal, judgement normal, mood normal. [] Current Patient Data Vital Signs Vital Signs Date Time Temp Pulse Resp B/P (MAP) Pulse Ox O2 Delivery O2 Flow Rate FiO2 07/03/18 22:45 68 20 131/71 (91) 07/03/18 19:42 98.1 96 Room Air 98.1 Lab Values Laboratory Tests Test 07/03/18 20:25 White Blood Count 11.5 x10^3/uL (4.0-11.0) H Red Blood Count 3.72 x10^6/uL (3.50-5.40) Hemoglobin 8.8 g/dL (12.0-15.5) L Hematocrit 28.2 % (36.0-47.0) L Mean Corpuscular Volume 76 fL (79-100) L Mean Corpuscular Hemoglobin 24 pg (25-35) L Mean Corpuscular Hemoglobin Concent 31 g/dL (31-37) Red Cell Distribution Width 22.2 % (11.5-14.5) H Platelet Count 457 x10^3/uL (140-400) H Neutrophils (%) (Auto) 61 % (31-73) Lymphocytes (%) (Auto) 26 % (24-48) Monocytes (%) (Auto) 10 % (0-9) H Eosinophils (%) (Auto) 3 % (0-3) Basophils (%) (Auto) 1 % (0-3) Neutrophils # (Auto) 7.0 x10^3uL (1.8-7.7) Lymphocytes # (Auto) 2.9 x10^3/uL (1.0-4.8) Monocytes # (Auto) 1.1 x10^3/uL (0.0-1.1) Eosinophils # (Auto) 0.3 x10^3/uL (0.0-0.7) Basophils # (Auto) 0.1 x10^3/uL (0.0-0.2) Platelet Estimate Increased (ADEQUATE) Polychromasia Slight Hypochromasia Slight Anisocytosis Mod Microcytosis Mod Prothrombin Time 22.4 SEC (11.7-14.0) H Prothrombin Time INR 2.0 (0.8-1.1) H Sodium Level 138 mmol/L (136-145) Potassium Level 4.5 mmol/L (3.5-5.1) Chloride Level 100 mmol/L (98-107) Carbon Dioxide Level 30 mmol/L (21-32) Anion Gap 8 (6-14) Blood Urea Nitrogen 20 mg/dL (7-20) Creatinine 1.4 mg/dL (0.6-1.0) H Estimated GFR (Cockcroft-Gault) 38.5 BUN/Creatinine Ratio 14 (6-20) Glucose Level 104 mg/dL (70-99) H Calcium Level 7.3 mg/dL (8.5-10.1) L Total Bilirubin 0.2 mg/dL (0.2-1.0) Aspartate Amino Transferase (AST) 34 U/L (15-37) Alanine Aminotransferase (ALT) 28 U/L (14-59) Alkaline Phosphatase 136 U/L (46-116) H Total Protein 8.1 g/dL (6.4-8.2) Albumin 3.1 g/dL (3.4-5.0) L Albumin/Globulin Ratio 0.6 (1.0-1.7) L Laboratory Tests 07/03/18 20:25 Laboratory Tests 07/03/18 20:25 EKG EKG [] Radiology/Procedures Radiology/Procedures [] Impressions: IMPRESSION: Left upper extremity venous Doppler: No evidence of DVT in the left upper extremity. Left upper extremity arterial Doppler: Patency in the visualized portions of the left brachial-radial bypass graft without spectral analysis evidence of high-grade graft stenosis. If there is continued clinical concern, fistulogram could be obtained. Electronically signed by: Leatha Giang MD (07/03/2018 9:52 PM) [facility] DICTATED and SIGNED BY: LEATHA GIANG MD DATE: 07/03/182145 Course & Med Decision Making Course & Med Decision Making Pertinent Labs and Imaging studies reviewed. (See chart for details) []58-year-old male presenting with some pain at the site of a remote saphenous pain graft to a brachial artery occlusion. There is no signs of erythema or induration she has a radial pulse we did a venous and arterial ultrasound we saw no stenosis no clot things look stable she has good flow distally no clinical signs of ischemia no clinical signs of infection unclear etiology of pain at this time. INR was 2.0 she said her goal supposed to be 2.5 cm recommended an extra dose of Coumadin I recommended that she follow-up with her primary care doctor and/or call her vascular surgeon this week if the pain were to persist however no obvious acute emergency condition was identified in the emergency room [place]. Mirella Disclaimer Dragon Disclaimer This electronic medical record was generated, in whole or in part, using a voice recognition dictation system. Departure Departure Impression: Primary Impression: Arm pain Disposition: HOME, SELF-CARE Condition: STABLE Referrals: SULTANA MONTGOMERY MD (PCP) LUBNA ROMAN MD Jul 03, 2018 19:57
[2018-07-03] MEDS ORDERED: fentaNYL PF VIAL 100 MCG/2 ML VIAL IV ONE ×2 (20:00→22:00)
[2018-07-03 20:33] LABS: BASO # 0.1 x10^3/uL (0.0-0.2); BASO % 1 % (0-3); EOS # 0.3 x10^3/uL (0.0-0.7); EOS % 3 % (0-3); HEMATOCRIT 28.2 % (36.0-47.0); HEMOGLOBIN 8.8 g/dL (12.0-15.5); LYMPH # 2.9 x10^3/uL (1.0-4.8); LYMPH % 26 % (24-48); MEAN CORPUSCULAR HEMOGLOBIN 24 pg (25-35); MEAN CORPUSCULAR HGB CONC 31 g/dL (31-37); MEAN CORPUSCULAR VOLUME 76 fL (79-100); MONO # 1.1 x10^3/uL (0.0-1.1); MONO % 10 % (0-9); NEUT % 61 % (31-73); PLATELET COUNT 457 x10^3/uL (140-400); RED BLOOD COUNT 3.72 x10^6/uL (3.50-5.40); RED CELL DISTRIBUTION WIDTH 22.2 % (11.5-14.5); WHITE BLOOD COUNT 11.5 x10^3/uL (4.0-11.0)
[2018-07-03 20:42] LABS: CALCIUM 7.3 mg/dL (8.5-10.1); CREATININE 1.4 mg/dL (0.6-1.0); GFR 38.5; POTASSIUM 4.5 mmol/L (3.5-5.1)
[2018-07-03 20:47] LABS: ALBUMIN 3.1 g/dL (3.4-5.0); ALBUMIN/GLOBULIN RATIO 0.6 (1.0-1.7); TOTAL BILIRUBIN 0.2 mg/dL (0.2-1.0); TOTAL PROTEIN 8.1 g/dL (6.4-8.2)
[2018-07-03 20:51] LABS: ANISOCYTOSIS MOD; HYPOCHROMIA SLIGHT; MICROCYTOSIS MOD; PLT ESTIMATE INCREASED (ADEQUATE); POLYCHROMASIA SLIGHT
--- NOTE | 2018-07-03 21:56 | RAD ---
Left upper extremity venous Doppler, left upper extremity arterial Doppler duplex 07/03/2017 CLINICAL INDICATION: Left upper extremity pain with history of bypass graft. COMPARISON: Left upper extremity venous Doppler 07/27/2016. FINDINGS: Left upper extremity venous Doppler: Grayscale, color Doppler and spectral waveform analysis with serial graded compression augmentation where appropriate was obtained of the left upper extremity veins. The visualized left internal jugular, subclavian, axillary, cephalic, basilic, radial and ulnar veins are patent with normal color Doppler imaging. Left or extremity arterial Doppler: The visualized portions of the left upper extremity arteries proximal to the graft including the subclavian, axillary and proximal brachial arteries are patent with maximal velocity at the graft anastomosis 87 cm/s. The mid aspect of the graft at the level the elbow is patent with velocity 26 cm/s. The distal aspect of the graft at the radial anastomosis is patent with velocity 70 cm/s. The visualized left ulnar artery is patent with velocity 54 cm/s. IMPRESSION: Left upper extremity venous Doppler: No evidence of DVT in the left upper extremity. Left upper extremity arterial Doppler: Patency in the visualized portions of the left brachial-radial bypass graft without spectral analysis evidence of high-grade graft stenosis. If there is continued clinical concern, fistulogram could be obtained. Electronically signed by: Anshu Giang MD (07/03/2018 9:52 PM) [facility]
[2018-07-03 22:04] LABS: PROTHROMBIN TIME PATIENT 22.4 SEC (11.7-14.0)
[2018-07-03 22:45] VITALS: BP 131/71
--- NOTE | 2018-07-04 10:01 | EKG ---
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
== END 2018-07-03 22:50 | disposition home or self-care (01) ==
LOC: ER 19:05
DX: M79.602 Pain in left arm (principal); J44.9 Chronic obstructive pulmonary disease, unspecified; E11.9 Type 2 diabetes mellitus without complications; I10 Essential (primary) hypertension; I25.2 Old myocardial infarction; Z86.73 Personal history of transient ischemic attack (TIA), and cerebral infarction without residual deficits; Z95.0 Presence of cardiac pacemaker; Z86.718 Personal history of other venous thrombosis and embolism; Z88.0 Allergy status to penicillin; Z88.5 Allergy status to narcotic agent
CPT/HCPCS: 36415; 80053; 85025; 85610; 93005; 93931; 93971; 96374; 96376; 99284; J3010

== ENCOUNTER 2018-08-11 17:44 | Inpatient (IN) | payer MEDICARE ==
[~2018-08-11] VITALS: Ht 167.6 cm; Wt 83.9 kg
[2018-08-11] MEDS ORDERED: IPRATRPIUM/ALBUTEROL 0.5/2.5MG 3 ML NEBU. ONE (17:50)
[2018-08-11] MEDS ORDERED: IPRATRPIUM/ALBUTEROL 0.5/2.5MG 3 ML NEBU. NEB ONE (18:15)
[2018-08-11] MEDS ORDERED: DEXAMETHASONE SOD PHOS 20 MG/5 ML VIAL. IV ONE (18:15)
[2018-08-11 18:32] LABS: BASO # 0.1 x10^3/uL (0.0-0.2); BASO % 1 % (0-3); EOS # 0.2 x10^3/uL (0.0-0.7); EOS % 2 % (0-3); HEMATOCRIT 25.9 % (36.0-47.0); HEMOGLOBIN 7.7 g/dL (12.0-15.5); LYMPH # 1.6 x10^3/uL (1.0-4.8); LYMPH % 14 % (24-48); MEAN CORPUSCULAR HEMOGLOBIN 22 pg (25-35); MEAN CORPUSCULAR HGB CONC 30 g/dL (31-37); MEAN CORPUSCULAR VOLUME 75 fL (79-100); MONO # 1.1 x10^3/uL (0.0-1.1); MONO % 9 % (0-9); NEUT # 8.7 x10^3uL (1.8-7.7); NEUT % 74 % (31-73); PLATELET COUNT 445 x10^3/uL (140-400); RED BLOOD COUNT 3.47 x10^6/uL (3.50-5.40); RED CELL DISTRIBUTION WIDTH 21.1 % (11.5-14.5); WHITE BLOOD COUNT 11.8 x10^3/uL (4.0-11.0)
[2018-08-11 18:37] LABS: ALBUMIN 3.1 g/dL (3.4-5.0); ALBUMIN/GLOBULIN RATIO 0.6 (1.0-1.7); CALCIUM 8.1 mg/dL (8.5-10.1); CREATININE 2.2 mg/dL (0.6-1.0); GFR 22.8; TOTAL BILIRUBIN 0.3 mg/dL (0.2-1.0); TOTAL PROTEIN 8.1 g/dL (6.4-8.2)
[2018-08-11 18:44] LABS: POTASSIUM 6.7 mmol/L (3.5-5.1)
[2018-08-11 18:48] LABS: INFLUENZA A PATIENT NEGATIVE (NEGATIVE); INFLUENZA B PATIENT NEGATIVE (NEGATIVE)
[2018-08-11] MEDS ORDERED: INSULIN REGULAR 100 UNIT/ML 3ML VIAL. IV ONE (19:00)
[2018-08-11] MEDS ORDERED: DEXTROSE 50% 25 GM / 50ML DISP.SYRIN. IV ONE (19:00)
[2018-08-11] MEDS ORDERED: SODIUM POLYSTYRENE SULFONATE 15 GM/60 ML ORAL.SUSP. PO ONE (19:00)
[2018-08-11] MEDS ORDERED: IV NORMAL SALINE 500ML BAG 500 ML IV ONE (19:00)
[2018-08-11] MEDS ORDERED: ALBUTEROL SULFATE 2.5 MG/3 ML NEBU. CONT NEB ONE (19:00)
[2018-08-11] MEDS ORDERED: ONDANSETRON PF 4 MG/2 ML VIAL. IV PRN (19:00)
[2018-08-11] MEDS ORDERED: IV NORMAL SALINE 1000ML BAG 1,000 ML IV ONE (19:00)
--- NOTE | 2018-08-11 19:04 | RAD ---
CHEST PA LATERAL CLINICAL INDICATION: ER PATIENT. DYSPNEA. Hx HTN, COPD, CAD, PACEMAKER . PRIOR XRAY. COMPARISON: 06/21/2018 FINDINGS: Stable position of cardiac pacer. Heart is mildly enlarged in size. Diffuse bilateral interstitial opacities are seen. No pneumothorax or effusion. Visualized bony thorax is within normal limits. IMPRESSION: Findings of interstitial pulmonary edema. Electronically signed by: Delonte Gregorio DO (08/11/2018 7:01 PM) [facility]
[2018-08-11] MEDS ORDERED: DEXTROSE 50% 25 GM / 50ML DISP.SYRIN. IV PRN (19:15)
[2018-08-11] MEDS ORDERED: fentaNYL PF VIAL 100 MCG/2 ML VIAL IV ONE (19:15)
--- NOTE | 2018-08-11 19:37 | PHYS DOC ---
Past Medical History Past Medical History: COPD, CVA, Diabetes-Type II, Hypertension, NH Additional Past Medical Histor: NH x 6, BLOOD CLOTS IN LLE AND LUE, + previous surgical removal of AC blood Past Surgical History: Hysterectomy, Pacemaker, Tonsillectomy, Other Additional Past Surgical Histo: thyroid removed, R knee scope, ballon- DVT- behind L knee cap Alcohol Use: None Drug Use: None Adult General Chief Complaint Chief Complaint: SHORTNESS OF BREATH HPI HPI Patient is a 58 year old female who presents with shortness of breath. Patient stated she was of breath started 2 days ago and has become worse over the past day. She attempted to take breathing treatments at home which did not improve her symptoms. She breath is worsened with exertion. Nothing seems to improve her shortness of breath She also reporting a nonproductive cough for the same time period. She denies any chest pain, lightheadedness, or dizziness. [] Review of Systems Review of Systems Constitutional: Denies fever or chills [] Eyes: Denies redness or eye pain [] HENT: Denies nasal congestion or sore throat [] Respiratory: Reports cough and shortness of breath [] Cardiovascular: Denies chest pain and palpitations [] GI: Denies abdominal pain, nausea, vomiting. [] : Denies dysuria or hematuria [] Musculoskeletal: Denies back pain or joint pain [] Integument: Denies rash or skin lesions [] Neurologic: Denies headache, focal weakness[] Complete systems were reviewed and found to be within normal limits, except as documented in this note. Current Medications Current Medications Current Medications Medications (Trade) Dose Ordered Sig/Irena Start Time Stop Time Status Last Admin Dose Admin Albuterol/ Ipratropium (Duoneb) 3 ml 1X ONCE 08/11/18 18:15 08/11/18 18:16 DC 08/11/18 18:00 3 ML Dexamethasone Sodium Phosphate (Decadron) 10 mg 1X ONCE 08/11/18 18:15 08/11/18 18:16 DC 08/11/18 18:33 10 MG Allergies Allergies Allergies Coded Allergies Type Severity Reaction Last Updated Verified Penicillins Allergy Intermediate Hives 10/22/17 Yes codeine Adverse Reaction Mild Nausea and Vomiting 10/22/17 Yes diphenhydramine HCl Adverse Reaction Mild hyperactive 10/22/17 Yes Physical Exam Physical Exam Constitutional: Minor respiratory distress, well developed, non-toxic appearance. [] HENT: Normocephalic, atraumatic. Eyes: EOMI, conjunctiva normal [] Neck: Normal range of motion, no tenderness. [] Cardiovascular:Heart rate regular rhythm, no murmur [] Lungs & Thorax: Bilateral inspiratory and expiratory wheezes, diminished breath sounds throughout[] Abdomen: Bowel sounds normal, soft, no tenderness. [] Skin: Warm, dry. [] Back: No tenderness, no CVA tenderness. [] Extremities: No cyanosis, no clubbing, no edema. [] Neurologic: Alert and oriented X 3, normal motor function. [] Psychologic: Affect normal, mood normal. [] Current Patient Data Vital Signs Vital Signs Date Time Temp Pulse Resp B/P (MAP) Pulse Ox O2 Delivery O2 Flow Rate FiO2 08/11/18 17:50 93 Nasal Cannula 3.5 08/11/18 17:45 98.6 71 20 119/59 (79) 98.6 Lab Values Laboratory Tests Test 08/11/18 17:55 08/11/18 18:15 White Blood Count 11.8 x10^3/uL (4.0-11.0) H Red Blood Count 3.47 x10^6/uL (3.50-5.40) L Hemoglobin 7.7 g/dL (12.0-15.5) L Hematocrit 25.9 % (36.0-47.0) L Mean Corpuscular Volume 75 fL (79-100) L Mean Corpuscular Hemoglobin 22 pg (25-35) L Mean Corpuscular Hemoglobin Concent 30 g/dL (31-37) L Red Cell Distribution Width 21.1 % (11.5-14.5) H Platelet Count 445 x10^3/uL (140-400) H Neutrophils (%) (Auto) 74 % (31-73) H Lymphocytes (%) (Auto) 14 % (24-48) L Monocytes (%) (Auto) 9 % (0-9) Eosinophils (%) (Auto) 2 % (0-3) Basophils (%) (Auto) 1 % (0-3) Neutrophils # (Auto) 8.7 x10^3uL (1.8-7.7) H Lymphocytes # (Auto) 1.6 x10^3/uL (1.0-4.8) Monocytes # (Auto) 1.1 x10^3/uL (0.0-1.1) Eosinophils # (Auto) 0.2 x10^3/uL (0.0-0.7) Basophils # (Auto) 0.1 x10^3/uL (0.0-0.2) Platelet Estimate Increased (ADEQUATE) Large Platelets Occ Giant Platelets Occ Polychromasia Slight Hypochromasia Mod Basophilic Stippling Present Anisocytosis Mod Microcytosis Slight Target Cells Occ Stomatocytes Few Sodium Level 134 mmol/L (136-145) L Potassium Level 6.7 mmol/L (3.5-5.1) *H Chloride Level 99 mmol/L (98-107) Carbon Dioxide Level 26 mmol/L (21-32) Anion Gap 9 (6-14) Blood Urea Nitrogen 43 mg/dL (7-20) H Creatinine 2.2 mg/dL (0.6-1.0) H Estimated GFR (Cockcroft-Gault) 22.8 BUN/Creatinine Ratio 20 (6-20) Glucose Level 107 mg/dL (70-99) H Calcium Level 8.1 mg/dL (8.5-10.1) L Magnesium Level 3.0 mg/dL (1.8-2.4) H Total Bilirubin 0.3 mg/dL (0.2-1.0) Aspartate Amino Transferase (AST) 99 U/L (15-37) H Alanine Aminotransferase (ALT) 38 U/L (14-59) Alkaline Phosphatase 141 U/L (46-116) H Creatine Kinase 2762 U/L (26-192) H Creatine Kinase MB (Mass) 14.1 ng/mL (0.0-3.6) H Creatine Kinase MB Relative Index 0.5 % (0-4) Troponin I Quantitative < 0.017 ng/mL (0.000-0.055) CW-Npb-J-Type Natriuretic Peptide 82460 pg/mL (0-124) H Total Protein 8.1 g/dL (6.4-8.2) Albumin 3.1 g/dL (3.4-5.0) L Albumin/Globulin Ratio 0.6 (1.0-1.7) L Influenza Type A Antigen Negative (NEGATIVE) Influenza Type B Antigen Negative (NEGATIVE) Laboratory Tests 08/11/18 17:55 Laboratory Tests 08/11/18 17:55 EKG EKG @1752 NSR at 70bpm, NO ST elevation, T wave aVL Radiology/Procedures Radiology/Procedures PROCEDURE: CHEST PA & LATERAL CHEST PA LATERAL CLINICAL INDICATION: ER PATIENT. DYSPNEA. Hx HTN, COPD, CAD, PACEMAKER . PRIOR XRAY. COMPARISON: 06/21/2018 FINDINGS: Stable position of cardiac pacer. Heart is mildly enlarged in size. Diffuse bilateral interstitial opacities are seen. No pneumothorax or effusion. Visualized bony thorax is within normal limits. IMPRESSION: Findings of interstitial pulmonary edema. Electronically signed by: Delonte Montgomery DO (08/11/2018 7:01 PM) [facility] DICTATED and SIGNED BY: DELONTE MONTGOMERY DO[] Course & Med Decision Making Course & Med Decision Making Patient presents with report of SOA. Patient does have a history of COPD as well as supplemental oxygen use at home. Patient was found to be hypoxic at 83% upon arrival to ED, breathing treatments initiated. Pertinent Labs and Imaging studies reviewed. Lab work demonstrated hyperkalemia. Chest x-ray demonstrated interstitial pulmonary edema. Symptomatic treatment provided with interval improvement. Patient requiring admission for further evaluation and treatment. Discussed with Dr. Palmer (covering for Dr. Montgomery- PCP) who is in agreement with admission. Discussed findings and plan with patient and family, who acknowledge understanding and agreement. [] Dragon Disclaimer Dragon Disclaimer This electronic medical record was generated, in whole or in part, using a voice recognition dictation system. Departure Departure Impression: Primary Impression: Hyperkalemia Additional Impressions: COPD exacerbation Hypoxia CHF exacerbation Anemia Disposition: 09 ADMITTED INPATIENT Admitting Physician: Nitesh Palmer (covering for Dr. Montgomery) Condition: GUARDED Referrals: SULTANA MONTGOMERY MD (PCP) Critical Care Time Critical care time was 30 minutes which includes time at bedside, spent in discussion of patient's care with specialists and/or family members, with interpretation of laboratory and/or radiological studies and is exclusive of procedures. Problem Qualifiers Additional Impressions: CHF exacerbation Heart failure type: unspecified Qualified Codes: I50.9 - Heart failure, unspecified Anemia Anemia type: unspecified type Qualified Codes: D64.9 - Anemia, unspecified HERRERA BRADEN DO Aug 11, 2018 19:37
[2018-08-11 19:43] LABS: BASE EXCESS COOX -3 mmol/L (-3-3); HCO3 COOX 24 mmol/L (21-28); METHEMOGLOBIN 0.4 % (0.0-1.9); OXYHEMOGLOBIN 85.1 %; PCO2 COOX 51 mmHg (35-46); PO2 COOX 63 mmHg (65-108); SAT O2 COOX 89 % (92-99)
[2018-08-11] MEDS ORDERED: BUMETANIDE 1 MG/4 ML VIAL. IV ONE (19:45)
[2018-08-11] MEDS: IPRATRPIUM/ALBUTEROL 0.5/2.5MG 3 ML NEBU. NEB SCH (20:00)
[2018-08-11 20:21] LABS: ANISOCYTOSIS MOD; HYPOCHROMIA MOD; MICROCYTOSIS SLIGHT; PLT ESTIMATE INCREASED (ADEQUATE); POLYCHROMASIA SLIGHT
[2018-08-11 20:22] LABS: STOMATOCYTES FEW
[2018-08-11 20:23] LABS: TARGET CELLS OCC
[2018-08-11 21:17] VITALS: BP 108/62
[2018-08-11 22:32] VITALS: BP 119/59
[2018-08-11 23:08] LABS: CALCIUM 7.8 mg/dL (8.5-10.1); GFR 25.5; POTASSIUM 5.9 mmol/L (3.5-5.1)
[2018-08-12] MEDS ORDERED: SODIUM POLYSTYRENE SULFONATE 15 GM/60 ML ORAL.SUSP. PO ONE (00:30)
[2018-08-12 02:10] VITALS: BP 129/51
--- NOTE | 2018-08-12 04:00 | NUR ---
Pt arrived to room 209 accompanied by , Parth, at about 2014. She is a/o x4 but very drowsy, somnolent, requiring several efforts to reawaken her. She has tremors in her upper body. Skin intact, vss on 4LNC and admits to smoking "a few cigarettes" daily, including just before calling 911 for soa. She and Parth state her medications have not changed since last discharge from [facility] but that she may not be taking them properly at home. Medication regimen discussed including suggestion of pill organizer box.
[2018-08-12 05:01] LABS: BASO % 0 % (0-3); EOS % 0 % (0-3); HEMATOCRIT 24.8 % (36.0-47.0); HEMOGLOBIN 7.5 g/dL (12.0-15.5); LYMPH # 0.8 x10^3/uL (1.0-4.8); LYMPH % 9 % (24-48); MEAN CORPUSCULAR HEMOGLOBIN 23 pg (25-35); MEAN CORPUSCULAR HGB CONC 30 g/dL (31-37); MEAN CORPUSCULAR VOLUME 76 fL (79-100); MONO # 0.2 x10^3/uL (0.0-1.1); MONO % 3 % (0-9); NEUT % 88 % (31-73); PLATELET COUNT 440 x10^3/uL (140-400); RED BLOOD COUNT 3.29 x10^6/uL (3.50-5.40); RED CELL DISTRIBUTION WIDTH 21.4 % (11.5-14.5); WHITE BLOOD COUNT 9.1 x10^3/uL (4.0-11.0)
[2018-08-12 05:26] LABS: CALCIUM 7.8 mg/dL (8.5-10.1); CREATININE 1.9 mg/dL (0.6-1.0); GFR 27.1; POTASSIUM 4.7 mmol/L (3.5-5.1)
[2018-08-12 07:00] VITALS: BP 116/64
[2018-08-12] MEDS: IPRATRPIUM/ALBUTEROL 0.5/2.5MG 3 ML NEBU. NEB SCH ×4 (07:17→20:27)
[2018-08-12] MEDS: INSULIN LISPRO 300 UNITS/3 ML INSULN.PEN. SQ SCH ×7 (08:00→17:36)
--- NOTE | 2018-08-12 08:29 | EKG ---
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
[2018-08-12] MEDS ORDERED: FUROSEMIDE 20 MG/2 ML VIAL. IVP ONE (09:00)
--- NOTE | 2018-08-12 09:17 | CONS ---
DATE OF CONSULTATION: ATTENDING PHYSICIAN: Dr. Kristen Gregorio. REASON FOR CONSULTATION: Dyspnea. HISTORY OF PRESENT ILLNESS: The patient is a 58-year-old obese patient with a BMI of 32. She has chronic hypoxic respiratory failure, on home oxygen at 3 liters on a 24-hour basis. She presented to the hospital with increasing shortness of breath. The patient says she has a cough, which was nonproductive. She did not have any fever, chills, no chest pains. No lower extremity edema. No headaches, no nausea, vomiting or diarrhea. Chest x-ray was reviewed, and it showed cardiomegaly and mild interstitial CHF. Her echocardiogram from 05/16/2018 was also reviewed and it showed an EF of 45-50%. The patient still smokes cigarettes, has been doing it for last 30 years up to half pack per day. She is currently requiring 5 liters of oxygen. PAST MEDICAL HISTORY: Significant for history of cardiomyopathy, mild. History of COPD, history of chronic hypoxic respiratory failure, history of LA. History of blood clot in the left lower extremity and left upper extremity. PAST SURGICAL HISTORY: Including hysterectomy, pacemaker, tonsillectomy and a right knee scope. ALLERGIES: PENICILLIN, CODEINE, DIPHENHYDRAMINE. REVIEW OF SYSTEMS: Twelve-point system obtained. Pertinent positives discussed in my history of present illness, otherwise noncontributory. All systems that were negative were reviewed as well. MEDICATIONS: All reviewed as listed in the MRAD. She received one dose of Bumex and DuoNeb in the ER. SOCIAL HISTORY: Smoker for 30 years, half pack per day and still smokes. PHYSICAL EXAMINATION: VITAL SIGNS: Reviewed. Pulse ox 90% on 5 liters. Afebrile. Blood pressure is stable. HEENT: Sclerae nonicteric. NECK: Supple. LUNGS: With rhonchi anteriorly and few crackles posteriorly. CARDIOVASCULAR: Regular rate. ABDOMEN: Soft, obese. EXTREMITIES: With no pitting edema. LABORATORY DATA: Reviewed. Influenza screen negative. BUN 40, creatinine 1.9. Potassium was 5.9, now down to 4.7. White cell count 9.1, hemoglobin 7.5 and platelets are 440. ABGs with a pH of 7.29, pCO2 of 51 and a pO2 of 63. IMPRESSION: 1. Vaadu-fa-pnzayld hypercapnic and hypoxic respiratory failure secondary to acute on chronic systolic heart failure and acute exacerbation of chronic obstructive pulmonary disease. 2. The patient with mild cardiomyopathy with an ejection fraction of 45% and now comes in with mild interstitial edema. 3. Ongoing tobaccoism for 30 years. The patient is on home oxygen at 3 liters, now requiring 5 liters. 4. Chronic kidney disease. 5. Hyperkalemia, corrected. 6. Anemia, may have contributed to heart failure as well. RECOMMENDATIONS: 1. Continue to wean oxygen with gradual weaning, keeping saturation 92% and above. 2. Diuresis. 3. DuoNeb. 4. No need for Solu-Medrol at present. 5. Smoking cessation counseling provided. 6. Follow cardiology recommendations. 7. Follow the response to treatment. 8. Monitor hemoglobin closely. 9. Discussed with RN. JUVENTINO ARRIOLA MD DR: LÓPEZ/nts JOB#: [id number] / [id number]
[2018-08-12 09:30] LABS: BASE EXCESS ABG 3 mmol/L (-3-3); FIO2 ABG 34%NC; HCO3 ABG 27 mmol/L (21-28); PCO2 ABG 42 mmHg (35-46); PO2 ABG 59 mmHg (65-108); SAT O2 ABG 89 % (92-99)
[2018-08-12 09:36] LABS: % LYMPHS 4 % (24-48); % MONOS 2 % (0-10); % SEGS 94 % (35-66); ANISOCYTOSIS MOD; NUCLEATED RBC 1; PLT ESTIMATE INCREASED (ADEQUATE)
[2018-08-12 09:37] LABS: HYPOCHROMIA MOD
--- NOTE | 2018-08-12 10:12 | PDOC2 ---
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 Reports that last weekend her was having fever in the with chills. She started having some chills Wednesday but no recorded fever but more productive cough. 2-3 days ago she felt more SOA than usual and her breathing treatments and increased in O2 use did not help. No chest palpitations, dizziness, nausea or vomiting. She also has not been eating and drinking well but despite this she has been taking her diuretics, metformin and tobacco use. Currently he is able to lay flat without difficulty and having TTE. She has not had any stress test in the last yr and has been seeing Dr. Milton as her credit control officer. She denies diagnosed JAYLON, no leg swelling but positive for PND and orthopnea. She has CAD, AICD. No hx of VTE or AFIB. PAST MEDICAL HISTORY Past Medical History Cardiovascular: CAD (multiple [place] ), CHF (ICM EF 04/2012 EF 35% AICD ), HTN, [place] , Valve insufficiency (tr MR TR ), Other (PAD with h/o L popliteal artery occlusion with balloon angio; R ant tibal angio; tibio peroneal trunk (100% occluded) w/arthrectomy agnio post tib artery. 09/2011 L pop and L ant tib [employer] at [employer]; LUE brachial artery occlusion with h/o L brachial to radial artery bypass ) DVT Pulmonary: COPD (emphysema; chronic respiratory failure O2 dependent), Pneumonia CENTRAL NERVOUS SYSTEM: Carpal Tunnel Syndrome, CVA, Migraine, DPN GI: Diverticulosis, GERD, Gastritis (h/o), Hemorrhoids, Irritable bowel disease , Peptic Ulcer disease (h/o), Other (fatty liver ) Heme/Onc: Anemia NOS Psych: Anxiety Musculoskeletal: Osteoarthritis, Other (chronic pain management by [employer] ), osteoporosis Renal/: Chronic renal insuff, Other (h/o non obstructing R renal calculus ) Endocrine: Diabetes (Type II neuropathy, PVD), Hypothyroidism (surgical induced ), Other (multinodal goiter w/o mention thyroid crisis or storm = thyroidectomy ) Skin: SCC PAST SURGICAL HISTORY Past Surgical History AICD, CABG, Tonsillectomy (adenoids), Hysterectomy, carpal tunnel release, thyroidectomy, LUE thrombectomy with dilation; hemorrhoidectomy, PCI CAD - h/o 9 stents, Appendectomy, Cholecystectomy, CABG (2006), Tonsillectomy FAMILY HISTORY Family History noncontributory to CV SOCIAL HISTORY Smoke: 1 pack per day ALCOHOL: none Drugs: None Lives: with Family CURRENT MEDICATIONS CURRENT MEDICATIONS Current Medications Medications (Trade) Dose Ordered Sig/Irena Route PRN Reason Start Time Stop Time Status Last Admin Dose Admin Albuterol/ Ipratropium (Duoneb) 3 ml 1X ONCE NEB 08/11/18 18:15 08/11/18 18:16 DC 08/11/18 18:00 Dexamethasone Sodium Phosphate (Decadron) 10 mg 1X ONCE IV 08/11/18 18:15 08/11/18 18:16 DC 08/11/18 18:33 Insulin Human Regular (HumuLIN R VIAL) 10 unit 1X ONCE IV 08/11/18 19:00 08/11/18 19:01 DC 08/11/18 19:17 Dextrose (Dextrose 50%-Water Syringe) 25 gm 1X ONCE IV 08/11/18 19:00 08/11/18 19:01 DC 08/11/18 19:14 Albuterol Sulfate (Ventolin Neb Soln) 10 mg 1X ONCE CONT NEB 08/11/18 19:00 08/11/18 19:01 DC 08/11/18 19:38 Sodium Polystyrene Sulfonate (Kayexalate) 30 gm 1X ONCE PO 08/11/18 19:00 08/11/18 19:01 DC 08/11/18 19:15 Albuterol/ Ipratropium (Duoneb) 3 ml RTQID NEB 08/11/18 20:00 08/12/18 19:59 08/12/18 07:17 Sodium Chloride 500 ml @ 500 mls/hr 1X ONCE IV 08/11/18 19:00 08/11/18 19:59 DC 08/11/18 19:18 Bumetanide (Bumex) 0.5 mg 1X ONCE IV 08/11/18 19:45 08/11/18 19:52 DC 08/11/18 21:18 Sodium Polystyrene Sulfonate (Kayexalate) 30 gm 1X ONCE PO 08/12/18 00:30 08/12/18 00:31 DC 08/12/18 00:49 Furosemide (Lasix) 20 mg 1X ONCE IVP 08/12/18 09:00 08/12/18 09:03 DC 08/12/18 09:41 ALLERGIES ALLERGIES: Coded Allergies: Penicillins (Verified Allergy, Intermediate, Hives, 10/22/17) Tolerated rocephin during prior admit codeine (Verified Adverse Reaction, Mild, Nausea and Vomiting, 10/22/17) diphenhydramine HCl (Verified Adverse Reaction, Mild, hyperactive, 10/22/17 ) ROS Review of System 14 point ROS evaluated with pertinent positives noted per HPI PHYSICAL EXAM General: Alert, Oriented X3, Cooperative, No acute distress HEENT: Atraumatic Lungs: Other (upper faint wheeze, basilar crackles) Heart: Regular rate (SR no significant ectopies), Other (distant heart sounds) Abdomen: Soft, Other (obese) Extremities: No cyanosis, No edema Skin: No breakdown, No significant lesion Neuro: Normal speech, Sensation intact Psych/Mental Status: Mental status NL, Mood NL MUSCULOSKELETAL: Osteoarthritic changes both hands VITALS VITALS Vital Signs Date Time Temp Pulse Resp B/P (MAP) Pulse Ox O2 Delivery O2 Flow Rate FiO2 08/12/18 07:17 90 Nasal Cannula 5.0 08/12/18 07:00 98.8 97 24 116/64 (81) 98.8 LABS Lab: Laboratory Tests Test 08/11/18 17:55 08/11/18 18:15 08/11/18 19:04 08/11/18 22:20 White Blood Count 11.8 x10^3/uL (4.0-11.0) Red Blood Count 3.47 x10^6/uL (3.50-5.40) Hemoglobin 7.7 g/dL (12.0-15.5) Hematocrit 25.9 % (36.0-47.0) Mean Corpuscular Volume 75 fL (79-100) Mean Corpuscular Hemoglobin 22 pg (25-35) Mean Corpuscular Hemoglobin Concent 30 g/dL (31-37) Red Cell Distribution Width 21.1 % (11.5-14.5) Platelet Count 445 x10^3/uL (140-400) Neutrophils (%) (Auto) 74 % (31-73) Lymphocytes (%) (Auto) 14 % (24-48) Monocytes (%) (Auto) 9 % (0-9) Eosinophils (%) (Auto) 2 % (0-3) Basophils (%) (Auto) 1 % (0-3) Neutrophils # (Auto) 8.7 x10^3uL (1.8-7.7) Lymphocytes # (Auto) 1.6 x10^3/uL (1.0-4.8) Monocytes # (Auto) 1.1 x10^3/uL (0.0-1.1) Eosinophils # (Auto) 0.2 x10^3/uL (0.0-0.7) Basophils # (Auto) 0.1 x10^3/uL (0.0-0.2) Platelet Estimate Increased (ADEQUATE) Large Platelets Occ Giant Platelets Occ Polychromasia Slight Hypochromasia Mod Basophilic Stippling Present Anisocytosis Mod Microcytosis Slight Target Cells Occ Stomatocytes Few Sodium Level 134 mmol/L (136-145) 137 mmol/L (136-145) Potassium Level 6.7 mmol/L (3.5-5.1) 5.9 mmol/L (3.5-5.1) Chloride Level 99 mmol/L (98-107) 101 mmol/L (98-107) Carbon Dioxide Level 26 mmol/L (21-32) 24 mmol/L (21-32) Anion Gap 9 (6-14) 12 (6-14) Blood Urea Nitrogen 43 mg/dL (7-20) 41 mg/dL (7-20) Creatinine 2.2 mg/dL (0.6-1.0) 2.0 mg/dL (0.6-1.0) Estimated GFR (Cockcroft-Gault) 22.8 25.5 BUN/Creatinine Ratio 20 (6-20) Glucose Level 107 mg/dL (70-99) 111 mg/dL (70-99) Calcium Level 8.1 mg/dL (8.5-10.1) 7.8 mg/dL (8.5-10.1) Magnesium Level 3.0 mg/dL (1.8-2.4) Total Bilirubin 0.3 mg/dL (0.2-1.0) Aspartate Amino Transf (AST/SGOT) 99 U/L (15-37) Alanine Aminotransferase (ALT/SGPT) 38 U/L (14-59) Alkaline Phosphatase 141 U/L (46-116) Creatine Kinase 2762 U/L (26-192) Creatine Kinase MB (Mass) 14.1 ng/mL (0.0-3.6) Creatine Kinase MB Relative Index 0.5 % (0-4) Troponin I Quantitative < 0.017 ng/mL (0.000-0.055) < 0.017 ng/mL (0.000-0.055) PH-Nvd-F-Type Natriuretic Peptide 13375 pg/mL (0-124) Total Protein 8.1 g/dL (6.4-8.2) Albumin 3.1 g/dL (3.4-5.0) Albumin/Globulin Ratio 0.6 (1.0-1.7) Influenza Type A Antigen Negative (NEGATIVE) Influenza Type B Antigen Negative (NEGATIVE) O2 Saturation 89 % (92-99) Arterial Blood pH 7.29 (7.35-7.45) Arterial Blood pCO2 at Patient Temp 51 mmHg (35-46) Arterial Blood pO2 at Patient Temp 63 mmHg (65-108) Arterial Blood HCO3 24 mmol/L (21-28) Arterial Blood Base Excess -3 mmol/L (-3-3) Oxyhemoglobin 85.1 % Methemoglobin 0.4 % (0.0-1.9) Carbon Monoxide, Quantitative 4.1 % (0.0-1.9) FiO2 40 Test 08/12/18 04:00 08/12/18 07:53 08/12/18 09:15 White Blood Count 9.1 x10^3/uL (4.0-11.0) Red Blood Count 3.29 x10^6/uL (3.50-5.40) Hemoglobin 7.5 g/dL (12.0-15.5) Hematocrit 24.8 % (36.0-47.0) Mean Corpuscular Volume 76 fL (79-100) Mean Corpuscular Hemoglobin 23 pg (25-35) Mean Corpuscular Hemoglobin Concent 30 g/dL (31-37) Red Cell Distribution Width 21.4 % (11.5-14.5) Platelet Count 440 x10^3/uL (140-400) Neutrophils (%) (Auto) 88 % (31-73) Lymphocytes (%) (Auto) 9 % (24-48) Monocytes (%) (Auto) 3 % (0-9) Eosinophils (%) (Auto) 0 % (0-3) Basophils (%) (Auto) 0 % (0-3) Neutrophils # (Auto) 8.0 x10^3uL (1.8-7.7) Lymphocytes # (Auto) 0.8 x10^3/uL (1.0-4.8) Monocytes # (Auto) 0.2 x10^3/uL (0.0-1.1) Eosinophils # (Auto) 0.0 x10^3/uL (0.0-0.7) Basophils # (Auto) 0.0 x10^3/uL (0.0-0.2) Segmented Neutrophils % 94 % (35-66) Lymphocytes % 4 % (24-48) Monocytes % 2 % (0-10) Nucleated Red Blood Cells 1 Platelet Estimate Increased (ADEQUATE) Hypochromasia Mod Anisocytosis Mod Sodium Level 141 mmol/L (136-145) Potassium Level 4.7 mmol/L (3.5-5.1) Chloride Level 101 mmol/L (98-107) Carbon Dioxide Level 26 mmol/L (21-32) Anion Gap 14 (6-14) Blood Urea Nitrogen 40 mg/dL (7-20) Creatinine 1.9 mg/dL (0.6-1.0) Estimated GFR (Cockcroft-Gault) 27.1 Glucose Level 161 mg/dL (70-99) Calcium Level 7.8 mg/dL (8.5-10.1) Troponin I Quantitative < 0.017 ng/mL (0.000-0.055) Glucose (Fingerstick) 140 mg/dL (70-99) O2 Saturation 89 % (92-99) Arterial Blood pH 7.43 (7.35-7.45) Arterial Blood pCO2 at Patient Temp 42 mmHg (35-46) Arterial Blood pO2 at Patient Temp 59 mmHg (65-108) Arterial Blood HCO3 27 mmol/L (21-28) Arterial Blood Base Excess 3 mmol/L (-3-3) FiO2 34%nc ECHOCARDIOGRAM ECHOCARDIOGRAM <Conclusion> Severe hypokinesis of apical wall. The Ejection Fraction is 45-50%. Doppler and Color Flow revealed mild tricuspid regurgitation. There is no evidence of significant pericardial effusion. DATE: 05/16/18 1042 ASSESSMENT/PLAN ASSESSMENT/PLAN 1. Acute on chronic diastolic/systolic CHF: appears compensated 2. AECOPD with continued tobaccoism: recent exposure to spouse with fever over the weekend. pulmonary following 3. JIA on CKD(3?) with hyperkalemia: poor hydration in the last few days. improving. Nephrology following. K better 4. CAD: CABG 2006 with past multiple stents, clinically stable 5. AICD: presently SR. ([employer]) 6. Microcytic hypochromic anemia: Hgb at 7.5 7. HTN: controlled 8. DM2/HLP 9. Obesity 10. Coumadin therapy with hx of recurrent DVT 11. 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 Defer to PCP. Recommendations 1. Interrogate device for any contributing arrhythmia and will note optivol 2. Lasix/bumex IV received. Continue with home torsemide. xtra lasix PRN 3. Restart secondary prevention measures. Hold Kdur/aldactone, recommend holding metformin for now. 4. Check INR., limited TTE 5. Follow up with RENETTA Woody when discharge. 6. Smoking cessation. Encouraged HBPM monitoring and daily as she does not do this at home. ANNY HASSAN MD 08/12/18 7784: CARDIAC CONSULT ASSESSMENT/PLAN ASSESSMENT/PLAN Pt. seen and examined. Agree with above [employer] TECH note. 58 y.o w/ ischemic cmp s/p ICD. She presents with cough and dyspnea. No clear precipitating events. No recent angina. No diet issues. Urinating well with diuretics. Minimal weight gain of 3 lbs per patient. Device check w/o any abnormalities Echo reviewed. On exam she has no LE edema. lungs clear. mild upper airway congestion BP/HR stable. Overall, no clear precipitating event. Likely just a combination of chronic issues. JIA noted. Would hold off on aggressive diuresis. May benefit from transfusion. Thanks. No further CV testing. Ok to go home on: warfarin, coreg. Use hydralazine/imdur prn for BP issues. Hold spironolactone until f/u with Dr. Milton at [facility] in next 1-2 weeks. Continue torsemide Pls call with questions. DOREEN ACOSTA RENOVATOR MACHINE OPERATOR Aug 12, 2018 10:12 ANNY HASSAN MD Aug 12, 2018 16:24
[2018-08-12] MEDS ORDERED: DEXTROSE 50% 25 GM / 50ML DISP.SYRIN. IV PRN (10:30)
--- NOTE | 2018-08-12 10:39 | PDOC ---
Provider Note Provider Note Pt seen.H&P dictated.#[id number] MAYELIN ORTEGA MD Aug 12, 2018 10:39
[2018-08-12 10:55] LABS: CHOLESTEROL/HDL RATIO 2.9
[2018-08-12 11:00] VITALS: BP 131/68
--- NOTE | 2018-08-12 11:05 | PDOC2 ---
CONSULT Date of Consult Date of Consult DATE: 08/12/18 TIME: 10:53 Reason for Consult Reason for Consult: JIA on CKD History of Present Illness Reason for Visit: Patient is a 58 year old cf who presented to ED with shortness of breath. Her SOB started 2 days ago and has become worse over the past day. She attempted to take breathing treatments at home which did not improve her symptoms. She breath is worsened with exertion. Nothing seems to improve her shortness of breath She also reporting a nonproductive cough for the same time period. She denies any chest pain, lightheadedness, or dizziness. She has chronic hypoxic respiratory failure, on home oxygen at 3 liters on a 24- hour basis. Denies fever, chills,. No lower extremity edema. No headaches, no nausea, vomiting or diarrhea. Denies any urinary complaints Currently pt unable to give much history as sleepy , as per family at bedside she just recd xanax She is feeling much better . Denies NSAID use. 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 On Spironolactone , Torsemide and KCL at Home Past Medical History Cardiovascular: CAD, CHF, HTN, HI, Other Pulmonary: COPD, Pneumonia, Other CENTRAL NERVOUS SYSTEM: CVA, Periperal neuropathy GI: Hemorrhoids, Irritable bowel disease, Peptic Ulcer disease, Other Heme/Onc: Anemia NOS Psych: Anxiety, Depression Musculoskeletal: low back pain, Osteoarthritis Renal/: Chronic renal insuff, Other Endocrine: Diabetes, Hyperthyroidism, Hypothyroidism, Osteoporosis Past Surgical History Past Surgical History: Pacemaker, CABG, Tonsillectomy, Hysterectomy, Other Family History Family History: Cancer Social History 1 pack per day ALCOHOL: none Drugs: None Lives: with Family Current Problem List Problem List Problems Medical Problems: (1) Anemia Status: Acute (2) CHF exacerbation Status: Acute (3) COPD exacerbation Status: Acute (4) Hypoxia Status: Acute Current Medications Current Medications Current Medications Albuterol/ Ipratropium (Duoneb) 3 ml STK-MED ONCE .ROUTE ; Start 08/11/18 at 17: 50; Stop 08/11/18 at 17:51; Status DC Albuterol/ Ipratropium (Duoneb) 3 ml 1X ONCE NEB Last administered on at 18:00; Start 08/11/18 at 18:15; Stop 08/11/18 at 18:16; Status DC Dexamethasone Sodium Phosphate (Decadron) 10 mg 1X ONCE IV Last administered on 08/11/18 18:33; Start 08/11/18 at 18:15; Stop 08/11/18 at 18:16; Status DC Insulin Human Regular (HumuLIN R VIAL) 10 unit 1X ONCE IV Last administered on 08/11/18 19:17; Start 08/11/18 at 19:00; Stop 08/11/18 at 19:01; Status DC Dextrose (Dextrose 50%-Water Syringe) 25 gm 1X ONCE IV Last administered on 08/11/18at 19:14; Start 08/11/18 at 19:00; Stop 08/11/18 at 19:01; Status DC Albuterol Sulfate (Ventolin Neb Soln) 10 mg 1X ONCE CONT NEB Last administered on 08/11/18at 19:38; Start 08/11/18 at 19:00; Stop 08/11/18 at 19:01; Status DC Sodium Polystyrene Sulfonate (Kayexalate) 30 gm 1X ONCE PO Last administered on 08/11/18at 19:15; Start 08/11/18 at 19:00; Stop 08/11/18 at 19:01; Status DC Sodium Chloride 1,000 ml @ 1,000 mls/hr 1X ONCE IV ; Start 08/11/18 at 19:00; Stop 08/11/18 at 19:02; Status DC Ondansetron HCl (Zofran) 4 mg PRN Q8HRS PRN IV NAUSEA/VOMITING; Start 08/11/18 at 19:00; Stop 08/12/18 at 18:59 Albuterol/ Ipratropium (Duoneb) 3 ml RTQID NEB Last administered on 08/12/18at 07 :17; Start 08/11/18 at 20:00; Stop 08/12/18 at 10:43; Status DC Sodium Chloride 500 ml @ 500 mls/hr 1X ONCE IV Last administered on 08/11/18at 19:18; Start 08/11/18 at 19:00; Stop 08/11/18 at 19:59; Status DC Insulin Human Lispro (HumaLOG) 0-5 UNITS TIDWMEALS SQ ; Start 08/12/18 at 08:00 Dextrose (Dextrose 50%-Water Syringe) 12.5 gm PRN Q15MIN PRN IV SEE COMMENTS; Start 08/11/18 at 19:15 Fentanyl Citrate (Fentanyl 2ml Vial) 50 mcg 1X ONCE IV ; Start 08/11/18 at 19:15 ; Stop 08/11/18 at 19:16; Status DC Bumetanide (Bumex) 0.5 mg 1X ONCE IV Last administered on 08/11/18at 21:18; Start 08/11/18 at 19:45; Stop 08/11/18 at 19:52; Status DC Sodium Polystyrene Sulfonate (Kayexalate) 30 gm 1X ONCE PO Last administered on 08/12/18at 00:49; Start 08/12/18 at 00:30; Stop 08/12/18 at 00:31; Status DC Furosemide (Lasix) 20 mg 1X ONCE IVP Last administered on 08/12/18at 09:41; Start 08/12/18 at 09:00; Stop 08/12/18 at 09:03; Status DC Alprazolam (Xanax) 0.25 mg BID PO ; Start 08/12/18 at 11:00 Aspirin (Ecotrin) 81 mg DAILY PO ; Start 08/12/18 at 11:00 Carvedilol (Coreg) 3.125 mg BIDWMEALS PO ; Start 08/12/18 at 11:00 Cetirizine HCl (ZyrTEC) 10 mg DAILY PO ; Start 08/12/18 at 11:00 Diclofenac Sodium (Voltaren) 1 kiana QID TP ; Start 08/12/18 at 13:00 Fluticasone Propionate (Flonase) 2 spray DAILY NS ; Start 08/12/18 at 11:00 Gabapentin (Neurontin) 1,200 mg HS PO ; Start 08/12/18 at 21:00 Acetaminophen/ Hydrocodone Bitart (Lortab 7.5/325) 1 tab PRN Q6HRS PRN PO MODERATE PAIN; Start 08/12/18 at 10:30 Insulin Glargine (Lantus) 54 units DAILYWBKFT SQ ; Start 08/12/18 at 11:00 Albuterol/ Ipratropium (Duoneb) 3 ml RTQID NEB ; Start 08/12/18 at 12:00 Metoclopramide HCl (Reglan) 10 mg QIDACHS PO ; Start 08/12/18 at 13:00 Prednisone (Prednisone) 10 mg DAILY PO ; Start 08/13/18 at 09:00; Status UNV Non-Formulary Medication (Budesonide/ Formoterol Fumarate (Symbicort 160-4.5 Mcg Inhaler)) 2 puff BID IH ; Start 08/12/18 at 21:00; Status UNV Non-Formulary Medication (Insulin Aspart (Novolog Flexpen)) 15 units TIDBFRMEAL SQ ; Start 08/12/18 at 11:30; Status UNV Non-Formulary Medication (Levothyroxine Sodium (Synthroid)) 150 mcg DAILY07 PO ; Start 08/13/18 at 07:00; Status UNV Non-Formulary Medication (Magnesium Oxide (Mag-Oxide)) 400 mg TID PO ; Start 08/12/18 at 14:00; Status UNV Non-Formulary Medication (Metformin Hcl ) 1,000 mg BID PO ; Start 08/12/18 at 21: 00; Status UNV Non-Formulary Medication (Montelukast Sodium (Singulair Tablet)) 10 mg DAILY PO ; Start 08/13/18 at 09:00; Status UNV Non-Formulary Medication (Pantoprazole Sodium (Protonix)) 40 mg BID PO ; Start 08/12/18 at 21:00; Status UNV Non-Formulary Medication (Simvastatin (Zocor)) 80 mg DAILY PO ; Start 08/13/18 at 09:00; Status UNV Non-Formulary Medication (Torsemide ) 20 mg DAILY PO ; Start 08/13/18 at 09:00; Status UNV Warfarin Sodium (Coumadin Per Pharmacy) 1 each PRN DAILY PRN MC SEE COMMENTS; Start 08/12/18 at 10:30; Status UNV Insulin Human Lispro (HumaLOG) 0-7 UNITS TIDWMEALS SQ ; Start 08/12/18 at 12:00 Dextrose (Dextrose 50%-Water Syringe) 12.5 gm PRN Q15MIN PRN IV SEE COMMENTS; Start 08/12/18 at 10:30 Active Scripts Active Doxycycline Hyclate 100 Mg Tablet 100 Mg PO BID 3 Days Prednisone (Prednisone) 10 Mg Tablet 10 Mg PO UD take 3 tablets by mouth daily for 3 days, then take 2 tablets by mouth daily for 3 days, then take 1 tablets by mouth daily for 3 days, then stop. Novolog Flexpen (Insulin Aspart) 100 Unit/1 Ml Insuln.pen 15 Units SQ TIDBFRMEAL Hold insulin if blood sugar less than 100 Duoneb 0.5-3(2.5) Mg/3 Ml (Albuterol/Ipratropium) 3 Ml Ampul.neb 3 Ml NEB RTQID Proair Hfa Inhaler (Albuterol Sulfate) 8.5 Gm Hfa.aer.ad 1 Puff INH PRN Q6HRS PRN Symbicort 160-4.5 Mcg Inhaler (Budesonide/Formoterol Fumarate) 10.2 Gm Hfa.aer.ad 2 Puff IH BID Mag-Oxide (Magnesium Oxide) 400 Mg Tablet 400 Mg PO TID Fluticasone Propionate Nasal [place] (Fluticasone Propionate) 16 Gm [place].susp 2 [place] NS DAILY Tizanidine Hcl 4 Mg Tablet 4 Mg PO PRN QHS PRN Cetirizine Hcl 10 Mg Tablet 10 Mg PO DAILY Synthroid (Levothyroxine Sodium) 150 Mcg Tablet 150 Mcg PO DAILY07 Metformin Hcl 1,000 Mg Tablet 1,000 Mg PO BID Restart metformin 09/18 Voltaren (Diclofenac Sodium) 100 Gm Gel..gram. 4 Gm TP QID Klor-Con M20 (Potassium Chloride) 20 Meq Tab.er.prt 20 Meq PO DAILYWBKFT Reported Coumadin (Warfarin Sodium) 5 Mg Tablet 1 Tab PO SUMOWETHSA Coumadin (Warfarin Sodium) 2.5 Mg Tablet 1 Tab PO TUFR Hydrocodone-Apap 7.5-325 (Hydrocodone Bit/Acetaminophen) 1 Each Tablet 1 Tab PO PRN Q6HRS PRN Gabapentin (Gabapentin) 300 Mg Capsule 1,200 Mg PO HS Alprazolam 0.25 Mg Tablet 1 Tab PO BID Carvedilol (Carvedilol) 3.125 Mg Tablet 1 Tab PO BID Spironolactone 25 Mg Tablet 25 Mg PO DAILY Torsemide 20 Mg Tablet 20 Mg PO DAILY Zocor (Simvastatin) 80 Mg Tablet 80 Mg PO DAILY Lantus Solostar (Insulin Glargine,Hum.rec.anlog) 100 Unit/1 Ml Insuln.pen 54 Unit SQ DAILYWBKFT Reglan (Metoclopramide Hcl) 10 Mg Tablet 10 Mg PO QID Protonix (Pantoprazole Sodium) 40 Mg Granpkt. 40 Mg PO BID Singulair Tablet (Montelukast Sodium) 10 Mg Tablet 10 Mg PO DAILY Aspir 81 (Aspirin) 81 Mg Tablet. 81 Mg PO DAILY Allergies Allergies: Coded Allergies: Penicillins (Verified Allergy, Intermediate, Hives, 10/22/17) Tolerated rocephin during prior admit codeine (Verified Adverse Reaction, Mild, Nausea and Vomiting, 10/22/17) diphenhydramine HCl (Verified Adverse Reaction, Mild, hyperactive, 10/22/17 ) ROS Review of System As per HPI Physical Exam Physical Exam GEN: NAD HEENT-OM NECK: Supple CVS: S1S2 RESP:CTa, No Acc. Muscle Use GI: BS + ve, NO Bruit, Non Tender : No CVA tenderness, No Suprapubic Tenderness, NO Arias SKIN- No rash NEURO- AXOX 3 Vital Signs Vital Signs Date Time Temp Pulse Resp B/P (MAP) Pulse Ox O2 Delivery O2 Flow Rate FiO2 08/12/18 07:17 90 Nasal Cannula 5.0 08/12/18 07:00 98.8 97 24 116/64 (81) 98.8 Assessment & Plan JIA- Suspect Pre-renal etiology On Diuretics at Home Improving renal function Monitor, get renal US Hyperkalemia- Due to JIA On PO KCL and Aldactone at Home as well Resolved , Holding KCL and Aldactone CKD stage 3- baseline Cr 1.4-1.6 since 2017 [id number]-[id number] hypercapnic and hypoxic respiratory failure - On Home O2 Anemia -Chronic Slow decrease in Hgb, rivas as per primary Tobaccoism on home oxygen at 3 liters DW Family at bedside and RN Labs Labs Laboratory Tests Test 08/11/18 17:55 08/11/18 18:15 08/11/18 19:04 08/11/18 22:20 White Blood Count 11.8 x10^3/uL (4.0-11.0) Red Blood Count 3.47 x10^6/uL (3.50-5.40) Hemoglobin 7.7 g/dL (12.0-15.5) Hematocrit 25.9 % (36.0-47.0) Mean Corpuscular Volume 75 fL (79-100) Mean Corpuscular Hemoglobin 22 pg (25-35) Mean Corpuscular Hemoglobin Concent 30 g/dL (31-37) Red Cell Distribution Width 21.1 % (11.5-14.5) Platelet Count 445 x10^3/uL (140-400) Neutrophils (%) (Auto) 74 % (31-73) Lymphocytes (%) (Auto) 14 % (24-48) Monocytes (%) (Auto) 9 % (0-9) Eosinophils (%) (Auto) 2 % (0-3) Basophils (%) (Auto) 1 % (0-3) Neutrophils # (Auto) 8.7 x10^3uL (1.8-7.7) Lymphocytes # (Auto) 1.6 x10^3/uL (1.0-4.8) Monocytes # (Auto) 1.1 x10^3/uL (0.0-1.1) Eosinophils # (Auto) 0.2 x10^3/uL (0.0-0.7) Basophils # (Auto) 0.1 x10^3/uL (0.0-0.2) Platelet Estimate Increased (ADEQUATE) Large Platelets Occ Giant Platelets Occ Polychromasia Slight Hypochromasia Mod Basophilic Stippling Present Anisocytosis Mod Microcytosis Slight Target Cells Occ Stomatocytes Few Sodium Level 134 mmol/L (136-145) 137 mmol/L (136-145) Potassium Level 6.7 mmol/L (3.5-5.1) 5.9 mmol/L (3.5-5.1) Chloride Level 99 mmol/L (98-107) 101 mmol/L (98-107) Carbon Dioxide Level 26 mmol/L (21-32) 24 mmol/L (21-32) Anion Gap 9 (6-14) 12 (6-14) Blood Urea Nitrogen 43 mg/dL (7-20) 41 mg/dL (7-20) Creatinine 2.2 mg/dL (0.6-1.0) 2.0 mg/dL (0.6-1.0) Estimated GFR (Cockcroft-Gault) 22.8 25.5 BUN/Creatinine Ratio 20 (6-20) Glucose Level 107 mg/dL (70-99) 111 mg/dL (70-99) Calcium Level 8.1 mg/dL (8.5-10.1) 7.8 mg/dL (8.5-10.1) Magnesium Level 3.0 mg/dL (1.8-2.4) Total Bilirubin 0.3 mg/dL (0.2-1.0) Aspartate Amino Transf (AST/SGOT) 99 U/L (15-37) Alanine Aminotransferase (ALT/SGPT) 38 U/L (14-59) Alkaline Phosphatase 141 U/L (46-116) Creatine Kinase 2762 U/L (26-192) Creatine Kinase MB (Mass) 14.1 ng/mL (0.0-3.6) Creatine Kinase MB Relative Index 0.5 % (0-4) Troponin I Quantitative < 0.017 ng/mL (0.000-0.055) < 0.017 ng/mL (0.000-0.055) PN-Jgz-X-Type Natriuretic Peptide 97601 pg/mL (0-124) Total Protein 8.1 g/dL (6.4-8.2) Albumin 3.1 g/dL (3.4-5.0) Albumin/Globulin Ratio 0.6 (1.0-1.7) Influenza Type A Antigen Negative (NEGATIVE) Influenza Type B Antigen Negative (NEGATIVE) O2 Saturation 89 % (92-99) Arterial Blood pH 7.29 (7.35-7.45) Arterial Blood pCO2 at Patient Temp 51 mmHg (35-46) Arterial Blood pO2 at Patient Temp 63 mmHg (65-108) Arterial Blood HCO3 24 mmol/L (21-28) Arterial Blood Base Excess -3 mmol/L (-3-3) Oxyhemoglobin 85.1 % Methemoglobin 0.4 % (0.0-1.9) Carbon Monoxide, Quantitative 4.1 % (0.0-1.9) FiO2 40 Test 08/12/18 04:00 08/12/18 07:53 08/12/18 09:15 White Blood Count 9.1 x10^3/uL (4.0-11.0) Red Blood Count 3.29 x10^6/uL (3.50-5.40) Hemoglobin 7.5 g/dL (12.0-15.5) Hematocrit 24.8 % (36.0-47.0) Mean Corpuscular Volume 76 fL (79-100) Mean Corpuscular Hemoglobin 23 pg (25-35) Mean Corpuscular Hemoglobin Concent 30 g/dL (31-37) Red Cell Distribution Width 21.4 % (11.5-14.5) Platelet Count 440 x10^3/uL (140-400) Neutrophils (%) (Auto) 88 % (31-73) Lymphocytes (%) (Auto) 9 % (24-48) Monocytes (%) (Auto) 3 % (0-9) Eosinophils (%) (Auto) 0 % (0-3) Basophils (%) (Auto) 0 % (0-3) Neutrophils # (Auto) 8.0 x10^3uL (1.8-7.7) Lymphocytes # (Auto) 0.8 x10^3/uL (1.0-4.8) Monocytes # (Auto) 0.2 x10^3/uL (0.0-1.1) Eosinophils # (Auto) 0.0 x10^3/uL (0.0-0.7) Basophils # (Auto) 0.0 x10^3/uL (0.0-0.2) Segmented Neutrophils % 94 % (35-66) Lymphocytes % 4 % (24-48) Monocytes % 2 % (0-10) Nucleated Red Blood Cells 1 Platelet Estimate Increased (ADEQUATE) Hypochromasia Mod Anisocytosis Mod Sodium Level 141 mmol/L (136-145) Potassium Level 4.7 mmol/L (3.5-5.1) Chloride Level 101 mmol/L (98-107) Carbon Dioxide Level 26 mmol/L (21-32) Anion Gap 14 (6-14) Blood Urea Nitrogen 40 mg/dL (7-20) Creatinine 1.9 mg/dL (0.6-1.0) Estimated GFR (Cockcroft-Gault) 27.1 Glucose Level 161 mg/dL (70-99) Calcium Level 7.8 mg/dL (8.5-10.1) Troponin I Quantitative < 0.017 ng/mL (0.000-0.055) Glucose (Fingerstick) 140 mg/dL (70-99) O2 Saturation 89 % (92-99) Arterial Blood pH 7.43 (7.35-7.45) Arterial Blood pCO2 at Patient Temp 42 mmHg (35-46) Arterial Blood pO2 at Patient Temp 59 mmHg (65-108) Arterial Blood HCO3 27 mmol/L (21-28) Arterial Blood Base Excess 3 mmol/L (-3-3) FiO2 34%nc Laboratory Tests Test 08/11/18 17:55 08/11/18 18:15 08/11/18 19:04 08/11/18 22:20 White Blood Count 11.8 x10^3/uL (4.0-11.0) Red Blood Count 3.47 x10^6/uL (3.50-5.40) Hemoglobin 7.7 g/dL (12.0-15.5) Hematocrit 25.9 % (36.0-47.0) Mean Corpuscular Volume 75 fL (79-100) Mean Corpuscular Hemoglobin 22 pg (25-35) Mean Corpuscular Hemoglobin Concent 30 g/dL (31-37) Red Cell Distribution Width 21.1 % (11.5-14.5) Platelet Count 445 x10^3/uL (140-400) Neutrophils (%) (Auto) 74 % (31-73) Lymphocytes (%) (Auto) 14 % (24-48) Monocytes (%) (Auto) 9 % (0-9) Eosinophils (%) (Auto) 2 % (0-3) Basophils (%) (Auto) 1 % (0-3) Neutrophils # (Auto) 8.7 x10^3uL (1.8-7.7) Lymphocytes # (Auto) 1.6 x10^3/uL (1.0-4.8) Monocytes # (Auto) 1.1 x10^3/uL (0.0-1.1) Eosinophils # (Auto) 0.2 x10^3/uL (0.0-0.7) Basophils # (Auto) 0.1 x10^3/uL (0.0-0.2) Platelet Estimate Increased (ADEQUATE) Large Platelets Occ Giant Platelets Occ Polychromasia Slight Hypochromasia Mod Basophilic Stippling Present Anisocytosis Mod Microcytosis Slight Target Cells Occ Stomatocytes Few Sodium Level 134 mmol/L (136-145) 137 mmol/L (136-145) Potassium Level 6.7 mmol/L (3.5-5.1) 5.9 mmol/L (3.5-5.1) Chloride Level 99 mmol/L (98-107) 101 mmol/L (98-107) Carbon Dioxide Level 26 mmol/L (21-32) 24 mmol/L (21-32) Anion Gap 9 (6-14) 12 (6-14) Blood Urea Nitrogen 43 mg/dL (7-20) 41 mg/dL (7-20) Creatinine 2.2 mg/dL (0.6-1.0) 2.0 mg/dL (0.6-1.0) Estimated GFR (Cockcroft-Gault) 22.8 25.5 BUN/Creatinine Ratio 20 (6-20) Glucose Level 107 mg/dL (70-99) 111 mg/dL (70-99) Calcium Level 8.1 mg/dL (8.5-10.1) 7.8 mg/dL (8.5-10.1) Magnesium Level 3.0 mg/dL (1.8-2.4) Total Bilirubin 0.3 mg/dL (0.2-1.0) Aspartate Amino Transf (AST/SGOT) 99 U/L (15-37) Alanine Aminotransferase (ALT/SGPT) 38 U/L (14-59) Alkaline Phosphatase 141 U/L (46-116) Creatine Kinase 2762 U/L (26-192) Creatine Kinase MB (Mass) 14.1 ng/mL (0.0-3.6) Creatine Kinase MB Relative Index 0.5 % (0-4) Troponin I Quantitative < 0.017 ng/mL (0.000-0.055) < 0.017 ng/mL (0.000-0.055) MN-Efu-N-Type Natriuretic Peptide 03382 pg/mL (0-124) Total Protein 8.1 g/dL (6.4-8.2) Albumin 3.1 g/dL (3.4-5.0) Albumin/Globulin Ratio 0.6 (1.0-1.7) Influenza Type A Antigen Negative (NEGATIVE) Influenza Type B Antigen Negative (NEGATIVE) O2 Saturation 89 % (92-99) Arterial Blood pH 7.29 (7.35-7.45) Arterial Blood pCO2 at Patient Temp 51 mmHg (35-46) Arterial Blood pO2 at Patient Temp 63 mmHg (65-108) Arterial Blood HCO3 24 mmol/L (21-28) Arterial Blood Base Excess -3 mmol/L (-3-3) Oxyhemoglobin 85.1 % Methemoglobin 0.4 % (0.0-1.9) Carbon Monoxide, Quantitative 4.1 % (0.0-1.9) FiO2 40 Test 08/12/18 04:00 08/12/18 07:53 08/12/18 09:15 White Blood Count 9.1 x10^3/uL (4.0-11.0) Red Blood Count 3.29 x10^6/uL (3.50-5.40) Hemoglobin 7.5 g/dL (12.0-15.5) Hematocrit 24.8 % (36.0-47.0) Mean Corpuscular Volume 76 fL (79-100) Mean Corpuscular Hemoglobin 23 pg (25-35) Mean Corpuscular Hemoglobin Concent 30 g/dL (31-37) Red Cell Distribution Width 21.4 % (11.5-14.5) Platelet Count 440 x10^3/uL (140-400) Neutrophils (%) (Auto) 88 % (31-73) Lymphocytes (%) (Auto) 9 % (24-48) Monocytes (%) (Auto) 3 % (0-9) Eosinophils (%) (Auto) 0 % (0-3) Basophils (%) (Auto) 0 % (0-3) Neutrophils # (Auto) 8.0 x10^3uL (1.8-7.7) Lymphocytes # (Auto) 0.8 x10^3/uL (1.0-4.8) Monocytes # (Auto) 0.2 x10^3/uL (0.0-1.1) Eosinophils # (Auto) 0.0 x10^3/uL (0.0-0.7) Basophils # (Auto) 0.0 x10^3/uL (0.0-0.2) Segmented Neutrophils % 94 % (35-66) Lymphocytes % 4 % (24-48) Monocytes % 2 % (0-10) Nucleated Red Blood Cells 1 Platelet Estimate Increased (ADEQUATE) Hypochromasia Mod Anisocytosis Mod Sodium Level 141 mmol/L (136-145) Potassium Level 4.7 mmol/L (3.5-5.1) Chloride Level 101 mmol/L (98-107) Carbon Dioxide Level 26 mmol/L (21-32) Anion Gap 14 (6-14) Blood Urea Nitrogen 40 mg/dL (7-20) Creatinine 1.9 mg/dL (0.6-1.0) Estimated GFR (Cockcroft-Gault) 27.1 Glucose Level 161 mg/dL (70-99) Calcium Level 7.8 mg/dL (8.5-10.1) Troponin I Quantitative < 0.017 ng/mL (0.000-0.055) Glucose (Fingerstick) 140 mg/dL (70-99) O2 Saturation 89 % (92-99) Arterial Blood pH 7.43 (7.35-7.45) Arterial Blood pCO2 at Patient Temp 42 mmHg (35-46) Arterial Blood pO2 at Patient Temp 59 mmHg (65-108) Arterial Blood HCO3 27 mmol/L (21-28) Arterial Blood Base Excess 3 mmol/L (-3-3) FiO2 34%nc Review All relevant outside records, renal labs, imaging studies, telemetry/EKG's were reviewed. Images Images CxR-- Stable position of cardiac pacer. Heart is mildly enlarged in size. Diffuse bilateral interstitial opacities are seen. No pneumothorax or effusion. Visualized bony thorax is within normal limits. IMPRESSION: Findings of interstitial pulmonary edema. REJI DIGGS MD Aug 12, 2018 11:05
[2018-08-12] MEDS: ASPIRIN ENTERIC COATED 81 MG TABLET.DR. PO SCH (11:31)
[2018-08-12] MEDS: CETIRIZINE HCL 10 MG TABLET. PO SCH (11:31)
[2018-08-12] MEDS: predniSONE 10 MG TABLET PO SCH (11:31)
[2018-08-12] MEDS: HYDROcodone/APAP 7.5/325MG 1 TAB TABLET PO PRN (11:31)
[2018-08-12] MEDS: CARVEDILOL 3.125 MG TABLET. PO SCH ×2 (11:31→16:45)
[2018-08-12] MEDS: ALPRAZolam 0.25 MG TABLET PO SCH ×2 (11:31→21:03)
[2018-08-12] MEDS: TORSEMIDE 20 MG TABLET. PO SCH (11:32)
[2018-08-12] MEDS: BUDESONIDE 0.5 MG/2 ML NEBU. NEB SCH ×2 (11:40→20:27)
--- NOTE | 2018-08-12 11:41 | HP ---
ADMIT DATE: 08/11/2018 PATIENT LOCATION: 209. REASON FOR ADMISSION TO THE HOSPITAL: 1. Shortness of breath. 2. Hyperkalemia. 3. Congestive heart failure. HISTORY OF PRESENT ILLNESS: The patient is a 58-year-old female, patient of Dr. Sultana Gregorio. She was discharged from the hospital in May. At that time, the patient had COPD with exacerbation, ejection fraction 35%; history of DVT, on Coumadin and diabetes. The patient states she was doing relatively well. Yesterday, she was not focusing and confused, was brought to the hospital and the patient was found to have a potassium of 6.8 and creatinine 2 and the patient was given Kayexalate, IV Lasix and Bumex and insulin and was admitted to the hospital. Potassium came down to 5.9 last night after the Kayexalate and above measures. The patient was admitted to the hospital. The last time the patient had echo in May, which is 40% to 45% and creatinine of 1.4. PAST MEDICAL HISTORY: COPD; congestive heart failure; coronary artery disease, the patient has AICD; ND; diabetes; thrombosis of the arteries, diverticulosis, anxiety, reflux, peptic ulcer disease, chronic kidney disease and hypothyroidism. PAST SURGICAL HISTORY: Cardiothoracic surgery; left upper extremity thrombectomy; cardiac stents, at least 9; appendectomy; gallbladder surgery; heart bypass surgery in 2006; tonsillectomy; hysterectomy, bypass to the upper extremity and thyroidectomy. FAMILY HISTORY: Positive for cancer, diabetes and hypertension. SOCIAL HISTORY: Continues to smoke, smoked for at least 30 years. Denies alcohol or street drugs. ALLERGIES: PENICILLIN, CODEINE AND BENADRYL. MEDICATIONS AT HOME: The patient is on Coumadin 2.5 mg daily, albuterol inhaler, potassium 20 mEq daily, spironolactone 25 daily, tizanidine 4 mg daily, Xanax 0.25 twice a day, aspirin 81 mg daily, Symbicort twice a day, Coreg 3.125 twice a day, Flonase daily, gabapentin 300 mg at bedtime, hydrocodone for pain, insulin 15 units 3 times daily and Lantus, I think, 54 at bedtime, DuoNebs 4 times daily, levothyroxine 150 mcg daily, magnesium 400 mg daily, metformin 1000 mg twice a day, Reglan 10 mg twice a day, Singulair 10 mg daily, Protonix 40 mg daily, prednisone 10 mg daily, simvastatin 80 mg daily and torsemide 20 mg daily. REVIEW OF SYSTEMS: CARDIAC [place]: Has some shortness of breath. No chest pain. GASTROINTESTINAL: No nausea or vomiting. NEUROLOGIC: The patient's family says she is not focusing and rest of the 14-system was reviewed and negative. PHYSICAL EXAMINATION: GENERAL: On examination, the patient is pleasant, not in any distress. VITAL SIGNS: At the time of admission shows temperature 98, pulse 71, respirations 20, blood pressure 119/59 and 94% on 4 liters nasal cannula. HEENT: Head is atraumatic. Pupils equal. Oral cavity, no congestion. NECK: Supple. Thyroid not enlarged. JVD not elevated. CHEST: Symmetrical, scar of heart surgery. CARDIOVASCULAR: S1, S2. LUNGS: Bilateral rales with wheezing. ABDOMEN: Soft. No mass palpable. EXTERNAL GENITALIA: No Arias. RECTAL: Deferred. EXTREMITIES: Trace edema. No calf tenderness. NEUROLOGIC: Cranial nerves intact. Moving upper and lower extremities. No focal deficits noted. LABORATORY DATA: Shows a white count of 12, hemoglobin 7.7 and platelets 445,000. Electrolytes show sodium 134, potassium 6.1, chloride 99, bicarbonate 26, BUN 43 and creatinine 2.2. CPK 2762. BNP 12,000. Troponin is negative 0.17. Blood gas shows pH of 7.29, pCO2 of 51 and pO2 of 63.89 on 40% O2. Carbon monoxide was high at 4.1. Chest x-ray shows CHF. FINAL IMPRESSION: 1. Hyperkalemia. 2. Congestive heart failure, mkhzv-ic-vnwfsps systolic heart failure. 3. Coronary artery disease history, status post bypass surgery and cardiac stents. 4. Chronic kidney disease. 5. Diabetes. 6. Hypertension. 7. Hyperlipidemia. 8. Hypothyroidism. 9. Ndzru-az-grgrzor hypoxic respiratory failure. PLAN: At this time, admit to hospital. The patient was put on BiPAP that improved condition and was given insulin and Bumex IV and Kayexalate to bring the potassium down and will have Renal consult. Discontinue potassium and spironolactone. Monitor kidney function. Cardiology is consulted. Monitor cardiac function and the patient is on Coumadin. Monitor INR and see how the patient's condition improves in the next 24-48 hours. MAYELIN ORTEGA MD DR: MARSHAL/natanael JOB#: [id number] / [id number] SULTANA Lozada MD
[2018-08-12 12:57] LABS: PROTHROMBIN TIME PATIENT 27.2 SEC (11.7-14.0)
[2018-08-12] MEDS: METOCLOPRAMIDE 10 MG TABLET. PO SCH ×3 (13:25→21:03)
[2018-08-12] MEDS: MAGNESIUM OXIDE 400 MG TABLET PO SCH ×2 (13:25→21:03)
[2018-08-12] MEDS: FLUTICASONE 50MCG/NASAL SPRAY 16GM BOTTLE. NS SCH (13:26)
[2018-08-12] MEDS: DICLOFENAC SODIUM 1% TOPICAL GEL 100GM TUBE. TP SCH ×3 (13:27→21:00)
[2018-08-12] MEDS: INSULIN GLARGINE 300 UNITS/3 ML INSULN.PEN. SQ SCH (13:32)
--- NOTE | 2018-08-12 13:54 | NUR ---
Pharmacy Warfarin Dosing Note S: Pharmacy consulted to assist with anticoagulation therapy started O: ISATU LOUISE S is a 58 year old F with CAD, CHF, HX:DVT LABS: Last INR: 2.5 Last HGB: 7.5 Last HCT: 24.8 Last PLT: 440 Last dose SEE [employer] Vitamin K given: NO A:INR of 2.5 is within desired range. Target range for this patient is: 2 -3 P: Warfarin dose: 2.5 mg Today at 1600 Bridge Therapy: None Next INR due 4/6 AM Pharmacy anticoagulation service will continue to follow. REYMUNDO GUPTA [facility], 08/12/18 [id number]
--- NOTE | 2018-08-12 14:05 | NUR ---
SS following for discharge planning. SS reviewed pt chart. Pt is from home with family and is currently requiring oxygen. No discharge needs noted at this time. SS will continue to follow for discharge planning.
--- NOTE | 2018-08-12 14:13 | CARD ---
MR#: [id number] Date of Study: 08/12/2018 Ordering Physician: DOREEN ACOSTA, Referring Physician: SULTANA MONTGOMERY, Tech: Yvrose Venegas APPROVED REPORT EXAM: Two-dimensional and M-mode echocardiogram with Doppler and color Doppler. Other Information Quality : FairHR: [id number] Technically limited study due to body habitus. INDICATION COPD Cardiomyopathy Systolic Congestive Heart Failure Surgery/Intervention Pacemaker: Date: 2007 RISK FACTORS Hypertension Hyperlipidemia Diabetes Smoking 2D DIMENSIONS RVDd2.5 (2.9-3.5cm)Left Atrium(2D)4.2 (1.6-4.0cm) IVSd1.0 (0.7-1.1cm)Aortic Root(2D)2.6 (2.0-3.7cm) LVDd6.3 (3.9-5.9cm)LVOT Diameter2.1 (1.8-2.4cm) PWd1.1 (0.7-1.1cm)LVDs3.3 (2.5-4.0cm) FS (%) 47.7 %SV158.6 ml LVEF(%)78.2 (>50%) LEFT VENTRICLE The Left Ventricle is moderately dilated. There is borderline concentric left ventricular hypertrophy . The left ventricular systolic function is mildly decreased. EF 40-45% The mid to distal septum, ape x and distal inferior wall is moderate to severely hypokinetic. RIGHT VENTRICLE The right ventricle is normal size. The right ventricle is mildly hypertrophied. The right ventricula r systolic function is normal. There is a pacemaker lead in the right ventricle. ATRIA The left atrium size is normal. There is a pacemaker lead seen in the right atrium. The interatrial s eptum is intact with no evidence for an atrial septal defect or patent foramen ovale as noted on 2-D or Doppler imaging. AORTIC VALVE The aortic valve is not well visualized. There is no significant aortic valvular stenosis. TRICUSPID VALVE The tricuspid valve is not well visualized. GREAT VESSELS The aortic root is normal in size. The IVC is dilated and collapses <50% with inspiration. PERICARDIAL EFFUSION There is no evidence of significant pericardial effusion. Critical Notification Critical Value: No <Conclusion> The mid to distal septum, apex and distal inferior wall is moderate to severely hypokinetic. The left ventricular systolic function is mildly decreased. EF 40-45%. Limited study only. Signed by : Danyel Rosenthal, Electronically Approved : 08/12/2018 14:13:34
[2018-08-12 15:00] VITALS: BP 117/60
[2018-08-12] MEDS: LEVOTHYROXINE 150 MCG TABLET PO SCH (15:42)
--- NOTE | 2018-08-12 15:51 | RAD ---
Renal ultrasound, 08/12/2018: HISTORY: Renal infection, chronic renal disease The right kidney measures 9.5 cm in length while the left kidney measures 9.8 cm. There is moderate bilateral renal cortical scarring. There is no evidence of hydronephrosis or a renal mass. No abnormal perinephric process is seen. Limited views of urinary bladder are unremarkable. IMPRESSION: 1. Moderate bilateral renal cortical scarring. 2. No evidence of renal obstruction. Electronically signed by: Bari Tate MD (08/12/2018 3:49 PM) [facility]
[2018-08-12] MEDS ORDERED: WARFARIN 2.5 MG TABLET. PO SCH (16:00)
[2018-08-12] MEDS: metFORMIN 500 MG TABLET PO SCH (16:45)
[2018-08-12 19:29] VITALS: BP 108/45
[2018-08-12] MEDS ORDERED: GABAPENTIN 300 MG CAPSULE. PO SCH (21:00)
[2018-08-12] MEDS ORDERED: NON FORMULARY ITEM (Budesonide/Formoterol Fumarate (Symbicort 160-4.5 Mcg Inhaler) 2 PUFF) IH SCH (21:00)
[2018-08-12] MEDS ORDERED: MONTELUKAST SODIUM 10 MG TABLET. PO SCH (21:00)
[2018-08-12] MEDS ORDERED: SIMVASTATIN 40 MG TABLET. PO SCH (21:00)
[2018-08-12 23:12] VITALS: BP 114/59
[2018-08-13 03:21] VITALS: BP 100/61
[2018-08-13 04:01] LABS: BASO # 0.1 x10^3/uL (0.0-0.2); BASO % 1 % (0-3); EOS % 0 % (0-3); HEMATOCRIT 25.2 % (36.0-47.0); HEMOGLOBIN 7.6 g/dL (12.0-15.5); LYMPH # 2.2 x10^3/uL (1.0-4.8); LYMPH % 21 % (24-48); MEAN CORPUSCULAR HEMOGLOBIN 23 pg (25-35); MEAN CORPUSCULAR HGB CONC 30 g/dL (31-37); MEAN CORPUSCULAR VOLUME 74 fL (79-100); MONO # 1.1 x10^3/uL (0.0-1.1); MONO % 11 % (0-9); NEUT # 7.3 x10^3uL (1.8-7.7); NEUT % 68 % (31-73); PLATELET COUNT 411 x10^3/uL (140-400); WHITE BLOOD COUNT 10.7 x10^3/uL (4.0-11.0)
[2018-08-13 04:14] LABS: CALCIUM 7.5 mg/dL (8.5-10.1); CREATININE 1.3 mg/dL (0.6-1.0); GFR 41.9; POTASSIUM 3.5 mmol/L (3.5-5.1)
[2018-08-13] MEDS: LEVOTHYROXINE 150 MCG TABLET PO SCH (05:49)
--- NOTE | 2018-08-13 07:05 | PDOC ---
PULMONARY PROGRESS NOTES Subjective sob cough, better, no pain, on home 02, 3 lpm Vitals Vital Signs Date Time Temp Pulse Resp B/P (MAP) Pulse Ox O2 Delivery O2 Flow Rate FiO2 08/13/18 03:21 97.7 75 21 100/61 (74) 98 Nasal Cannula 4.0 97.7 ROS: No Nausea General: Alert HEENT: Other (nc at perrl) Lungs: Wheezing Cardiovascular: S1, S2 Abdomen: Soft, Non-tender Neuro Exam: Alert Extremities: No Edema Skin: Warm Labs Laboratory Tests Test 08/11/18 17:55 08/11/18 18:15 08/11/18 19:04 08/11/18 22:20 White Blood Count 11.8 x10^3/uL (4.0-11.0) Red Blood Count 3.47 x10^6/uL (3.50-5.40) Hemoglobin 7.7 g/dL (12.0-15.5) Hematocrit 25.9 % (36.0-47.0) Mean Corpuscular Volume 75 fL (79-100) Mean Corpuscular Hemoglobin 22 pg (25-35) Mean Corpuscular Hemoglobin Concent 30 g/dL (31-37) Red Cell Distribution Width 21.1 % (11.5-14.5) Platelet Count 445 x10^3/uL (140-400) Neutrophils (%) (Auto) 74 % (31-73) Lymphocytes (%) (Auto) 14 % (24-48) Monocytes (%) (Auto) 9 % (0-9) Eosinophils (%) (Auto) 2 % (0-3) Basophils (%) (Auto) 1 % (0-3) Neutrophils # (Auto) 8.7 x10^3uL (1.8-7.7) Lymphocytes # (Auto) 1.6 x10^3/uL (1.0-4.8) Monocytes # (Auto) 1.1 x10^3/uL (0.0-1.1) Eosinophils # (Auto) 0.2 x10^3/uL (0.0-0.7) Basophils # (Auto) 0.1 x10^3/uL (0.0-0.2) Platelet Estimate Increased (ADEQUATE) Large Platelets Occ Giant Platelets Occ Polychromasia Slight Hypochromasia Mod Basophilic Stippling Present Anisocytosis Mod Microcytosis Slight Target Cells Occ Stomatocytes Few Sodium Level 134 mmol/L (136-145) 137 mmol/L (136-145) Potassium Level 6.7 mmol/L (3.5-5.1) 5.9 mmol/L (3.5-5.1) Chloride Level 99 mmol/L (98-107) 101 mmol/L (98-107) Carbon Dioxide Level 26 mmol/L (21-32) 24 mmol/L (21-32) Anion Gap 9 (6-14) 12 (6-14) Blood Urea Nitrogen 43 mg/dL (7-20) 41 mg/dL (7-20) Creatinine 2.2 mg/dL (0.6-1.0) 2.0 mg/dL (0.6-1.0) Estimated GFR (Cockcroft-Gault) 22.8 25.5 BUN/Creatinine Ratio 20 (6-20) Glucose Level 107 mg/dL (70-99) 111 mg/dL (70-99) Calcium Level 8.1 mg/dL (8.5-10.1) 7.8 mg/dL (8.5-10.1) Magnesium Level 3.0 mg/dL (1.8-2.4) Total Bilirubin 0.3 mg/dL (0.2-1.0) Aspartate Amino Transf (AST/SGOT) 99 U/L (15-37) Alanine Aminotransferase (ALT/SGPT) 38 U/L (14-59) Alkaline Phosphatase 141 U/L (46-116) Creatine Kinase 2762 U/L (26-192) Creatine Kinase MB (Mass) 14.1 ng/mL (0.0-3.6) Creatine Kinase MB Relative Index 0.5 % (0-4) Troponin I Quantitative < 0.017 ng/mL (0.000-0.055) < 0.017 ng/mL (0.000-0.055) NM-Fgn-B-Type Natriuretic Peptide 52485 pg/mL (0-124) Total Protein 8.1 g/dL (6.4-8.2) Albumin 3.1 g/dL (3.4-5.0) Albumin/Globulin Ratio 0.6 (1.0-1.7) Influenza Type A Antigen Negative (NEGATIVE) Influenza Type B Antigen Negative (NEGATIVE) O2 Saturation 89 % (92-99) Arterial Blood pH 7.29 (7.35-7.45) Arterial Blood pCO2 at Patient Temp 51 mmHg (35-46) Arterial Blood pO2 at Patient Temp 63 mmHg (65-108) Arterial Blood HCO3 24 mmol/L (21-28) Arterial Blood Base Excess -3 mmol/L (-3-3) Oxyhemoglobin 85.1 % Methemoglobin 0.4 % (0.0-1.9) Carbon Monoxide, Quantitative 4.1 % (0.0-1.9) FiO2 40 Test 08/12/18 04:00 08/12/18 07:53 08/12/18 09:15 08/12/18 11:51 White Blood Count 9.1 x10^3/uL (4.0-11.0) Red Blood Count 3.29 x10^6/uL (3.50-5.40) Hemoglobin 7.5 g/dL (12.0-15.5) Hematocrit 24.8 % (36.0-47.0) Mean Corpuscular Volume 76 fL (79-100) Mean Corpuscular Hemoglobin 23 pg (25-35) Mean Corpuscular Hemoglobin Concent 30 g/dL (31-37) Red Cell Distribution Width 21.4 % (11.5-14.5) Platelet Count 440 x10^3/uL (140-400) Neutrophils (%) (Auto) 88 % (31-73) Lymphocytes (%) (Auto) 9 % (24-48) Monocytes (%) (Auto) 3 % (0-9) Eosinophils (%) (Auto) 0 % (0-3) Basophils (%) (Auto) 0 % (0-3) Neutrophils # (Auto) 8.0 x10^3uL (1.8-7.7) Lymphocytes # (Auto) 0.8 x10^3/uL (1.0-4.8) Monocytes # (Auto) 0.2 x10^3/uL (0.0-1.1) Eosinophils # (Auto) 0.0 x10^3/uL (0.0-0.7) Basophils # (Auto) 0.0 x10^3/uL (0.0-0.2) Segmented Neutrophils % 94 % (35-66) Lymphocytes % 4 % (24-48) Monocytes % 2 % (0-10) Nucleated Red Blood Cells 1 Platelet Estimate Increased (ADEQUATE) Hypochromasia Mod Anisocytosis Mod Sodium Level 141 mmol/L (136-145) Potassium Level 4.7 mmol/L (3.5-5.1) Chloride Level 101 mmol/L (98-107) Carbon Dioxide Level 26 mmol/L (21-32) Anion Gap 14 (6-14) Blood Urea Nitrogen 40 mg/dL (7-20) Creatinine 1.9 mg/dL (0.6-1.0) Estimated GFR (Cockcroft-Gault) 27.1 Glucose Level 161 mg/dL (70-99) Calcium Level 7.8 mg/dL (8.5-10.1) Troponin I Quantitative < 0.017 ng/mL (0.000-0.055) Triglycerides Level 111 mg/dL (0-150) Cholesterol Level 109 mg/dL (0-200) LDL Cholesterol, Calculated 49 mg/dL (0-100) VLDL Cholesterol, Calculated 22 mg/dL (0-40) Non-HDL Cholesterol Calculated 71 mg/dL (0-129) HDL Cholesterol 38 mg/dL (40-60) Cholesterol/HDL Ratio 2.9 Thyroid Stimulating Hormone (TSH) 0.021 uIU/mL (0.358-3.74) Glucose (Fingerstick) 140 mg/dL (70-99) 147 mg/dL (70-99) O2 Saturation 89 % (92-99) Arterial Blood pH 7.43 (7.35-7.45) Arterial Blood pCO2 at Patient Temp 42 mmHg (35-46) Arterial Blood pO2 at Patient Temp 59 mmHg (65-108) Arterial Blood HCO3 27 mmol/L (21-28) Arterial Blood Base Excess 3 mmol/L (-3-3) FiO2 34%nc Test 08/12/18 12:00 08/12/18 16:31 08/12/18 20:44 08/13/18 03:30 Prothrombin Time 27.2 SEC (11.7-14.0) Prothromb Time International Ratio 2.5 (0.8-1.1) Glucose (Fingerstick) 195 mg/dL (70-99) 77 mg/dL (70-99) Sodium Level 147 mmol/L (136-145) Potassium Level 3.5 mmol/L (3.5-5.1) Chloride Level 106 mmol/L (98-107) Carbon Dioxide Level 31 mmol/L (21-32) Anion Gap 10 (6-14) Blood Urea Nitrogen 33 mg/dL (7-20) Creatinine 1.3 mg/dL (0.6-1.0) Estimated GFR (Cockcroft-Gault) 41.9 Glucose Level 83 mg/dL (70-99) Calcium Level 7.5 mg/dL (8.5-10.1) Test 08/13/18 03:33 White Blood Count 10.7 x10^3/uL (4.0-11.0) Red Blood Count 3.40 x10^6/uL (3.50-5.40) Hemoglobin 7.6 g/dL (12.0-15.5) Hematocrit 25.2 % (36.0-47.0) Mean Corpuscular Volume 74 fL (79-100) Mean Corpuscular Hemoglobin 23 pg (25-35) Mean Corpuscular Hemoglobin Concent 30 g/dL (31-37) Red Cell Distribution Width 21.0 % (11.5-14.5) Platelet Count 411 x10^3/uL (140-400) Neutrophils (%) (Auto) 68 % (31-73) Lymphocytes (%) (Auto) 21 % (24-48) Monocytes (%) (Auto) 11 % (0-9) Eosinophils (%) (Auto) 0 % (0-3) Basophils (%) (Auto) 1 % (0-3) Neutrophils # (Auto) 7.3 x10^3uL (1.8-7.7) Lymphocytes # (Auto) 2.2 x10^3/uL (1.0-4.8) Monocytes # (Auto) 1.1 x10^3/uL (0.0-1.1) Eosinophils # (Auto) 0.0 x10^3/uL (0.0-0.7) Basophils # (Auto) 0.1 x10^3/uL (0.0-0.2) Prothrombin Time 24.0 SEC (11.7-14.0) Prothromb Time International Ratio 2.2 (0.8-1.1) Laboratory Tests Test 08/12/18 07:53 08/12/18 09:15 08/12/18 11:51 08/12/18 12:00 Glucose (Fingerstick) 140 mg/dL (70-99) 147 mg/dL (70-99) O2 Saturation 89 % (92-99) Arterial Blood pH 7.43 (7.35-7.45) Arterial Blood pCO2 at Patient Temp 42 mmHg (35-46) Arterial Blood pO2 at Patient Temp 59 mmHg (65-108) Arterial Blood HCO3 27 mmol/L (21-28) Arterial Blood Base Excess 3 mmol/L (-3-3) FiO2 34%nc Prothrombin Time 27.2 SEC (11.7-14.0) Prothromb Time International Ratio 2.5 (0.8-1.1) Test 08/12/18 16:31 08/12/18 20:44 08/13/18 03:30 08/13/18 03:33 Glucose (Fingerstick) 195 mg/dL (70-99) 77 mg/dL (70-99) Sodium Level 147 mmol/L (136-145) Potassium Level 3.5 mmol/L (3.5-5.1) Chloride Level 106 mmol/L (98-107) Carbon Dioxide Level 31 mmol/L (21-32) Anion Gap 10 (6-14) Blood Urea Nitrogen 33 mg/dL (7-20) Creatinine 1.3 mg/dL (0.6-1.0) Estimated GFR (Cockcroft-Gault) 41.9 Glucose Level 83 mg/dL (70-99) Calcium Level 7.5 mg/dL (8.5-10.1) White Blood Count 10.7 x10^3/uL (4.0-11.0) Red Blood Count 3.40 x10^6/uL (3.50-5.40) Hemoglobin 7.6 g/dL (12.0-15.5) Hematocrit 25.2 % (36.0-47.0) Mean Corpuscular Volume 74 fL (79-100) Mean Corpuscular Hemoglobin 23 pg (25-35) Mean Corpuscular Hemoglobin Concent 30 g/dL (31-37) Red Cell Distribution Width 21.0 % (11.5-14.5) Platelet Count 411 x10^3/uL (140-400) Neutrophils (%) (Auto) 68 % (31-73) Lymphocytes (%) (Auto) 21 % (24-48) Monocytes (%) (Auto) 11 % (0-9) Eosinophils (%) (Auto) 0 % (0-3) Basophils (%) (Auto) 1 % (0-3) Neutrophils # (Auto) 7.3 x10^3uL (1.8-7.7) Lymphocytes # (Auto) 2.2 x10^3/uL (1.0-4.8) Monocytes # (Auto) 1.1 x10^3/uL (0.0-1.1) Eosinophils # (Auto) 0.0 x10^3/uL (0.0-0.7) Basophils # (Auto) 0.1 x10^3/uL (0.0-0.2) Prothrombin Time 24.0 SEC (11.7-14.0) Prothromb Time International Ratio 2.2 (0.8-1.1) Medications Active Scripts Medications Dose Route/Sig Max Daily Dose Days Date Category Dose Instructions Doxycycline Hyclate 100 Mg Tablet 100 Mg PO BID 3 01/18/18 Rx Prednisone (Prednisone) 10 Mg Tablet 10 Mg PO UD 01/18/18 Rx take 3 tablets by mouth daily for 3 days, then take 2 tablets by mouth daily for 3 days, then take 1 tablets by mouth daily for 3 days, then stop. Novolog Flexpen (Insulin Aspart) 100 Unit/1 Ml Insuln.pen 15 Units SQ TIDBFRMEAL 01/18/18 Rx Hold insulin if blood sugar less than 100 Coumadin (Warfarin Sodium) 5 Mg Tablet 1 Tab PO SUMOWETHSA 10/22/17 Reported Coumadin (Warfarin Sodium) 2.5 Mg Tablet 1 Tab PO TUFR 10/22/17 Reported Hydrocodone-Apap 7.5-325 (Hydrocodone Bit/Acetaminophen) 1 Each Tablet 1 Tab PO PRN Q6HRS PRN 10/21/17 Reported Duoneb 0.5-3(2.5) Mg/3 Ml (Albuterol/Ipratropium) 3 Ml Ampul.neb 3 Ml NEB RTQID 09/17/17 Rx Proair Hfa Inhaler (Albuterol Sulfate) 8.5 Gm Hfa.aer.ad 1 Puff INH PRN Q6HRS PRN 09/17/17 Rx Symbicort 160-4.5 Mcg Inhaler (Budesonide/Formoterol Fumarate) 10.2 Gm Hfa.aer.ad 2 Puff IH BID 09/17/17 Rx Mag-Oxide (Magnesium Oxide) 400 Mg Tablet 400 Mg PO TID 09/17/17 Rx Fluticasone Propionate Nasal Boone (Fluticasone Propionate) 16 Gm Boone.susp 2 Boone NS DAILY 09/17/17 Rx Tizanidine Hcl 4 Mg Tablet 4 Mg PO PRN QHS PRN 09/17/17 Rx Cetirizine Hcl 10 Mg Tablet 10 Mg PO DAILY 09/17/17 Rx Synthroid (Levothyroxine Sodium) 150 Mcg Tablet 150 Mcg PO DAILY07 09/17/17 Rx Metformin Hcl 1,000 Mg Tablet 1,000 Mg PO BID 09/17/17 Rx Restart metformin 09/18 Voltaren (Diclofenac Sodium) 100 Gm Gel..gram. 4 Gm TP QID 05/28/17 Rx Gabapentin (Gabapentin) 300 Mg Capsule 1,200 Mg PO HS 05/25/17 Reported Klor-Con M20 (Potassium Chloride) 20 Meq Tab.er.prt 20 Meq PO DAILYWBKFT 06/29/16 Rx Alprazolam 0.25 Mg Tablet 1 Tab PO BID 06/27/16 Reported Carvedilol (Carvedilol) 3.125 Mg Tablet 1 Tab PO BID 06/27/16 Reported Spironolactone 25 Mg Tablet 25 Mg PO DAILY 05/24/15 Reported Torsemide 20 Mg Tablet 20 Mg PO DAILY 05/24/15 Reported Zocor (Simvastatin) 80 Mg Tablet 80 Mg PO DAILY 07/19/13 Reported Lantus Solostar (Insulin Glargine,Hum.rec.anlog) 100 Unit/1 Ml Insuln.pen 54 Unit SQ DAILYWBKFT 07/19/13 Reported Reglan (Metoclopramide Hcl) 10 Mg Tablet 10 Mg PO QID 07/19/13 Reported Protonix (Pantoprazole Sodium) 40 Mg Granpkt.dr 40 Mg PO BID 07/19/13 Reported Singulair Tablet (Montelukast Sodium) 10 Mg Tablet 10 Mg PO DAILY 07/19/13 Reported Aspir 81 (Aspirin) 81 Mg Tablet.dr 81 Mg PO DAILY 07/19/13 Reported Impression . IMPRESSION: 1. Xsuvq-mk-xmgzbqd hypercapnic and hypoxic respiratory failure secondary to acute on chronic systolic heart failure and acute exacerbation of chronic obstructive pulmonary disease. 2. The patient with mild cardiomyopathy with an ejection fraction of 45% and now comes in with mild interstitial edema. 3. Ongoing tobaccoism for 30 years. The patient is on home oxygen at 3 liters, now requiring 5 liters. 4. Chronic kidney disease. 5. Hyperkalemia, corrected. 6. Anemia, may have contributed to heart failure as well. Plan . RECOMMENDATIONS: 1. Continue to wean oxygen with gradual weaning, keeping saturation 92% and above. 2. Diuresis, keep I<O, monitor k, cr. 3. DuoNeb. 4. ICS, on prednisone 10 mg daily, may need higher dose 5. Smoking cessation counseling provided. 6. Follow cardiology recommendations. 7. Follow the response to treatment. 8. Monitor hemoglobin closely, stable. 9. Discussed with RN, pt. WALDEMAR DUMONT MD Aug 13, 2018 07:05
[2018-08-13 07:09] VITALS: BP 110/48
--- NOTE | 2018-08-13 07:30 | NUR ---
PATIENTS BLOOD SUGAR IS 68. THIS RN WENT TO ADMINISTER IV DEXTROSE BUT PATIENTS IV NOTED TO NOT BE WORKING AT THIS TIME. [employer] [facility] CALLED FOR IV STICK BECAUSE PATIENT IS A HARD STICK. PATIENT GIVEN MILADIS CRACKERS AND TWO APPLE JUICES. WILL RECHECK PATIENTS BLOOD GLUCOSE IN 15 MINUTES AND CONTINUE TO MONITOR PATIENT.
[2018-08-13] MEDS: IPRATRPIUM/ALBUTEROL 0.5/2.5MG 3 ML NEBU. NEB SCH ×3 (07:37→15:17)
[2018-08-13] MEDS: BUDESONIDE 0.5 MG/2 ML NEBU. NEB SCH (07:37)
[2018-08-13] MEDS: INSULIN LISPRO 300 UNITS/3 ML INSULN.PEN. SQ SCH ×4 (07:48→12:02)
[2018-08-13] MEDS: INSULIN GLARGINE 300 UNITS/3 ML INSULN.PEN. SQ SCH (07:49)
--- NOTE | 2018-08-13 07:50 | NUR ---
ON BLOOD SUGAR RECHECK PATIENTS BLOOD GLUCOSE NOW 120 AFTER JUICE AND CRACKERS. WILL CONTINUE TO MONITOR PATIENT.
[2018-08-13] MEDS: predniSONE 10 MG TABLET PO SCH (08:09)
[2018-08-13] MEDS: CARVEDILOL 3.125 MG TABLET. PO SCH ×2 (08:09→16:34)
[2018-08-13] MEDS: METOCLOPRAMIDE 10 MG TABLET. PO SCH ×3 (08:09→16:34)
[2018-08-13] MEDS: metFORMIN 500 MG TABLET PO SCH ×2 (08:09→16:34)
[2018-08-13] MEDS: DICLOFENAC SODIUM 1% TOPICAL GEL 100GM TUBE. TP SCH ×2 (08:10→14:20)
[2018-08-13] MEDS: TORSEMIDE 20 MG TABLET. PO SCH (08:10)
[2018-08-13] MEDS: FLUTICASONE 50MCG/NASAL SPRAY 16GM BOTTLE. NS SCH (08:10)
[2018-08-13] MEDS: MAGNESIUM OXIDE 400 MG TABLET PO SCH ×2 (08:10→14:21)
[2018-08-13] MEDS: ASPIRIN ENTERIC COATED 81 MG TABLET.DR. PO SCH (08:10)
[2018-08-13] MEDS: CETIRIZINE HCL 10 MG TABLET. PO SCH (08:10)
[2018-08-13] MEDS: ALPRAZolam 0.25 MG TABLET PO SCH (08:10)
[2018-08-13] MEDS: HYDROcodone/APAP 7.5/325MG 1 TAB TABLET PO PRN ×2 (08:35→14:21)
[2018-08-13 11:15] VITALS: BP 119/57
--- NOTE | 2018-08-13 11:19 | PDOC ---
PROGRESS NOTES Subjective Subjective pt feels better ,want to go home Objective Objective Vital Signs Date Time Temp Pulse Resp B/P (MAP) Pulse Ox O2 Delivery O2 Flow Rate FiO2 08/13/18 09:35 93 Nasal Cannula 5.0 08/13/18 08:09 76 110/48 08/13/18 07:09 98.3 28 98.3 Intake and Output 08/13/18 07:00 Intake Total 750 ml Output Total 750 ml Balance 0 ml Intake Oral 750 ml Output Urine Total 750 ml # Voids 3 # Bowel Movements 1 Physical Exam Abdomen: Soft, Other (obese) Heart: Regular rate (SR no significant ectopies), Other (distant heart sounds) Extremities: No cyanosis, No edema General: Alert, Oriented X3, Cooperative, No acute distress HEENT: Atraumatic Lungs: Other (upper faint wheeze, basilar crackles) MUSCULOSKELETAL: Osteoarthritic changes both hands Neuro: Normal speech, Sensation intact Psych/Mental Status: Mental status NL, Mood NL Skin: No breakdown, No significant lesion Diagnosis Problem List Problems Medical Problems: (1) Anemia Status: Acute (2) CHF exacerbation Status: Acute (3) COPD exacerbation Status: Acute (4) Hypoxia Status: Acute Assessment Assessment Problems Medical Problems: (1) Anemia Status: Acute (2) CHF exacerbation Status: Acute (3) COPD exacerbation Status: Acute (4) Hypoxia Status: Acute FINAL IMPRESSION: 1. Hyperkalemia. 2. Congestive heart failure, ldkfg-kl-hfaxopm systolic heart failure. 3. Coronary artery disease history, status post bypass surgery and cardiac stents. 4. Chronic kidney disease. 5. Diabetes. 6. Hypertension. 7. Hyperlipidemia. 8. Hypothyroidism. 9. Zucjv-ht-hmcklzw hypoxic respiratory failure. PLAN: pot normal 3.5 today , cr 1.3 normal sono kidneys ok d/c home today she has home oxygen inr 2.2 on coumadin. At this time, admit to hospital. The patient was put on BiPAP that improved condition and was given insulin and Bumex IV and Kayexalate to bring the potassium down and will have Renal consult. Discontinue potassium and spironolactone. Monitor kidney function. Cardiology is consulted. Monitor cardiac function and the patient is on Coumadin. Monitor INR and see how the patient's condition improves in the next 24-48 hours. Plan Plan of Care Problems Medical Problems: (1) Anemia Status: Acute (2) CHF exacerbation Status: Acute (3) COPD exacerbation Status: Acute (4) Hypoxia Status: Acute Comment Review of Relevant I have reviewed the following items jarod (where applicable) has been applied. Labs Laboratory Tests Test 08/12/18 11:51 08/12/18 12:00 08/12/18 16:31 08/12/18 20:44 Glucose (Fingerstick) 147 mg/dL (70-99) 195 mg/dL (70-99) 77 mg/dL (70-99) Prothrombin Time 27.2 SEC (11.7-14.0) Prothromb Time International Ratio 2.5 (0.8-1.1) Test 08/13/18 03:30 08/13/18 03:33 08/13/18 07:13 08/13/18 07:51 Sodium Level 147 mmol/L (136-145) Potassium Level 3.5 mmol/L (3.5-5.1) Chloride Level 106 mmol/L (98-107) Carbon Dioxide Level 31 mmol/L (21-32) Anion Gap 10 (6-14) Blood Urea Nitrogen 33 mg/dL (7-20) Creatinine 1.3 mg/dL (0.6-1.0) Estimated GFR (Cockcroft-Gault) 41.9 Glucose Level 83 mg/dL (70-99) Calcium Level 7.5 mg/dL (8.5-10.1) White Blood Count 10.7 x10^3/uL (4.0-11.0) Red Blood Count 3.40 x10^6/uL (3.50-5.40) Hemoglobin 7.6 g/dL (12.0-15.5) Hematocrit 25.2 % (36.0-47.0) Mean Corpuscular Volume 74 fL (79-100) Mean Corpuscular Hemoglobin 23 pg (25-35) Mean Corpuscular Hemoglobin Concent 30 g/dL (31-37) Red Cell Distribution Width 21.0 % (11.5-14.5) Platelet Count 411 x10^3/uL (140-400) Neutrophils (%) (Auto) 68 % (31-73) Lymphocytes (%) (Auto) 21 % (24-48) Monocytes (%) (Auto) 11 % (0-9) Eosinophils (%) (Auto) 0 % (0-3) Basophils (%) (Auto) 1 % (0-3) Neutrophils # (Auto) 7.3 x10^3uL (1.8-7.7) Lymphocytes # (Auto) 2.2 x10^3/uL (1.0-4.8) Monocytes # (Auto) 1.1 x10^3/uL (0.0-1.1) Eosinophils # (Auto) 0.0 x10^3/uL (0.0-0.7) Basophils # (Auto) 0.1 x10^3/uL (0.0-0.2) Prothrombin Time 24.0 SEC (11.7-14.0) Prothromb Time International Ratio 2.2 (0.8-1.1) Glucose (Fingerstick) 68 mg/dL (70-99) 129 mg/dL (70-99) Medications Current Medications Albuterol/ Ipratropium (Duoneb) 3 ml RTQID NEB Last administered on 08/13/18 07 :37; Start 08/12/18 at 12:00 Budesonide (Pulmicort) 0.5 mg RTBID NEB Last administered on 08/13/18 07:37; Start 08/12/18 at 12:00 Diclofenac Sodium (Voltaren) 1 kiana QID TP Last administered on 08/13/18 08:10; Start 08/12/18 at 13:00 Gabapentin (Neurontin) 1,200 mg HS PO Last administered on 08/12/18 21:03; Start 08/12/18 at 21:00 Insulin Human Lispro (HumaLOG) 0-7 UNITS TIDWMEALS SQ ; Start 08/12/18 at 12:00 Insulin Human Lispro (HumaLOG) 15 units TIDWMEALS SQ Last administered on 17:34; Start 08/12/18 at 12:00 Levothyroxine Sodium (Synthroid) 150 mcg DAILY06 PO Last administered on 05:49; Start 08/12/18 at 15:30 Magnesium Oxide (Magnesium Oxide) 400 mg TID PO Last administered on 08/13/18 08:10; Start 08/12/18 at 14:00 Metformin HCl (Glucophage) 1,000 mg BIDWMEALS PO Last administered on 08/13/18 08:09; Start 08/12/18 at 17:00 Metoclopramide HCl (Reglan) 10 mg QIDACHS PO Last administered on 08/13/18 08: 09; Start 08/12/18 at 13:00 Montelukast Sodium (Singulair) 10 mg QHS PO Last administered on 08/12/18 21:03 ; Start 08/12/18 at 21:00 Non-Formulary Medication (Budesonide/ Formoterol Fumarate (Symbicort 160-4.5 Mcg Inhaler)) 2 puff BID IH ; Start 08/12/18 at 21:00; Status UNV Pantoprazole Sodium (Protonix) 40 mg BIDAC PO ; Start 08/13/18 at 11:30 Prednisone (Prednisone) 10 mg DAILY PO Last administered on 08/13/18 08:09; Start 08/12/18 at 12:00 Simvastatin (Zocor) 80 mg QHS PO Last administered on 08/12/18 21:03; Start 08/12/18 at 21:00 Torsemide (Demadex) 20 mg DAILY PO Last administered on 08/13/18 08:10; Start 08/12/18 at 12:00 Warfarin Sodium (Coumadin) 2.5 mg TuFr@1600 PO Last administered on 08/12/18 16 :50; Start 08/12/18 at 16:00 Warfarin Sodium (Coumadin) 5 mg SuMoWeThSa@1600 PO ; Start 08/13/18 at 16:00 Vitals/I & O Vital Sign - Last 24 Hours 08/12/18 08/12/18 08/12/18 08/12/18 11:31 11:40 12:37 15:00 Temp 97.8 97.8 Pulse 93 87 Resp 18 20 B/P (MAP) 131/68 117/60 (79) Pulse Ox 92 93 O2 Delivery Nasal Cannula Nasal Cannula O2 Flow Rate 5.0 4.0 08/12/18 08/12/18 08/12/18 08/12/18 15:33 16:45 19:29 19:45 Temp 98.1 98.1 Pulse 87 86 Resp 22 B/P (MAP) 117/60 108/45 (66) Pulse Ox 93 94 O2 Delivery Nasal Cannula Nasal Cannula Nasal Cannula O2 Flow Rate 5.0 4.0 4.0 08/12/18 08/12/18 08/13/18 08/13/18 20:27 23:12 03:21 07:09 Temp 98.0 97.7 98.3 98.0 97.7 98.3 Pulse 71 75 76 Resp 22 21 28 B/P (MAP) 114/59 (77) 100/61 (74) 110/48 (68) Pulse Ox 93 93 98 96 O2 Delivery Nasal Cannula Nasal Cannula Nasal Cannula Nasal Cannula O2 Flow Rate 5.0 4.0 4.0 5.0 08/13/18 08/13/18 08/13/18 08/13/18 07:38 07:50 08:09 08:35 Pulse 76 B/P (MAP) 110/48 Pulse Ox 93 93 O2 Delivery Nasal Cannula Nasal Cannula Nasal Cannula O2 Flow Rate 5.0 4.0 5.0 08/13/18 09:35 Pulse Ox 93 O2 Delivery Nasal Cannula O2 Flow Rate 5.0 Intake and Output 08/12/18 08/12/18 08/13/18 15:00 23:00 07:00 Intake Total 240 ml 450 ml 60 ml Output Total 350 ml 400 ml Balance 240 ml 100 ml -340 ml MAYELIN ORTEGA MD Aug 13, 2018 11:19
[2018-08-13] MEDS: PANTOPRAZOLE 40 MG TABLET.DR. PO SCH ×2 (11:59→16:34)
--- NOTE | 2018-08-13 14:38 | PDOC ---
SUBJECTIVE ROS No complaints OBJECTIVE Vital Signs Vital Signs Date Time Temp Pulse Resp B/P (MAP) Pulse Ox O2 Delivery O2 Flow Rate FiO2 08/13/18 14:21 93 Nasal Cannula 5.0 08/13/18 11:15 98.0 83 18 119/57 (77) 98.0 I & 0 Intake and Output 08/13/18 07:00 Intake Total 750 ml Output Total 750 ml Balance 0 ml Intake Oral 750 ml Output Urine Total 750 ml # Voids 3 # Bowel Movements 1 PHYSICAL EXAM Physical Exam GEN: NAD HEENT-OM NECK: Supple CVS: S1S2 RESP:CTa, No Acc. Muscle Use GI: BS + ve, NO Bruit, Non Tender : No CVA tenderness, No Suprapubic Tenderness, NO Arias SKIN- No rash NEURO- AXOX 3 Vital Signs DIAGNOSIS/ASSESSMENT Assessment & Plan JIA- Suspect Pre-renal etiology On Diuretics at Home Improving renal function Renal US reviewed Hypernatremia- Mild Monitor , avoid Overdiuresis Hyperkalemia- Due to JIA On PO KCL and Aldactone at Home as well Resolved , Holding KCL and Aldactone CKD stage 3- baseline Cr 1.4-1.6 since 2017 Ybixh-lb-vycypge hypercapnic and hypoxic respiratory failure - On Home O2 Anemia -Chronic Slow decrease in Hgb, rivas as per primary Tobaccoism on home oxygen at 3 liters DW Family at bedside and RN -------- Renal US-- The right kidney measures 9.5 cm in length while the left kidney measures 9.8 cm. There is moderate bilateral renal cortical scarring. There is no evidence of hydronephrosis or a renal mass. No abnormal perinephric process is seen. Limited views of urinary bladder are unremarkable. IMPRESSION: 1. Moderate bilateral renal cortical scarring. 2. No evidence of renal obstruction. COMMENT/RELEVANT DATA Meds Current Medications Medications (Trade) Dose Ordered Sig/Irena Start Time Stop Time Status Last Admin Dose Admin Acetaminophen/ Hydrocodone Bitart (Lortab 7.5/325) 1 tab PRN Q6HRS PRN 08/12/18 10:30 08/13/18 14:21 1 TAB Albuterol Sulfate (Ventolin Neb Soln) 10 mg 1X ONCE 08/11/18 19:00 08/11/18 19:01 DC 08/11/18 19:38 10 MG Albuterol/ Ipratropium (Duoneb) 3 ml RTQID 08/12/18 12:00 08/13/18 11:37 3 ML Alprazolam (Xanax) 0.25 mg BID 08/12/18 11:00 08/13/18 08:10 0.25 MG Aspirin (Ecotrin) 81 mg DAILY 08/12/18 11:00 08/13/18 08:10 81 MG Budesonide (Pulmicort) 0.5 mg RTBID 08/12/18 12:00 08/13/18 07:37 0.5 MG Bumetanide (Bumex) 0.5 mg 1X ONCE 08/11/18 19:45 08/11/18 19:52 DC 08/11/18 21:18 0.5 MG Carvedilol (Coreg) 3.125 mg BIDWMEALS 08/12/18 11:00 08/13/18 08:09 3.125 MG Cetirizine HCl (ZyrTEC) 10 mg DAILY 08/12/18 11:00 08/13/18 08:10 10 MG Dexamethasone Sodium Phosphate (Decadron) 10 mg 1X ONCE 08/11/18 18:15 08/11/18 18:16 DC 08/11/18 18:33 10 MG Dextrose (Dextrose 50%-Water Syringe) 12.5 gm PRN Q15MIN PRN 08/12/18 10:30 Diclofenac Sodium (Voltaren) 1 kiana QID 08/12/18 13:00 08/13/18 14:20 1 KIANA Fentanyl Citrate (Fentanyl 2ml Vial) 50 mcg 1X ONCE 08/11/18 19:15 08/11/18 19:16 DC Fluticasone Propionate (Flonase) 2 spray DAILY 08/12/18 11:00 08/13/18 08:10 2 SPRAY Furosemide (Lasix) 20 mg 1X ONCE 08/12/18 09:00 08/12/18 09:03 DC 08/12/18 09:41 20 MG Gabapentin (Neurontin) 1,200 mg HS 08/12/18 21:00 08/12/18 21:03 1,200 MG Insulin Glargine (Lantus) 54 units DAILYWBKFT 08/12/18 11:00 08/12/18 13:32 54 UNITS Insulin Human Lispro (HumaLOG) 0-7 UNITS TIDWMEALS 08/12/18 12:00 Insulin Human Regular (HumuLIN R VIAL) 10 unit 1X ONCE 08/11/18 19:00 08/11/18 19:01 DC 08/11/18 19:17 10 UNIT Levothyroxine Sodium (Synthroid) 150 mcg DAILY06 08/12/18 15:30 08/13/18 05:49 150 MCG Magnesium Oxide (Magnesium Oxide) 400 mg TID 08/12/18 14:00 08/13/18 14:21 400 MG Metformin HCl (Glucophage) 1,000 mg BIDWMEALS 08/12/18 17:00 08/13/18 08:09 1,000 MG Metoclopramide HCl (Reglan) 10 mg QIDACHS 08/12/18 13:00 08/13/18 11:59 10 MG Montelukast Sodium (Singulair) 10 mg QHS 08/12/18 21:00 08/12/18 21:03 10 MG Non-Formulary Medication (Budesonide/ Formoterol Fumarate (Symbicort 160-4.5 Mcg Inhaler)) 2 puff BID 08/12/18 21:00 UNV Ondansetron HCl (Zofran) 4 mg PRN Q8HRS PRN 08/11/18 19:00 08/12/18 18:59 DC Pantoprazole Sodium (Protonix) 40 mg BIDAC 08/13/18 11:30 08/13/18 11:59 40 MG Prednisone (Prednisone) 10 mg DAILY 08/12/18 12:00 08/13/18 08:09 10 MG Simvastatin (Zocor) 80 mg QHS 08/12/18 21:00 08/12/18 21:03 80 MG Sodium Polystyrene Sulfonate (Kayexalate) 30 gm 1X ONCE 08/12/18 00:30 08/12/18 00:31 DC 08/12/18 00:49 30 GM Sodium Chloride 500 ml @ 500 mls/hr 1X ONCE 08/11/18 19:00 08/11/18 19:59 DC 08/11/18 19:18 500 MLS/HR Torsemide (Demadex) 20 mg DAILY 08/12/18 12:00 08/13/18 08:10 20 MG Warfarin Sodium (Coumadin Per Pharmacy) 1 each PRN DAILY PRN 08/12/18 10:30 08/13/18 10:17 1 EACH Warfarin Sodium (Coumadin) 5 mg [id number]@1600 08/13/18 16:00 Lab Laboratory Tests Test 08/12/18 16:31 08/12/18 20:44 08/13/18 03:30 08/13/18 03:33 Glucose (Fingerstick) 195 mg/dL (70-99) 77 mg/dL (70-99) Sodium Level 147 mmol/L (136-145) Potassium Level 3.5 mmol/L (3.5-5.1) Chloride Level 106 mmol/L (98-107) Carbon Dioxide Level 31 mmol/L (21-32) Anion Gap 10 (6-14) Blood Urea Nitrogen 33 mg/dL (7-20) Creatinine 1.3 mg/dL (0.6-1.0) Estimated GFR (Cockcroft-Gault) 41.9 Glucose Level 83 mg/dL (70-99) Calcium Level 7.5 mg/dL (8.5-10.1) White Blood Count 10.7 x10^3/uL (4.0-11.0) Red Blood Count 3.40 x10^6/uL (3.50-5.40) Hemoglobin 7.6 g/dL (12.0-15.5) Hematocrit 25.2 % (36.0-47.0) Mean Corpuscular Volume 74 fL (79-100) Mean Corpuscular Hemoglobin 23 pg (25-35) Mean Corpuscular Hemoglobin Concent 30 g/dL (31-37) Red Cell Distribution Width 21.0 % (11.5-14.5) Platelet Count 411 x10^3/uL (140-400) Neutrophils (%) (Auto) 68 % (31-73) Lymphocytes (%) (Auto) 21 % (24-48) Monocytes (%) (Auto) 11 % (0-9) Eosinophils (%) (Auto) 0 % (0-3) Basophils (%) (Auto) 1 % (0-3) Neutrophils # (Auto) 7.3 x10^3uL (1.8-7.7) Lymphocytes # (Auto) 2.2 x10^3/uL (1.0-4.8) Monocytes # (Auto) 1.1 x10^3/uL (0.0-1.1) Eosinophils # (Auto) 0.0 x10^3/uL (0.0-0.7) Basophils # (Auto) 0.1 x10^3/uL (0.0-0.2) Prothrombin Time 24.0 SEC (11.7-14.0) Prothromb Time International Ratio 2.2 (0.8-1.1) Test 08/13/18 07:13 08/13/18 07:51 08/13/18 11:58 Glucose (Fingerstick) 68 mg/dL (70-99) 129 mg/dL (70-99) 165 mg/dL (70-99) Results All relevant outside records, renal labs, imaging studies, telemetry/EKG's were reviewed. REJI DIGGS MD Aug 13, 2018 14:38
[2018-08-13 15:09] VITALS: BP 117/59
[2018-08-13] MEDS ORDERED: WARFARIN 5 MG TABLET. PO SCH (16:00)
[2018-08-13] MEDS ORDERED: PRED20TA PO (16:20)
[2018-08-13 16:34] VITALS: BP 117/59
--- NOTE | 2018-08-13 16:49 | NUR ---
PATIENTS IV OUT AND MONITOR OFF. DISCHARGE INSTRUCTIONS DISCUSSED WITH PATIENT AND PATIENTS . CALLED IN PRESCRIPTION FOR PREDNISONE 10MG DAILY X7 DAYS. PATIENT STABLE AT TIME OF DISCHARGE. PATIENT HOME WITH HER OWN HOME OXYGEN. PATIENT INFORMED TO FOLLOW UP WITH DR MONTGOMERY IN ONE WEEK AND CARDIOLOGY IN 4 WEEKS. PATIENT ESCORTED TO HUSBANDS VEHICLE PER WHEELCHAIR BY JONN HAWKINS.
--- NOTE | 2018-08-15 16:28 | PDOC ---
Provider Note Provider Note Discharge summary dictated. #[id number] MAYELIN ORTEGA MD Aug 15, 2018 16:28
--- NOTE | 2018-08-15 21:59 | DS ---
DATE OF DISCHARGE: 08/13/2018 REASON FOR ADMISSION TO THE HOSPITAL: 1. COPD with acute exacerbation. 2. Congestive heart failure exacerbation. CONSULTATIONS: Dr. Burgess, Pulmonology and Dr. Rosenthal, Cardiology. PROCEDURES DONE: Echocardiogram, ultrasound of the kidneys. HOSPITAL COURSE: The patient is a 58-year-old female of Dr. rKisten Gregorio. She has a history of COPD, congestive heart failure, coronary artery disease, pacemaker defibrillator and chronic kidney disease, stage 2-3. She was having shortness of breath with some confusion and was brought to the hospital. She was found to have a potassium of 6.7 and renal insufficiency with creatinine 2.2. The patient was given Kayexalate, insulin and the patient was seen by kidney doctor. Had ultrasound of the kidneys that was negative. Potassium came down to 5.1 and later to 3.5. Her creatinine, kidney function improved to 1.3. She was given Lasix and she was also seen by Pulmonology, Cardiology. Had echocardiogram that shows 40% ejection fraction. The patient was feeling better and the patient and the wanted to really discharge. The patient was discharged on the patient's request. Echocardiogram shows 45%. White count came down to 10, hemoglobin 7.6, platelets 411. The patient is on Coumadin. INR was 2.5. Electrolytes show sodium 134, potassium 6.7 on admission, BUN 43, creatinine 2.2. At the time of discharge, BUN 33, creatinine 1.3, sodium 147, potassium 3.5. A1c is 8.0. FINAL DIAGNOSES: 1. Hyperkalemia. 2. Chronic obstructive pulmonary disease with acute exacerbation. 3. Acute on Chronic systolic heart failure. 4. Coronary artery disease, previous cardiac bypass surgery. 5. History of automatic implantable cardioverter defibrillator. 6. Chronic kidney disease, stage 3. 7. Insulin-dependent diabetes. DISPOSITION: Discharged home at the patient's request. DISCHARGE MEDICATIONS: See [facility] for discharge medications. The patient was scheduled on Aldactone and potassium. Monitor kidney function. See primary care doctor, Dr. Kristen Gregorio in 1 week. MAYELIN ORTEGA MD DR: MARSHAL/natanael JOB#: [id number] / [id number] MTDD
== END 2018-08-13 16:53 | disposition home or self-care (01) | DRG 291 ==
LOC: ER 17:44 → 6 SOUTH 18:50 → 2 NORTH 20:34
PROVIDERS: ADMIT Internal Medicine; ATTEND Internal Medicine
DX: I13.0 Hypertensive heart and chronic kidney disease with heart failure and stage 1 through stage 4 chronic kidney disease, or unspecified chronic kidney disease (principal); I50.43 Acute on chronic combined systolic (congestive) and diastolic (congestive) heart failure; J96.21 Acute and chronic respiratory failure with hypoxia; J96.22 Acute and chronic respiratory failure with hypercapnia; N17.9 Acute kidney failure, unspecified; E87.0 Hyperosmolality and hypernatremia; E87.5 Hyperkalemia; I25.10 Atherosclerotic heart disease of native coronary artery without angina pectoris; K57.90 Diverticulosis of intestine, part unspecified, without perforation or abscess without bleeding; F41.9 Anxiety disorder, unspecified; F17.210 Nicotine dependence, cigarettes, uncomplicated; E78.5 Hyperlipidemia, unspecified; E66.9 Obesity, unspecified; I25.5 Ischemic cardiomyopathy; E11.51 Type 2 diabetes mellitus with diabetic peripheral angiopathy without gangrene; J43.9 Emphysema, unspecified; M19.90 Unspecified osteoarthritis, unspecified site; M81.0 Age-related osteoporosis without current pathological fracture; E11.40 Type 2 diabetes mellitus with diabetic neuropathy, unspecified; E89.0 Postprocedural hypothyroidism; E11.22 Type 2 diabetes mellitus with diabetic chronic kidney disease; D50.9 Iron deficiency anemia, unspecified; F32.9 Major depressive disorder, single episode, unspecified; G43.909 Migraine, unspecified, not intractable, without status migrainosus; N18.3 Chronic kidney disease, stage 3 (moderate); K21.9 Gastro-esophageal reflux disease without esophagitis; K58.9 Irritable bowel syndrome, unspecified; K76.0 Fatty (change of) liver, not elsewhere classified; Z86.73 Personal history of transient ischemic attack (TIA), and cerebral infarction without residual deficits; I25.2 Old myocardial infarction; Z90.710 Acquired absence of both cervix and uterus; Z88.5 Allergy status to narcotic agent; Z88.0 Allergy status to penicillin; Z88.8 Allergy status to other drugs, medicaments and biological substances; Z86.718 Personal history of other venous thrombosis and embolism; Z95.810 Presence of automatic (implantable) cardiac defibrillator; Z87.11 Personal history of peptic ulcer disease; Z82.49 Family history of ischemic heart disease and other diseases of the circulatory system; Z83.3 Family history of diabetes mellitus; Z79.899 Other long term (current) drug therapy; Z79.4 Long term (current) use of insulin; Z99.81 Dependence on supplemental oxygen; Z95.1 Presence of aortocoronary bypass graft; Z87.442 Personal history of urinary calculi; Z95.5 Presence of coronary angioplasty implant and graft; Z85.828 Personal history of other malignant neoplasm of skin; Z68.32 Body mass index [BMI] 32.0-32.9, adult
CPT/HCPCS: 36415; 36600; 71046; 76770; 80048; 80053; 80061; 82553; 82805; 82962; 83036; 83735; 83880; 84443; 84484; 85007; 85025; 85610; 87804; 93005; 93308; 94640; 94644; 94760; 96361; 96374; 96375; J1100; J1815; J1940; J3490; J7040; J7042; J7512; J7613; J7620; J7626; J8597; 99291-25

== ENCOUNTER 2018-08-14 16:50 | Inpatient (IN) | payer MEDICARE ==
[~2018-08-14] VITALS: Ht 157.5 cm; Wt 83.0 kg
[~2018-08-14 16:50] MED LIST changes: +PRED20TA PO
[2018-08-14] MEDS ORDERED: NALOXONE 0.4 MG/ML VIAL. IV ONE (17:00)
[2018-08-14 17:10] LABS: BASE EXCESS ABG 5 mmol/L (-3-3); HCO3 ABG 31 mmol/L (21-28); PCO2 ABG 56 mmHg (35-46); PO2 ABG 51 mmHg (65-108); SAT O2 ABG 82 % (92-99)
[2018-08-14 17:12] LABS: BASO # 0.1 x10^3/uL (0.0-0.2); BASO % 1 % (0-3); EOS # 0.2 x10^3/uL (0.0-0.7); EOS % 2 % (0-3); HEMATOCRIT 28.5 % (36.0-47.0); HEMOGLOBIN 8.7 g/dL (12.0-15.5); LYMPH # 1.7 x10^3/uL (1.0-4.8); LYMPH % 16 % (24-48); MEAN CORPUSCULAR HEMOGLOBIN 23 pg (25-35); MEAN CORPUSCULAR HGB CONC 31 g/dL (31-37); MEAN CORPUSCULAR VOLUME 74 fL (79-100); MONO # 0.9 x10^3/uL (0.0-1.1); MONO % 8 % (0-9); NEUT # 7.9 x10^3uL (1.8-7.7); NEUT % 74 % (31-73); PLATELET COUNT 481 x10^3/uL (140-400); RED BLOOD COUNT 3.85 x10^6/uL (3.50-5.40); WHITE BLOOD COUNT 10.7 x10^3/uL (4.0-11.0)
[2018-08-14 17:17] LABS: FIO2 ABG 60
--- NOTE | 2018-08-14 17:17 | PHYS DOC ---
Past Medical History Past Medical History: COPD, CVA, Diabetes-Type II, Hypertension, TX Additional Past Medical Histor: TX x 6, BLOOD CLOTS IN LLE AND LUE, + previous surgical removal of AC blood Past Surgical History: Hysterectomy, Pacemaker, Tonsillectomy, Other Additional Past Surgical Histo: thyroid removed, R knee scope, ballon- DVT- behind L knee cap Alcohol Use: None Drug Use: None Adult General Chief Complaint Chief Complaint: ALTERED MENTAL STATUS HPI HPI Patient is a 58 year old female who presents to the ER for altered mental status. Patient with history of COPD on chronic nasal cannula supplemental O2 at 2 L. Patient was found unresponsive in her bed with questional downtime of approximately one hour. On EMS evaluation was found to be hypoglycemic with blood sugar and 40s. Patient was given an amp of D50 with some improvement only to a GCS of 9. Patient with recent hospitalization for COPD exacerbation and hyperkalemia per EMS. Patient arouses with sternal rub, intermittently follows commands but otherwise unable to provide any history and no family at bedside at this time. Review of Systems Review of Systems Unable to obtain secondary to acuity Current Medications Current Medications Current Medications Medications (Trade) Dose Ordered Sig/Irena Start Time Stop Time Status Last Admin Dose Admin Dextrose/Sodium Chloride 1,000 ml @ 100 mls/hr 1X ONCE 08/14/18 18:00 08/15/18 03:59 08/14/18 17:52 100 MLS/HR Naloxone HCl (Narcan) 0.4 mg 1X ONCE 08/14/18 17:00 08/14/18 17:03 DC 08/14/18 17:11 0.4 MG Piperacillin Sod/ Tazobactam Sod 3.375 gm/Sodium Chloride 50 ml @ 100 mls/hr 1X ONCE 08/14/18 18:45 08/14/18 19:14 UNV Vancomycin HCl 250 ml @ 250 mls/hr 1X ONCE 08/14/18 18:45 08/14/18 19:44 UNV Allergies Allergies Allergies Coded Allergies Type Severity Reaction Last Updated Verified Penicillins Allergy Intermediate Hives 10/22/17 Yes codeine Adverse Reaction Mild Nausea and Vomiting 10/22/17 Yes diphenhydramine HCl Adverse Reaction Mild hyperactive 10/22/17 Yes Physical Exam Physical Exam Constitutional: Obese, appears older than stated age HENT: Normocephalic, atraumatic, Eyes: PERRLA, Neck: no stridor, no JVD, trachea midline. [] Cardiovascular:Heart rate regular rhythm, no murmur [] Lungs & Thorax: Poor respiratory effort. Diffusely diminished breath sounds. Abdomen: Bowel sounds normal, soft, no tenderness, no masses, no pulsatile masses. [] Skin: Warm, dry, no erythema, no rash. [] Extremities: no edema. [] Neurologic: Positive sternal rub, intermittently follows commands but rapidly falls back asleep. Moves all 4 extremities in response to pain. GCS 9 Current Patient Data Vital Signs Vital Signs Date Time Temp Pulse Resp B/P (MAP) Pulse Ox O2 Delivery O2 Flow Rate FiO2 08/14/18 18:27 95 BiPAP/CPAP 08/14/18 16:50 98.9 69 21 106/64 (78) 15.0 98.9 Lab Values Laboratory Tests Test 08/14/18 16:54 08/14/18 17:00 08/14/18 17:15 08/14/18 17:18 O2 Saturation 82 % (92-99) L Arterial Blood pH 7.36 (7.35-7.45) Arterial Blood pCO2 at Patient Temp 56 mmHg (35-46) H Arterial Blood pO2 at Patient Temp 51 mmHg (65-108) L Arterial Blood HCO3 31 mmol/L (21-28) H Arterial Blood Base Excess 5 mmol/L (-3-3) H FiO2 60 White Blood Count 10.7 x10^3/uL (4.0-11.0) Red Blood Count 3.85 x10^6/uL (3.50-5.40) Hemoglobin 8.7 g/dL (12.0-15.5) L Hematocrit 28.5 % (36.0-47.0) L Mean Corpuscular Volume 74 fL (79-100) L Mean Corpuscular Hemoglobin 23 pg (25-35) L Mean Corpuscular Hemoglobin Concent 31 g/dL (31-37) Red Cell Distribution Width 21.0 % (11.5-14.5) H Platelet Count 481 x10^3/uL (140-400) H Neutrophils (%) (Auto) 74 % (31-73) H Lymphocytes (%) (Auto) 16 % (24-48) L Monocytes (%) (Auto) 8 % (0-9) Eosinophils (%) (Auto) 2 % (0-3) Basophils (%) (Auto) 1 % (0-3) Neutrophils # (Auto) 7.9 x10^3uL (1.8-7.7) H Lymphocytes # (Auto) 1.7 x10^3/uL (1.0-4.8) Monocytes # (Auto) 0.9 x10^3/uL (0.0-1.1) Eosinophils # (Auto) 0.2 x10^3/uL (0.0-0.7) Basophils # (Auto) 0.1 x10^3/uL (0.0-0.2) Platelet Estimate Increased (ADEQUATE) Polychromasia Slight Hypochromasia Mod Anisocytosis Mod Microcytosis Slight Prothrombin Time 24.7 SEC (11.7-14.0) H Prothrombin Time INR 2.3 (0.8-1.1) H PTT 36 SEC (24-38) Sodium Level 143 mmol/L (136-145) Potassium Level 3.6 mmol/L (3.5-5.1) Chloride Level 102 mmol/L (98-107) Carbon Dioxide Level 31 mmol/L (21-32) Anion Gap 10 (6-14) Blood Urea Nitrogen 32 mg/dL (7-20) H Creatinine 1.5 mg/dL (0.6-1.0) H Estimated GFR (Cockcroft-Gault) 35.5 BUN/Creatinine Ratio 21 (6-20) H Glucose Level 101 mg/dL (70-99) H Lactic Acid Level 1.7 mmol/L (0.4-2.0) Calcium Level 7.4 mg/dL (8.5-10.1) L Magnesium Level 2.1 mg/dL (1.8-2.4) Total Bilirubin 0.3 mg/dL (0.2-1.0) Aspartate Amino Transferase (AST) 42 U/L (15-37) H Alanine Aminotransferase (ALT) 33 U/L (14-59) Alkaline Phosphatase 127 U/L (46-116) H Troponin I Quantitative < 0.017 ng/mL (0.000-0.055) PS-Eaj-N-Type Natriuretic Peptide 1538 pg/mL (0-124) H Total Protein 7.5 g/dL (6.4-8.2) Albumin 3.1 g/dL (3.4-5.0) L Albumin/Globulin Ratio 0.7 (1.0-1.7) L Lipase 1177 U/L (73-393) H Procalcitonin < 0.10 ng/mL (0.00-0.10) Ethyl Alcohol Level < 10 mg/dL (0-10) Glucose (Fingerstick) 82 mg/dL (70-99) Urine Color Yellow Urine Clarity Clear Urine pH 5.0 Urine Specific [place] 1.015 Urine Protein Negative mg/dL (NEG-TRACE) Urine Glucose (UA) Negative mg/dL (NEG) Urine Ketones (Stick) Negative mg/dL (NEG) Urine Blood Negative (NEG) Urine Nitrite Negative (NEG) Urine Bilirubin Negative (NEG) Urine Urobilinogen Dipstick 0.2 mg/dL (0.2 mg/dL) Urine Leukocyte Esterase Negative (NEG) Urine RBC 0 /HPF (0-2) Urine WBC 0 /HPF (0-4) Urine Squamous Epithelial Cells Occ /LPF Urine Bacteria 0 /HPF (0-FEW) Urine Hyaline Casts Occasional /HPF Urine Waxy Casts Occasional /HPF Urine Mucus Slight /LPF Test 08/14/18 17:40 08/14/18 17:42 08/14/18 18:36 Ammonia < 10 mcmol/L (11-34) L Glucose (Fingerstick) 75 mg/dL (70-99) 82 mg/dL (70-99) Laboratory Tests 08/14/18 17:00 Laboratory Tests 08/14/18 17:00 EKG EKG 1708: Normal sinus rhythm, heart rate 70, no significant ST segment changes.[] Radiology/Procedures Radiology/Procedures CT Head IMPRESSION: No acute intracranial findings. Electronically signed by: Shar Garcia MD (08/14/2018 6:32 PM) [facility][] ] CXR: ED interpretation No acute findings. Course & Med Decision Making Course & Med Decision Making Pertinent Labs and Imaging studies reviewed. (See chart for details) []17:16 patient with very mild CO2 retention on ABG likely not the primary cause of her diminished mental status. Blood glucose is trending down. Will start D5NS at 75 miles per hour continue to monitor glucose closely. She is improving slightly. She is now responsive to verbal stimuli and continues to follow commands when alert. GCS of 10. 1806: Glucose trending down. Patient started on D5NS at 75 mL sprouted then titrated up to 100 else per hour. She continues to be on BiPAP. Her GCS continues to be between a 10-11 she seems slightly more alert. She responds to her 's voice is now at bedside and appears to be attempting to talk to them. She had no response to Narcan. So further no acute findings on her labs/ ER evaluation to explain the cause of altered mental status. Pending only a head CT. 184: Patient continues to be on BiPAP. She has only slight changes in her mental status. She remains arousable to voice, she stated "oh fine" when I asked that she was doing and then promptly went back to sleep. (GCS is 13, E3, V4, M6). Patient found to be hypothermic by rectal temperature. Bearhug are applied. The patient is moving all 4 extremities on command though is diffusely weak. Discussed case with Dr. Tristan. Will start broad-spectrum antibiotics. Confirmed DNR/DNI status with spouse at bedside. Discussed potential for poor neurological outcome. No clear pathology of acute mental status change at this time. Will get a urine drug screen but I have low suspicion of this especially given no response to Narcan. Unclear why lipase is still elevated the patient does not seem to have any abdominal tenderness on exam. Patient remains critically ill and will go to the ICU. She had listed hives to penicillin but after discussion with pharmacy patient does not have any known reaction to Zofran and has tolerated ceftriaxone in the past. Given the low cross- reactivity between most penicillins and Zosyn and need for broad coverage with unknown pathology at this time we will give a course of Zosyn and monitor for allergic reaction. Dragon Disclaimer Dragon Disclaimer This electronic medical record was generated, in whole or in part, using a voice recognition dictation system. Departure Departure Impression: Primary Impression: Altered mental status Additional Impressions: Hypothermia Acute respiratory failure Disposition: ADMITTED INPATIENT Admitting Physician: Other (Riffel) Condition: CRITICAL Referrals: SULTANA MONTGOMERY MD (PCP) Critical Care Time Critical care time was [81] minutes exclusive of procedures. Patient with respiratory failure on arrival requiring continuous BiPAP to maintain O2 saturation. Patient with significant mental status and central nervous process decline. Patient required serial evaluations and continued critical management. Case was discussed other physicians. Time spent on chart review, results review , serial evaluations, discussion with family and discussion with other physicians. Problem Qualifiers SHERYL BRIONES DO Aug 14, 2018 17:17
[2018-08-14 17:21] LABS: CALCIUM 7.4 mg/dL (8.5-10.1); CREATININE 1.5 mg/dL (0.6-1.0); GFR 35.5; POTASSIUM 3.6 mmol/L (3.5-5.1)
[2018-08-14 17:23] LABS: PROTHROMBIN TIME PATIENT 24.7 SEC (11.7-14.0)
[2018-08-14 17:27] LABS: ALBUMIN 3.1 g/dL (3.4-5.0); ALBUMIN/GLOBULIN RATIO 0.7 (1.0-1.7); MAGNESIUM 2.1 mg/dL (1.8-2.4); TOTAL BILIRUBIN 0.3 mg/dL (0.2-1.0); TOTAL PROTEIN 7.5 g/dL (6.4-8.2)
[2018-08-14 17:30] LABS: BILIRUBIN,URINE NEGATIVE (NEG); CLARITY,URINE CLEAR; COLOR,URINE YELLOW; NITRITE,URINE NEGATIVE (NEG); PROTEIN,URINE NEGATIVE (NEG-TRACE); UROBILINOGEN,URINE 0.2 mg/dL (0.2 mg/dL)
[2018-08-14 17:37] LABS: BACTERIA,URINE 0 /HPF (0-FEW); HYALINE CASTS, URINE OCCASIONAL /HPF; RBC,URINE 0 /HPF (0-2); SQUAMOUS EPITHELIAL CELL,UR OCC /LPF; WBC,URINE 0 /HPF (0-4)
[2018-08-14 17:38] LABS: WAXY CASTS,URINE OCCASIONAL /HPF
[2018-08-14 17:50] LABS: ANISOCYTOSIS MOD; HYPOCHROMIA MOD; MICROCYTOSIS SLIGHT; PLT ESTIMATE INCREASED (ADEQUATE); POLYCHROMASIA SLIGHT
[2018-08-14] MEDS ORDERED: IV DEXTROSE 5 %-0.45 % NACL 1,000 ML IV ONE (18:00)
--- NOTE | 2018-08-14 18:35 | RAD ---
CT HEAD INDICATION: Altered mental status COMPARISON: 05/19/2018 Exposure: One or more of the following individualized dose reduction techniques were utilized for this examination: 1. Automated exposure control 2. Adjustment of the mA and/or kV according to patient size 3. Use of iterative reconstruction technique TECHNIQUE: 5 mm contiguous axial images were obtained from the skull base to the vertex in both bone and soft tissue algorithm. FINDINGS: Mild bilateral periventricular white matter hypodensities likely chronic small vessel ischemic disease. No evidence of acute intracranial hemorrhage. No extra-axial fluid collections. No mass effect or midline shift. Ventricular size is appropriate. Basal cisterns are patent. No fractures identified.Manzano-white differentiation is preserved.Globes and orbits are within normal limits. Paranasal sinuses and mastoid air cells are clear. IMPRESSION: No acute intracranial findings. Electronically signed by: Shar Garcia MD (08/14/2018 6:32 PM) [facility]
[2018-08-14] MEDS ORDERED: VANCOMYCIN 1GM IVPB FOR OMNI 250 ML IV ONE (18:45)
[2018-08-14] MEDS ORDERED: PIPERACILLIN/TAZOBACTAM 3.375 GM in IV NORMAL SALINE 50ML 50 ML IV ONE (18:45)
[2018-08-14] MEDS ORDERED: VANCOMYCIN 1.75 GM in IV NORMAL SALINE 500ML BAG 500 ML IV ONE (18:45)
[2018-08-14 19:32] LABS: BARBITURATES NEG (NEG); BENZODIAZEPINES NEG (NEG); CANNABINOIDS NEG (NEG); COCAINE NEG (NEG); METHADONE NEG (NEG); OPIATES POS (NEG); PHENCYCLIDINE NEG (NEG)
[2018-08-14 19:33] LABS: AMPHETAMINE/METHAMPHETAMINE NEG (NEG)
[2018-08-14 20:15] VITALS: BP 106/69
[2018-08-14 20:41] LABS: BASE EXCESS ABG 5 mmol/L (-3-3); CORRECTED PCO2 ABG 44 mmHg; CORRECTED PH ABG 7.45; CORRECTED PO2 ABG 62 mmHg; FIO2 ABG 50; HCO3 ABG 31 mmol/L (21-28); PCO2 ABG 51 mmHg (35-46); PO2 ABG 77 mmHg (65-108); SAT O2 ABG 94 % (92-99)
[2018-08-14 21:00] VITALS: BP 87/55
[2018-08-14 22:00] VITALS: BP 136/77
[2018-08-14] MEDS ORDERED: IV NORMAL SALINE 1000ML BAG 1,000 ML IV ONE (22:00)
--- NOTE | 2018-08-14 22:32 | NUR ---
Patient admitted to ICU room 109. Arrived via gurney accompanied by RN. Patient returned to [facility] [place]. Admission information complete with assistance from . Patient is alert x4 but drowsy at this time.
[2018-08-14 23:00] VITALS: BP 148/72
[2018-08-14 23:59] VITALS: BP 142/78
[2018-08-15] VITALS (12 sets, daily range): BP systolic 105–157; BP diastolic 49–78
[2018-08-15] MEDS ORDERED: methylPREDNISolone SOD SUCC PF 125 MG/2 ML VIAL. IV SCH (06:00)
--- NOTE | 2018-08-15 07:06 | EKG ---
[facility] [address] [place] [address] Test Date: 2018-08-14 Test Time: 17:04:07 Pat Name: ISATU LOUISE Department: Room: 109 Gender: F Data Sme: : 1960 Requested By: SHERYL BRIONES Order Number: [id number] Reading MD: Danyel Rosenthal MD Measurements Intervals [place] Rate: 70 P: 46 NM: 172 QRS: 54 QRSD: 80 T: 79 QT: 486 QTc: 528 Interpretive Statements SINUS RHYTHM POOR R WAVE PROGRESSION ANTEROLATERAL INFARCT VERSUS LEAD PLACEMENT Electronically Signed On 08-15-2018 15:35:47 CDT by Danyel Rosenthal MD
--- NOTE | 2018-08-15 07:51 | RAD ---
CHEST AP ONLY Clinical indications: HYPOXIA COMPARISON: August 11, 2018 Findings: Bilateral pulmonary edema has resolved. No pleural effusion or pneumothorax is evident. The heart size, pulmonary vasculature, mediastinum and both tacho are stable. Impression: Resolution of bilateral pulmonary edema. No new lung infiltrate. Electronically signed by: Omari Lockhart MD (08/15/2018 7:48 AM) [facility]
--- NOTE | 2018-08-15 08:12 | PDOC ---
Infectious Disease Note Vital Sign Vital Signs Vital Signs Date Time Temp Pulse Resp B/P (MAP) Pulse Ox O2 Delivery O2 Flow Rate FiO2 08/15/18 06:00 80 20 125/64 (84) 93 Nasal Cannula 3.0 08/15/18 04:00 100.2 100.2 Labs Lab Laboratory Tests Test 08/14/18 16:54 08/14/18 17:00 08/14/18 17:15 08/14/18 17:18 O2 Saturation 82 % (92-99) Arterial Blood pH 7.36 (7.35-7.45) Arterial Blood pCO2 at Patient Temp 56 mmHg (35-46) Arterial Blood pO2 at Patient Temp 51 mmHg (65-108) Arterial Blood HCO3 31 mmol/L (21-28) Arterial Blood Base Excess 5 mmol/L (-3-3) FiO2 60 White Blood Count 10.7 x10^3/uL (4.0-11.0) Red Blood Count 3.85 x10^6/uL (3.50-5.40) Hemoglobin 8.7 g/dL (12.0-15.5) Hematocrit 28.5 % (36.0-47.0) Mean Corpuscular Volume 74 fL (79-100) Mean Corpuscular Hemoglobin 23 pg (25-35) Mean Corpuscular Hemoglobin Concent 31 g/dL (31-37) Red Cell Distribution Width 21.0 % (11.5-14.5) Platelet Count 481 x10^3/uL (140-400) Neutrophils (%) (Auto) 74 % (31-73) Lymphocytes (%) (Auto) 16 % (24-48) Monocytes (%) (Auto) 8 % (0-9) Eosinophils (%) (Auto) 2 % (0-3) Basophils (%) (Auto) 1 % (0-3) Neutrophils # (Auto) 7.9 x10^3uL (1.8-7.7) Lymphocytes # (Auto) 1.7 x10^3/uL (1.0-4.8) Monocytes # (Auto) 0.9 x10^3/uL (0.0-1.1) Eosinophils # (Auto) 0.2 x10^3/uL (0.0-0.7) Basophils # (Auto) 0.1 x10^3/uL (0.0-0.2) Platelet Estimate Increased (ADEQUATE) Polychromasia Slight Hypochromasia Mod Anisocytosis Mod Microcytosis Slight Prothrombin Time 24.7 SEC (11.7-14.0) Prothromb Time International Ratio 2.3 (0.8-1.1) Activated Partial Thromboplast Time 36 SEC (24-38) Sodium Level 143 mmol/L (136-145) Potassium Level 3.6 mmol/L (3.5-5.1) Chloride Level 102 mmol/L (98-107) Carbon Dioxide Level 31 mmol/L (21-32) Anion Gap 10 (6-14) Blood Urea Nitrogen 32 mg/dL (7-20) Creatinine 1.5 mg/dL (0.6-1.0) Estimated GFR (Cockcroft-Gault) 35.5 BUN/Creatinine Ratio 21 (6-20) Glucose Level 101 mg/dL (70-99) Lactic Acid Level 1.7 mmol/L (0.4-2.0) Calcium Level 7.4 mg/dL (8.5-10.1) Magnesium Level 2.1 mg/dL (1.8-2.4) Total Bilirubin 0.3 mg/dL (0.2-1.0) Aspartate Amino Transf (AST/SGOT) 42 U/L (15-37) Alanine Aminotransferase (ALT/SGPT) 33 U/L (14-59) Alkaline Phosphatase 127 U/L (46-116) Troponin I Quantitative < 0.017 ng/mL (0.000-0.055) CN-Tmw-H-Type Natriuretic Peptide 1538 pg/mL (0-124) Total Protein 7.5 g/dL (6.4-8.2) Albumin 3.1 g/dL (3.4-5.0) Albumin/Globulin Ratio 0.7 (1.0-1.7) Lipase 1177 U/L (73-393) Procalcitonin < 0.10 ng/mL (0.00-0.10) Ethyl Alcohol Level < 10 mg/dL (0-10) Glucose (Fingerstick) 82 mg/dL (70-99) Urine Color Yellow Urine Clarity Clear Urine pH 5.0 Urine Specific [place] 1.015 Urine Protein Negative mg/dL (NEG-TRACE) Urine Glucose (UA) Negative mg/dL (NEG) Urine Ketones (Stick) Negative mg/dL (NEG) Urine Blood Negative (NEG) Urine Nitrite Negative (NEG) Urine Bilirubin Negative (NEG) Urine Urobilinogen Dipstick 0.2 mg/dL (0.2 mg/dL) Urine Leukocyte Esterase Negative (NEG) Urine RBC 0 /HPF (0-2) Urine WBC 0 /HPF (0-4) Urine Squamous Epithelial Cells Occ /LPF Urine Bacteria 0 /HPF (0-FEW) Urine Hyaline Casts Occasional /HPF Urine Waxy Casts Occasional /HPF Urine Mucus Slight /LPF Urine Opiates Screen Pos (NEG) Urine Methadone Screen Neg (NEG) Urine Barbiturates Neg (NEG) Urine Phencyclidine Screen Neg (NEG) Urine Amphetamine/Methamphetamine Neg (NEG) Urine Benzodiazepines Screen Neg (NEG) Urine Cocaine Screen Neg (NEG) Urine Cannabinoids Screen Neg (NEG) Urine Ethyl Alcohol Neg (NEG) Test 08/14/18 17:40 08/14/18 17:42 08/14/18 18:36 08/14/18 19:59 Ammonia < 10 mcmol/L (11-34) Glucose (Fingerstick) 75 mg/dL (70-99) 82 mg/dL (70-99) 88 mg/dL (70-99) Test 08/14/18 20:35 08/15/18 00:21 O2 Saturation 94 % (92-99) Arterial Blood pH 7.40 (7.35-7.45) Arterial Blood pH (Temp corrected) 7.45 Arterial Blood pCO2 at Patient Temp 51 mmHg (35-46) Arterial Blood pCO2 (Temp correct) 44 mmHg Arterial Blood pO2 at Patient Temp 77 mmHg (65-108) Arterial Blood pO2 (Temp corrected) 62 mmHg Arterial Blood HCO3 31 mmol/L (21-28) Arterial Blood Base Excess 5 mmol/L (-3-3) FiO2 50 Glucose (Fingerstick) 120 mg/dL (70-99) Objective Assessment Fever, ? possible aspiration Encephalopathy Hypoglycemia ? CO2 narcosis COPD DM HTN CVA Plan Plan of Care zosyn supportive care d/w BEVERLEY Quintero MD Aug 15, 2018 08:12
[2018-08-15] MEDS ORDERED: NON FORMULARY ITEM (Budesonide/Formoterol Fumarate (Symbicort 160-4.5 Mcg Inhaler) 2 PUFF) IH SCH (09:00)
[2018-08-15] MEDS: ALPRAZolam 0.25 MG TABLET PO SCH ×2 (09:00→21:21)
[2018-08-15 09:28] LABS: BASO % 0 % (0-3); EOS % 0 % (0-3); HEMATOCRIT 26.7 % (36.0-47.0); HEMOGLOBIN 7.9 g/dL (12.0-15.5); LYMPH # 0.8 x10^3/uL (1.0-4.8); LYMPH % 3 % (24-48); MEAN CORPUSCULAR HEMOGLOBIN 22 pg (25-35); MEAN CORPUSCULAR HGB CONC 30 g/dL (31-37); MEAN CORPUSCULAR VOLUME 74 fL (79-100); MONO # 0.6 x10^3/uL (0.0-1.1); MONO % 3 % (0-9); NEUT # 21.4 x10^3uL (1.8-7.7); NEUT % 94 % (31-73); PLATELET COUNT 432 x10^3/uL (140-400); RED CELL DISTRIBUTION WIDTH 21.4 % (11.5-14.5)
[2018-08-15] MEDS ORDERED: DEXTROSE 50% 25 GM / 50ML DISP.SYRIN. IV PRN (09:30)
[2018-08-15 09:37] LABS: WHITE BLOOD COUNT 22.8 x10^3/uL (4.0-11.0)
[2018-08-15] MEDS ORDERED: tiZANidine 4 MG TABLET. PO PRN (09:45)
[2018-08-15 09:50] LABS: CALCIUM 6.8 mg/dL (8.5-10.1); CREATININE 1.4 mg/dL (0.6-1.0); GFR 38.5; POTASSIUM 4.4 mmol/L (3.5-5.1)
[2018-08-15] MEDS: predniSONE 20 MG TABLET PO SCH (10:00)
[2018-08-15] MEDS: BUDESONIDE 0.5 MG/2 ML NEBU. NEB SCH ×2 (10:00→20:00)
[2018-08-15] MEDS: CETIRIZINE HCL 10 MG TABLET. PO SCH (10:09)
[2018-08-15] MEDS: metFORMIN 500 MG TABLET PO SCH ×2 (10:09→17:17)
[2018-08-15] MEDS: ASPIRIN ENTERIC COATED 81 MG TABLET.DR. PO SCH (10:09)
[2018-08-15] MEDS: POTASSIUM CHLORIDE 20 MEQ TABLET.ER. PO SCH (10:09)
[2018-08-15] MEDS: METOCLOPRAMIDE 10 MG TABLET. PO SCH ×4 (10:09→21:21)
[2018-08-15] MEDS: LEVOTHYROXINE 150 MCG TABLET PO SCH (10:09)
[2018-08-15] MEDS: MAGNESIUM OXIDE 400 MG TABLET PO SCH ×3 (10:09→21:21)
[2018-08-15] MEDS: FLUTICASONE 50MCG/NASAL SPRAY 16GM BOTTLE. NS SCH (10:10)
[2018-08-15] MEDS: DICLOFENAC SODIUM 1% TOPICAL GEL 100GM TUBE. TP SCH ×4 (10:10→21:00)
[2018-08-15] MEDS: HYDROcodone/APAP 7.5/325MG 1 TAB TABLET PO PRN (10:10)
[2018-08-15 10:11] LABS: % BANDS 10 % (0-9); % LYMPHS 3 % (24-48); % MONOS 2 % (0-10); % SEGS 85 % (35-66); NUCLEATED RBC 1; PLT ESTIMATE INCREASED (ADEQUATE); POLYCHROMASIA PRESENT
[2018-08-15] MEDS: CARVEDILOL 3.125 MG TABLET. PO SCH ×2 (10:11→17:20)
[2018-08-15] MEDS: PIPERACILLIN/TAZOBACTAM 3.375 GM in IV NORMAL SALINE 50ML 50 ML IV SCH ×4 (10:11→23:33)
[2018-08-15 10:12] LABS: ANISOCYTOSIS MOD; MICROCYTOSIS MOD
[2018-08-15 10:13] LABS: OVALOCYTES FEW
--- NOTE | 2018-08-15 10:17 | PDOC ---
Provider Note Provider Note Patient seen. History and Physical dictated. See dictation#[id number] SULTANA MONTGOMERY MD Aug 15, 2018 10:17
[2018-08-15] MEDS: PANTOPRAZOLE 40 MG TABLET.DR. PO SCH ×2 (10:30→17:17)
--- NOTE | 2018-08-15 11:04 | NUR ---
noon doses held on medications due to restarting of home meds in late morning. Gave am meds, did not want to give to close together.
--- NOTE | 2018-08-15 11:24 | CONS ---
DATE OF CONSULTATION: 08/14/2018 ATTENDING PHYSICIAN: Dr. Kristen Gregorio. REASON FOR CONSULTATION: Respiratory failure. HISTORY OF PRESENT ILLNESS: The patient is a 58-year-old morbidly obese patient who has history of oxygen-dependent respiratory failure. She has 30+ years of tobacco use. She is morbidly obese. She has history of DVT in the left lower and left upper extremities. She is on warfarin. She was brought into the hospital with altered mental status. She was also having some shortness of breath. She has mild cough, no fever, no chills, no purulent sputum production. A chest x-ray initially showed mild interstitial edema. Her arterial blood gases reveal a pH of 7.36, pCO2 of 56 and a pO2 of 51 on 60% FiO2. Latest ABGs after being treated with BiPAP showed a pH of 7.40, pCO2 of 51, pO2 of 77. She is currently off the BiPAP. She feels better. Denies any headaches, no nausea or vomiting, no diarrhea. No chest pain. No focal weakness. Her chest x-ray today shows improving interstitial edema. Consultation requested for further evaluation and management. PAST MEDICAL HISTORY: Significant for history of COPD, history of CVA, history of type 2 diabetes, history of chronic respiratory failure, hypertension, ND x 6, history of clots in the left lower and left upper extremity. PAST SURGICAL HISTORY: Hysterectomy, pacemaker, tonsillectomy. SOCIAL HISTORY: Smoker for 30 years. Continues to smoke cigarettes. ALLERGIES: PENICILLIN, CODEINE, DIPHENHYDRAMINE. MEDICATIONS: All reviewed as listed in the MRAD including DuoNeb and antibiotic Zosyn. REVIEW OF SYSTEMS: Twelve-point system obtained. Pertinent positives discussed in my history of present illness, otherwise noncontributory. All systems that were negative were reviewed as well. SOCIAL HISTORY: Smoker for 30 years. Continues to smoke cigarettes. PHYSICAL EXAMINATION: VITAL SIGNS: Reviewed. Blood pressure on the high side. Pulse ox 93% on 3 liters, afebrile. HEENT: Sclerae nonicteric. NECK: Supple. LUNGS: With diminished breath sounds. CARDIOVASCULAR: Regular rate. ABDOMEN: Soft, obese. EXTREMITIES: With trace pitting edema. LABORATORY DATA: Reviewed. ABGs are discussed in my history of present illness. BUN 20, creatinine 1.4. INR is 2.3. White cell count is 10.7, now 22.8. Hemoglobin 7.9 and platelets are 432. IMPRESSION: 1. Dyspnea with acute on chronic hypercapnic and hypoxic respiratory failure secondary to acute exacerbation of chronic obstructive pulmonary disease, [id number] systolic heart failure. 2. Leukocytosis, likely related to steroids. No symptoms suggesting infection. 3. Previous echocardiogram with an ejection fraction of 40%, being followed by Cardiology. 4. 30+ years of tobacco use, on home oxygen. Continues to smoke cigarettes. 5. History of deep venous thrombosis, left lower and left upper extremity and chronic on anticoagulation with warfarin. INR therapeutic. RECOMMENDATIONS: 1. Discontinue BiPAP. 2. I would recommend having a sleep study as an outpatient. 3. Continue present bronchodilators. 4. The patient is currently on oral prednisone and I would follow the white cell count. Leukocytosis was likely related to IV steroids, which she received in the ER. I would also discontinue IV steroids since she is on oral prednisone. 5. Follow Cardiology recommendation. 6. Antibiotics per Infectious Disease. 7. The patient could be transferred to the floor. Discussed with RN. Critical care time 35 minutes. JUVENTINO ARRIOLA MD DR: LÓPEZ/natanael JOB#: [id number] / [id number]
[2018-08-15] MEDS: IPRATRPIUM/ALBUTEROL 0.5/2.5MG 3 ML NEBU. NEB SCH ×3 (12:00→20:00)
--- NOTE | 2018-08-15 12:12 | HP ---
ADMIT DATE: 08/14/2018 HISTORY OF PRESENT ILLNESS: This is a 58-year-old female who was admitted a few days ago to [facility] for hyperkalemia and acute on chronic congestive heart failure, systolic as well as acute on chronic hypoxic respiratory failure. The patient was feeling better, so the family wanted to take her home. She went home Wednesday evening that is 2 days ago and was doing fine at that time, but on Wednesday morning, she did not eat much and then between and , her condition worsened, and she was not responsive. Her blood sugar dropped and as per who did not know at that time, the patient was feeling short of breath, so she had increased her oxygen and because of her worsening status and unresponsiveness, 911 was called. The EMR noted that the blood sugar was in the low 40s and O2 sats were in the 80s. The patient was given BiPAP in the Emergency Room and after 2 hours of BiPAP, the patient's condition became much better. She was also given IV D50 for treatment of hypoglycemia. SYSTEMS REVIEW: The patient is now feeling much better and denies any pain or dyspnea. Her appetite is still poor, but her mental status is much better. She still remains weak. She denies any cough, congestion or fever, although she had 100.2 degrees Fahrenheit fever this morning. She denies any nausea, vomiting, abdominal pain. She does admit to some joint pain and chronic pain. She is still not a good historian and unable to do full systems review. Other systems were checked, and some information was obtained from the . During the last admission, hyperkalemia was corrected and the patient was then discharged home. The patient is being admitted because of acute metabolic encephalopathy, acute on chronic hypercapnic and hypoxic respiratory failure and acute hypoglycemia and fevers, likely due to aspiration. PAST MEDICAL HISTORY: The patient has a history of severe COPD with chronic hypoxic and hypercapnic respiratory failure. She is on oxygen at home. Systolic congestive heart failure with ejection fraction of 35%, history of coronary artery disease, multiple myocardial infarctions, AICD, hypertension, valvular insufficiency, peripheral artery disease, left popliteal artery occlusion with balloon angioplasty, right anterior tibial angioplasty, tibioperoneal trunk, 100% occluded with history of thrombectomy. Angioplasty of the posterior tibial artery in 09/2011. She had a left popliteal and left anterior tibial [facility] [employer] at . Left upper extremity brachial artery occlusion with history of left brachial to radial artery bypass, emphysema. Chronic respiratory failure, oxygen dependent. History of pneumonia, carpal tunnel syndrome, CVA, migraine, diverticulosis, anxiety, depression, gastroesophageal reflux disease, gastritis, hemorrhoids, irritable bowel syndrome, peptic ulcer disease, fatty liver, anemia, osteoarthritis, chronic renal insufficiency, history of nonobstructing right renal calculus, diabetes mellitus type 2 with neuropathy, insulin-dependent with peripheral vascular disease, hypothyroidism, had multinodular goiter. PAST SURGICAL HISTORY: The patient had cardiothoracic surgery, left upper extremity thrombectomy with dilation. Hemorrhoidectomy. PCI with coronary artery disease and stents x 9. Had appendectomy, cholecystectomy, CABG in 2006, tonsillectomy, hysterectomy, left upper extremity arterial bypass surgery, thyroidectomy for multinodular goiter. FAMILY HISTORY: Positive for cancer. SOCIAL HISTORY: Continues to smoke. No history of alcoholism or drug abuse. The patient is . ALLERGIES: THE PATIENT IS ALLERGIC TO PENICILLIN, CODEINE, DIPHENHYDRAMINE. MEDICATIONS: Reviewed and reconciled the medications. PHYSICAL EXAMINATION: GENERAL: The patient is a middle-aged female who appears to be much older than her stated age. She is weak and tired. The patient is alert, oriented, but weak and tired and forgetful, on oxygen by nasal cannula, responding better. VITAL SIGNS: Temperature maximum is 100.2, pulse 82 per minute, respirations 20 per minute, blood pressure 133/58. SKIN: Warm and dry. There is no cyanosis. EYES: Pupils reacting to light. Conjunctivae pale. Sclerae muddy. HEENT: Unremarkable except for mild congestion of throat. NECK: Supple. JVP normal. No thyromegaly. Trachea midline. LUNGS: Decreased breath sounds at bases with few bilateral basal rales. CARDIOVASCULAR: S1, S2, regular with extra beats. ABDOMEN: Soft, nontender, no guarding, no rigidity. Bowel sounds present. EXTREMITIES: No edema. CENTRAL NERVOUS SYSTEM: Generalized weakness, forgetful. LABORATORY DATA: WBC count was 10.7 yesterday, 22.8 this morning. Hemoglobin 8.7 yesterday, 7.9 today. Platelet count 481,000. Sodium 143, potassium 3.6, BUN 32, creatinine 1.5, calcium 7.4, magnesium 2.1. BNP 1538, lipase 1177, albumin 3.1. ABG revealed pH 7.36, pCO2 of 56 and pO2 of 51 on admission. Subsequently, pO2 increased to 77, pCO2 decreased to 51 on FiO2 of 50%. Urinalysis is negative. INR is 2.3. Chest x-ray shows resolution of bilateral pulmonary edema. CT scan of head showed no acute intracranial findings. IMPRESSION: 1. Acute hypoxic and hypercapnic respiratory failure. 2. Acute hypoglycemia. 3. Chronic systolic congestive heart failure. 4. Fever, likely due to aspiration bronchitis. 5. Acute metabolic encephalopathy, multifactorial. 6. Chronic obstructive pulmonary disease. 7. Diabetes mellitus type 2 with diabetic neuropathy, peripheral artery disease and hypoglycemia. 8. History of deep venous thrombosis in the past with chronic Coumadin therapy. 9. Hypothyroidism, surgically induced. 10. Peripheral artery disease with multiple procedures as noted above. 11. Hypertension. 12. Hyperlipidemia. 13. Chronic kidney disease. 14. History of nonobstructing right renal calculus. 15. Obesity. 16. Chronic smoking. The patient is trying to quit. 17. Anxiety 18. Depression. 19. Osteoporosis. 20. Degenerative joint disease, multiple joints. 21. History of cerebrovascular accident. 22. History of migraine. 23. Diverticulosis. 24. History of gastritis. 25. Irritable bowel syndrome. 26. Anemia. PLAN: Consult Dr. Patricio for infectious disease evaluation and management. Consult Dr. Burgess for pulmonary evaluation and management and salesperson hearing aids, Dr. Rosenthal for GI evaluation and management. The patient has an elevated lipase, but she is asymptomatic and we will continue to monitor. The patient is also being seen by Dr. Ireland for neurology evaluation and management. We will consult Dr. Burgess for pulmonary evaluation and management. We will hold off on cardiology consult at this time. For details, please review the orders. Prognosis of this patient is poor. The patient is much more alert. Condition and treatment discussed with the patient and her . Continue on oxygen by nasal cannula. Restart low-dose steroid this morning. Continue IV Zosyn. Follow up cultures. Transfer the patient out of ICU. SULTANA MONTGOMERY MD DR: DANIS/natanael JOB#: [id number] / [id number]
[2018-08-15] MEDS: TORSEMIDE 20 MG TABLET. PO SCH (12:57)
[2018-08-15] MEDS: INSULIN LISPRO 300 UNITS/3 ML INSULN.PEN. SQ SCH ×2 (13:02→17:21)
--- NOTE | 2018-08-15 13:47 | NUR ---
SS following for discharge planning. SS reviewed pt chart. Pt is from home with spouse and is currently requiring oxygen. PT/OT ordered. SS will await PT/OT evaluations and recommendations and will proceed accordingly with discharge planning.
--- NOTE | 2018-08-15 14:01 | PDOC2 ---
NEUROLOGY CONSULT Date of Admission Date of Admission DATE: 08/15/18 TIME: 13:44 Reason for Consult Reason for Consult: IMPRESSION: Metabolic encephalopathy. Respiratory distress/failure/ Hypoxia, O2 saturation 82%. COPD. Hypoglycemia. Hyperglycemia. Leukocytosis. Thrombocytosis. DM. HTN. MN. Elevate lipase. Pacemaker in site. Obesity. RECOMMENDATIONS/PLAN: Treat medical diseases. She has been treated with Coumadin. Continue Zocor HS. Weight reduction. Discussed with her at bedside in ICU on 08/15/18. HISTORY OF THE PRESENT ILLNESS: This is a 58 -year-old female who was brought to the ER due to altered mental status. She has COPD on chronic nasal cannula supplemental O2 at 2 L. Patient was found unresponsive in her bed with questionable downtime of approximately one hour. On EMS evaluation was found to be hypoglycemic with blood sugar and 40s. Patient was given an amp of D50 with some improvement only to a GCS of 9. Patient with recent hospitalization for COPD exacerbation and hyperkalemia per EMS. Patient arouses with sternal rub, intermittently follows commands but otherwise unable to provide any history, so she was transferred to ICU for further evaluation and treatment. PAST MEDICAL HISTORY: COPD, history of CVA, diabetes, history of chronic respiratory failure, hypertension, MN x 6, history of clots in the left lower and left upper extremity. PAST SURGICAL HISTORY: Hysterectomy, pacemaker, tonsillectomy. SOCIAL HISTORY: Lives with her , her child and grandchildren at home. Smoker for 30 years. Continues to smoke cigarettes. ALLERGIES: PENICILLIN, CODEINE, DIPHENHYDRAMINE. MEDICATIONS: See MAR. FAMILY HISTORY: Non contributory. REVIEW OF SYSTEMS: Constitutional: Obesity. Head: No recent traumatic brain or head injury. Skin: No edema, or rash. Ear: No infection. Eyes: No vision loss or color blindness. Nose: No bleeding or purulent discharges. Hearing: No hearing decrease. Neck: No injury. Breast: No history of cancer, masses,or discharges. Cardiac:MN, HTN, HLD. Pulmonary: COPD. GI: No GI ulcer, GI bleeding. Urinary/genital: UTI. Endocrinologic: Diabetes Mellitus, obesity. Skeletomuscular: No muscular atrophy, deformity. Neurological: see HP. Psychiatric: Smoking. Otherwise, not [id number] review of systems. PHYSICAL EXAMINATION: General appearance is in subacute distress. HEENT: Normocephalic and nontraumatic. Eyes, nose, ears, and throat are unremarkable. Neck is supple. No lymphadenopathy. No crepitus. Cardiovascular: S1, S2, regular rate and rhythm. Pulmonary: Decreased to auscultation bilaterally. Abdomen: Bowel sounds are positive. Abdomen is soft, nontender, and nondistended. Extremities: No rash, lesions, or edema. No restriction of range of motion NEUROLOGICAL EXAMINATION: Alert On NC O2. Oriented to time, place and person. PERRL. EOMI. CN: no focal findings. Muscle tone: within normal. Muscle strength: 5- DTR: 1+ Plantar reflex: Flexor response bilaterally Gait: not examined in chair. Sensory exam: no abnormal findings. No cerebellar signs elicited. F-T-N test fine. Current Medications Current Medications Current Medications Naloxone HCl (Narcan) 0.4 mg 1X ONCE IV Last administered on 08/14/18 17:11; Start 08/14/18 at 17:00; Stop 08/14/18 at 17:03; Status DC Dextrose/Sodium Chloride 1,000 ml @ 100 mls/hr 1X ONCE IV Last administered on 08/14/18 17:52; Start 08/14/18 at 18:00; Stop 08/15/18 at 03:59; Status DC Vancomycin HCl 250 ml @ 250 mls/hr 1X ONCE IV ; Start 08/14/18 at 18:45; Stop 08/14/18 at 19:44; Status UNV Piperacillin Sod/ Tazobactam Sod 3.375 gm/Sodium Chloride 50 ml @ 100 mls/hr 1X ONCE IV Last administered on 08/14/18at 20:45; Start 08/14/18 at 18:45; Stop 08/14/18 at 19:14; Status DC Vancomycin HCl 1.75 gm/Sodium Chloride 500 ml @ 250 mls/hr 1X ONCE IV Last administered on 08/14/18 20:44; Start 08/14/18 at 18:45; Stop 08/14/18 at 20:44; Status DC Sodium Chloride 1,000 ml @ 1,000 mls/hr 1X ONCE IV Last administered on 22:19; Start 08/14/18 at 22:00; Stop 08/14/18 at 22:59; Status DC Methylprednisolone Sodium Succinate (SOLU-Medrol 125MG VIAL) 80 mg Q8HRS IV Last administered on 08/15/18 05:27; Start 08/15/18 at 06:00; Stop 08/15/18 at 10: 54; Status DC Piperacillin Sod/ Tazobactam Sod 3.375 gm/Sodium Chloride 50 ml @ 100 mls/hr Q6HRS IV Last administered on 08/15/18 10:11; Start 08/15/18 at 08:30 Alprazolam (Xanax) 0.25 mg BID PO ; Start 08/15/18 at 09:00 Aspirin (Ecotrin) 81 mg DAILY PO Last administered on 08/15/18 10:09; Start 08/15/18 at 09:30 Carvedilol (Coreg) 3.125 mg BIDWMEALS PO Last administered on 08/15/18 10:11; Start 08/15/18 at 09:30 Cetirizine HCl (ZyrTEC) 10 mg DAILY PO Last administered on 08/15/18 10:09; Start 08/15/18 at 10:00 Diclofenac Sodium (Voltaren) 1 kiana QID TP Last administered on 08/15/18 10:10; Start 08/15/18 at 09:00 Fluticasone Propionate (Flonase) 2 spray DAILY NS Last administered on 10:10; Start 08/15/18 at 09:00 Gabapentin (Neurontin) 1,200 mg HS PO ; Start 08/15/18 at 21:00 Acetaminophen/ Hydrocodone Bitart (Lortab 7.5/325) 1 tab PRN Q6HRS PRN PO MODERATE PAIN Last administered on 08/15/18 10:10; Start 08/15/18 at 09:00 Albuterol/ Ipratropium (Duoneb) 3 ml RTQID NEB ; Start 08/15/18 at 12:00 Metoclopramide HCl (Reglan) 10 mg QIDACHS PO Last administered on 08/15/18 10: 09; Start 08/15/18 at 09:00 Non-Formulary Medication (Budesonide/ Formoterol Fumarate (Symbicort 160-4.5 Mcg Inhaler)) 2 puff BID IH ; Start 08/15/18 at 09:00; Status Cancel Levothyroxine Sodium (Synthroid) 150 mcg DAILY06 PO Last administered on 10:09; Start 08/15/18 at 10:30 Magnesium Oxide (Magnesium Oxide) 400 mg TID PO Last administered on 08/15/18 10:09; Start 08/15/18 at 10:00 Metformin HCl (Glucophage) 1,000 mg BIDWMEALS PO Last administered on 08/15/18 10:09; Start 08/15/18 at 10:00 Montelukast Sodium (Singulair) 10 mg QHS PO ; Start 08/15/18 at 21:00 Pantoprazole Sodium (Protonix) 40 mg BIDAC PO Last administered on 08/15/18 10: 30; Start 08/15/18 at 11:30 Simvastatin (Zocor) 80 mg QHS PO ; Start 08/15/18 at 21:00 Tizanidine HCl (Zanaflex) 4 mg PRN QHS PRN PO MUSCLE SPASMS; Start 08/15/18 at 09:45 Torsemide (Demadex) 20 mg DAILY PO Last administered on 08/15/18 12:57; Start 08/15/18 at 10:00 Warfarin Sodium (Coumadin Per Pharmacy) 1 each PRN DAILY PRN MC SEE COMMENTS; Start 08/15/18 at 09:00 Potassium Chloride (Klor-Con) 20 meq DAILYWBKFT PO Last administered on 10:09; Start 08/15/18 at 10:00 Insulin Human Lispro (HumaLOG) 0-6 UNITS TIDWMEALS SQ Last administered on at 13:02; Start 08/15/18 at 12:00 Dextrose (Dextrose 50%-Water Syringe) 12.5 gm PRN Q15MIN PRN IV SEE COMMENTS; Start 08/15/18 at 09:30 Budesonide (Pulmicort) 0.5 mg RTBID NEB ; Start 08/15/18 at 10:00 Prednisone (Prednisone) 10 mg DAILY PO Last administered on 08/15/18at 10:00; Start 08/15/18 at 10:00 Active Scripts Active Novolog Flexpen (Insulin Aspart) 100 Unit/1 Ml Insuln.pen 15 Units SQ TIDBFRMEAL Hold insulin if blood sugar less than 100 Duoneb 0.5-3(2.5) Mg/3 Ml (Albuterol/Ipratropium) 3 Ml Ampul.neb 3 Ml NEB RTQID Proair Hfa Inhaler (Albuterol Sulfate) 8.5 Gm Hfa.aer.ad 1 Puff INH PRN Q6HRS PRN Symbicort 160-4.5 Mcg Inhaler (Budesonide/Formoterol Fumarate) 10.2 Gm Hfa.aer.ad 2 Puff IH BID Mag-Oxide (Magnesium Oxide) 400 Mg Tablet 400 Mg PO TID Fluticasone Propionate Nasal [place] (Fluticasone Propionate) 16 Gm [place].susp 2 [place] NS DAILY Tizanidine Hcl 4 Mg Tablet 4 Mg PO PRN QHS PRN Cetirizine Hcl 10 Mg Tablet 10 Mg PO DAILY Synthroid (Levothyroxine Sodium) 150 Mcg Tablet 150 Mcg PO DAILY07 Metformin Hcl 1,000 Mg Tablet 1,000 Mg PO BID Restart metformin 09/18 Voltaren (Diclofenac Sodium) 100 Gm Gel..gram. 4 Gm TP QID Reported Prednisone 20 Mg Tablet 10 Mg PO DAILY 7 Days Coumadin (Warfarin Sodium) 5 Mg Tablet 1 Tab PO SUMOWETHSA Coumadin (Warfarin Sodium) 2.5 Mg Tablet 1 Tab PO TUFR Hydrocodone-Apap 7.5-325 (Hydrocodone Bit/Acetaminophen) 1 Each Tablet 1 Tab PO PRN Q6HRS PRN Gabapentin (Gabapentin) 300 Mg Capsule 1,200 Mg PO HS Alprazolam 0.25 Mg Tablet 1 Tab PO BID Carvedilol (Carvedilol) 3.125 Mg Tablet 1 Tab PO BID Torsemide 20 Mg Tablet 20 Mg PO DAILY Zocor (Simvastatin) 80 Mg Tablet 80 Mg PO DAILY Lantus Solostar (Insulin Glargine,Hum.rec.anlog) 100 Unit/1 Ml Insuln.pen 54 Unit SQ DAILYWBKFT Reglan (Metoclopramide Hcl) 10 Mg Tablet 10 Mg PO QID Protonix (Pantoprazole Sodium) 40 Mg Granlynn. 40 Mg PO BID Singulair Tablet (Montelukast Sodium) 10 Mg Tablet 10 Mg PO DAILY Aspir 81 (Aspirin) 81 Mg Tablet. 81 Mg PO DAILY Allergies Allergies: Allergies Coded Allergies Type Severity Reaction Last Updated Verified Penicillins Allergy Intermediate Hives 10/22/17 Yes codeine Adverse Reaction Mild Nausea and Vomiting 10/22/17 Yes diphenhydramine HCl Adverse Reaction Mild hyperactive 10/22/17 Yes ROS Review of System The patient denies any associated fevers, chills, headache, ear pain, rhinorrhea , sore throat, stiff neck, productive cough, chest pain, shortness of breath, back or flank pain, abdominal pain, nausea, vomiting, diarrhea, constipation, dysuria, rash, numbness, weakness, tingling, incontinence, difficulty ambulating, or diaphoresis. Physical Exam Physical Exam General: Well developed, well nourished, no acute distress, well appearing HEENT: Pupils equally round and reactive to light, EOMI, no discharge, normal conjunctiva Neck: Supple, no nuchal rigidity, no JVD, trachea midline, no tenderness Cardiac: RRR, no murmurs, no gallops, no rubs Chest/Lungs: CTAB, no wheeze, no rhonchi, no crackles Abdomen: soft, non-distended, no guarding, no peritoneal signs, non-tender Back: No tenderness Extremities: no edema, pulses intact, non-tender,capillary refill <3 sec bilateral upper and lower extremities, Neuro: Alert and oriented x 4, no focal deficits, normal speech Vitals Vitals: Vital Signs Date Time Temp Pulse Resp B/P (MAP) Pulse Ox O2 Delivery O2 Flow Rate FiO2 08/15/18 12:14 75 16 148/78 (101) 93 Nasal Cannula 3.0 08/15/18 07:00 98.4 98.4 Labs Labs Laboratory Tests Test 08/14/18 16:52 08/14/18 16:54 08/14/18 17:00 08/14/18 17:15 Glucose (Fingerstick) 100 mg/dL (70-99) 82 mg/dL (70-99) O2 Saturation 82 % (92-99) Arterial Blood pH 7.36 (7.35-7.45) Arterial Blood pCO2 at Patient Temp 56 mmHg (35-46) Arterial Blood pO2 at Patient Temp 51 mmHg (65-108) Arterial Blood HCO3 31 mmol/L (21-28) Arterial Blood Base Excess 5 mmol/L (-3-3) FiO2 60 White Blood Count 10.7 x10^3/uL (4.0-11.0) Red Blood Count 3.85 x10^6/uL (3.50-5.40) Hemoglobin 8.7 g/dL (12.0-15.5) Hematocrit 28.5 % (36.0-47.0) Mean Corpuscular Volume 74 fL (79-100) Mean Corpuscular Hemoglobin 23 pg (25-35) Mean Corpuscular Hemoglobin Concent 31 g/dL (31-37) Red Cell Distribution Width 21.0 % (11.5-14.5) Platelet Count 481 x10^3/uL (140-400) Neutrophils (%) (Auto) 74 % (31-73) Lymphocytes (%) (Auto) 16 % (24-48) Monocytes (%) (Auto) 8 % (0-9) Eosinophils (%) (Auto) 2 % (0-3) Basophils (%) (Auto) 1 % (0-3) Neutrophils # (Auto) 7.9 x10^3uL (1.8-7.7) Lymphocytes # (Auto) 1.7 x10^3/uL (1.0-4.8) Monocytes # (Auto) 0.9 x10^3/uL (0.0-1.1) Eosinophils # (Auto) 0.2 x10^3/uL (0.0-0.7) Basophils # (Auto) 0.1 x10^3/uL (0.0-0.2) Platelet Estimate Increased (ADEQUATE) Polychromasia Slight Hypochromasia Mod Anisocytosis Mod Microcytosis Slight Prothrombin Time 24.7 SEC (11.7-14.0) Prothromb Time International Ratio 2.3 (0.8-1.1) Activated Partial Thromboplast Time 36 SEC (24-38) Sodium Level 143 mmol/L (136-145) Potassium Level 3.6 mmol/L (3.5-5.1) Chloride Level 102 mmol/L (98-107) Carbon Dioxide Level 31 mmol/L (21-32) Anion Gap 10 (6-14) Blood Urea Nitrogen 32 mg/dL (7-20) Creatinine 1.5 mg/dL (0.6-1.0) Estimated GFR (Cockcroft-Gault) 35.5 BUN/Creatinine Ratio 21 (6-20) Glucose Level 101 mg/dL (70-99) Lactic Acid Level 1.7 mmol/L (0.4-2.0) Calcium Level 7.4 mg/dL (8.5-10.1) Magnesium Level 2.1 mg/dL (1.8-2.4) Total Bilirubin 0.3 mg/dL (0.2-1.0) Aspartate Amino Transf (AST/SGOT) 42 U/L (15-37) Alanine Aminotransferase (ALT/SGPT) 33 U/L (14-59) Alkaline Phosphatase 127 U/L (46-116) Troponin I Quantitative < 0.017 ng/mL (0.000-0.055) IY-Dws-V-Type Natriuretic Peptide 1538 pg/mL (0-124) Total Protein 7.5 g/dL (6.4-8.2) Albumin 3.1 g/dL (3.4-5.0) Albumin/Globulin Ratio 0.7 (1.0-1.7) Lipase 1177 U/L (73-393) Procalcitonin < 0.10 ng/mL (0.00-0.10) Ethyl Alcohol Level < 10 mg/dL (0-10) Test 08/14/18 17:18 08/14/18 17:40 08/14/18 17:42 08/14/18 18:36 Urine Color Yellow Urine Clarity Clear Urine pH 5.0 Urine Specific [place] 1.015 Urine Protein Negative mg/dL (NEG-TRACE) Urine Glucose (UA) Negative mg/dL (NEG) Urine Ketones (Stick) Negative mg/dL (NEG) Urine Blood Negative (NEG) Urine Nitrite Negative (NEG) Urine Bilirubin Negative (NEG) Urine Urobilinogen Dipstick 0.2 mg/dL (0.2 mg/dL) Urine Leukocyte Esterase Negative (NEG) Urine RBC 0 /HPF (0-2) Urine WBC 0 /HPF (0-4) Urine Squamous Epithelial Cells Occ /LPF Urine Bacteria 0 /HPF (0-FEW) Urine Hyaline Casts Occasional /HPF Urine Waxy Casts Occasional /HPF Urine Mucus Slight /LPF Urine Opiates Screen Pos (NEG) Urine Methadone Screen Neg (NEG) Urine Barbiturates Neg (NEG) Urine Phencyclidine Screen Neg (NEG) Urine Amphetamine/Methamphetamine Neg (NEG) Urine Benzodiazepines Screen Neg (NEG) Urine Cocaine Screen Neg (NEG) Urine Cannabinoids Screen Neg (NEG) Urine Ethyl Alcohol Neg (NEG) Ammonia < 10 mcmol/L (11-34) Glucose (Fingerstick) 75 mg/dL (70-99) 82 mg/dL (70-99) Test 08/14/18 19:59 08/14/18 20:35 08/15/18 00:21 08/15/18 09:10 Glucose (Fingerstick) 88 mg/dL (70-99) 120 mg/dL (70-99) O2 Saturation 94 % (92-99) Arterial Blood pH 7.40 (7.35-7.45) Arterial Blood pH (Temp corrected) 7.45 Arterial Blood pCO2 at Patient Temp 51 mmHg (35-46) Arterial Blood pCO2 (Temp correct) 44 mmHg Arterial Blood pO2 at Patient Temp 77 mmHg (65-108) Arterial Blood pO2 (Temp corrected) 62 mmHg Arterial Blood HCO3 31 mmol/L (21-28) Arterial Blood Base Excess 5 mmol/L (-3-3) FiO2 50 White Blood Count 22.8 x10^3/uL (4.0-11.0) Red Blood Count 3.60 x10^6/uL (3.50-5.40) Hemoglobin 7.9 g/dL (12.0-15.5) Hematocrit 26.7 % (36.0-47.0) Mean Corpuscular Volume 74 fL (79-100) Mean Corpuscular Hemoglobin 22 pg (25-35) Mean Corpuscular Hemoglobin Concent 30 g/dL (31-37) Red Cell Distribution Width 21.4 % (11.5-14.5) Platelet Count 432 x10^3/uL (140-400) Neutrophils (%) (Auto) 94 % (31-73) Lymphocytes (%) (Auto) 3 % (24-48) Monocytes (%) (Auto) 3 % (0-9) Eosinophils (%) (Auto) 0 % (0-3) Basophils (%) (Auto) 0 % (0-3) Neutrophils # (Auto) 21.4 x10^3uL (1.8-7.7) Lymphocytes # (Auto) 0.8 x10^3/uL (1.0-4.8) Monocytes # (Auto) 0.6 x10^3/uL (0.0-1.1) Eosinophils # (Auto) 0.0 x10^3/uL (0.0-0.7) Basophils # (Auto) 0.0 x10^3/uL (0.0-0.2) Segmented Neutrophils % 85 % (35-66) Band Neutrophils % 10 % (0-9) Lymphocytes % 3 % (24-48) Monocytes % 2 % (0-10) Nucleated Red Blood Cells 1 Platelet Estimate Increased (ADEQUATE) Large Platelets Few Polychromasia Present Anisocytosis Mod Microcytosis Mod Ovalocytes Few Sodium Level 143 mmol/L (136-145) Potassium Level 4.4 mmol/L (3.5-5.1) Chloride Level 103 mmol/L (98-107) Carbon Dioxide Level 30 mmol/L (21-32) Anion Gap 10 (6-14) Blood Urea Nitrogen 20 mg/dL (7-20) Creatinine 1.4 mg/dL (0.6-1.0) Estimated GFR (Cockcroft-Gault) 38.5 Glucose Level 218 mg/dL (70-99) Calcium Level 6.8 mg/dL (8.5-10.1) Magnesium Level 1.7 mg/dL (1.8-2.4) Test 08/15/18 12:58 Glucose (Fingerstick) 305 mg/dL (70-99) Laboratory Tests Test 08/14/18 16:52 08/14/18 16:54 08/14/18 17:00 08/14/18 17:15 Glucose (Fingerstick) 100 mg/dL (70-99) 82 mg/dL (70-99) O2 Saturation 82 % (92-99) Arterial Blood pH 7.36 (7.35-7.45) Arterial Blood pCO2 at Patient Temp 56 mmHg (35-46) Arterial Blood pO2 at Patient Temp 51 mmHg (65-108) Arterial Blood HCO3 31 mmol/L (21-28) Arterial Blood Base Excess 5 mmol/L (-3-3) FiO2 60 White Blood Count 10.7 x10^3/uL (4.0-11.0) Red Blood Count 3.85 x10^6/uL (3.50-5.40) Hemoglobin 8.7 g/dL (12.0-15.5) Hematocrit 28.5 % (36.0-47.0) Mean Corpuscular Volume 74 fL (79-100) Mean Corpuscular Hemoglobin 23 pg (25-35) Mean Corpuscular Hemoglobin Concent 31 g/dL (31-37) Red Cell Distribution Width 21.0 % (11.5-14.5) Platelet Count 481 x10^3/uL (140-400) Neutrophils (%) (Auto) 74 % (31-73) Lymphocytes (%) (Auto) 16 % (24-48) Monocytes (%) (Auto) 8 % (0-9) Eosinophils (%) (Auto) 2 % (0-3) Basophils (%) (Auto) 1 % (0-3) Neutrophils # (Auto) 7.9 x10^3uL (1.8-7.7) Lymphocytes # (Auto) 1.7 x10^3/uL (1.0-4.8) Monocytes # (Auto) 0.9 x10^3/uL (0.0-1.1) Eosinophils # (Auto) 0.2 x10^3/uL (0.0-0.7) Basophils # (Auto) 0.1 x10^3/uL (0.0-0.2) Platelet Estimate Increased (ADEQUATE) Polychromasia Slight Hypochromasia Mod Anisocytosis Mod Microcytosis Slight Prothrombin Time 24.7 SEC (11.7-14.0) Prothromb Time International Ratio 2.3 (0.8-1.1) Activated Partial Thromboplast Time 36 SEC (24-38) Sodium Level 143 mmol/L (136-145) Potassium Level 3.6 mmol/L (3.5-5.1) Chloride Level 102 mmol/L (98-107) Carbon Dioxide Level 31 mmol/L (21-32) Anion Gap 10 (6-14) Blood Urea Nitrogen 32 mg/dL (7-20) Creatinine 1.5 mg/dL (0.6-1.0) Estimated GFR (Cockcroft-Gault) 35.5 BUN/Creatinine Ratio 21 (6-20) Glucose Level 101 mg/dL (70-99) Lactic Acid Level 1.7 mmol/L (0.4-2.0) Calcium Level 7.4 mg/dL (8.5-10.1) Magnesium Level 2.1 mg/dL (1.8-2.4) Total Bilirubin 0.3 mg/dL (0.2-1.0) Aspartate Amino Transf (AST/SGOT) 42 U/L (15-37) Alanine Aminotransferase (ALT/SGPT) 33 U/L (14-59) Alkaline Phosphatase 127 U/L (46-116) Troponin I Quantitative < 0.017 ng/mL (0.000-0.055) HB-Lci-J-Type Natriuretic Peptide 1538 pg/mL (0-124) Total Protein 7.5 g/dL (6.4-8.2) Albumin 3.1 g/dL (3.4-5.0) Albumin/Globulin Ratio 0.7 (1.0-1.7) Lipase 1177 U/L (73-393) Procalcitonin < 0.10 ng/mL (0.00-0.10) Ethyl Alcohol Level < 10 mg/dL (0-10) Test 08/14/18 17:18 08/14/18 17:40 08/14/18 17:42 08/14/18 18:36 Urine Color Yellow Urine Clarity Clear Urine pH 5.0 Urine Specific [place] 1.015 Urine Protein Negative mg/dL (NEG-TRACE) Urine Glucose (UA) Negative mg/dL (NEG) Urine Ketones (Stick) Negative mg/dL (NEG) Urine Blood Negative (NEG) Urine Nitrite Negative (NEG) Urine Bilirubin Negative (NEG) Urine Urobilinogen Dipstick 0.2 mg/dL (0.2 mg/dL) Urine Leukocyte Esterase Negative (NEG) Urine RBC 0 /HPF (0-2) Urine WBC 0 /HPF (0-4) Urine Squamous Epithelial Cells Occ /LPF Urine Bacteria 0 /HPF (0-FEW) Urine Hyaline Casts Occasional /HPF Urine Waxy Casts Occasional /HPF Urine Mucus Slight /LPF Urine Opiates Screen Pos (NEG) Urine Methadone Screen Neg (NEG) Urine Barbiturates Neg (NEG) Urine Phencyclidine Screen Neg (NEG) Urine Amphetamine/Methamphetamine Neg (NEG) Urine Benzodiazepines Screen Neg (NEG) Urine Cocaine Screen Neg (NEG) Urine Cannabinoids Screen Neg (NEG) Urine Ethyl Alcohol Neg (NEG) Ammonia < 10 mcmol/L (11-34) Glucose (Fingerstick) 75 mg/dL (70-99) 82 mg/dL (70-99) Test 08/14/18 19:59 08/14/18 20:35 08/15/18 00:21 08/15/18 09:10 Glucose (Fingerstick) 88 mg/dL (70-99) 120 mg/dL (70-99) O2 Saturation 94 % (92-99) Arterial Blood pH 7.40 (7.35-7.45) Arterial Blood pH (Temp corrected) 7.45 Arterial Blood pCO2 at Patient Temp 51 mmHg (35-46) Arterial Blood pCO2 (Temp correct) 44 mmHg Arterial Blood pO2 at Patient Temp 77 mmHg (65-108) Arterial Blood pO2 (Temp corrected) 62 mmHg Arterial Blood HCO3 31 mmol/L (21-28) Arterial Blood Base Excess 5 mmol/L (-3-3) FiO2 50 White Blood Count 22.8 x10^3/uL (4.0-11.0) Red Blood Count 3.60 x10^6/uL (3.50-5.40) Hemoglobin 7.9 g/dL (12.0-15.5) Hematocrit 26.7 % (36.0-47.0) Mean Corpuscular Volume 74 fL (79-100) Mean Corpuscular Hemoglobin 22 pg (25-35) Mean Corpuscular Hemoglobin Concent 30 g/dL (31-37) Red Cell Distribution Width 21.4 % (11.5-14.5) Platelet Count 432 x10^3/uL (140-400) Neutrophils (%) (Auto) 94 % (31-73) Lymphocytes (%) (Auto) 3 % (24-48) Monocytes (%) (Auto) 3 % (0-9) Eosinophils (%) (Auto) 0 % (0-3) Basophils (%) (Auto) 0 % (0-3) Neutrophils # (Auto) 21.4 x10^3uL (1.8-7.7) Lymphocytes # (Auto) 0.8 x10^3/uL (1.0-4.8) Monocytes # (Auto) 0.6 x10^3/uL (0.0-1.1) Eosinophils # (Auto) 0.0 x10^3/uL (0.0-0.7) Basophils # (Auto) 0.0 x10^3/uL (0.0-0.2) Segmented Neutrophils % 85 % (35-66) Band Neutrophils % 10 % (0-9) Lymphocytes % 3 % (24-48) Monocytes % 2 % (0-10) Nucleated Red Blood Cells 1 Platelet Estimate Increased (ADEQUATE) Large Platelets Few Polychromasia Present Anisocytosis Mod Microcytosis Mod Ovalocytes Few Sodium Level 143 mmol/L (136-145) Potassium Level 4.4 mmol/L (3.5-5.1) Chloride Level 103 mmol/L (98-107) Carbon Dioxide Level 30 mmol/L (21-32) Anion Gap 10 (6-14) Blood Urea Nitrogen 20 mg/dL (7-20) Creatinine 1.4 mg/dL (0.6-1.0) Estimated GFR (Cockcroft-Gault) 38.5 Glucose Level 218 mg/dL (70-99) Calcium Level 6.8 mg/dL (8.5-10.1) Magnesium Level 1.7 mg/dL (1.8-2.4) Test 08/15/18 12:58 Glucose (Fingerstick) 305 mg/dL (70-99) NIESHA STOVER MD Aug 15, 2018 14:01
[2018-08-15] MEDS ORDERED: WARFARIN 5 MG TABLET. PO ONE (16:00)
[2018-08-15] MEDS: GABAPENTIN 300 MG CAPSULE. PO SCH (21:21)
[2018-08-15] MEDS: SIMVASTATIN 40 MG TABLET. PO SCH (21:21)
[2018-08-15] MEDS: MONTELUKAST SODIUM 10 MG TABLET. PO SCH (21:22)
--- NOTE | 2018-08-15 22:18 | CONS ---
DATE OF CONSULTATION: 08/15/2018 REQUESTING PHYSICIAN: Dr. Gregorio. REASON FOR CONSULTATION: Fever and unresponsiveness. HISTORY OF PRESENT ILLNESS: This is a 58-year-old female with history of COPD, on home oxygen, who was just recently discharged from the hospital after having COPD exacerbation. The patient was found down and unresponsive by her hence [facility] was called. Apparently, she ate breakfast and then later on further questioning, the increased oxygen and she was found down. When [facility] arrived, the patient was unresponsive and the blood sugar was 40. It is unclear how long she was down, but she received the D50. Blood sugar improved and she got BiPAP and she improved. Now, she is back to her normal. She denied any nausea, vomiting, diarrhea. Denies any chest pain, shortness of breath, abdominal pain anymore. Denies any fever at home, although she did have 100.2 fever here. PAST MEDICAL HISTORY: Positive for COPD, diabetes, hypertension, obesity, coronary artery disease, thyroid removal done, knee surgery done and CVA. SOCIAL HISTORY: Negative for smoking, alcohol, illicit drug use. Lives with her . ALLERGIES: LISTED ALLERGIC TO PENICILLIN, although she received Zosyn without any problem. When I asked her of allergies, she said CODEINE AND BENADRYL. She did not say penicillin. REVIEW OF SYSTEMS: As per HPI, all other systems reviewed are negative. PHYSICAL EXAMINATION: GENERAL: Alert, oriented female, not in distress. VITAL SIGNS: Stable. Temperature 100.2, pulse 80, respirations 20, blood pressure 125/64. HEENT: Anicteric. NECK: Supple, no JVP, no lymphadenopathy. LUNGS: Clear. HEART: S1, S2 regular. ABDOMEN: Benign. EXTREMITIES: No edema, cyanosis. SKIN: Unremarkable. NEUROLOGIC: The patient is neurologically intact. No focal neurologic deficit. LABORATORY DATA: White count is 10.7, platelets are normal. BUN and creatinine is 32 and 1.5. Lactic acid was 1.7. The urinalysis is unremarkable. CT of the head was unremarkable. Chest x-ray showing improvement in the bilateral pulmonary vascular congestion. There is slight haziness in the left lower lobe. IMPRESSION: 1. Fever, with unresponsiveness with possible aspiration. 2. Encephalopathy. 3. Hypoglycemia. 4. Possible CO2 narcosis. 5. Chronic obstructive pulmonary disease. 6. Hypertension. 7. Diabetes. 8. Coronary artery disease. RECOMMENDATION: Would continue Zosyn. Continue supportive care. Continue to monitor and soon to be able to switch over to oral as the patient continues to stabilize. Thank you very much, Dr. Gregorio, for giving me the opportunity to participate in this patient's care. BEVERLEY DAMON MD DR: MASON/nts JOB#: [id number] / [id number]
[2018-08-16 03:20] VITALS: BP 112/57
[2018-08-16 05:22] LABS: PROTHROMBIN TIME PATIENT 24.7 SEC (11.7-14.0)
[2018-08-16 05:25] LABS: BASO % 0 % (0-3); EOS % 0 % (0-3); HEMATOCRIT 24.5 % (36.0-47.0); HEMOGLOBIN 7.2 g/dL (12.0-15.5); LYMPH # 2.4 x10^3/uL (1.0-4.8); LYMPH % 15 % (24-48); MEAN CORPUSCULAR HEMOGLOBIN 22 pg (25-35); MEAN CORPUSCULAR HGB CONC 29 g/dL (31-37); MEAN CORPUSCULAR VOLUME 75 fL (79-100); MONO % 6 % (0-9); NEUT % 79 % (31-73); PLATELET COUNT 395 x10^3/uL (140-400); RED BLOOD COUNT 3.27 x10^6/uL (3.50-5.40); RED CELL DISTRIBUTION WIDTH 21.2 % (11.5-14.5); WHITE BLOOD COUNT 16.5 x10^3/uL (4.0-11.0)
[2018-08-16 06:18] LABS: ALBUMIN 2.3 g/dL (3.4-5.0); ALBUMIN/GLOBULIN RATIO 0.5 (1.0-1.7); CALCIUM 7.2 mg/dL (8.5-10.1); CREATININE 1.3 mg/dL (0.6-1.0); GFR 41.9; POTASSIUM 3.6 mmol/L (3.5-5.1); TOTAL BILIRUBIN 0.4 mg/dL (0.2-1.0); TOTAL PROTEIN 6.8 g/dL (6.4-8.2)
[2018-08-16] MEDS: PIPERACILLIN/TAZOBACTAM 3.375 GM in IV NORMAL SALINE 50ML 50 ML IV SCH ×3 (06:27→17:35)
[2018-08-16] MEDS: LEVOTHYROXINE 150 MCG TABLET PO SCH (06:28)
[2018-08-16] MEDS: BUDESONIDE 0.5 MG/2 ML NEBU. NEB SCH ×2 (07:47→20:00)
[2018-08-16] MEDS: IPRATRPIUM/ALBUTEROL 0.5/2.5MG 3 ML NEBU. NEB SCH ×4 (07:47→20:00)
[2018-08-16] MEDS: INSULIN LISPRO 300 UNITS/3 ML INSULN.PEN. SQ SCH ×3 (08:00→17:40)
[2018-08-16 08:11] VITALS: BP 115/55
[2018-08-16] MEDS: FLUTICASONE 50MCG/NASAL SPRAY 16GM BOTTLE. NS SCH (08:15)
[2018-08-16] MEDS: DICLOFENAC SODIUM 1% TOPICAL GEL 100GM TUBE. TP SCH ×4 (08:16→20:55)
[2018-08-16] MEDS: CETIRIZINE HCL 10 MG TABLET. PO SCH (08:17)
[2018-08-16] MEDS: predniSONE 20 MG TABLET PO SCH (08:17)
[2018-08-16] MEDS: ASPIRIN ENTERIC COATED 81 MG TABLET.DR. PO SCH (08:17)
[2018-08-16] MEDS: TORSEMIDE 20 MG TABLET. PO SCH (08:18)
[2018-08-16] MEDS: ALPRAZolam 0.25 MG TABLET PO SCH ×2 (08:19→20:54)
[2018-08-16] MEDS: METOCLOPRAMIDE 10 MG TABLET. PO SCH ×4 (08:19→20:54)
[2018-08-16] MEDS: CARVEDILOL 3.125 MG TABLET. PO SCH ×2 (08:19→17:37)
[2018-08-16] MEDS: metFORMIN 500 MG TABLET PO SCH ×2 (08:19→17:37)
[2018-08-16] MEDS: POTASSIUM CHLORIDE 20 MEQ TABLET.ER. PO SCH (08:20)
[2018-08-16] MEDS: PANTOPRAZOLE 40 MG TABLET.DR. PO SCH ×2 (08:20→16:31)
[2018-08-16] MEDS: MAGNESIUM OXIDE 400 MG TABLET PO SCH ×3 (08:20→20:54)
[2018-08-16] MEDS: LACTOBACILLUS RHAMNOSUS GG 1 CAPSULE. PO SCH ×2 (08:24→20:53)
--- NOTE | 2018-08-16 08:30 | PDOC ---
PULMONARY PROGRESS NOTES Vitals Vital Signs Date Time Temp Pulse Resp B/P (MAP) Pulse Ox O2 Delivery O2 Flow Rate FiO2 08/16/18 08:19 81 115/55 08/16/18 08:11 97.7 19 89 Nasal Cannula 3.0 97.7 General: Alert Lungs: Clear Cardiovascular: S1, S2 Abdomen: Soft, Non-tender Extremities: No Edema Labs Laboratory Tests Test 08/14/18 16:52 08/14/18 16:54 08/14/18 17:00 08/14/18 17:15 Glucose (Fingerstick) 100 mg/dL (70-99) 82 mg/dL (70-99) O2 Saturation 82 % (92-99) Arterial Blood pH 7.36 (7.35-7.45) Arterial Blood pCO2 at Patient Temp 56 mmHg (35-46) Arterial Blood pO2 at Patient Temp 51 mmHg (65-108) Arterial Blood HCO3 31 mmol/L (21-28) Arterial Blood Base Excess 5 mmol/L (-3-3) FiO2 60 White Blood Count 10.7 x10^3/uL (4.0-11.0) Red Blood Count 3.85 x10^6/uL (3.50-5.40) Hemoglobin 8.7 g/dL (12.0-15.5) Hematocrit 28.5 % (36.0-47.0) Mean Corpuscular Volume 74 fL (79-100) Mean Corpuscular Hemoglobin 23 pg (25-35) Mean Corpuscular Hemoglobin Concent 31 g/dL (31-37) Red Cell Distribution Width 21.0 % (11.5-14.5) Platelet Count 481 x10^3/uL (140-400) Neutrophils (%) (Auto) 74 % (31-73) Lymphocytes (%) (Auto) 16 % (24-48) Monocytes (%) (Auto) 8 % (0-9) Eosinophils (%) (Auto) 2 % (0-3) Basophils (%) (Auto) 1 % (0-3) Neutrophils # (Auto) 7.9 x10^3uL (1.8-7.7) Lymphocytes # (Auto) 1.7 x10^3/uL (1.0-4.8) Monocytes # (Auto) 0.9 x10^3/uL (0.0-1.1) Eosinophils # (Auto) 0.2 x10^3/uL (0.0-0.7) Basophils # (Auto) 0.1 x10^3/uL (0.0-0.2) Platelet Estimate Increased (ADEQUATE) Polychromasia Slight Hypochromasia Mod Anisocytosis Mod Microcytosis Slight Prothrombin Time 24.7 SEC (11.7-14.0) Prothromb Time International Ratio 2.3 (0.8-1.1) Activated Partial Thromboplast Time 36 SEC (24-38) Sodium Level 143 mmol/L (136-145) Potassium Level 3.6 mmol/L (3.5-5.1) Chloride Level 102 mmol/L (98-107) Carbon Dioxide Level 31 mmol/L (21-32) Anion Gap 10 (6-14) Blood Urea Nitrogen 32 mg/dL (7-20) Creatinine 1.5 mg/dL (0.6-1.0) Estimated GFR (Cockcroft-Gault) 35.5 BUN/Creatinine Ratio 21 (6-20) Glucose Level 101 mg/dL (70-99) Lactic Acid Level 1.7 mmol/L (0.4-2.0) Calcium Level 7.4 mg/dL (8.5-10.1) Magnesium Level 2.1 mg/dL (1.8-2.4) Total Bilirubin 0.3 mg/dL (0.2-1.0) Aspartate Amino Transf (AST/SGOT) 42 U/L (15-37) Alanine Aminotransferase (ALT/SGPT) 33 U/L (14-59) Alkaline Phosphatase 127 U/L (46-116) Troponin I Quantitative < 0.017 ng/mL (0.000-0.055) IP-Pcd-A-Type Natriuretic Peptide 1538 pg/mL (0-124) Total Protein 7.5 g/dL (6.4-8.2) Albumin 3.1 g/dL (3.4-5.0) Albumin/Globulin Ratio 0.7 (1.0-1.7) Lipase 1177 U/L (73-393) Procalcitonin < 0.10 ng/mL (0.00-0.10) Ethyl Alcohol Level < 10 mg/dL (0-10) Test 08/14/18 17:18 08/14/18 17:40 08/14/18 17:42 08/14/18 18:36 Urine Color Yellow Urine Clarity Clear Urine pH 5.0 Urine Specific [place] 1.015 Urine Protein Negative mg/dL (NEG-TRACE) Urine Glucose (UA) Negative mg/dL (NEG) Urine Ketones (Stick) Negative mg/dL (NEG) Urine Blood Negative (NEG) Urine Nitrite Negative (NEG) Urine Bilirubin Negative (NEG) Urine Urobilinogen Dipstick 0.2 mg/dL (0.2 mg/dL) Urine Leukocyte Esterase Negative (NEG) Urine RBC 0 /HPF (0-2) Urine WBC 0 /HPF (0-4) Urine Squamous Epithelial Cells Occ /LPF Urine Bacteria 0 /HPF (0-FEW) Urine Hyaline Casts Occasional /HPF Urine Waxy Casts Occasional /HPF Urine Mucus Slight /LPF Urine Opiates Screen Pos (NEG) Urine Methadone Screen Neg (NEG) Urine Barbiturates Neg (NEG) Urine Phencyclidine Screen Neg (NEG) Urine Amphetamine/Methamphetamine Neg (NEG) Urine Benzodiazepines Screen Neg (NEG) Urine Cocaine Screen Neg (NEG) Urine Cannabinoids Screen Neg (NEG) Urine Ethyl Alcohol Neg (NEG) Ammonia < 10 mcmol/L (11-34) Glucose (Fingerstick) 75 mg/dL (70-99) 82 mg/dL (70-99) Test 08/14/18 19:59 08/14/18 20:35 08/14/18 21:26 08/15/18 00:21 Glucose (Fingerstick) 88 mg/dL (70-99) 120 mg/dL (70-99) O2 Saturation 94 % (92-99) Arterial Blood pH 7.40 (7.35-7.45) Arterial Blood pH (Temp corrected) 7.45 Arterial Blood pCO2 at Patient Temp 51 mmHg (35-46) Arterial Blood pCO2 (Temp correct) 44 mmHg Arterial Blood pO2 at Patient Temp 77 mmHg (65-108) Arterial Blood pO2 (Temp corrected) 62 mmHg Arterial Blood HCO3 31 mmol/L (21-28) Arterial Blood Base Excess 5 mmol/L (-3-3) FiO2 50 Nasal Screen MRSA (PCR) Negative (Negative) Test 08/15/18 09:10 08/15/18 12:58 08/15/18 17:04 08/15/18 20:50 White Blood Count 22.8 x10^3/uL (4.0-11.0) Red Blood Count 3.60 x10^6/uL (3.50-5.40) Hemoglobin 7.9 g/dL (12.0-15.5) Hematocrit 26.7 % (36.0-47.0) Mean Corpuscular Volume 74 fL (79-100) Mean Corpuscular Hemoglobin 22 pg (25-35) Mean Corpuscular Hemoglobin Concent 30 g/dL (31-37) Red Cell Distribution Width 21.4 % (11.5-14.5) Platelet Count 432 x10^3/uL (140-400) Neutrophils (%) (Auto) 94 % (31-73) Lymphocytes (%) (Auto) 3 % (24-48) Monocytes (%) (Auto) 3 % (0-9) Eosinophils (%) (Auto) 0 % (0-3) Basophils (%) (Auto) 0 % (0-3) Neutrophils # (Auto) 21.4 x10^3uL (1.8-7.7) Lymphocytes # (Auto) 0.8 x10^3/uL (1.0-4.8) Monocytes # (Auto) 0.6 x10^3/uL (0.0-1.1) Eosinophils # (Auto) 0.0 x10^3/uL (0.0-0.7) Basophils # (Auto) 0.0 x10^3/uL (0.0-0.2) Segmented Neutrophils % 85 % (35-66) Band Neutrophils % 10 % (0-9) Lymphocytes % 3 % (24-48) Monocytes % 2 % (0-10) Nucleated Red Blood Cells 1 Platelet Estimate Increased (ADEQUATE) Large Platelets Few Polychromasia Present Anisocytosis Mod Microcytosis Mod Ovalocytes Few Sodium Level 143 mmol/L (136-145) Potassium Level 4.4 mmol/L (3.5-5.1) Chloride Level 103 mmol/L (98-107) Carbon Dioxide Level 30 mmol/L (21-32) Anion Gap 10 (6-14) Blood Urea Nitrogen 20 mg/dL (7-20) Creatinine 1.4 mg/dL (0.6-1.0) Estimated GFR (Cockcroft-Gault) 38.5 Glucose Level 218 mg/dL (70-99) Calcium Level 6.8 mg/dL (8.5-10.1) Magnesium Level 1.7 mg/dL (1.8-2.4) Glucose (Fingerstick) 305 mg/dL (70-99) 208 mg/dL (70-99) 130 mg/dL (70-99) Test 08/16/18 03:50 08/16/18 07:25 White Blood Count 16.5 x10^3/uL (4.0-11.0) Red Blood Count 3.27 x10^6/uL (3.50-5.40) Hemoglobin 7.2 g/dL (12.0-15.5) Hematocrit 24.5 % (36.0-47.0) Mean Corpuscular Volume 75 fL (79-100) Mean Corpuscular Hemoglobin 22 pg (25-35) Mean Corpuscular Hemoglobin Concent 29 g/dL (31-37) Red Cell Distribution Width 21.2 % (11.5-14.5) Platelet Count 395 x10^3/uL (140-400) Neutrophils (%) (Auto) 79 % (31-73) Lymphocytes (%) (Auto) 15 % (24-48) Monocytes (%) (Auto) 6 % (0-9) Eosinophils (%) (Auto) 0 % (0-3) Basophils (%) (Auto) 0 % (0-3) Neutrophils # (Auto) 13.0 x10^3uL (1.8-7.7) Lymphocytes # (Auto) 2.4 x10^3/uL (1.0-4.8) Monocytes # (Auto) 1.0 x10^3/uL (0.0-1.1) Eosinophils # (Auto) 0.0 x10^3/uL (0.0-0.7) Basophils # (Auto) 0.0 x10^3/uL (0.0-0.2) Prothrombin Time 24.7 SEC (11.7-14.0) Prothromb Time International Ratio 2.3 (0.8-1.1) Sodium Level 144 mmol/L (136-145) Potassium Level 3.6 mmol/L (3.5-5.1) Chloride Level 105 mmol/L (98-107) Carbon Dioxide Level 30 mmol/L (21-32) Anion Gap 9 (6-14) Blood Urea Nitrogen 22 mg/dL (7-20) Creatinine 1.3 mg/dL (0.6-1.0) Estimated GFR (Cockcroft-Gault) 41.9 BUN/Creatinine Ratio 17 (6-20) Glucose Level 85 mg/dL (70-99) Calcium Level 7.2 mg/dL (8.5-10.1) Magnesium Level 2.0 mg/dL (1.8-2.4) Total Bilirubin 0.4 mg/dL (0.2-1.0) Aspartate Amino Transf (AST/SGOT) 16 U/L (15-37) Alanine Aminotransferase (ALT/SGPT) 21 U/L (14-59) Alkaline Phosphatase 83 U/L (46-116) Total Protein 6.8 g/dL (6.4-8.2) Albumin 2.3 g/dL (3.4-5.0) Albumin/Globulin Ratio 0.5 (1.0-1.7) Glucose (Fingerstick) 110 mg/dL (70-99) Laboratory Tests Test 08/15/18 09:10 08/15/18 12:58 08/15/18 17:04 08/15/18 20:50 White Blood Count 22.8 x10^3/uL (4.0-11.0) Red Blood Count 3.60 x10^6/uL (3.50-5.40) Hemoglobin 7.9 g/dL (12.0-15.5) Hematocrit 26.7 % (36.0-47.0) Mean Corpuscular Volume 74 fL (79-100) Mean Corpuscular Hemoglobin 22 pg (25-35) Mean Corpuscular Hemoglobin Concent 30 g/dL (31-37) Red Cell Distribution Width 21.4 % (11.5-14.5) Platelet Count 432 x10^3/uL (140-400) Neutrophils (%) (Auto) 94 % (31-73) Lymphocytes (%) (Auto) 3 % (24-48) Monocytes (%) (Auto) 3 % (0-9) Eosinophils (%) (Auto) 0 % (0-3) Basophils (%) (Auto) 0 % (0-3) Neutrophils # (Auto) 21.4 x10^3uL (1.8-7.7) Lymphocytes # (Auto) 0.8 x10^3/uL (1.0-4.8) Monocytes # (Auto) 0.6 x10^3/uL (0.0-1.1) Eosinophils # (Auto) 0.0 x10^3/uL (0.0-0.7) Basophils # (Auto) 0.0 x10^3/uL (0.0-0.2) Segmented Neutrophils % 85 % (35-66) Band Neutrophils % 10 % (0-9) Lymphocytes % 3 % (24-48) Monocytes % 2 % (0-10) Nucleated Red Blood Cells 1 Platelet Estimate Increased (ADEQUATE) Large Platelets Few Polychromasia Present Anisocytosis Mod Microcytosis Mod Ovalocytes Few Sodium Level 143 mmol/L (136-145) Potassium Level 4.4 mmol/L (3.5-5.1) Chloride Level 103 mmol/L (98-107) Carbon Dioxide Level 30 mmol/L (21-32) Anion Gap 10 (6-14) Blood Urea Nitrogen 20 mg/dL (7-20) Creatinine 1.4 mg/dL (0.6-1.0) Estimated GFR (Cockcroft-Gault) 38.5 Glucose Level 218 mg/dL (70-99) Calcium Level 6.8 mg/dL (8.5-10.1) Magnesium Level 1.7 mg/dL (1.8-2.4) Glucose (Fingerstick) 305 mg/dL (70-99) 208 mg/dL (70-99) 130 mg/dL (70-99) Test 08/16/18 03:50 08/16/18 07:25 White Blood Count 16.5 x10^3/uL (4.0-11.0) Red Blood Count 3.27 x10^6/uL (3.50-5.40) Hemoglobin 7.2 g/dL (12.0-15.5) Hematocrit 24.5 % (36.0-47.0) Mean Corpuscular Volume 75 fL (79-100) Mean Corpuscular Hemoglobin 22 pg (25-35) Mean Corpuscular Hemoglobin Concent 29 g/dL (31-37) Red Cell Distribution Width 21.2 % (11.5-14.5) Platelet Count 395 x10^3/uL (140-400) Neutrophils (%) (Auto) 79 % (31-73) Lymphocytes (%) (Auto) 15 % (24-48) Monocytes (%) (Auto) 6 % (0-9) Eosinophils (%) (Auto) 0 % (0-3) Basophils (%) (Auto) 0 % (0-3) Neutrophils # (Auto) 13.0 x10^3uL (1.8-7.7) Lymphocytes # (Auto) 2.4 x10^3/uL (1.0-4.8) Monocytes # (Auto) 1.0 x10^3/uL (0.0-1.1) Eosinophils # (Auto) 0.0 x10^3/uL (0.0-0.7) Basophils # (Auto) 0.0 x10^3/uL (0.0-0.2) Prothrombin Time 24.7 SEC (11.7-14.0) Prothromb Time International Ratio 2.3 (0.8-1.1) Sodium Level 144 mmol/L (136-145) Potassium Level 3.6 mmol/L (3.5-5.1) Chloride Level 105 mmol/L (98-107) Carbon Dioxide Level 30 mmol/L (21-32) Anion Gap 9 (6-14) Blood Urea Nitrogen 22 mg/dL (7-20) Creatinine 1.3 mg/dL (0.6-1.0) Estimated GFR (Cockcroft-Gault) 41.9 BUN/Creatinine Ratio 17 (6-20) Glucose Level 85 mg/dL (70-99) Calcium Level 7.2 mg/dL (8.5-10.1) Magnesium Level 2.0 mg/dL (1.8-2.4) Total Bilirubin 0.4 mg/dL (0.2-1.0) Aspartate Amino Transf (AST/SGOT) 16 U/L (15-37) Alanine Aminotransferase (ALT/SGPT) 21 U/L (14-59) Alkaline Phosphatase 83 U/L (46-116) Total Protein 6.8 g/dL (6.4-8.2) Albumin 2.3 g/dL (3.4-5.0) Albumin/Globulin Ratio 0.5 (1.0-1.7) Glucose (Fingerstick) 110 mg/dL (70-99) Medications Active Scripts Medications Dose Route/Sig Max Daily Dose Days Date Category Dose Instructions Prednisone 20 Mg Tablet 10 Mg PO DAILY 7 08/13/18 Reported Novolog Flexpen (Insulin Aspart) 100 Unit/1 Ml Insuln.pen 15 Units SQ TIDBFRMEAL 01/18/18 Rx Hold insulin if blood sugar less than 100 Coumadin (Warfarin Sodium) 5 Mg Tablet 1 Tab PO SUMOWETHSA 10/22/17 Reported Coumadin (Warfarin Sodium) 2.5 Mg Tablet 1 Tab PO TUFR 10/22/17 Reported Hydrocodone-Apap 7.5-325 (Hydrocodone Bit/Acetaminophen) 1 Each Tablet 1 Tab PO PRN Q6HRS PRN 10/21/17 Reported Duoneb 0.5-3(2.5) Mg/3 Ml (Albuterol/Ipratropium) 3 Ml Ampul.neb 3 Ml NEB RTQID 09/17/17 Rx Proair Hfa Inhaler (Albuterol Sulfate) 8.5 Gm Hfa.aer.ad 1 Puff INH PRN Q6HRS PRN 09/17/17 Rx Symbicort 160-4.5 Mcg Inhaler (Budesonide/Formoterol Fumarate) 10.2 Gm Hfa.aer.ad 2 Puff IH BID 09/17/17 Rx Mag-Oxide (Magnesium Oxide) 400 Mg Tablet 400 Mg PO TID 09/17/17 Rx Fluticasone Propionate Nasal Erlanger (Fluticasone Propionate) 16 Gm Erlanger.susp 2 Erlanger NS DAILY 09/17/17 Rx Tizanidine Hcl 4 Mg Tablet 4 Mg PO PRN QHS PRN 09/17/17 Rx Cetirizine Hcl 10 Mg Tablet 10 Mg PO DAILY 09/17/17 Rx Synthroid (Levothyroxine Sodium) 150 Mcg Tablet 150 Mcg PO DAILY07 09/17/17 Rx Metformin Hcl 1,000 Mg Tablet 1,000 Mg PO BID 09/17/17 Rx Restart metformin 09/18 Voltaren (Diclofenac Sodium) 100 Gm Gel..gram. 4 Gm TP QID 05/28/17 Rx Gabapentin (Gabapentin) 300 Mg Capsule 1,200 Mg PO HS 05/25/17 Reported Alprazolam 0.25 Mg Tablet 1 Tab PO BID 06/27/16 Reported Carvedilol (Carvedilol) 3.125 Mg Tablet 1 Tab PO BID 06/27/16 Reported Torsemide 20 Mg Tablet 20 Mg PO DAILY 05/24/15 Reported Zocor (Simvastatin) 80 Mg Tablet 80 Mg PO DAILY 07/19/13 Reported Lantus Solostar (Insulin Glargine,Hum.rec.anlog) 100 Unit/1 Ml Insuln.pen 54 Unit SQ DAILYWBKFT 07/19/13 Reported Reglan (Metoclopramide Hcl) 10 Mg Tablet 10 Mg PO QID 07/19/13 Reported Protonix (Pantoprazole Sodium) 40 Mg Granpkt.dr 40 Mg PO BID 07/19/13 Reported Singulair Tablet (Montelukast Sodium) 10 Mg Tablet 10 Mg PO DAILY 07/19/13 Reported Aspir 81 (Aspirin) 81 Mg Tablet.dr 81 Mg PO DAILY 07/19/13 Reported MITCH CALVO MD Aug 16, 2018 08:30
--- NOTE | 2018-08-16 09:00 | NUR ---
Received critical results from lab for Gram + Cocci in clusters. Dr. Jones notified.
--- NOTE | 2018-08-16 09:26 | PDOC ---
Infectious Disease Note Subjective Subjective feeling much better ROS ROS no n/v/d/sob/fever Vital Sign Vital Signs Vital Signs Date Time Temp Pulse Resp B/P (MAP) Pulse Ox O2 Delivery O2 Flow Rate FiO2 08/16/18 08:19 81 115/55 08/16/18 08:11 97.7 19 89 Nasal Cannula 3.0 97.7 Physical Exam PHYSICAL EXAM GENERAL: Alert, oriented female, not in distress. VITAL SIGNS: Stable. HEENT: Anicteric. NECK: Supple, no JVP, no lymphadenopathy. LUNGS: Clear. HEART: S1, S2 regular. ABDOMEN: Benign. EXTREMITIES: No edema, cyanosis. SKIN: Unremarkable. NEUROLOGIC: The patient is neurologically intact. No focal neurologic deficit. Labs Lab Laboratory Tests Test 08/15/18 12:58 08/15/18 17:04 08/15/18 20:50 08/16/18 03:50 Glucose (Fingerstick) 305 mg/dL (70-99) 208 mg/dL (70-99) 130 mg/dL (70-99) White Blood Count 16.5 x10^3/uL (4.0-11.0) Red Blood Count 3.27 x10^6/uL (3.50-5.40) Hemoglobin 7.2 g/dL (12.0-15.5) Hematocrit 24.5 % (36.0-47.0) Mean Corpuscular Volume 75 fL (79-100) Mean Corpuscular Hemoglobin 22 pg (25-35) Mean Corpuscular Hemoglobin Concent 29 g/dL (31-37) Red Cell Distribution Width 21.2 % (11.5-14.5) Platelet Count 395 x10^3/uL (140-400) Neutrophils (%) (Auto) 79 % (31-73) Lymphocytes (%) (Auto) 15 % (24-48) Monocytes (%) (Auto) 6 % (0-9) Eosinophils (%) (Auto) 0 % (0-3) Basophils (%) (Auto) 0 % (0-3) Neutrophils # (Auto) 13.0 x10^3uL (1.8-7.7) Lymphocytes # (Auto) 2.4 x10^3/uL (1.0-4.8) Monocytes # (Auto) 1.0 x10^3/uL (0.0-1.1) Eosinophils # (Auto) 0.0 x10^3/uL (0.0-0.7) Basophils # (Auto) 0.0 x10^3/uL (0.0-0.2) Prothrombin Time 24.7 SEC (11.7-14.0) Prothromb Time International Ratio 2.3 (0.8-1.1) Sodium Level 144 mmol/L (136-145) Potassium Level 3.6 mmol/L (3.5-5.1) Chloride Level 105 mmol/L (98-107) Carbon Dioxide Level 30 mmol/L (21-32) Anion Gap 9 (6-14) Blood Urea Nitrogen 22 mg/dL (7-20) Creatinine 1.3 mg/dL (0.6-1.0) Estimated GFR (Cockcroft-Gault) 41.9 BUN/Creatinine Ratio 17 (6-20) Glucose Level 85 mg/dL (70-99) Calcium Level 7.2 mg/dL (8.5-10.1) Magnesium Level 2.0 mg/dL (1.8-2.4) Total Bilirubin 0.4 mg/dL (0.2-1.0) Aspartate Amino Transf (AST/SGOT) 16 U/L (15-37) Alanine Aminotransferase (ALT/SGPT) 21 U/L (14-59) Alkaline Phosphatase 83 U/L (46-116) Total Protein 6.8 g/dL (6.4-8.2) Albumin 2.3 g/dL (3.4-5.0) Albumin/Globulin Ratio 0.5 (1.0-1.7) Test 08/16/18 07:25 Glucose (Fingerstick) 110 mg/dL (70-99) Micro BLOOD CULTURE Final GRAM POSITIVE COCCI IN CLUSTERS, SUGGESTIVE OF STAPH, IN 1 OF 4 BOTTLES, TWO SETS DRAWN. CALLED TO CORNEL MCKEON RN ON 2N AT 8:45 ON 08/16/18 DW MT SENT TO LAB [facility] FOR FURTHER WORKUP. Objective Assessment Fever, ? possible aspiration Encephalopathy Hypoglycemia ? CO2 narcosis COPD DM HTN CVA BC + , likely contaminant, ID pending Plan Plan of Care zosyn supportive care d/w d/w BEVERLEY Bain MD Aug 16, 2018 09:26
[2018-08-16] MEDS ORDERED: MAGNESIUM SULFATE 2GM 50 ML IV ONE (09:30)
--- NOTE | 2018-08-16 09:37 | PDOC ---
IM PROGRESS NOTES- Subjective Subjective Slept well last night. Has some cough and congestion but overall feeling much better. Objective Vitals Vital Signs Date Time Temp Pulse Resp B/P (MAP) Pulse Ox O2 Delivery O2 Flow Rate FiO2 08/16/18 08:19 81 115/55 08/16/18 08:11 97.7 19 89 Nasal Cannula 3.0 97.7 Input & Output Intake and Output 08/16/18 07:00 Intake Total 450 ml Output Total 900 ml Balance -450 ml Intake Oral 450 ml Output Urine Total 900 ml # Bowel Movements 1 Physical Exam Physical Exam General appearance - alert,ill appearing, and in no distress and oriented to person, place, and time Mental Status - alert, oriented to person, place, and time, affect appropriate to mood Head - normal Chest - clear to auscultation, no wheezes, rales or rhonchi, symmetric air entry Heart - S1 and S2 normal decreased breath sounds bilaterally with some coarse breath sounds. Abdomen - soft, nontender, nondistended, no masses or organomegaly Neurological - alert and oriented Musculoskeletal - no muscular tenderness noted Extremities - no pedal edema Skin - warm and dry Labs Laboratory Tests Test 08/14/18 16:52 08/14/18 16:54 08/14/18 17:00 08/14/18 17:15 Glucose (Fingerstick) 100 mg/dL (70-99) 82 mg/dL (70-99) O2 Saturation 82 % (92-99) Arterial Blood pH 7.36 (7.35-7.45) Arterial Blood pCO2 at Patient Temp 56 mmHg (35-46) Arterial Blood pO2 at Patient Temp 51 mmHg (65-108) Arterial Blood HCO3 31 mmol/L (21-28) Arterial Blood Base Excess 5 mmol/L (-3-3) FiO2 60 White Blood Count 10.7 x10^3/uL (4.0-11.0) Red Blood Count 3.85 x10^6/uL (3.50-5.40) Hemoglobin 8.7 g/dL (12.0-15.5) Hematocrit 28.5 % (36.0-47.0) Mean Corpuscular Volume 74 fL (79-100) Mean Corpuscular Hemoglobin 23 pg (25-35) Mean Corpuscular Hemoglobin Concent 31 g/dL (31-37) Red Cell Distribution Width 21.0 % (11.5-14.5) Platelet Count 481 x10^3/uL (140-400) Neutrophils (%) (Auto) 74 % (31-73) Lymphocytes (%) (Auto) 16 % (24-48) Monocytes (%) (Auto) 8 % (0-9) Eosinophils (%) (Auto) 2 % (0-3) Basophils (%) (Auto) 1 % (0-3) Neutrophils # (Auto) 7.9 x10^3uL (1.8-7.7) Lymphocytes # (Auto) 1.7 x10^3/uL (1.0-4.8) Monocytes # (Auto) 0.9 x10^3/uL (0.0-1.1) Eosinophils # (Auto) 0.2 x10^3/uL (0.0-0.7) Basophils # (Auto) 0.1 x10^3/uL (0.0-0.2) Platelet Estimate Increased (ADEQUATE) Polychromasia Slight Hypochromasia Mod Anisocytosis Mod Microcytosis Slight Prothrombin Time 24.7 SEC (11.7-14.0) Prothromb Time International Ratio 2.3 (0.8-1.1) Activated Partial Thromboplast Time 36 SEC (24-38) Sodium Level 143 mmol/L (136-145) Potassium Level 3.6 mmol/L (3.5-5.1) Chloride Level 102 mmol/L (98-107) Carbon Dioxide Level 31 mmol/L (21-32) Anion Gap 10 (6-14) Blood Urea Nitrogen 32 mg/dL (7-20) Creatinine 1.5 mg/dL (0.6-1.0) Estimated GFR (Cockcroft-Gault) 35.5 BUN/Creatinine Ratio 21 (6-20) Glucose Level 101 mg/dL (70-99) Lactic Acid Level 1.7 mmol/L (0.4-2.0) Calcium Level 7.4 mg/dL (8.5-10.1) Magnesium Level 2.1 mg/dL (1.8-2.4) Total Bilirubin 0.3 mg/dL (0.2-1.0) Aspartate Amino Transf (AST/SGOT) 42 U/L (15-37) Alanine Aminotransferase (ALT/SGPT) 33 U/L (14-59) Alkaline Phosphatase 127 U/L (46-116) Troponin I Quantitative < 0.017 ng/mL (0.000-0.055) [id number]-R-Type Natriuretic Peptide 1538 pg/mL (0-124) Total Protein 7.5 g/dL (6.4-8.2) Albumin 3.1 g/dL (3.4-5.0) Albumin/Globulin Ratio 0.7 (1.0-1.7) Lipase 1177 U/L (73-393) Procalcitonin < 0.10 ng/mL (0.00-0.10) Ethyl Alcohol Level < 10 mg/dL (0-10) Test 08/14/18 17:18 08/14/18 17:40 08/14/18 17:42 08/14/18 18:36 Urine Color Yellow Urine Clarity Clear Urine pH 5.0 Urine Specific [place] 1.015 Urine Protein Negative mg/dL (NEG-TRACE) Urine Glucose (UA) Negative mg/dL (NEG) Urine Ketones (Stick) Negative mg/dL (NEG) Urine Blood Negative (NEG) Urine Nitrite Negative (NEG) Urine Bilirubin Negative (NEG) Urine Urobilinogen Dipstick 0.2 mg/dL (0.2 mg/dL) Urine Leukocyte Esterase Negative (NEG) Urine RBC 0 /HPF (0-2) Urine WBC 0 /HPF (0-4) Urine Squamous Epithelial Cells Occ /LPF Urine Bacteria 0 /HPF (0-FEW) Urine Hyaline Casts Occasional /HPF Urine Waxy Casts Occasional /HPF Urine Mucus Slight /LPF Urine Opiates Screen Pos (NEG) Urine Methadone Screen Neg (NEG) Urine Barbiturates Neg (NEG) Urine Phencyclidine Screen Neg (NEG) Urine Amphetamine/Methamphetamine Neg (NEG) Urine Benzodiazepines Screen Neg (NEG) Urine Cocaine Screen Neg (NEG) Urine Cannabinoids Screen Neg (NEG) Urine Ethyl Alcohol Neg (NEG) Ammonia < 10 mcmol/L (11-34) Glucose (Fingerstick) 75 mg/dL (70-99) 82 mg/dL (70-99) Test 08/14/18 19:59 08/14/18 20:35 08/14/18 21:26 08/15/18 00:21 Glucose (Fingerstick) 88 mg/dL (70-99) 120 mg/dL (70-99) O2 Saturation 94 % (92-99) Arterial Blood pH 7.40 (7.35-7.45) Arterial Blood pH (Temp corrected) 7.45 Arterial Blood pCO2 at Patient Temp 51 mmHg (35-46) Arterial Blood pCO2 (Temp correct) 44 mmHg Arterial Blood pO2 at Patient Temp 77 mmHg (65-108) Arterial Blood pO2 (Temp corrected) 62 mmHg Arterial Blood HCO3 31 mmol/L (21-28) Arterial Blood Base Excess 5 mmol/L (-3-3) FiO2 50 Nasal Screen MRSA (PCR) Negative (Negative) Test 08/15/18 09:10 08/15/18 12:58 08/15/18 17:04 08/15/18 20:50 White Blood Count 22.8 x10^3/uL (4.0-11.0) Red Blood Count 3.60 x10^6/uL (3.50-5.40) Hemoglobin 7.9 g/dL (12.0-15.5) Hematocrit 26.7 % (36.0-47.0) Mean Corpuscular Volume 74 fL (79-100) Mean Corpuscular Hemoglobin 22 pg (25-35) Mean Corpuscular Hemoglobin Concent 30 g/dL (31-37) Red Cell Distribution Width 21.4 % (11.5-14.5) Platelet Count 432 x10^3/uL (140-400) Neutrophils (%) (Auto) 94 % (31-73) Lymphocytes (%) (Auto) 3 % (24-48) Monocytes (%) (Auto) 3 % (0-9) Eosinophils (%) (Auto) 0 % (0-3) Basophils (%) (Auto) 0 % (0-3) Neutrophils # (Auto) 21.4 x10^3uL (1.8-7.7) Lymphocytes # (Auto) 0.8 x10^3/uL (1.0-4.8) Monocytes # (Auto) 0.6 x10^3/uL (0.0-1.1) Eosinophils # (Auto) 0.0 x10^3/uL (0.0-0.7) Basophils # (Auto) 0.0 x10^3/uL (0.0-0.2) Segmented Neutrophils % 85 % (35-66) Band Neutrophils % 10 % (0-9) Lymphocytes % 3 % (24-48) Monocytes % 2 % (0-10) Nucleated Red Blood Cells 1 Platelet Estimate Increased (ADEQUATE) Large Platelets Few Polychromasia Present Anisocytosis Mod Microcytosis Mod Ovalocytes Few Sodium Level 143 mmol/L (136-145) Potassium Level 4.4 mmol/L (3.5-5.1) Chloride Level 103 mmol/L (98-107) Carbon Dioxide Level 30 mmol/L (21-32) Anion Gap 10 (6-14) Blood Urea Nitrogen 20 mg/dL (7-20) Creatinine 1.4 mg/dL (0.6-1.0) Estimated GFR (Cockcroft-Gault) 38.5 Glucose Level 218 mg/dL (70-99) Calcium Level 6.8 mg/dL (8.5-10.1) Magnesium Level 1.7 mg/dL (1.8-2.4) Glucose (Fingerstick) 305 mg/dL (70-99) 208 mg/dL (70-99) 130 mg/dL (70-99) Test 08/16/18 03:50 08/16/18 07:25 White Blood Count 16.5 x10^3/uL (4.0-11.0) Red Blood Count 3.27 x10^6/uL (3.50-5.40) Hemoglobin 7.2 g/dL (12.0-15.5) Hematocrit 24.5 % (36.0-47.0) Mean Corpuscular Volume 75 fL (79-100) Mean Corpuscular Hemoglobin 22 pg (25-35) Mean Corpuscular Hemoglobin Concent 29 g/dL (31-37) Red Cell Distribution Width 21.2 % (11.5-14.5) Platelet Count 395 x10^3/uL (140-400) Neutrophils (%) (Auto) 79 % (31-73) Lymphocytes (%) (Auto) 15 % (24-48) Monocytes (%) (Auto) 6 % (0-9) Eosinophils (%) (Auto) 0 % (0-3) Basophils (%) (Auto) 0 % (0-3) Neutrophils # (Auto) 13.0 x10^3uL (1.8-7.7) Lymphocytes # (Auto) 2.4 x10^3/uL (1.0-4.8) Monocytes # (Auto) 1.0 x10^3/uL (0.0-1.1) Eosinophils # (Auto) 0.0 x10^3/uL (0.0-0.7) Basophils # (Auto) 0.0 x10^3/uL (0.0-0.2) Prothrombin Time 24.7 SEC (11.7-14.0) Prothromb Time International Ratio 2.3 (0.8-1.1) Sodium Level 144 mmol/L (136-145) Potassium Level 3.6 mmol/L (3.5-5.1) Chloride Level 105 mmol/L (98-107) Carbon Dioxide Level 30 mmol/L (21-32) Anion Gap 9 (6-14) Blood Urea Nitrogen 22 mg/dL (7-20) Creatinine 1.3 mg/dL (0.6-1.0) Estimated GFR (Cockcroft-Gault) 41.9 BUN/Creatinine Ratio 17 (6-20) Glucose Level 85 mg/dL (70-99) Calcium Level 7.2 mg/dL (8.5-10.1) Magnesium Level 2.0 mg/dL (1.8-2.4) Total Bilirubin 0.4 mg/dL (0.2-1.0) Aspartate Amino Transf (AST/SGOT) 16 U/L (15-37) Alanine Aminotransferase (ALT/SGPT) 21 U/L (14-59) Alkaline Phosphatase 83 U/L (46-116) Total Protein 6.8 g/dL (6.4-8.2) Albumin 2.3 g/dL (3.4-5.0) Albumin/Globulin Ratio 0.5 (1.0-1.7) Glucose (Fingerstick) 110 mg/dL (70-99) Laboratory Tests Test 08/15/18 12:58 08/15/18 17:04 08/15/18 20:50 08/16/18 03:50 Glucose (Fingerstick) 305 mg/dL (70-99) 208 mg/dL (70-99) 130 mg/dL (70-99) White Blood Count 16.5 x10^3/uL (4.0-11.0) Red Blood Count 3.27 x10^6/uL (3.50-5.40) Hemoglobin 7.2 g/dL (12.0-15.5) Hematocrit 24.5 % (36.0-47.0) Mean Corpuscular Volume 75 fL (79-100) Mean Corpuscular Hemoglobin 22 pg (25-35) Mean Corpuscular Hemoglobin Concent 29 g/dL (31-37) Red Cell Distribution Width 21.2 % (11.5-14.5) Platelet Count 395 x10^3/uL (140-400) Neutrophils (%) (Auto) 79 % (31-73) Lymphocytes (%) (Auto) 15 % (24-48) Monocytes (%) (Auto) 6 % (0-9) Eosinophils (%) (Auto) 0 % (0-3) Basophils (%) (Auto) 0 % (0-3) Neutrophils # (Auto) 13.0 x10^3uL (1.8-7.7) Lymphocytes # (Auto) 2.4 x10^3/uL (1.0-4.8) Monocytes # (Auto) 1.0 x10^3/uL (0.0-1.1) Eosinophils # (Auto) 0.0 x10^3/uL (0.0-0.7) Basophils # (Auto) 0.0 x10^3/uL (0.0-0.2) Prothrombin Time 24.7 SEC (11.7-14.0) Prothromb Time International Ratio 2.3 (0.8-1.1) Sodium Level 144 mmol/L (136-145) Potassium Level 3.6 mmol/L (3.5-5.1) Chloride Level 105 mmol/L (98-107) Carbon Dioxide Level 30 mmol/L (21-32) Anion Gap 9 (6-14) Blood Urea Nitrogen 22 mg/dL (7-20) Creatinine 1.3 mg/dL (0.6-1.0) Estimated GFR (Cockcroft-Gault) 41.9 BUN/Creatinine Ratio 17 (6-20) Glucose Level 85 mg/dL (70-99) Calcium Level 7.2 mg/dL (8.5-10.1) Magnesium Level 2.0 mg/dL (1.8-2.4) Total Bilirubin 0.4 mg/dL (0.2-1.0) Aspartate Amino Transf (AST/SGOT) 16 U/L (15-37) Alanine Aminotransferase (ALT/SGPT) 21 U/L (14-59) Alkaline Phosphatase 83 U/L (46-116) Total Protein 6.8 g/dL (6.4-8.2) Albumin 2.3 g/dL (3.4-5.0) Albumin/Globulin Ratio 0.5 (1.0-1.7) Test 08/16/18 07:25 Glucose (Fingerstick) 110 mg/dL (70-99) Meds Current Medications Albuterol/ Ipratropium (Duoneb) 3 ml RTQID NEB Last administered on 08/16/18 07 :47; Start 08/15/18 at 12:00 Budesonide (Pulmicort) 0.5 mg RTBID NEB Last administered on 08/16/18 07:47; Start 08/15/18 at 10:00 Cetirizine HCl (ZyrTEC) 10 mg DAILY PO Last administered on 08/16/18 08:17; Start 08/15/18 at 10:00 Gabapentin (Neurontin) 1,200 mg HS PO Last administered on 08/15/18 21:21; Start 08/15/18 at 21:00 Insulin Human Lispro (HumaLOG) 0-6 UNITS TIDWMEALS SQ Last administered on 17:21; Start 08/15/18 at 12:00 Lactobacillus Rhamnosus (Culturelle) 1 cap BID PO Last administered on 08:24; Start 08/16/18 at 09:00 Levothyroxine Sodium (Synthroid) 150 mcg DAILY06 PO Last administered on 06:28; Start 08/15/18 at 10:30 Magnesium Oxide (Magnesium Oxide) 400 mg TID PO Last administered on 08/16/18 08:20; Start 08/15/18 at 10:00 Magnesium Sulfate 50 ml @ 25 mls/hr 1X ONCE IV ; Start 08/16/18 at 09:30; Stop 08/16/18 at 11:29 Metformin HCl (Glucophage) 1,000 mg BIDWMEALS PO Last administered on 08/16/18 08:19; Start 08/15/18 at 10:00 Montelukast Sodium (Singulair) 10 mg QHS PO Last administered on 08/15/18 21:22 ; Start 08/15/18 at 21:00 Pantoprazole Sodium (Protonix) 40 mg BIDAC PO Last administered on 08/16/18 08: 20; Start 08/15/18 at 11:30 Potassium Chloride (Klor-Con) 20 meq DAILYWBKFT PO Last administered on 08:20; Start 08/15/18 at 10:00 Prednisone (Prednisone) 10 mg DAILY PO Last administered on 08/16/18 08:17; Start 08/15/18 at 10:00 Simvastatin (Zocor) 80 mg QHS PO Last administered on 08/15/18 21:21; Start 08/15/18 at 21:00 Tizanidine HCl (Zanaflex) 4 mg PRN QHS PRN PO MUSCLE SPASMS Last administered on 08/15/18 21:21; Start 08/15/18 at 09:45 Torsemide (Demadex) 20 mg DAILY PO Last administered on 08/16/18 08:18; Start 08/15/18 at 10:00 Warfarin Sodium (Coumadin) 5 mg 1X WARF ONCE PO Last administered on 08/15/18 17:17; Start 08/15/18 at 16:00; Stop 08/15/18 at 16:01; Status DC Assessment Assessment 1. Acute hypoxic and hypercapnic respiratory failure. 2. Acute hypoglycemia. 3. Chronic systolic congestive heart failure. 4. Fever, likely due to aspiration bronchitis. 5. Acute metabolic encephalopathy, multifactorial. 6. Chronic obstructive pulmonary disease. 7. Diabetes mellitus type 2 with diabetic neuropathy, peripheral artery disease and hypoglycemia. 8. History of deep venous thrombosis in the past with chronic Coumadin therapy. 9. Hypothyroidism, surgically induced. 10. Peripheral artery disease with multiple procedures as noted above. 11. Hypertension. 12. Hyperlipidemia. 13. Chronic kidney disease. 14. History of nonobstructing right renal calculus. 15. Obesity. 16. Chronic smoking. The patient is trying to quit. 17. Anxiety 18. Depression. 19. Osteoporosis. 20. Degenerative joint disease, multiple joints. 21. History of cerebrovascular accident. 22. History of migraine. 23. Diverticulosis. 24. History of gastritis. 25. Irritable bowel syndrome. 26. Anemia. PLAN: Consult Dr. Patricio for infectious disease evaluation and management. Consult Dr. Burgess for pulmonary evaluation and management and continuous improvement lead, Dr. Rosenthal for GI evaluation and management. The patient has an elevated lipase, but she is asymptomatic and we will continue to monitor. The patient is also being seen by Dr. Ireland for neurology evaluation and management. We will consult Dr. Burgess for pulmonary evaluation and management. We will hold off on cardiology consult at this time. For details, please review the orders. Prognosis of this patient is poor. The patient is much more alert. Condition and treatment discussed with the patient and her . Continue on oxygen by nasal cannula. Restart low-dose steroid this morning. Continue IV Zosyn. Blood culture 1 out of 2 positive for gram positive cocci in clusters. Discussed with Dr. Jr Jones. This could be a contaminant. Continue IV Zosyn. Hypomagnesemia- replace. Hypokalemia - replace Acute metabolic encephalopathy improving condition treatment discussed with the patient and her . Plan Plan For more details regarding further plans, please refer to the orders. SULTANA MONTGOMERY MD Aug 16, 2018 09:37
[2018-08-16 10:45] VITALS: BP 101/47
[2018-08-16] MEDS: HYDROcodone/APAP 7.5/325MG 1 TAB TABLET PO PRN ×2 (12:05→19:10)
--- NOTE | 2018-08-16 13:31 | NUR ---
SS following for discharge planning. PT recommended home with assistance. No discharge needs noted at this time. SS will continue to follow for discharge planning.
--- NOTE | 2018-08-16 14:57 | NUR ---
Pharmacy Warfarin Dosing Note S:Pharmacy consulted to assist with anticoagulation therapy with target INR: 2 -3 O:ISATU LOUISE is a 58 year old F with HX DVT LABS: Last INR: 2.3 Last HGB: 7.2 Last HCT: 24.5 Last PLT: 395 Last dose of 5 mg given on 08/15/18 at 1717 Previous Regimen: 2.5MG TU/FR; 5MG ROW A:INR of 2.3 is within desired range. Target range for this patient is: 2 -3 P: Warfarin dose: 2.5 mg Today at 1600 Bridge Therapy: None Next INR due tomorrow Pharmacy anticoagulation service will continue to follow. Louise Cunningham Haris, 08/16/18 [id number]
[2018-08-16] MEDS ORDERED: WARFARIN 2.5 MG TABLET. PO ONE (16:00)
--- NOTE | 2018-08-16 16:22 | PDOC ---
PROGRESS NOTES Assessment Assessment Metabolic encephalopathy. Respiratory distress/failure/ Hypoxia, O2 saturation 82% at admission. COPD. Hypoglycemia. Hyperglycemia. Leukocytosis. Thrombocytosis. DM. HTN. [place]. Elevate lipase. Pacemaker in site. Obesity. RECOMMENDATIONS/PLAN: Treat medical diseases. She has been treated with Coumadin. Continue Zocor HS. Weight reduction. Discussed with her at bedside in ICU on 08/15/18. HISTORY OF THE PRESENT ILLNESS: This is a 58 -year-old female who was brought to the ER due to altered mental status. She has COPD on chronic nasal cannula supplemental O2 at 2 L. Patient was found unresponsive in her bed with questionable downtime of approximately one hour. On EMS evaluation was found to be hypoglycemic with blood sugar and 40s. Patient was given an amp of D50 with some improvement only to a GCS of 9. Patient with recent hospitalization for COPD exacerbation and hyperkalemia per EMS. Patient arouses with sternal rub, intermittently follows commands but otherwise unable to provide any history, so she was transferred to ICU for further evaluation and treatment. She stated improved her breath since 08/15/18. PAST MEDICAL HISTORY: COPD, history of CVA, diabetes, history of chronic respiratory failure, hypertension, WI x 6, history of clots in the left lower and left upper extremity. PAST SURGICAL HISTORY: Hysterectomy, pacemaker, tonsillectomy. SOCIAL HISTORY: Lives with her , her child and grandchildren at home. Smoker for 30 years. Continues to smoke cigarettes. ALLERGIES: PENICILLIN, CODEINE, DIPHENHYDRAMINE. MEDICATIONS: See MAR. FAMILY HISTORY: Non contributory. REVIEW OF SYSTEMS: Constitutional: Obesity. Head: No recent traumatic brain or head injury. Skin: No edema, or rash. Ear: No infection. Eyes: No vision loss or color blindness. Nose: No bleeding or purulent discharges. Hearing: No hearing decrease. Neck: No injury. Breast: No history of cancer, masses,or discharges. Cardiac:WI, HTN, HLD. Pulmonary: COPD. GI: No GI ulcer, GI bleeding. Urinary/genital: UTI. Endocrinologic: Diabetes Mellitus, obesity. Skeletomuscular: No muscular atrophy, deformity. Neurological: see HP. Psychiatric: Smoking. Otherwise, not [id number] review of systems. PHYSICAL EXAMINATION: General appearance is in subacute distress. HEENT: Normocephalic and nontraumatic. Eyes, nose, ears, and throat are unremarkable. Neck is supple. No lymphadenopathy. No crepitus. Cardiovascular: S1, S2, regular rate and rhythm. Pulmonary: Decreased to auscultation bilaterally. Abdomen: Bowel sounds are positive. Abdomen is soft, nontender, and nondistended. Extremities: No rash, lesions, or edema. No restriction of range of motion NEUROLOGICAL EXAMINATION: Alert On NC O2. Oriented to time, place and person. PERRL. EOMI. CN: no focal findings. Muscle tone: within normal. Muscle strength: 5- DTR: 1+ Plantar reflex: Flexor response bilaterally Gait: not examined in bed. Sensory exam: no abnormal findings. No cerebellar signs elicited. F-T-N test fine. Objective Objective Vital Signs Date Time Temp Pulse Resp B/P (MAP) Pulse Ox O2 Delivery O2 Flow Rate FiO2 08/16/18 15:28 93 Nasal Cannula 3.0 08/16/18 13:05 14 08/16/18 10:45 98.1 75 101/47 (65) 98.1 Intake and Output 08/16/18 06:59 Intake Total 450 ml Output Total 900 ml Balance -450 ml Intake Oral 450 ml Output Urine Total 900 ml # Bowel Movements 1 Vitals Signs Vitals VS - Last 72 Hours, by Label Date Time Temp Pulse Resp B/P (MAP) Pulse Ox O2 Delivery O2 Flow Rate FiO2 08/16/18 15:28 93 Nasal Cannula 3.0 08/16/18 13:05 14 90 Nasal Cannula 3.0 08/16/18 12:05 14 Nasal Cannula 3.0 08/16/18 10:45 98.1 75 17 101/47 (65) 90 Nasal Cannula 3.0 98.1 08/16/18 08:19 81 115/55 08/16/18 08:11 97.7 81 19 115/55 (75) 89 Nasal Cannula 3.0 97.7 08/16/18 08:00 Nasal Cannula 3.0 08/16/18 08:00 3.0 08/16/18 07:50 93 Nasal Cannula 3.0 08/16/18 03:20 99.1 88 20 112/57 (75) 90 Nasal Cannula 3.0 99.1 08/15/18 23:05 98.7 79 20 111/49 (69) 89 Nasal Cannula 3.0 98.7 08/15/18 20:00 3.0 08/15/18 20:00 Nasal Cannula 3.0 08/15/18 19:45 98.7 84 22 126/61 (82) 89 Nasal Cannula 3.0 98.7 08/15/18 17:20 73 117/49 08/15/18 15:15 98.0 18 105/53 (70) 93 Nasal Cannula 3.0 98.0 08/15/18 12:14 75 16 148/78 (101) 93 Nasal Cannula 3.0 08/15/18 10:11 95 153/78 08/15/18 10:10 93 Nasal Cannula 3.0 08/15/18 08:00 95 20 153/78 (103) 93 Nasal Cannula 3.0 08/15/18 08:00 Nasal Cannula 3.0 08/15/18 08:00 3.0 08/15/18 07:00 98.4 82 20 133/58 (83) 93 Nasal Cannula 3.0 98.4 Laboratory Laboratory Laboratory Tests Test 08/15/18 17:04 08/15/18 20:50 08/16/18 03:50 08/16/18 07:25 Glucose (Fingerstick) 208 mg/dL (70-99) 130 mg/dL (70-99) 110 mg/dL (70-99) White Blood Count 16.5 x10^3/uL (4.0-11.0) Red Blood Count 3.27 x10^6/uL (3.50-5.40) Hemoglobin 7.2 g/dL (12.0-15.5) Hematocrit 24.5 % (36.0-47.0) Mean Corpuscular Volume 75 fL (79-100) Mean Corpuscular Hemoglobin 22 pg (25-35) Mean Corpuscular Hemoglobin Concent 29 g/dL (31-37) Red Cell Distribution Width 21.2 % (11.5-14.5) Platelet Count 395 x10^3/uL (140-400) Neutrophils (%) (Auto) 79 % (31-73) Lymphocytes (%) (Auto) 15 % (24-48) Monocytes (%) (Auto) 6 % (0-9) Eosinophils (%) (Auto) 0 % (0-3) Basophils (%) (Auto) 0 % (0-3) Neutrophils # (Auto) 13.0 x10^3uL (1.8-7.7) Lymphocytes # (Auto) 2.4 x10^3/uL (1.0-4.8) Monocytes # (Auto) 1.0 x10^3/uL (0.0-1.1) Eosinophils # (Auto) 0.0 x10^3/uL (0.0-0.7) Basophils # (Auto) 0.0 x10^3/uL (0.0-0.2) Prothrombin Time 24.7 SEC (11.7-14.0) Prothromb Time International Ratio 2.3 (0.8-1.1) Sodium Level 144 mmol/L (136-145) Potassium Level 3.6 mmol/L (3.5-5.1) Chloride Level 105 mmol/L (98-107) Carbon Dioxide Level 30 mmol/L (21-32) Anion Gap 9 (6-14) Blood Urea Nitrogen 22 mg/dL (7-20) Creatinine 1.3 mg/dL (0.6-1.0) Estimated GFR (Cockcroft-Gault) 41.9 BUN/Creatinine Ratio 17 (6-20) Glucose Level 85 mg/dL (70-99) Calcium Level 7.2 mg/dL (8.5-10.1) Magnesium Level 2.0 mg/dL (1.8-2.4) Total Bilirubin 0.4 mg/dL (0.2-1.0) Aspartate Amino Transf (AST/SGOT) 16 U/L (15-37) Alanine Aminotransferase (ALT/SGPT) 21 U/L (14-59) Alkaline Phosphatase 83 U/L (46-116) Total Protein 6.8 g/dL (6.4-8.2) Albumin 2.3 g/dL (3.4-5.0) Albumin/Globulin Ratio 0.5 (1.0-1.7) Test 08/16/18 11:26 Glucose (Fingerstick) 155 mg/dL (70-99) Microbiology 08/14/18 Blood Culture - Preliminary, Resulted NO GROWTH AFTER 1 DAY Medication Medications Current Medications Gabapentin (Neurontin) 1,200 mg HS PO Last administered on 08/15/18at 21:21; Start 08/15/18 at 21:00 Lactobacillus Rhamnosus (Culturelle) 1 cap BID PO Last administered on at 08:24; Start 08/16/18 at 09:00 Magnesium Sulfate 50 ml @ 25 mls/hr 1X ONCE IV Last administered on 08/16/18at 11:00; Start 08/16/18 at 09:30; Stop 08/16/18 at 11:29; Status DC Montelukast Sodium (Singulair) 10 mg QHS PO Last administered on 08/15/18at 21:22 ; Start 08/15/18 at 21:00 Simvastatin (Zocor) 80 mg QHS PO Last administered on 08/15/18at 21:21; Start 08/15/18 at 21:00 Warfarin Sodium (Coumadin) 2.5 mg 1X WARF ONCE PO ; Start 08/16/18 at 16:00; Stop 08/16/18 at 16:01; Status DC Comment Review of Relevant I have reviewed the following items jarod (where applicable) has been applied. NIESHA STOVER MD Aug 16, 2018 16:22
[2018-08-16 16:23] VITALS: BP 114/61
[2018-08-16 19:30] VITALS: BP 127/62
[2018-08-16] MEDS: GABAPENTIN 300 MG CAPSULE. PO SCH (20:53)
[2018-08-16] MEDS: SIMVASTATIN 40 MG TABLET. PO SCH (20:53)
[2018-08-16] MEDS: MONTELUKAST SODIUM 10 MG TABLET. PO SCH (20:54)
--- NOTE | 2018-08-16 21:22 | NUR ---
PT ADAMANTLY REFUSED BOTH BREATHING MEDICATIONS
[2018-08-16 23:05] VITALS: BP 103/46
[2018-08-17] VITALS (7 sets, daily range): BP systolic 106–124; BP diastolic 57–66
[2018-08-17] MEDS: PIPERACILLIN/TAZOBACTAM 3.375 GM in IV NORMAL SALINE 50ML 50 ML IV SCH ×2 (00:17→05:46)
[2018-08-17 04:18] LABS: BASO % 0 % (0-3); EOS # 0.1 x10^3/uL (0.0-0.7); EOS % 1 % (0-3); HEMATOCRIT 23.9 % (36.0-47.0); HEMOGLOBIN 7.1 g/dL (12.0-15.5); LYMPH # 3.2 x10^3/uL (1.0-4.8); LYMPH % 25 % (24-48); MEAN CORPUSCULAR HEMOGLOBIN 22 pg (25-35); MEAN CORPUSCULAR HGB CONC 30 g/dL (31-37); MEAN CORPUSCULAR VOLUME 75 fL (79-100); MONO # 1.1 x10^3/uL (0.0-1.1); MONO % 9 % (0-9); NEUT # 8.5 x10^3uL (1.8-7.7); NEUT % 65 % (31-73); PLATELET COUNT 376 x10^3/uL (140-400); RED CELL DISTRIBUTION WIDTH 21.2 % (11.5-14.5)
[2018-08-17 04:36] LABS: CALCIUM 7.2 mg/dL (8.5-10.1); CREATININE 1.6 mg/dL (0.6-1.0); POTASSIUM 3.5 mmol/L (3.5-5.1); PROTHROMBIN TIME PATIENT 26.1 SEC (11.7-14.0)
[2018-08-17] MEDS: LEVOTHYROXINE 150 MCG TABLET PO SCH (05:46)
[2018-08-17] MEDS: HYDROcodone/APAP 7.5/325MG 1 TAB TABLET PO PRN ×3 (06:18→21:19)
[2018-08-17] MEDS: IPRATRPIUM/ALBUTEROL 0.5/2.5MG 3 ML NEBU. NEB SCH ×4 (07:21→19:57)
[2018-08-17] MEDS: BUDESONIDE 0.5 MG/2 ML NEBU. NEB SCH ×2 (07:22→19:57)
[2018-08-17] MEDS: INSULIN LISPRO 300 UNITS/3 ML INSULN.PEN. SQ SCH ×3 (08:00→17:27)
[2018-08-17] MEDS: metFORMIN 500 MG TABLET PO SCH ×2 (08:22→17:21)
[2018-08-17] MEDS: predniSONE 20 MG TABLET PO SCH (08:23)
[2018-08-17] MEDS: CARVEDILOL 3.125 MG TABLET. PO SCH ×2 (08:23→17:22)
[2018-08-17] MEDS: ALPRAZolam 0.25 MG TABLET PO SCH ×2 (08:23→21:18)
[2018-08-17] MEDS: LACTOBACILLUS RHAMNOSUS GG 1 CAPSULE. PO SCH ×2 (08:24→21:19)
[2018-08-17] MEDS: ASPIRIN ENTERIC COATED 81 MG TABLET.DR. PO SCH (08:24)
[2018-08-17] MEDS: PANTOPRAZOLE 40 MG TABLET.DR. PO SCH ×2 (08:24→17:21)
[2018-08-17] MEDS: POTASSIUM CHLORIDE 20 MEQ TABLET.ER. PO SCH ×2 (08:24→17:22)
[2018-08-17] MEDS: MAGNESIUM OXIDE 400 MG TABLET PO SCH ×3 (08:24→21:19)
[2018-08-17] MEDS: METOCLOPRAMIDE 10 MG TABLET. PO SCH ×4 (08:24→21:19)
[2018-08-17] MEDS: FLUTICASONE 50MCG/NASAL SPRAY 16GM BOTTLE. NS SCH (08:25)
[2018-08-17] MEDS: DICLOFENAC SODIUM 1% TOPICAL GEL 100GM TUBE. TP SCH ×4 (08:25→21:00)
[2018-08-17] MEDS: TORSEMIDE 20 MG TABLET. PO SCH (08:25)
[2018-08-17] MEDS: CETIRIZINE HCL 10 MG TABLET. PO SCH (08:25)
--- NOTE | 2018-08-17 08:34 | PDOC ---
Infectious Disease Note Subjective Subjective feeling much better ROS ROS no n/v/d/sob/fever Vital Sign Vital Signs Vital Signs Date Time Temp Pulse Resp B/P (MAP) Pulse Ox O2 Delivery O2 Flow Rate FiO2 08/17/18 08:23 67 113/58 08/17/18 07:50 98.0 18 97 Nasal Cannula 3.0 98.0 Physical Exam PHYSICAL EXAM GENERAL: Alert, oriented female, not in distress. VITAL SIGNS: Stable. HEENT: Anicteric. NECK: Supple, no JVP, no lymphadenopathy. LUNGS: Clear. HEART: S1, S2 regular. ABDOMEN: Benign. EXTREMITIES: No edema, cyanosis. SKIN: Unremarkable. NEUROLOGIC: The patient is neurologically intact. No focal neurologic deficit. Labs Lab Laboratory Tests Test 08/16/18 11:26 08/16/18 16:44 08/16/18 20:42 08/17/18 03:20 Glucose (Fingerstick) 155 mg/dL (70-99) 172 mg/dL (70-99) 142 mg/dL (70-99) White Blood Count 13.0 x10^3/uL (4.0-11.0) Red Blood Count 3.20 x10^6/uL (3.50-5.40) Hemoglobin 7.1 g/dL (12.0-15.5) Hematocrit 23.9 % (36.0-47.0) Mean Corpuscular Volume 75 fL (79-100) Mean Corpuscular Hemoglobin 22 pg (25-35) Mean Corpuscular Hemoglobin Concent 30 g/dL (31-37) Red Cell Distribution Width 21.2 % (11.5-14.5) Platelet Count 376 x10^3/uL (140-400) Neutrophils (%) (Auto) 65 % (31-73) Lymphocytes (%) (Auto) 25 % (24-48) Monocytes (%) (Auto) 9 % (0-9) Eosinophils (%) (Auto) 1 % (0-3) Basophils (%) (Auto) 0 % (0-3) Neutrophils # (Auto) 8.5 x10^3uL (1.8-7.7) Lymphocytes # (Auto) 3.2 x10^3/uL (1.0-4.8) Monocytes # (Auto) 1.1 x10^3/uL (0.0-1.1) Eosinophils # (Auto) 0.1 x10^3/uL (0.0-0.7) Basophils # (Auto) 0.0 x10^3/uL (0.0-0.2) Prothrombin Time 26.1 SEC (11.7-14.0) Prothromb Time International Ratio 2.4 (0.8-1.1) Sodium Level 145 mmol/L (136-145) Potassium Level 3.5 mmol/L (3.5-5.1) Chloride Level 105 mmol/L (98-107) Carbon Dioxide Level 32 mmol/L (21-32) Anion Gap 8 (6-14) Blood Urea Nitrogen 20 mg/dL (7-20) Creatinine 1.6 mg/dL (0.6-1.0) Estimated GFR (Cockcroft-Gault) 33.0 Glucose Level 106 mg/dL (70-99) Calcium Level 7.2 mg/dL (8.5-10.1) Magnesium Level 2.0 mg/dL (1.8-2.4) Test 08/17/18 07:23 Glucose (Fingerstick) 97 mg/dL (70-99) Micro BLOOD CULTURE Final GRAM POSITIVE COCCI IN CLUSTERS, SUGGESTIVE OF STAPH, IN 1 OF 4 BOTTLES, TWO SETS DRAWN. CALLED TO CORNEL MCKEON RN ON 2N AT 8:45 ON 08/16/18 DW MT SENT TO [facility] FOR FURTHER WORKUP. Objective Assessment Fever, ? possible aspiration Encephalopathy Hypoglycemia ? CO2 narcosis COPD DM HTN CVA BC + , likely contaminant, ID pending Plan Plan of Care zosyn,,, change to po augmentin supportive care d/w BEVERLEY DAMON MD Aug 17, 2018 08:34
[2018-08-17] MEDS: AMOXICILLIN/K CLAV 875/125MG TABLET. PO SCH ×2 (10:25→21:19)
--- NOTE | 2018-08-17 10:39 | PDOC ---
IM PROGRESS NOTES- Subjective Subjective Slept well last night. Has some cough and congestion but overall feeling much better. Objective Vitals Vital Signs Date Time Temp Pulse Resp B/P (MAP) Pulse Ox O2 Delivery O2 Flow Rate FiO2 08/17/18 08:23 67 113/58 08/17/18 07:50 98.0 18 97 Nasal Cannula 3.0 98.0 Input & Output Intake and Output 08/17/18 06:59 Intake Total 920 ml Output Total 725 ml Balance 195 ml Intake Oral 920 ml Output Urine Total 725 ml # Voids 4 # Bowel Movements 2 Physical Exam Physical Exam General appearance - alert,ill appearing, and in no distress and oriented to person, place, and time Mental Status - alert, oriented to person, place, and time, affect appropriate to mood Head - normal Chest - clear to auscultation, no wheezes, rales or rhonchi, symmetric air entry Heart - S1 and S2 normal decreased breath sounds bilaterally with some coarse breath sounds. Abdomen - soft, nontender, nondistended, no masses or organomegaly Neurological - alert and oriented Musculoskeletal - no muscular tenderness noted Extremities - no pedal edema Skin - warm and dry Labs Laboratory Tests Test 08/15/18 12:58 08/15/18 17:04 08/15/18 20:50 08/16/18 03:50 Glucose (Fingerstick) 305 mg/dL (70-99) 208 mg/dL (70-99) 130 mg/dL (70-99) White Blood Count 16.5 x10^3/uL (4.0-11.0) Red Blood Count 3.27 x10^6/uL (3.50-5.40) Hemoglobin 7.2 g/dL (12.0-15.5) Hematocrit 24.5 % (36.0-47.0) Mean Corpuscular Volume 75 fL (79-100) Mean Corpuscular Hemoglobin 22 pg (25-35) Mean Corpuscular Hemoglobin Concent 29 g/dL (31-37) Red Cell Distribution Width 21.2 % (11.5-14.5) Platelet Count 395 x10^3/uL (140-400) Neutrophils (%) (Auto) 79 % (31-73) Lymphocytes (%) (Auto) 15 % (24-48) Monocytes (%) (Auto) 6 % (0-9) Eosinophils (%) (Auto) 0 % (0-3) Basophils (%) (Auto) 0 % (0-3) Neutrophils # (Auto) 13.0 x10^3uL (1.8-7.7) Lymphocytes # (Auto) 2.4 x10^3/uL (1.0-4.8) Monocytes # (Auto) 1.0 x10^3/uL (0.0-1.1) Eosinophils # (Auto) 0.0 x10^3/uL (0.0-0.7) Basophils # (Auto) 0.0 x10^3/uL (0.0-0.2) Prothrombin Time 24.7 SEC (11.7-14.0) Prothromb Time International Ratio 2.3 (0.8-1.1) Sodium Level 144 mmol/L (136-145) Potassium Level 3.6 mmol/L (3.5-5.1) Chloride Level 105 mmol/L (98-107) Carbon Dioxide Level 30 mmol/L (21-32) Anion Gap 9 (6-14) Blood Urea Nitrogen 22 mg/dL (7-20) Creatinine 1.3 mg/dL (0.6-1.0) Estimated GFR (Cockcroft-Gault) 41.9 BUN/Creatinine Ratio 17 (6-20) Glucose Level 85 mg/dL (70-99) Calcium Level 7.2 mg/dL (8.5-10.1) Magnesium Level 2.0 mg/dL (1.8-2.4) Total Bilirubin 0.4 mg/dL (0.2-1.0) Aspartate Amino Transf (AST/SGOT) 16 U/L (15-37) Alanine Aminotransferase (ALT/SGPT) 21 U/L (14-59) Alkaline Phosphatase 83 U/L (46-116) Total Protein 6.8 g/dL (6.4-8.2) Albumin 2.3 g/dL (3.4-5.0) Albumin/Globulin Ratio 0.5 (1.0-1.7) Test 08/16/18 07:25 08/16/18 11:26 08/16/18 16:44 08/16/18 20:42 Glucose (Fingerstick) 110 mg/dL (70-99) 155 mg/dL (70-99) 172 mg/dL (70-99) 142 mg/dL (70-99) Test 08/17/18 03:20 08/17/18 07:23 White Blood Count 13.0 x10^3/uL (4.0-11.0) Red Blood Count 3.20 x10^6/uL (3.50-5.40) Hemoglobin 7.1 g/dL (12.0-15.5) Hematocrit 23.9 % (36.0-47.0) Mean Corpuscular Volume 75 fL (79-100) Mean Corpuscular Hemoglobin 22 pg (25-35) Mean Corpuscular Hemoglobin Concent 30 g/dL (31-37) Red Cell Distribution Width 21.2 % (11.5-14.5) Platelet Count 376 x10^3/uL (140-400) Neutrophils (%) (Auto) 65 % (31-73) Lymphocytes (%) (Auto) 25 % (24-48) Monocytes (%) (Auto) 9 % (0-9) Eosinophils (%) (Auto) 1 % (0-3) Basophils (%) (Auto) 0 % (0-3) Neutrophils # (Auto) 8.5 x10^3uL (1.8-7.7) Lymphocytes # (Auto) 3.2 x10^3/uL (1.0-4.8) Monocytes # (Auto) 1.1 x10^3/uL (0.0-1.1) Eosinophils # (Auto) 0.1 x10^3/uL (0.0-0.7) Basophils # (Auto) 0.0 x10^3/uL (0.0-0.2) Prothrombin Time 26.1 SEC (11.7-14.0) Prothromb Time International Ratio 2.4 (0.8-1.1) Sodium Level 145 mmol/L (136-145) Potassium Level 3.5 mmol/L (3.5-5.1) Chloride Level 105 mmol/L (98-107) Carbon Dioxide Level 32 mmol/L (21-32) Anion Gap 8 (6-14) Blood Urea Nitrogen 20 mg/dL (7-20) Creatinine 1.6 mg/dL (0.6-1.0) Estimated GFR (Cockcroft-Gault) 33.0 Glucose Level 106 mg/dL (70-99) Calcium Level 7.2 mg/dL (8.5-10.1) Magnesium Level 2.0 mg/dL (1.8-2.4) Glucose (Fingerstick) 97 mg/dL (70-99) Laboratory Tests Test 08/16/18 11:26 08/16/18 16:44 08/16/18 20:42 08/17/18 03:20 Glucose (Fingerstick) 155 mg/dL (70-99) 172 mg/dL (70-99) 142 mg/dL (70-99) White Blood Count 13.0 x10^3/uL (4.0-11.0) Red Blood Count 3.20 x10^6/uL (3.50-5.40) Hemoglobin 7.1 g/dL (12.0-15.5) Hematocrit 23.9 % (36.0-47.0) Mean Corpuscular Volume 75 fL (79-100) Mean Corpuscular Hemoglobin 22 pg (25-35) Mean Corpuscular Hemoglobin Concent 30 g/dL (31-37) Red Cell Distribution Width 21.2 % (11.5-14.5) Platelet Count 376 x10^3/uL (140-400) Neutrophils (%) (Auto) 65 % (31-73) Lymphocytes (%) (Auto) 25 % (24-48) Monocytes (%) (Auto) 9 % (0-9) Eosinophils (%) (Auto) 1 % (0-3) Basophils (%) (Auto) 0 % (0-3) Neutrophils # (Auto) 8.5 x10^3uL (1.8-7.7) Lymphocytes # (Auto) 3.2 x10^3/uL (1.0-4.8) Monocytes # (Auto) 1.1 x10^3/uL (0.0-1.1) Eosinophils # (Auto) 0.1 x10^3/uL (0.0-0.7) Basophils # (Auto) 0.0 x10^3/uL (0.0-0.2) Prothrombin Time 26.1 SEC (11.7-14.0) Prothromb Time International Ratio 2.4 (0.8-1.1) Sodium Level 145 mmol/L (136-145) Potassium Level 3.5 mmol/L (3.5-5.1) Chloride Level 105 mmol/L (98-107) Carbon Dioxide Level 32 mmol/L (21-32) Anion Gap 8 (6-14) Blood Urea Nitrogen 20 mg/dL (7-20) Creatinine 1.6 mg/dL (0.6-1.0) Estimated GFR (Cockcroft-Gault) 33.0 Glucose Level 106 mg/dL (70-99) Calcium Level 7.2 mg/dL (8.5-10.1) Magnesium Level 2.0 mg/dL (1.8-2.4) Test 08/17/18 07:23 Glucose (Fingerstick) 97 mg/dL (70-99) Meds Current Medications Amoxicillin/ Clavulanate Potassium (Augmentin 875/ 125mg) 1 tab BID PO Last administered on 08/17/18at 10:25; Start 08/17/18 at 09:30 Potassium Chloride (Klor-Con) 20 meq BIDAFTMEAL PO ; Start 08/17/18 at 18:00 Warfarin Sodium (Coumadin) 2.5 mg 1X WARF ONCE PO Last administered on at 16:31; Start 08/16/18 at 16:00; Stop 08/16/18 at 16:01; Status DC Assessment Assessment 1. Acute hypoxic and hypercapnic respiratory failure. 2. Acute hypoglycemia. 3. Chronic systolic congestive heart failure. 4. Fever, likely due to aspiration bronchitis. 5. Acute metabolic encephalopathy, multifactorial. 6. Chronic obstructive pulmonary disease. 7. Diabetes mellitus type 2 with diabetic neuropathy, peripheral artery disease and hypoglycemia. 8. History of deep venous thrombosis in the past with chronic Coumadin therapy. 9. Hypothyroidism, surgically induced. 10. Peripheral artery disease with multiple procedures as noted above. 11. Hypertension. 12. Hyperlipidemia. 13. Chronic kidney disease. 14. History of nonobstructing right renal calculus. 15. Obesity. 16. Chronic smoking. The patient is trying to quit. 17. Anxiety 18. Depression. 19. Osteoporosis. 20. Degenerative joint disease, multiple joints. 21. History of cerebrovascular accident. 22. History of migraine. 23. Diverticulosis. 24. History of gastritis. 25. Irritable bowel syndrome. 26. Anemia. PLAN: Consult Dr. Patricio for infectious disease evaluation and management. Consult Dr. 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 Rosenthal for GI evaluation and management. The patient has an elevated lipase, but she is asymptomatic and we will continue to monitor. The patient is also being seen by Dr. Ireland for neurology evaluation and management. We will consult Dr. Burgess for pulmonary evaluation and management. We will hold off on cardiology consult at this time. For details, please review the orders. Prognosis of this patient is poor. The patient is much more alert. Condition and treatment discussed with the patient and her . Continue on oxygen by nasal cannula. Restart low-dose steroid this morning. Blood culture 1 out of 2 positive for gram positive cocci in clusters. Discussed with Dr. Jr Jones. This could be a contaminant. IV Zosyn has been changed to oral Augmentin.. Hypomagnesemia- replace. Hypokalemia - replace Acute metabolic encephalopathy improving condition treatment discussed with the patient and her . Anemia- hemoglobin is steadily dropping and is 7.1 now. I'll consult Dr. Guevara for GI evaluation and management and hold Coumadin. Continue aspirin for now. Plan Plan For more details regarding further plans, please refer to the orders. SULTANA MONTGOMERY MD Aug 17, 2018 10:39
--- NOTE | 2018-08-17 11:04 | PDOC ---
PULMONARY PROGRESS NOTES Subjective feels much better Vitals Vital Signs Date Time Temp Pulse Resp B/P (MAP) Pulse Ox O2 Delivery O2 Flow Rate FiO2 08/17/18 08:23 67 113/58 08/17/18 08:00 3.0 08/17/18 08:00 Nasal Cannula 08/17/18 07:50 98.0 18 97 98.0 General: Alert, No acute distress Lungs: Clear Cardiovascular: S1, S2 Abdomen: Soft, Non-tender Neuro Exam: Alert Extremities: No Edema Skin: Warm Labs Laboratory Tests Test 08/15/18 12:58 08/15/18 17:04 08/15/18 20:50 08/16/18 03:50 Glucose (Fingerstick) 305 mg/dL (70-99) 208 mg/dL (70-99) 130 mg/dL (70-99) White Blood Count 16.5 x10^3/uL (4.0-11.0) Red Blood Count 3.27 x10^6/uL (3.50-5.40) Hemoglobin 7.2 g/dL (12.0-15.5) Hematocrit 24.5 % (36.0-47.0) Mean Corpuscular Volume 75 fL (79-100) Mean Corpuscular Hemoglobin 22 pg (25-35) Mean Corpuscular Hemoglobin Concent 29 g/dL (31-37) Red Cell Distribution Width 21.2 % (11.5-14.5) Platelet Count 395 x10^3/uL (140-400) Neutrophils (%) (Auto) 79 % (31-73) Lymphocytes (%) (Auto) 15 % (24-48) Monocytes (%) (Auto) 6 % (0-9) Eosinophils (%) (Auto) 0 % (0-3) Basophils (%) (Auto) 0 % (0-3) Neutrophils # (Auto) 13.0 x10^3uL (1.8-7.7) Lymphocytes # (Auto) 2.4 x10^3/uL (1.0-4.8) Monocytes # (Auto) 1.0 x10^3/uL (0.0-1.1) Eosinophils # (Auto) 0.0 x10^3/uL (0.0-0.7) Basophils # (Auto) 0.0 x10^3/uL (0.0-0.2) Prothrombin Time 24.7 SEC (11.7-14.0) Prothromb Time International Ratio 2.3 (0.8-1.1) Sodium Level 144 mmol/L (136-145) Potassium Level 3.6 mmol/L (3.5-5.1) Chloride Level 105 mmol/L (98-107) Carbon Dioxide Level 30 mmol/L (21-32) Anion Gap 9 (6-14) Blood Urea Nitrogen 22 mg/dL (7-20) Creatinine 1.3 mg/dL (0.6-1.0) Estimated GFR (Cockcroft-Gault) 41.9 BUN/Creatinine Ratio 17 (6-20) Glucose Level 85 mg/dL (70-99) Calcium Level 7.2 mg/dL (8.5-10.1) Magnesium Level 2.0 mg/dL (1.8-2.4) Total Bilirubin 0.4 mg/dL (0.2-1.0) Aspartate Amino Transf (AST/SGOT) 16 U/L (15-37) Alanine Aminotransferase (ALT/SGPT) 21 U/L (14-59) Alkaline Phosphatase 83 U/L (46-116) Total Protein 6.8 g/dL (6.4-8.2) Albumin 2.3 g/dL (3.4-5.0) Albumin/Globulin Ratio 0.5 (1.0-1.7) Test 08/16/18 07:25 08/16/18 11:26 08/16/18 16:44 08/16/18 20:42 Glucose (Fingerstick) 110 mg/dL (70-99) 155 mg/dL (70-99) 172 mg/dL (70-99) 142 mg/dL (70-99) Test 08/17/18 03:20 08/17/18 07:23 White Blood Count 13.0 x10^3/uL (4.0-11.0) Red Blood Count 3.20 x10^6/uL (3.50-5.40) Hemoglobin 7.1 g/dL (12.0-15.5) Hematocrit 23.9 % (36.0-47.0) Mean Corpuscular Volume 75 fL (79-100) Mean Corpuscular Hemoglobin 22 pg (25-35) Mean Corpuscular Hemoglobin Concent 30 g/dL (31-37) Red Cell Distribution Width 21.2 % (11.5-14.5) Platelet Count 376 x10^3/uL (140-400) Neutrophils (%) (Auto) 65 % (31-73) Lymphocytes (%) (Auto) 25 % (24-48) Monocytes (%) (Auto) 9 % (0-9) Eosinophils (%) (Auto) 1 % (0-3) Basophils (%) (Auto) 0 % (0-3) Neutrophils # (Auto) 8.5 x10^3uL (1.8-7.7) Lymphocytes # (Auto) 3.2 x10^3/uL (1.0-4.8) Monocytes # (Auto) 1.1 x10^3/uL (0.0-1.1) Eosinophils # (Auto) 0.1 x10^3/uL (0.0-0.7) Basophils # (Auto) 0.0 x10^3/uL (0.0-0.2) Prothrombin Time 26.1 SEC (11.7-14.0) Prothromb Time International Ratio 2.4 (0.8-1.1) Sodium Level 145 mmol/L (136-145) Potassium Level 3.5 mmol/L (3.5-5.1) Chloride Level 105 mmol/L (98-107) Carbon Dioxide Level 32 mmol/L (21-32) Anion Gap 8 (6-14) Blood Urea Nitrogen 20 mg/dL (7-20) Creatinine 1.6 mg/dL (0.6-1.0) Estimated GFR (Cockcroft-Gault) 33.0 Glucose Level 106 mg/dL (70-99) Calcium Level 7.2 mg/dL (8.5-10.1) Magnesium Level 2.0 mg/dL (1.8-2.4) Glucose (Fingerstick) 97 mg/dL (70-99) Laboratory Tests Test 08/16/18 11:26 08/16/18 16:44 08/16/18 20:42 08/17/18 03:20 Glucose (Fingerstick) 155 mg/dL (70-99) 172 mg/dL (70-99) 142 mg/dL (70-99) White Blood Count 13.0 x10^3/uL (4.0-11.0) Red Blood Count 3.20 x10^6/uL (3.50-5.40) Hemoglobin 7.1 g/dL (12.0-15.5) Hematocrit 23.9 % (36.0-47.0) Mean Corpuscular Volume 75 fL (79-100) Mean Corpuscular Hemoglobin 22 pg (25-35) Mean Corpuscular Hemoglobin Concent 30 g/dL (31-37) Red Cell Distribution Width 21.2 % (11.5-14.5) Platelet Count 376 x10^3/uL (140-400) Neutrophils (%) (Auto) 65 % (31-73) Lymphocytes (%) (Auto) 25 % (24-48) Monocytes (%) (Auto) 9 % (0-9) Eosinophils (%) (Auto) 1 % (0-3) Basophils (%) (Auto) 0 % (0-3) Neutrophils # (Auto) 8.5 x10^3uL (1.8-7.7) Lymphocytes # (Auto) 3.2 x10^3/uL (1.0-4.8) Monocytes # (Auto) 1.1 x10^3/uL (0.0-1.1) Eosinophils # (Auto) 0.1 x10^3/uL (0.0-0.7) Basophils # (Auto) 0.0 x10^3/uL (0.0-0.2) Prothrombin Time 26.1 SEC (11.7-14.0) Prothromb Time International Ratio 2.4 (0.8-1.1) Sodium Level 145 mmol/L (136-145) Potassium Level 3.5 mmol/L (3.5-5.1) Chloride Level 105 mmol/L (98-107) Carbon Dioxide Level 32 mmol/L (21-32) Anion Gap 8 (6-14) Blood Urea Nitrogen 20 mg/dL (7-20) Creatinine 1.6 mg/dL (0.6-1.0) Estimated GFR (Cockcroft-Gault) 33.0 Glucose Level 106 mg/dL (70-99) Calcium Level 7.2 mg/dL (8.5-10.1) Magnesium Level 2.0 mg/dL (1.8-2.4) Test 4/10/19 07:23 Glucose (Fingerstick) 97 mg/dL (70-99) Medications Active Scripts Medications Dose Route/Sig Max Daily Dose Days Date Category Dose Instructions Prednisone 20 Mg Tablet 10 Mg PO DAILY 7 08/13/18 Reported Novolog Flexpen (Insulin Aspart) 100 Unit/1 Ml Insuln.pen 15 Units SQ TIDBFRMEAL 01/18/18 Rx Hold insulin if blood sugar less than 100 Coumadin (Warfarin Sodium) 5 Mg Tablet 1 Tab PO SUMOWETHSA 10/22/17 Reported Coumadin (Warfarin Sodium) 2.5 Mg Tablet 1 Tab PO TUFR 10/22/17 Reported Hydrocodone-Apap 7.5-325 (Hydrocodone Bit/Acetaminophen) 1 Each Tablet 1 Tab PO PRN Q6HRS PRN 10/21/17 Reported Duoneb 0.5-3(2.5) Mg/3 Ml (Albuterol/Ipratropium) 3 Ml Ampul.neb 3 Ml NEB RTQID 09/17/17 Rx Proair Hfa Inhaler (Albuterol Sulfate) 8.5 Gm Hfa.aer.ad 1 Puff INH PRN Q6HRS PRN 09/17/17 Rx Symbicort 160-4.5 Mcg Inhaler (Budesonide/Formoterol Fumarate) 10.2 Gm Hfa.aer.ad 2 Puff IH BID 09/17/17 Rx Mag-Oxide (Magnesium Oxide) 400 Mg Tablet 400 Mg PO TID 09/17/17 Rx Fluticasone Propionate Nasal [place] (Fluticasone Propionate) 16 Gm [place].susp 2 [place] NS DAILY 09/17/17 Rx Tizanidine Hcl 4 Mg Tablet 4 Mg PO PRN QHS PRN 09/17/17 Rx Cetirizine Hcl 10 Mg Tablet 10 Mg PO DAILY 09/17/17 Rx Synthroid (Levothyroxine Sodium) 150 Mcg Tablet 150 Mcg PO DAILY07 09/17/17 Rx Metformin Hcl 1,000 Mg Tablet 1,000 Mg PO BID 09/17/17 Rx Restart metformin 09/18 Voltaren (Diclofenac Sodium) 100 Gm Gel..gram. 4 Gm TP QID 05/28/17 Rx Gabapentin (Gabapentin) 300 Mg Capsule 1,200 Mg PO HS 05/25/17 Reported Alprazolam 0.25 Mg Tablet 1 Tab PO BID 06/27/16 Reported Carvedilol (Carvedilol) 3.125 Mg Tablet 1 Tab PO BID 06/27/16 Reported Torsemide 20 Mg Tablet 20 Mg PO DAILY 05/24/15 Reported Zocor (Simvastatin) 80 Mg Tablet 80 Mg PO DAILY 07/19/13 Reported Lantus Solostar (Insulin Glargine,Hum.rec.anlog) 100 Unit/1 Ml Insuln.pen 54 Unit SQ [id number] 07/19/13 Reported Reglan (Metoclopramide Hcl) 10 Mg Tablet 10 Mg PO QID 07/19/13 Reported Protonix (Pantoprazole Sodium) 40 Mg Granpkt.dr 40 Mg PO BID 07/19/13 Reported Singulair Tablet (Montelukast Sodium) 10 Mg Tablet 10 Mg PO DAILY 07/19/13 Reported Aspir 81 (Aspirin) 81 Mg Tablet.dr 81 Mg PO DAILY 07/19/13 Reported Impression . 1. Dyspnea with acute on chronic hypercapnic and hypoxic respiratory failure secondary to acute exacerbation of chronic obstructive pulmonary disease, [id number] systolic heart failure. 2. Leukocytosis, likely related to steroids. No symptoms suggesting respiratory infection. 3. Previous echocardiogram with an ejection fraction of 40%, being followed by Cardiology. 4. 30+ years of tobacco use, on home oxygen. Continues to smoke cigarettes. 5. History of deep venous thrombosis, left lower and left upper extremity and chronic on anticoagulation with warfarin. INR therapeutic. Plan . 1. O2 via canula 2. I would recommend having a sleep study as an outpatient. 3. Continue present bronchodilators. 4. steroid taper 5. Follow Cardiology recommendation. 6. Antibiotics per Infectious Disease. 7. dc home in JUVENTINO Lugo MD Aug 17, 2018 11:04
--- NOTE | 2018-08-17 11:52 | NUR ---
SS following up with discharge planning. Akanksha from [facility], ; fax [phone], met with pt to discuss home healthcare benefits. Pt agreeable to home healthcare at discharge. Pt's RN notified.
--- NOTE | 2018-08-17 12:21 | PDOC2 ---
GI CONSULT Reason For Consult: Anemia, acute blood loss HPI: HPI: 58 y/o female admitted on 08/14/18 w/ SOA and AMS. Chronically anemic - average Hgb in 7-8 range this year. Hgb is 7.1 today w/ MCV of 75. She denies obvious bleeding including hematemesis, hematochezia, or melena - has noticed some pinkish blood sometimes when she blows her nose. H/o GERD on pantoprazole BID. "Chokes" occasionally and reports h/o past esophageal dilation. No n/v or abd pain. Thinks she's lost weight, appetite varies. Chronic diarrhea - says up to 10 loose stools daily and sometimes awakens her during the night. No h/o constipation. Remote h/o "ulcer," denies h/o H. pylori. S/p cholecystectomy for stones. No liver or pancreas history. Lipase was 1177 when admitted and h/o hepatic steatosis in chart. Takes ASA 81mg QD, intermittently uses prednisone, no NSAIDs (though on Voltaren here). H /o DVT on Warfarin (though currently held). Also on Relgan 10mg QID here. EGD and colonoscopy on 12/01/[address] Gregorio for epigastric pain, GERD, chronic diarrhea, and h/o colon polyps showed small haital hernia, LA Marisol A reflux esophagitis, normal stomach, normal duodenum, sigmoid diverticulosis, and normal random colon biopsies. PMH: PMH: CAD w/ stents, CHF, cardiomyopathy, HTN, [place], HLD, PVD, DVT, COPD, pneumonia, JAYLON , CVA, peripheral neuropathy, GERD, ?PUD, IBS-D, adenomatous colon polyp, diverticulosis, hepatic steatosis, anxiety/depression, chronic LBP, OA, DM, hypothyroidism, SCC, Herpes Zoster, allergic rhinitis, DJD, headaches pacemaker/defib, CABG, tonsillectomy/adenoidectomy, hysterectomy w/ BSO, hemorrhoidectomy, carpal tunnel release, thyroidectomy, cholecystectomy, cardiac cath, left foot surgery, right thigh seroma excision, LUE bypass FH: Family History: Cancer (father - lung and colon), Other (sister - gallstones) Social History: Smoke: 1 pack per day ALCOHOL: none Drugs: None ROS: GEN: Denies fevers, chills, sweats HEENT: Denies blurred vision, sore throat CV: Denies chest pain RESP: +SOA, +cough GI: Per HPI : Denies hematuria, dysuria ENDO: +weight loss NEURO: Denies confusion, dizziness MSK: Denies weakness, joint pain/swelling SKIN: Denies jaundice, pruritus Vitals: Vitals: Vital Signs Date Time Temp Pulse Resp B/P (MAP) Pulse Ox O2 Delivery O2 Flow Rate FiO2 08/17/18 08:23 67 113/58 08/17/18 08:00 3.0 08/17/18 08:00 Nasal Cannula 08/17/18 07:50 98.0 18 97 98.0 Labs: Labs: Laboratory Tests Test 08/16/18 16:44 08/16/18 20:42 08/17/18 03:20 08/17/18 07:23 Glucose (Fingerstick) 172 mg/dL (70-99) 142 mg/dL (70-99) 97 mg/dL (70-99) White Blood Count 13.0 x10^3/uL (4.0-11.0) Red Blood Count 3.20 x10^6/uL (3.50-5.40) Hemoglobin 7.1 g/dL (12.0-15.5) Hematocrit 23.9 % (36.0-47.0) Mean Corpuscular Volume 75 fL (79-100) Mean Corpuscular Hemoglobin 22 pg (25-35) Mean Corpuscular Hemoglobin Concent 30 g/dL (31-37) Red Cell Distribution Width 21.2 % (11.5-14.5) Platelet Count 376 x10^3/uL (140-400) Neutrophils (%) (Auto) 65 % (31-73) Lymphocytes (%) (Auto) 25 % (24-48) Monocytes (%) (Auto) 9 % (0-9) Eosinophils (%) (Auto) 1 % (0-3) Basophils (%) (Auto) 0 % (0-3) Neutrophils # (Auto) 8.5 x10^3uL (1.8-7.7) Lymphocytes # (Auto) 3.2 x10^3/uL (1.0-4.8) Monocytes # (Auto) 1.1 x10^3/uL (0.0-1.1) Eosinophils # (Auto) 0.1 x10^3/uL (0.0-0.7) Basophils # (Auto) 0.0 x10^3/uL (0.0-0.2) Prothrombin Time 26.1 SEC (11.7-14.0) Prothromb Time International Ratio 2.4 (0.8-1.1) Sodium Level 145 mmol/L (136-145) Potassium Level 3.5 mmol/L (3.5-5.1) Chloride Level 105 mmol/L (98-107) Carbon Dioxide Level 32 mmol/L (21-32) Anion Gap 8 (6-14) Blood Urea Nitrogen 20 mg/dL (7-20) Creatinine 1.6 mg/dL (0.6-1.0) Estimated GFR (Cockcroft-Gault) 33.0 Glucose Level 106 mg/dL (70-99) Calcium Level 7.2 mg/dL (8.5-10.1) Magnesium Level 2.0 mg/dL (1.8-2.4) Test 08/17/18 11:09 Glucose (Fingerstick) 202 mg/dL (70-99) BLOOD CULTURE Final GRAM POSITIVE COCCI IN CLUSTERS, SUGGESTIVE OF STAPH, IN 1 OF 4 BOTTLES, Allergies: Coded Allergies: Penicillins (Verified Allergy, Intermediate, Hives, 10/22/17) Tolerated rocephin during prior admit codeine (Verified Adverse Reaction, Mild, Nausea and Vomiting, 10/22/17) diphenhydramine HCl (Verified Adverse Reaction, Mild, hyperactive, 10/22/17 ) Medications: Current Medications Medications (Trade) Dose Ordered Sig/Irena Route PRN Reason Start Time Stop Time Status Last Admin Dose Admin Warfarin Sodium (Coumadin) 2.5 mg 1X WARF ONCE PO 08/16/18 16:00 08/16/18 16:01 DC 08/16/18 16:31 Amoxicillin/ Clavulanate Potassium (Augmentin 875/ 125mg) 1 tab BID PO 08/17/18 09:30 08/17/18 10:25 Imaging: Imaging: CXR 08/14 Impression: Resolution of bilateral pulmonary edema. No new lung infiltrate. Head CT IMPRESSION: No acute intracranial findings. PE: GEN: NAD HEENT: Atraumatic, PERRL LUNGS: diminished, NC HEART: RRR ABD: NABS, S/ND/NT EXTREMITY: No edema SKIN: No rashes, no jaundice NEURO/PSYCH: A & O 3 A/P: A/P: Acute on chronic resp failure - on prednisone Chronic anemia - microcytic since 01/2018, no obvious GI bleeding GERD - on PPI BID, last EGD 11/2016, remote h/o ulcer Chronic diarrhea - stable CRC screen, remote h/o adenomatous colon polyp - UTD (11/2016) Diverticulosis S/p cholecystectomy Hepatic steatosis CAD, PVD, h/o DVTs, DM Chronic pain - on Voltaren -- Continue PPI, check iron studies. Has had recent EGD and colonoscopy, plus not an ideal candidate to repeat these currently w/ pulm issues. Will follow-up re: Mark - does she take at home? FARRAH HARMAN Aug 17, 2018 12:21
[2018-08-17] MEDS: FERROUS SULFATE 325 MG TABLET. PO SCH ×2 (14:10→21:19)
--- NOTE | 2018-08-17 14:20 | PDOC ---
PROGRESS NOTES Assessment Assessment Metabolic encephalopathy. Respiratory distress/failure/ Hypoxia, O2 saturation 82% at admission. COPD. Hypoglycemia. Hyperglycemia. Leukocytosis. Thrombocytosis. DM. HTN. MS. Elevate lipase. Pacemaker in site. Obesity. RECOMMENDATIONS/PLAN: Treat medical diseases. She has been treated with Coumadin. Continue Zocor HS. Weight reduction. Discussed with her at bedside in ICU on 08/15/18. HISTORY OF THE PRESENT ILLNESS: This is a 58 -year-old female who was brought to the ER due to altered mental status. She has COPD on chronic nasal cannula supplemental O2 at 2 L. Patient was found unresponsive in her bed with questionable downtime of approximately one hour. On EMS evaluation was found to be hypoglycemic with blood sugar and 40s. Patient was given an amp of D50 with some improvement only to a GCS of 9. Patient with recent hospitalization for COPD exacerbation and hyperkalemia per EMS. Patient arouses with sternal rub, intermittently follows commands but otherwise unable to provide any history, so she was transferred to ICU for further evaluation and treatment. She stated improved her breath since 08/15/18. PAST MEDICAL HISTORY: COPD, history of CVA, diabetes, history of chronic respiratory failure, hypertension, MS x 6, history of clots in the left lower and left upper extremity. PAST SURGICAL HISTORY: Hysterectomy, pacemaker, tonsillectomy. SOCIAL HISTORY: Lives with her , her child and grandchildren at home. Smoker for 30 years. Continues to smoke cigarettes. ALLERGIES: PENICILLIN, CODEINE, DIPHENHYDRAMINE. MEDICATIONS: See MAR. FAMILY HISTORY: Non contributory. REVIEW OF SYSTEMS: Constitutional: Obesity. Head: No recent traumatic brain or head injury. Skin: No edema, or rash. Ear: No infection. Eyes: No vision loss or color blindness. Nose: No bleeding or purulent discharges. Hearing: No hearing decrease. Neck: No injury. Breast: No history of cancer, masses,or discharges. Cardiac:MS, HTN, HLD. Pulmonary: COPD. GI: No GI ulcer, GI bleeding. Urinary/genital: UTI. Endocrinologic: Diabetes Mellitus, obesity. Skeletomuscular: No muscular atrophy, deformity. Neurological: see HP. Psychiatric: Smoking. Otherwise, not -icqtj review of systems. PHYSICAL EXAMINATION: General appearance is in subacute distress. HEENT: Normocephalic and nontraumatic. Eyes, nose, ears, and throat are unremarkable. Neck is supple. No lymphadenopathy. No crepitus. Cardiovascular: S1, S2, regular rate and rhythm. Pulmonary: Decreased to auscultation bilaterally. Abdomen: Bowel sounds are positive. Abdomen is soft, nontender, and nondistended. Extremities: No rash, lesions, or edema. No restriction of range of motion NEUROLOGICAL EXAMINATION: Alert On NC O2. Oriented to time, place and person. PERRL. EOMI. CN: no focal findings. Muscle tone: within normal. Muscle strength: 5- DTR: 1+ Plantar reflex: Flexor response bilaterally Gait: able to walk. Sensory exam: no abnormal findings. No cerebellar signs elicited. F-T-N test fine. Objective Objective Vital Signs Date Time Temp Pulse Resp B/P (MAP) Pulse Ox O2 Delivery O2 Flow Rate FiO2 08/17/18 12:43 20 Nasal Cannula 3.0 08/17/18 11:57 98.4 64 114/64 (81) 94 98.4 Intake and Output 08/17/18 06:59 Intake Total 920 ml Output Total 725 ml Balance 195 ml Intake Oral 920 ml Output Urine Total 725 ml # Voids 4 # Bowel Movements 2 Vitals Signs Vitals VS - Last 72 Hours, by Label Date Time Temp Pulse Resp B/P (MAP) Pulse Ox O2 Delivery O2 Flow Rate FiO2 08/17/18 12:43 20 Nasal Cannula 3.0 08/17/18 12:35 Nasal Cannula 3.0 08/17/18 11:57 98.4 64 18 114/64 (81) 94 Nasal Cannula 3.0 98.4 08/17/18 08:23 67 113/58 08/17/18 08:00 3.0 08/17/18 08:00 Nasal Cannula 3.0 08/17/18 07:50 98.0 67 18 113/58 (76) 97 Nasal Cannula 3.0 98.0 08/17/18 07:22 97 Nasal Cannula 3.0 08/17/18 07:20 Nasal Cannula 2.0 08/17/18 06:18 18 95 Nasal Cannula 3.0 08/17/18 03:30 98.7 74 20 110/59 (76) 95 Nasal Cannula 3.0 98.7 08/16/18 23:05 98.2 69 18 103/46 (65) 92 Nasal Cannula 3.0 98.2 08/16/18 20:15 18 96 08/16/18 20:00 3.0 08/16/18 20:00 Nasal Cannula 3.0 08/16/18 19:30 98.1 69 22 127/62 (83) 96 Nasal Cannula 3.0 98.1 08/16/18 19:10 16 90 Nasal Cannula 3.0 08/16/18 17:37 81 114/61 08/16/18 16:23 98.3 81 16 114/61 (78) 90 Nasal Cannula 3.0 98.3 08/16/18 15:28 93 Nasal Cannula 3.0 08/16/18 12:05 14 Nasal Cannula 3.0 08/16/18 10:45 98.1 75 17 101/47 (65) 90 Nasal Cannula 3.0 98.1 08/16/18 08:19 81 115/55 08/16/18 08:11 97.7 81 19 115/55 (75) 89 Nasal Cannula 3.0 97.7 08/16/18 08:00 Nasal Cannula 3.0 08/16/18 08:00 3.0 08/16/18 07:50 93 Nasal Cannula 3.0 Laboratory Laboratory Laboratory Tests Test 08/16/18 16:44 08/16/18 20:42 08/17/18 03:20 08/17/18 07:23 Glucose (Fingerstick) 172 mg/dL (70-99) 142 mg/dL (70-99) 97 mg/dL (70-99) White Blood Count 13.0 x10^3/uL (4.0-11.0) Red Blood Count 3.20 x10^6/uL (3.50-5.40) Hemoglobin 7.1 g/dL (12.0-15.5) Hematocrit 23.9 % (36.0-47.0) Mean Corpuscular Volume 75 fL (79-100) Mean Corpuscular Hemoglobin 22 pg (25-35) Mean Corpuscular Hemoglobin Concent 30 g/dL (31-37) Red Cell Distribution Width 21.2 % (11.5-14.5) Platelet Count 376 x10^3/uL (140-400) Neutrophils (%) (Auto) 65 % (31-73) Lymphocytes (%) (Auto) 25 % (24-48) Monocytes (%) (Auto) 9 % (0-9) Eosinophils (%) (Auto) 1 % (0-3) Basophils (%) (Auto) 0 % (0-3) Neutrophils # (Auto) 8.5 x10^3uL (1.8-7.7) Lymphocytes # (Auto) 3.2 x10^3/uL (1.0-4.8) Monocytes # (Auto) 1.1 x10^3/uL (0.0-1.1) Eosinophils # (Auto) 0.1 x10^3/uL (0.0-0.7) Basophils # (Auto) 0.0 x10^3/uL (0.0-0.2) Prothrombin Time 26.1 SEC (11.7-14.0) Prothromb Time International Ratio 2.4 (0.8-1.1) Sodium Level 145 mmol/L (136-145) Potassium Level 3.5 mmol/L (3.5-5.1) Chloride Level 105 mmol/L (98-107) Carbon Dioxide Level 32 mmol/L (21-32) Anion Gap 8 (6-14) Blood Urea Nitrogen 20 mg/dL (7-20) Creatinine 1.6 mg/dL (0.6-1.0) Estimated GFR (Cockcroft-Gault) 33.0 Glucose Level 106 mg/dL (70-99) Calcium Level 7.2 mg/dL (8.5-10.1) Magnesium Level 2.0 mg/dL (1.8-2.4) Iron Level 16 ug/dL (50-170) Total Iron Binding Capacity 391 ug/dL (250-450) Iron Saturation 4 % (15-34) Test 08/17/18 11:09 Glucose (Fingerstick) 202 mg/dL (70-99) Microbiology 08/14/18 Blood Culture - Preliminary, Resulted NO GROWTH AFTER 2 DAYS Medication Medications Current Medications Amoxicillin/ Clavulanate Potassium (Augmentin 875/ 125mg) 1 tab BID PO Last administered on 08/17/18at 10:25; Start 08/17/18 at 09:30 Ferrous Sulfate (Feosol) 325 mg BID PO Last administered on 08/17/18at 14:10; Start 08/17/18 at 14:00 Potassium Chloride (Klor-Con) 20 meq BIDAFTMEAL PO ; Start 08/17/18 at 18:00 Warfarin Sodium (Coumadin) 2.5 mg 1X WARF ONCE PO Last administered on at 16:31; Start 08/16/18 at 16:00; Stop 08/16/18 at 16:01; Status DC Comment Review of Relevant I have reviewed the following items jarod (where applicable) has been applied. NIESHA STOVER MD Aug 17, 2018 14:20
[2018-08-17 16:32] LABS: FECAL OB PT NEGATIVE (NEG)
[2018-08-17] MEDS: MONTELUKAST SODIUM 10 MG TABLET. PO SCH (21:19)
[2018-08-17] MEDS: SIMVASTATIN 40 MG TABLET. PO SCH (21:19)
[2018-08-17] MEDS: GABAPENTIN 300 MG CAPSULE. PO SCH (21:20)
[2018-08-18 03:46] VITALS: BP 124/58
[2018-08-18 03:59] LABS: BASO # 0.1 x10^3/uL (0.0-0.2); BASO % 1 % (0-3); EOS # 0.2 x10^3/uL (0.0-0.7); EOS % 2 % (0-3); HEMATOCRIT 24.9 % (36.0-47.0); HEMOGLOBIN 7.3 g/dL (12.0-15.5); LYMPH # 3.8 x10^3/uL (1.0-4.8); LYMPH % 35 % (24-48); MEAN CORPUSCULAR HEMOGLOBIN 22 pg (25-35); MEAN CORPUSCULAR HGB CONC 29 g/dL (31-37); MEAN CORPUSCULAR VOLUME 74 fL (79-100); MONO # 0.9 x10^3/uL (0.0-1.1); MONO % 8 % (0-9); NEUT # 6.1 x10^3uL (1.8-7.7); NEUT % 55 % (31-73); PLATELET COUNT 401 x10^3/uL (140-400); RED BLOOD COUNT 3.35 x10^6/uL (3.50-5.40)
[2018-08-18 04:40] LABS: PROTHROMBIN TIME PATIENT 21.4 SEC (11.7-14.0)
[2018-08-18 04:42] LABS: CALCIUM 7.4 mg/dL (8.5-10.1); CREATININE 1.3 mg/dL (0.6-1.0); GFR 41.9; POTASSIUM 3.9 mmol/L (3.5-5.1)
[2018-08-18] MEDS: LEVOTHYROXINE 150 MCG TABLET PO SCH (07:05)
[2018-08-18] MEDS: IPRATRPIUM/ALBUTEROL 0.5/2.5MG 3 ML NEBU. NEB SCH ×3 (07:48→15:41)
[2018-08-18] MEDS: BUDESONIDE 0.5 MG/2 ML NEBU. NEB SCH (07:49)
[2018-08-18 08:00] VITALS: BP 118/66
[2018-08-18] MEDS: INSULIN LISPRO 300 UNITS/3 ML INSULN.PEN. SQ SCH ×2 (08:00→12:00)
[2018-08-18] MEDS: METOCLOPRAMIDE 10 MG TABLET. PO SCH ×2 (08:19→12:14)
[2018-08-18] MEDS: ASPIRIN ENTERIC COATED 81 MG TABLET.DR. PO SCH (08:19)
[2018-08-18] MEDS: LACTOBACILLUS RHAMNOSUS GG 1 CAPSULE. PO SCH (08:20)
[2018-08-18] MEDS: metFORMIN 500 MG TABLET PO SCH (08:20)
[2018-08-18] MEDS: CETIRIZINE HCL 10 MG TABLET. PO SCH (08:20)
[2018-08-18] MEDS: AMOXICILLIN/K CLAV 875/125MG TABLET. PO SCH (08:20)
[2018-08-18] MEDS: TORSEMIDE 20 MG TABLET. PO SCH (08:20)
[2018-08-18] MEDS: POTASSIUM CHLORIDE 20 MEQ TABLET.ER. PO SCH (08:20)
[2018-08-18] MEDS: MAGNESIUM OXIDE 400 MG TABLET PO SCH ×2 (08:20→13:58)
[2018-08-18] MEDS: predniSONE 20 MG TABLET PO SCH (08:20)
[2018-08-18] MEDS: FERROUS SULFATE 325 MG TABLET. PO SCH (08:20)
[2018-08-18] MEDS: ALPRAZolam 0.25 MG TABLET PO SCH (08:20)
--- NOTE | 2018-08-18 08:20 | PDOC ---
Infectious Disease Note Subjective Subjective feeling much better ROS ROS no n/v/d/sob Vital Sign Vital Signs Vital Signs Date Time Temp Pulse Resp B/P (MAP) Pulse Ox O2 Delivery O2 Flow Rate FiO2 08/18/18 07:50 96 Nasal Cannula 3.0 08/18/18 03:46 98.1 70 16 124/58 (80) 98.1 Physical Exam PHYSICAL EXAM GENERAL: Alert, oriented female, not in distress. VITAL SIGNS: Stable. HEENT: Anicteric. NECK: Supple, no JVP, no lymphadenopathy. LUNGS: Clear. HEART: S1, S2 regular. ABDOMEN: Benign. EXTREMITIES: No edema, cyanosis. SKIN: Unremarkable. NEUROLOGIC: The patient is neurologically intact. No focal neurologic deficit. Labs Lab Laboratory Tests Test 08/17/18 11:09 08/17/18 14:15 08/17/18 16:55 08/17/18 20:58 Glucose (Fingerstick) 202 mg/dL (70-99) 182 mg/dL (70-99) 128 mg/dL (70-99) Stool Occult Blood Negative (NEG) Test 08/18/18 03:30 08/18/18 03:35 08/18/18 07:50 White Blood Count 11.0 x10^3/uL (4.0-11.0) Red Blood Count 3.35 x10^6/uL (3.50-5.40) Hemoglobin 7.3 g/dL (12.0-15.5) Hematocrit 24.9 % (36.0-47.0) Mean Corpuscular Volume 74 fL (79-100) Mean Corpuscular Hemoglobin 22 pg (25-35) Mean Corpuscular Hemoglobin Concent 29 g/dL (31-37) Red Cell Distribution Width 21.0 % (11.5-14.5) Platelet Count 401 x10^3/uL (140-400) Neutrophils (%) (Auto) 55 % (31-73) Lymphocytes (%) (Auto) 35 % (24-48) Monocytes (%) (Auto) 8 % (0-9) Eosinophils (%) (Auto) 2 % (0-3) Basophils (%) (Auto) 1 % (0-3) Neutrophils # (Auto) 6.1 x10^3uL (1.8-7.7) Lymphocytes # (Auto) 3.8 x10^3/uL (1.0-4.8) Monocytes # (Auto) 0.9 x10^3/uL (0.0-1.1) Eosinophils # (Auto) 0.2 x10^3/uL (0.0-0.7) Basophils # (Auto) 0.1 x10^3/uL (0.0-0.2) Sodium Level 143 mmol/L (136-145) Potassium Level 3.9 mmol/L (3.5-5.1) Chloride Level 104 mmol/L (98-107) Carbon Dioxide Level 30 mmol/L (21-32) Anion Gap 9 (6-14) Blood Urea Nitrogen 19 mg/dL (7-20) Creatinine 1.3 mg/dL (0.6-1.0) Estimated GFR (Cockcroft-Gault) 41.9 Glucose Level 73 mg/dL (70-99) Calcium Level 7.4 mg/dL (8.5-10.1) Prothrombin Time 21.4 SEC (11.7-14.0) Prothromb Time International Ratio 1.9 (0.8-1.1) Glucose (Fingerstick) 87 mg/dL (70-99) Micro BLOOD CULTURE Final GRAM POSITIVE COCCI IN CLUSTERS, SUGGESTIVE OF STAPH, IN 1 OF 4 BOTTLES, TWO SETS DRAWN. CALLED TO CORNEL MCKEON RN ON 2N AT 8:45 ON 08/16/18 DW MT SENT TO [facility] FOR FURTHER WORKUP. Objective Assessment Fever, ? possible aspiration Encephalopathy Hypoglycemia ? CO2 narcosis COPD DM HTN CVA BC + , likely contaminant, ID pending Plan Plan of Care po augmentin supportive care d/w BEVERLEY DAMON MD Aug 18, 2018 08:19
[2018-08-18] MEDS: CARVEDILOL 3.125 MG TABLET. PO SCH (08:21)
[2018-08-18] MEDS: PANTOPRAZOLE 40 MG TABLET.DR. PO SCH (08:21)
[2018-08-18] MEDS: DICLOFENAC SODIUM 1% TOPICAL GEL 100GM TUBE. TP SCH ×2 (08:21→12:15)
[2018-08-18] MEDS: FLUTICASONE 50MCG/NASAL SPRAY 16GM BOTTLE. NS SCH (08:22)
[2018-08-18] MEDS: HYDROcodone/APAP 7.5/325MG 1 TAB TABLET PO PRN (08:22)
--- NOTE | 2018-08-18 10:11 | PDOC ---
PULMONARY PROGRESS NOTES Subjective sob better, has occ cough, has chest wall pain, on 02 3 lpm cont at home Vitals Vital Signs Date Time Temp Pulse Resp B/P (MAP) Pulse Ox O2 Delivery O2 Flow Rate FiO2 08/18/18 08:22 20 Nasal Cannula 3.0 08/18/18 08:21 73 118/66 08/18/18 08:00 98.0 96 98.0 ROS: No Nausea General: Alert, No acute distress Lungs: Crackles Cardiovascular: S1, S2 Abdomen: Soft, Non-tender Neuro Exam: Alert Extremities: No Edema Skin: Warm Labs Laboratory Tests Test 08/16/18 11:26 08/16/18 16:44 08/16/18 20:42 08/17/18 03:20 Glucose (Fingerstick) 155 mg/dL (70-99) 172 mg/dL (70-99) 142 mg/dL (70-99) White Blood Count 13.0 x10^3/uL (4.0-11.0) Red Blood Count 3.20 x10^6/uL (3.50-5.40) Hemoglobin 7.1 g/dL (12.0-15.5) Hematocrit 23.9 % (36.0-47.0) Mean Corpuscular Volume 75 fL (79-100) Mean Corpuscular Hemoglobin 22 pg (25-35) Mean Corpuscular Hemoglobin Concent 30 g/dL (31-37) Red Cell Distribution Width 21.2 % (11.5-14.5) Platelet Count 376 x10^3/uL (140-400) Neutrophils (%) (Auto) 65 % (31-73) Lymphocytes (%) (Auto) 25 % (24-48) Monocytes (%) (Auto) 9 % (0-9) Eosinophils (%) (Auto) 1 % (0-3) Basophils (%) (Auto) 0 % (0-3) Neutrophils # (Auto) 8.5 x10^3uL (1.8-7.7) Lymphocytes # (Auto) 3.2 x10^3/uL (1.0-4.8) Monocytes # (Auto) 1.1 x10^3/uL (0.0-1.1) Eosinophils # (Auto) 0.1 x10^3/uL (0.0-0.7) Basophils # (Auto) 0.0 x10^3/uL (0.0-0.2) Prothrombin Time 26.1 SEC (11.7-14.0) Prothromb Time International Ratio 2.4 (0.8-1.1) Sodium Level 145 mmol/L (136-145) Potassium Level 3.5 mmol/L (3.5-5.1) Chloride Level 105 mmol/L (98-107) Carbon Dioxide Level 32 mmol/L (21-32) Anion Gap 8 (6-14) Blood Urea Nitrogen 20 mg/dL (7-20) Creatinine 1.6 mg/dL (0.6-1.0) Estimated GFR (Cockcroft-Gault) 33.0 Glucose Level 106 mg/dL (70-99) Calcium Level 7.2 mg/dL (8.5-10.1) Magnesium Level 2.0 mg/dL (1.8-2.4) Iron Level 16 ug/dL (50-170) Total Iron Binding Capacity 391 ug/dL (250-450) Iron Saturation 4 % (15-34) Test 08/17/18 07:23 08/17/18 11:09 08/17/18 14:15 08/17/18 16:55 Glucose (Fingerstick) 97 mg/dL (70-99) 202 mg/dL (70-99) 182 mg/dL (70-99) Stool Occult Blood Negative (NEG) Test 08/17/18 20:58 08/18/18 03:30 08/18/18 03:35 08/18/18 07:50 Glucose (Fingerstick) 128 mg/dL (70-99) 87 mg/dL (70-99) White Blood Count 11.0 x10^3/uL (4.0-11.0) Red Blood Count 3.35 x10^6/uL (3.50-5.40) Hemoglobin 7.3 g/dL (12.0-15.5) Hematocrit 24.9 % (36.0-47.0) Mean Corpuscular Volume 74 fL (79-100) Mean Corpuscular Hemoglobin 22 pg (25-35) Mean Corpuscular Hemoglobin Concent 29 g/dL (31-37) Red Cell Distribution Width 21.0 % (11.5-14.5) Platelet Count 401 x10^3/uL (140-400) Neutrophils (%) (Auto) 55 % (31-73) Lymphocytes (%) (Auto) 35 % (24-48) Monocytes (%) (Auto) 8 % (0-9) Eosinophils (%) (Auto) 2 % (0-3) Basophils (%) (Auto) 1 % (0-3) Neutrophils # (Auto) 6.1 x10^3uL (1.8-7.7) Lymphocytes # (Auto) 3.8 x10^3/uL (1.0-4.8) Monocytes # (Auto) 0.9 x10^3/uL (0.0-1.1) Eosinophils # (Auto) 0.2 x10^3/uL (0.0-0.7) Basophils # (Auto) 0.1 x10^3/uL (0.0-0.2) Sodium Level 143 mmol/L (136-145) Potassium Level 3.9 mmol/L (3.5-5.1) Chloride Level 104 mmol/L (98-107) Carbon Dioxide Level 30 mmol/L (21-32) Anion Gap 9 (6-14) Blood Urea Nitrogen 19 mg/dL (7-20) Creatinine 1.3 mg/dL (0.6-1.0) Estimated GFR (Cockcroft-Gault) 41.9 Glucose Level 73 mg/dL (70-99) Calcium Level 7.4 mg/dL (8.5-10.1) Prothrombin Time 21.4 SEC (11.7-14.0) Prothromb Time International Ratio 1.9 (0.8-1.1) Laboratory Tests Test 08/17/18 11:09 08/17/18 14:15 08/17/18 16:55 08/17/18 20:58 Glucose (Fingerstick) 202 mg/dL (70-99) 182 mg/dL (70-99) 128 mg/dL (70-99) Stool Occult Blood Negative (NEG) Test 08/18/18 03:30 08/18/18 03:35 08/18/18 07:50 White Blood Count 11.0 x10^3/uL (4.0-11.0) Red Blood Count 3.35 x10^6/uL (3.50-5.40) Hemoglobin 7.3 g/dL (12.0-15.5) Hematocrit 24.9 % (36.0-47.0) Mean Corpuscular Volume 74 fL (79-100) Mean Corpuscular Hemoglobin 22 pg (25-35) Mean Corpuscular Hemoglobin Concent 29 g/dL (31-37) Red Cell Distribution Width 21.0 % (11.5-14.5) Platelet Count 401 x10^3/uL (140-400) Neutrophils (%) (Auto) 55 % (31-73) Lymphocytes (%) (Auto) 35 % (24-48) Monocytes (%) (Auto) 8 % (0-9) Eosinophils (%) (Auto) 2 % (0-3) Basophils (%) (Auto) 1 % (0-3) Neutrophils # (Auto) 6.1 x10^3uL (1.8-7.7) Lymphocytes # (Auto) 3.8 x10^3/uL (1.0-4.8) Monocytes # (Auto) 0.9 x10^3/uL (0.0-1.1) Eosinophils # (Auto) 0.2 x10^3/uL (0.0-0.7) Basophils # (Auto) 0.1 x10^3/uL (0.0-0.2) Sodium Level 143 mmol/L (136-145) Potassium Level 3.9 mmol/L (3.5-5.1) Chloride Level 104 mmol/L (98-107) Carbon Dioxide Level 30 mmol/L (21-32) Anion Gap 9 (6-14) Blood Urea Nitrogen 19 mg/dL (7-20) Creatinine 1.3 mg/dL (0.6-1.0) Estimated GFR (Cockcroft-Gault) 41.9 Glucose Level 73 mg/dL (70-99) Calcium Level 7.4 mg/dL (8.5-10.1) Prothrombin Time 21.4 SEC (11.7-14.0) Prothromb Time International Ratio 1.9 (0.8-1.1) Glucose (Fingerstick) 87 mg/dL (70-99) Medications Active Scripts Medications Dose Route/Sig Max Daily Dose Days Date Category Dose Instructions Prednisone 20 Mg Tablet 10 Mg PO DAILY 7 08/13/18 Reported Novolog Flexpen (Insulin Aspart) 100 Unit/1 Ml Insuln.pen 15 Units SQ TIDBFRMEAL 01/18/18 Rx Hold insulin if blood sugar less than 100 Coumadin (Warfarin Sodium) 5 Mg Tablet 1 Tab PO SUMOWETHSA 10/22/17 Reported Coumadin (Warfarin Sodium) 2.5 Mg Tablet 1 Tab PO TUFR 10/22/17 Reported Hydrocodone-Apap 7.5-325 (Hydrocodone Bit/Acetaminophen) 1 Each Tablet 1 Tab PO PRN Q6HRS PRN 10/21/17 Reported Duoneb 0.5-3(2.5) Mg/3 Ml (Albuterol/Ipratropium) 3 Ml Ampul.neb 3 Ml NEB RTQID 09/17/17 Rx Proair Hfa Inhaler (Albuterol Sulfate) 8.5 Gm Hfa.aer.ad 1 Puff INH PRN Q6HRS PRN 09/17/17 Rx Symbicort 160-4.5 Mcg Inhaler (Budesonide/Formoterol Fumarate) 10.2 Gm Hfa.aer.ad 2 Puff IH BID 09/17/17 Rx Mag-Oxide (Magnesium Oxide) 400 Mg Tablet 400 Mg PO TID 09/17/17 Rx Fluticasone Propionate Nasal [place] (Fluticasone Propionate) 16 Gm [place].susp 2 [place] NS DAILY 09/17/17 Rx Tizanidine Hcl 4 Mg Tablet 4 Mg PO PRN QHS PRN 09/17/17 Rx Cetirizine Hcl 10 Mg Tablet 10 Mg PO DAILY 09/17/17 Rx Synthroid (Levothyroxine Sodium) 150 Mcg Tablet 150 Mcg PO DAILY07 09/17/17 Rx Metformin Hcl 1,000 Mg Tablet 1,000 Mg PO BID 09/17/17 Rx Restart metformin 09/18 Voltaren (Diclofenac Sodium) 100 Gm Gel..gram. 4 Gm TP QID 05/28/17 Rx Gabapentin (Gabapentin) 300 Mg Capsule 1,200 Mg PO HS 05/25/17 Reported Alprazolam 0.25 Mg Tablet 1 Tab PO BID 06/27/16 Reported Carvedilol (Carvedilol) 3.125 Mg Tablet 1 Tab PO BID 06/27/16 Reported Torsemide 20 Mg Tablet 20 Mg PO DAILY 05/24/15 Reported Zocor (Simvastatin) 80 Mg Tablet 80 Mg PO DAILY 07/19/13 Reported Lantus Solostar (Insulin Glargine,Hum.rec.anlog) 100 Unit/1 Ml Insuln.pen 54 Unit SQ [id number] 07/19/13 Reported Reglan (Metoclopramide Hcl) 10 Mg Tablet 10 Mg PO QID 07/19/13 Reported Protonix (Pantoprazole Sodium) 40 Mg Granpkt.dr 40 Mg PO BID 07/19/13 Reported Singulair Tablet (Montelukast Sodium) 10 Mg Tablet 10 Mg PO DAILY 07/19/13 Reported Aspir 81 (Aspirin) 81 Mg Tablet.dr 81 Mg PO DAILY 07/19/13 Reported Impression . 1. Dyspnea with acute on chronic hypercapnic and hypoxic respiratory failure secondary to acute exacerbation of chronic obstructive pulmonary disease, [id number] systolic heart failure. 2. Leukocytosis, resolved. 3. Previous echocardiogram with an ejection fraction of 40%, being followed by Cardiology. 4. 30+ years of tobacco use, on home oxygen. Continues to smoke cigarettes. 5. History of deep venous thrombosis, left lower and left upper extremity and chronic on anticoagulation with warfarin. INR therapeutic. Plan . 1. O2 via canula 2. I would recommend having a sleep study as an outpatient. 3. bronchodilators. 4. steroid taper 5. Follow Cardiology recommendation. 6. Antibiotics per Infectious Disease. 7. ok to dc from pulm stand point WALDEMAR DUMONT MD Aug 18, 2018 10:11
--- NOTE | 2018-08-18 10:46 | PDOC ---
Subjective: Subjective: No complaints, feeling better, hoping to go home. Objective: Vital Signs: Vital Signs Date Time Temp Pulse Resp B/P (MAP) Pulse Ox O2 Delivery O2 Flow Rate FiO2 08/18/18 08:22 20 Nasal Cannula 3.0 08/18/18 08:21 73 118/66 08/18/18 08:00 98.0 96 98.0 Labs: Laboratory Tests Test 08/17/18 11:09 08/17/18 14:15 08/17/18 16:55 08/17/18 20:58 Glucose (Fingerstick) 202 mg/dL 182 mg/dL 128 mg/dL Stool Occult Blood Negative Test 08/18/18 03:30 08/18/18 03:35 08/18/18 07:50 White Blood Count 11.0 x10^3/uL Red Blood Count 3.35 x10^6/uL Hemoglobin 7.3 g/dL Hematocrit 24.9 % Mean Corpuscular Volume 74 fL Mean Corpuscular Hemoglobin 22 pg Mean Corpuscular Hemoglobin Concent 29 g/dL Red Cell Distribution Width 21.0 % Platelet Count 401 x10^3/uL Neutrophils (%) (Auto) 55 % Lymphocytes (%) (Auto) 35 % Monocytes (%) (Auto) 8 % Eosinophils (%) (Auto) 2 % Basophils (%) (Auto) 1 % Neutrophils # (Auto) 6.1 x10^3uL Lymphocytes # (Auto) 3.8 x10^3/uL Monocytes # (Auto) 0.9 x10^3/uL Eosinophils # (Auto) 0.2 x10^3/uL Basophils # (Auto) 0.1 x10^3/uL Sodium Level 143 mmol/L Potassium Level 3.9 mmol/L Chloride Level 104 mmol/L Carbon Dioxide Level 30 mmol/L Anion Gap 9 Blood Urea Nitrogen 19 mg/dL Creatinine 1.3 mg/dL Estimated GFR (Cockcroft-Gault) 41.9 Glucose Level 73 mg/dL Calcium Level 7.4 mg/dL Prothrombin Time 21.4 SEC Prothromb Time International Ratio 1.9 Glucose (Fingerstick) 87 mg/dL BLOOD CULTURE Preliminary NO GROWTH AFTER 3 DAYS PE: GEN: NAD LUNGS: NC HEART: RRR ABD: S/ND/NT NEURO/PSYCH: A & O 3 A/P: Chronic resp failure, CAD, PVD ALISON, heme neg - ?SB AVMs H/o GERD and chronic diarrhea - last 'scoped in 11/2016 -- DC per primary on PPI and iron. Will review GI follow-up recs w/ Dr. Guevara. Resume Warfarin per primary. FARRAH HARMAN Aug 18, 2018 10:46
[2018-08-18 11:51] VITALS: BP_SYST 118; BP_SYST 121; BP_DIAS 66; BP_DIAS 67
[2018-08-18] MEDS ORDERED: AMOX1TAB11 PO (12:13)
--- NOTE | 2018-08-18 12:15 | SNU/HH DC ---
DISCHARGE WITH HOME HEALTH DISCHARGE INFORMATION: Final Diagnosis: Problems Medical Problems: (1) Acute respiratory failure Status: Acute (2) Altered mental status Status: Acute (3) Hypothermia Status: Acute Condition on Discharge: Stable HOME HEALTH: Face to Face: I certify this patient is under my care and that I, or a nurse practitioner or physician's dental assistant instructor working with me, had a face to face encounter that meets the physician face to face encounter requirements with this patient on August,. Medical Complications: CHF, COPD RN For Eval/Treatment: Yes Pt Meets Homebound Status: Unsteady balance w/ amb,, Fatigue w/ amb. (walk with walker) POST DISCHARGE ORDERS: Activity Instructions for Disc: Activity as tolerated Weight Bearing Status after Di: As tolerated DIET AFTER DISCHARGE: Cardiac CHECKS AFTER DISCHARGE: Checks after discharge: Check blood press - daily, Check blood sugar, ac/hs, Check your Temp as needed, Weigh Yourself Daily FOLLOW-UP: PCP to follow Home Health: Yes Follow up with: Dr. SULTANA Montgomery in 5 days TREATMENT/EQUIPMENT ORDERS: Adaptive Equipment Issued: Cane Discharge Respiratory Equipmen: Oxygen (2-3 lit/min), CPAP CERTIFICATION STATEMENT: Certification Statement: Certification Statement: Based on the above finding, I certify that this patient is confined to the home and needs intermittent detention care, physical therapy and/or speech therapy, or continues to need occupational therapy.~ This patient is under my care, and I have initiated the establishment of the plan of care.~ This patient will be followed by myself or a community physician who will periodically review the plan of care. Home Meds Active Scripts Insulin Aspart (NOVOLOG FLEXPEN) 100 Unit/1 Ml Insuln.pen, 15 UNITS SQ TIDBFRMEAL, #5 EA Hold insulin if blood sugar less than 100 Prov:SULTANA MONTGOMERY MD 01/18/18 Ipratropium/Albuterol Sulfate (DUONEB 0.5-3(2.5) MG/3 ML) 3 Ml Ampul.neb, 3 ML NEB RTQID, #120 EACH Prov:JOCELYN BRYANT APRN 09/17/17 Albuterol Sulfate (PROAIR HFA INHALER) 8.5 Gm Hfa.aer.ad, 1 PUFF INH PRN Q6HRS PRN for SHORTNESS OF BREATH, #1 INHALER 0 Refills Prov:VAMSHIJEFFREYJOCELYNORLANDO Peerz APRN 09/17/17 Budesonide/Formoterol Fumarate (SYMBICORT 160-4.5 MCG INHALER) 10.2 Gm Hfa.aer.ad, 2 PUFF IH BID, #10.6 GM 3 Refills Prov:JOCELYN BRYANT APRN 09/17/17 Magnesium Oxide (MAG-OXIDE) 400 Mg Tablet, 400 MG PO TID, #90 TAB Prov:JOCELYN BRYANT APRN 09/17/17 Fluticasone Propionate (FLUTICASONE PROPIONATE NASAL SPRAY) 16 Gm [place]ao.susp, 2 SPRAY NS DAILY, #1 EACH Prov:JOCELYN BRYANT APRN 09/17/17 Tizanidine Hcl (TIZANIDINE HCL) 4 Mg Tablet, 4 MG PO PRN QHS PRN for MUSCLE SPASMS, #30 TAB Prov:JOCELYN BRYANT APRN 09/17/17 Cetirizine Hcl (CETIRIZINE HCL) 10 Mg Tablet, 10 MG PO DAILY, #30 TAB Prov:JOCELYN BRYANT APRN 09/17/17 Levothyroxine Sodium (SYNTHROID) 150 Mcg Tablet, 150 MCG PO DAILY07, #30 TAB Prov:JOCELYN BRYANT APRN 09/17/17 Metformin Hcl (METFORMIN HCL) 1,000 Mg Tablet, 1000 MG PO BID, #60 TAB Restart metformin 09/18 Prov:JOCELYN BRYANT APRN 09/17/17 Diclofenac Sodium (VOLTAREN) 100 Gm Gel..gram., 4 GM TP QID, #120 GM 2 Refills Prov:JOCELYN BRYANT APRN 05/28/17 Reported Medications Prednisone (PREDNISONE) 20 Mg Tablet, 10 MG PO DAILY for inflammation for 7 Days , #4 TAB 08/13/18 Warfarin Sodium (COUMADIN) 5 Mg Tablet, 1 TAB PO SuMoWeThSa, #90 TAB 1 Refill 10/22/17 Warfarin Sodium (COUMADIN) 2.5 Mg Tablet, 1 TAB PO TuFr, #30 TAB 3 Refills 10/22/17 Hydrocodone Bit/Acetaminophen (HYDROCODONE-APAP 7.5-325 ) 1 Each Tablet, 1 TAB PO PRN Q6HRS PRN for PAIN, TAB 0 Refills 10/21/17 Gabapentin (GABAPENTIN ) 300 Mg Capsule, 1200 MG PO HS, CAP 05/25/17 Alprazolam (ALPRAZOLAM) 0.25 Mg Tablet, 1 TAB PO BID, #60 TAB 06/27/16 Carvedilol (CARVEDILOL ) 3.125 Mg Tablet, 1 TAB PO BID, #60 TAB 3 Refills 06/27/16 Torsemide (TORSEMIDE) 20 Mg Tablet, 20 MG PO DAILY 05/24/15 Simvastatin (ZOCOR) 80 Mg Tablet, 80 MG PO DAILY 07/19/13 Insulin Glargine,Hum.rec.anlog (LANTUS SOLOSTAR) 100 Unit/1 Ml Insuln.pen, 54 UNIT SQ DAILYWBKFT, #36 07/19/13 Metoclopramide Hcl (REGLAN) 10 Mg Tablet, 10 MG PO QID 07/19/13 Pantoprazole Sodium (PROTONIX) 40 Mg Granpkt.dr, 40 MG PO BID 07/19/13 Montelukast Sodium (SINGULAIR TABLET) 10 Mg Tablet, 10 MG PO DAILY 07/19/13 Aspirin (ASPIR 81) 81 Mg Tablet.dr, 81 MG PO DAILY 07/19/13 Discontinued Reported Medications Spironolactone (SPIRONOLACTONE) 25 Mg Tablet, 25 MG PO DAILY, TAB 05/24/15 Discontinued Scripts Potassium Chloride (KLOR-CON M20) 20 Meq Tab.er.prt, 20 MEQ PO DAILYWBKFT, #30 TAB Prov:JOCELYN BRYANT APRN 06/29/16 SULTANA MONTGOMERY MD Aug 18, 2018 12:15
--- NOTE | 2018-08-18 12:19 | PDOC3 ---
IM DISCHARGE SUMMARY Date of Admission Date of Admission Date of Admission: Aug 14, 2018 at 18:51 Date of Discharge Date of Discharge August 18, 2018 Primary Diagnosis Primary Diagnosis 1. Acute hypoxic and hypercapnic respiratory failure. 2. Acute hypoglycemia. 3. Chronic systolic congestive heart failure. 4. Fever, likely due to aspiration bronchitis. 5. Acute metabolic encephalopathy, multifactorial. 6. Chronic obstructive pulmonary disease. 7. Diabetes mellitus type 2 with diabetic neuropathy, peripheral artery disease and hypoglycemia. 8. History of deep venous thrombosis in the past with chronic Coumadin therapy. 9. Hypothyroidism, surgically induced. 10. Peripheral artery disease with multiple procedures as noted above. 11. Hypertension. 12. Hyperlipidemia. 13. Chronic kidney disease. 14. History of nonobstructing right renal calculus. 15. Obesity. 16. Chronic smoking. The patient is trying to quit. 17. Anxiety 18. Depression. 19. Osteoporosis. 20. Degenerative joint disease, multiple joints. 21. History of cerebrovascular accident. 22. History of migraine. 23. Diverticulosis. 24. History of gastritis. 25. Irritable bowel syndrome. 26. Anemia. Consults Consults Jack Ireland MD Labs Labs Laboratory Tests Test 08/15/18 12:58 08/15/18 17:04 08/15/18 20:50 08/16/18 03:50 Glucose (Fingerstick) 305 mg/dL (70-99) 208 mg/dL (70-99) 130 mg/dL (70-99) White Blood Count 16.5 x10^3/uL (4.0-11.0) Red Blood Count 3.27 x10^6/uL (3.50-5.40) Hemoglobin 7.2 g/dL (12.0-15.5) Hematocrit 24.5 % (36.0-47.0) Mean Corpuscular Volume 75 fL (79-100) Mean Corpuscular Hemoglobin 22 pg (25-35) Mean Corpuscular Hemoglobin Concent 29 g/dL (31-37) Red Cell Distribution Width 21.2 % (11.5-14.5) Platelet Count 395 x10^3/uL (140-400) Neutrophils (%) (Auto) 79 % (31-73) Lymphocytes (%) (Auto) 15 % (24-48) Monocytes (%) (Auto) 6 % (0-9) Eosinophils (%) (Auto) 0 % (0-3) Basophils (%) (Auto) 0 % (0-3) Neutrophils # (Auto) 13.0 x10^3uL (1.8-7.7) Lymphocytes # (Auto) 2.4 x10^3/uL (1.0-4.8) Monocytes # (Auto) 1.0 x10^3/uL (0.0-1.1) Eosinophils # (Auto) 0.0 x10^3/uL (0.0-0.7) Basophils # (Auto) 0.0 x10^3/uL (0.0-0.2) Prothrombin Time 24.7 SEC (11.7-14.0) Prothromb Time International Ratio 2.3 (0.8-1.1) Sodium Level 144 mmol/L (136-145) Potassium Level 3.6 mmol/L (3.5-5.1) Chloride Level 105 mmol/L (98-107) Carbon Dioxide Level 30 mmol/L (21-32) Anion Gap 9 (6-14) Blood Urea Nitrogen 22 mg/dL (7-20) Creatinine 1.3 mg/dL (0.6-1.0) Estimated GFR (Cockcroft-Gault) 41.9 BUN/Creatinine Ratio 17 (6-20) Glucose Level 85 mg/dL (70-99) Calcium Level 7.2 mg/dL (8.5-10.1) Magnesium Level 2.0 mg/dL (1.8-2.4) Total Bilirubin 0.4 mg/dL (0.2-1.0) Aspartate Amino Transf (AST/SGOT) 16 U/L (15-37) Alanine Aminotransferase (ALT/SGPT) 21 U/L (14-59) Alkaline Phosphatase 83 U/L (46-116) Total Protein 6.8 g/dL (6.4-8.2) Albumin 2.3 g/dL (3.4-5.0) Albumin/Globulin Ratio 0.5 (1.0-1.7) Test 08/16/18 07:25 08/16/18 11:26 08/16/18 16:44 08/16/18 20:42 Glucose (Fingerstick) 110 mg/dL (70-99) 155 mg/dL (70-99) 172 mg/dL (70-99) 142 mg/dL (70-99) Test 08/17/18 03:20 08/17/18 07:23 08/17/18 11:09 08/17/18 14:15 White Blood Count 13.0 x10^3/uL (4.0-11.0) Red Blood Count 3.20 x10^6/uL (3.50-5.40) Hemoglobin 7.1 g/dL (12.0-15.5) Hematocrit 23.9 % (36.0-47.0) Mean Corpuscular Volume 75 fL (79-100) Mean Corpuscular Hemoglobin 22 pg (25-35) Mean Corpuscular Hemoglobin Concent 30 g/dL (31-37) Red Cell Distribution Width 21.2 % (11.5-14.5) Platelet Count 376 x10^3/uL (140-400) Neutrophils (%) (Auto) 65 % (31-73) Lymphocytes (%) (Auto) 25 % (24-48) Monocytes (%) (Auto) 9 % (0-9) Eosinophils (%) (Auto) 1 % (0-3) Basophils (%) (Auto) 0 % (0-3) Neutrophils # (Auto) 8.5 x10^3uL (1.8-7.7) Lymphocytes # (Auto) 3.2 x10^3/uL (1.0-4.8) Monocytes # (Auto) 1.1 x10^3/uL (0.0-1.1) Eosinophils # (Auto) 0.1 x10^3/uL (0.0-0.7) Basophils # (Auto) 0.0 x10^3/uL (0.0-0.2) Prothrombin Time 26.1 SEC (11.7-14.0) Prothromb Time International Ratio 2.4 (0.8-1.1) Sodium Level 145 mmol/L (136-145) Potassium Level 3.5 mmol/L (3.5-5.1) Chloride Level 105 mmol/L (98-107) Carbon Dioxide Level 32 mmol/L (21-32) Anion Gap 8 (6-14) Blood Urea Nitrogen 20 mg/dL (7-20) Creatinine 1.6 mg/dL (0.6-1.0) Estimated GFR (Cockcroft-Gault) 33.0 Glucose Level 106 mg/dL (70-99) Calcium Level 7.2 mg/dL (8.5-10.1) Magnesium Level 2.0 mg/dL (1.8-2.4) Iron Level 16 ug/dL (50-170) Total Iron Binding Capacity 391 ug/dL (250-450) Iron Saturation 4 % (15-34) Glucose (Fingerstick) 97 mg/dL (70-99) 202 mg/dL (70-99) Stool Occult Blood Negative (NEG) Test 08/17/18 16:55 08/17/18 20:58 08/18/18 03:30 08/18/18 03:35 Glucose (Fingerstick) 182 mg/dL (70-99) 128 mg/dL (70-99) White Blood Count 11.0 x10^3/uL (4.0-11.0) Red Blood Count 3.35 x10^6/uL (3.50-5.40) Hemoglobin 7.3 g/dL (12.0-15.5) Hematocrit 24.9 % (36.0-47.0) Mean Corpuscular Volume 74 fL (79-100) Mean Corpuscular Hemoglobin 22 pg (25-35) Mean Corpuscular Hemoglobin Concent 29 g/dL (31-37) Red Cell Distribution Width 21.0 % (11.5-14.5) Platelet Count 401 x10^3/uL (140-400) Neutrophils (%) (Auto) 55 % (31-73) Lymphocytes (%) (Auto) 35 % (24-48) Monocytes (%) (Auto) 8 % (0-9) Eosinophils (%) (Auto) 2 % (0-3) Basophils (%) (Auto) 1 % (0-3) Neutrophils # (Auto) 6.1 x10^3uL (1.8-7.7) Lymphocytes # (Auto) 3.8 x10^3/uL (1.0-4.8) Monocytes # (Auto) 0.9 x10^3/uL (0.0-1.1) Eosinophils # (Auto) 0.2 x10^3/uL (0.0-0.7) Basophils # (Auto) 0.1 x10^3/uL (0.0-0.2) Sodium Level 143 mmol/L (136-145) Potassium Level 3.9 mmol/L (3.5-5.1) Chloride Level 104 mmol/L (98-107) Carbon Dioxide Level 30 mmol/L (21-32) Anion Gap 9 (6-14) Blood Urea Nitrogen 19 mg/dL (7-20) Creatinine 1.3 mg/dL (0.6-1.0) Estimated GFR (Cockcroft-Gault) 41.9 Glucose Level 73 mg/dL (70-99) Calcium Level 7.4 mg/dL (8.5-10.1) Prothrombin Time 21.4 SEC (11.7-14.0) Prothromb Time International Ratio 1.9 (0.8-1.1) Test 08/18/18 07:50 Glucose (Fingerstick) 87 mg/dL (70-99) Brief hospital course Brief hospital course This is a 58-year-old female who was admitted a few days ago to [facility] for hyperkalemia and acute on chronic congestive heart failure, systolic as well as acute on chronic hypoxic respiratory failure. The patient was feeling better, so the family wanted to take her home. She went home Wednesday evening that is 2 days ago and was doing fine at that time, but on Wednesday morning, she did not eat much and then between 12 and 4, her condition worsened, and she was not responsive. Her blood sugar dropped and as per who did not know at that time, the patient was feeling short of breath, so she had increased her oxygen and because of her worsening status and unresponsiveness, 911 was called. The EMR noted that the blood sugar was in the low 40s and O2 sats were in the 80s. The patient was given BiPAP in the Emergency Room and after 2 hours of BiPAP, the patient's condition became much better. She was also given IV D50 for treatment of hypoglycemia. For more details regarding the past history, family history, social history, surgical history and other details, please refer to History and Physical. Consult Dr. Patricio for infectious disease evaluation and management. Consult Dr. Burgess for pulmonary evaluation and management and inspector firearms, Dr. Rosenthal for GI evaluation and management. The patient has an elevated lipase, but she is asymptomatic and we will continue to monitor. The patient is also being seen by Dr. Ireland for neurology evaluation and management. We will consult Dr. Burgess for pulmonary evaluation and management. We will hold off on cardiology consult at this time. For details, please review the orders. Prognosis of this patient is poor. The patient is much more alert. Condition and treatment discussed with the patient and her . Continue on oxygen by nasal cannula. Restart low-dose steroid this morning. Blood culture 1 out of 2 positive for gram positive cocci in clusters. Discussed with Dr. Jr Jones. This could be a contaminant. IV Zosyn has been changed to oral Augmentin.. Hypomagnesemia- replace. Hypokalemia - replace Acute metabolic encephalopathy improving condition treatment discussed with the patient and her . Anemia- hemoglobin is steadily dropping and is 7.1 now. I'll consult Dr. Guevara for GI evaluation and management and hold Coumadin. Continue aspirin for now. Hemoglobin is stable at 7.3. Heme test is negative. GI consult noted. Previously as workup has been negative. Continue to monitor hemoglobin as outpatient. Continue iron supplements and multivitamins. Condition treatment discussed with the patient and her they want to go home. She is stable to go home but long-term prognosis is poor short-term prognosis is poor. Strongly advised them not to use extra oxygenation become short of breath because this will result in CO2 narcosis. Condition at the time of discharge is much better. Medications Medications reviewed and reconciled for discharge. Allergy Allergies Coded Allergies Type Severity Reaction Last Updated Verified Penicillins Allergy Intermediate Hives 10/22/17 Yes codeine Adverse Reaction Mild Nausea and Vomiting 10/22/17 Yes diphenhydramine HCl Adverse Reaction Mild hyperactive 10/22/17 Yes Follow up in 5 days. Comments Discharge Management - 35 minutes. For other details please refer to discharge instructions SULTANA MONTGOMEYR MD Aug 18, 2018 12:19
[2018-08-18] MEDS ORDERED: INSU100I17 SQ (12:25)
--- NOTE | 2018-08-18 12:59 | NUR ---
SS following up with discharge planning. Discharge orders received for home healthcare. SS phoned and faxed discharge orders and home healthcare referral to [facility], ; fax [phone]. Pt's RN notified.
--- NOTE | 2018-08-18 16:11 | NUR ---
Discharge Note: ISATU LOUISE JOHN DAY Discharge instructions and discharge home medications reviewed with Patient and a copy given. All questions have been answered and understanding verbalized. The following instructions and handouts were given: AMS Discontinued IV line Patient discharged to home with home health via wheelchair
--- NOTE | 2018-08-18 16:47 | PDOC ---
PROGRESS NOTES Assessment Assessment Metabolic encephalopathy. Respiratory distress/failure/ Hypoxia, O2 saturation 82% at admission. COPD. Hypoglycemia. Hyperglycemia. Leukocytosis. Thrombocytosis. DM. HTN. LA. Elevate lipase. Pacemaker in site. Obesity. RECOMMENDATIONS/PLAN: Treat medical diseases. She has been treated with Coumadin. Continue Zocor HS. Weight reduction. Discussed with her at bedside on a daily basis. FU with PCP. HISTORY OF THE PRESENT ILLNESS: This is a 58 -year-old female who was brought to the ER due to altered mental status. She has COPD on chronic nasal cannula supplemental O2 at 2 L. Patient was found unresponsive in her bed with questionable downtime of approximately one hour. On EMS evaluation was found to be hypoglycemic with blood sugar and 40s. Patient was given an amp of D50 with some improvement only to a GCS of 9. Patient with recent hospitalization for COPD exacerbation and hyperkalemia per EMS. Patient arouses with sternal rub, intermittently follows commands but otherwise unable to provide any history, so she was transferred to ICU for further evaluation and treatment. She stated improved her breath since 08/15/18. PAST MEDICAL HISTORY: COPD, history of CVA, diabetes, history of chronic respiratory failure, hypertension, LA x 6, history of clots in the left lower and left upper extremity. PAST SURGICAL HISTORY: Hysterectomy, pacemaker, tonsillectomy. SOCIAL HISTORY: Lives with her , her child and grandchildren at home. Smoker for 30 years. Continues to smoke cigarettes. ALLERGIES: PENICILLIN, CODEINE, DIPHENHYDRAMINE. MEDICATIONS: See MAR. FAMILY HISTORY: Non contributory. REVIEW OF SYSTEMS: Constitutional: Obesity. Head: No recent traumatic brain or head injury. Skin: No edema, or rash. Ear: No infection. Eyes: No vision loss or color blindness. Nose: No bleeding or purulent discharges. Hearing: No hearing decrease. Neck: No injury. Breast: No history of cancer, masses,or discharges. Cardiac:LA, HTN, HLD. Pulmonary: COPD. GI: No GI ulcer, GI bleeding. Urinary/genital: UTI. Endocrinologic: Diabetes Mellitus, obesity. Skeletomuscular: No muscular atrophy, deformity. Neurological: see HP. Psychiatric: Smoking. Otherwise, not [id number] review of systems. PHYSICAL EXAMINATION: General appearance is in subacute distress. HEENT: Normocephalic and nontraumatic. Eyes, nose, ears, and throat are unremarkable. Neck is supple. No lymphadenopathy. No crepitus. Cardiovascular: S1, S2, regular rate and rhythm. Pulmonary: Decreased to auscultation bilaterally. Abdomen: Bowel sounds are positive. Abdomen is soft, nontender, and nondistended. Extremities: No rash, lesions, or edema. No restriction of range of motion NEUROLOGICAL EXAMINATION: Alert On NC O2. Oriented to time, place and person. PERRL. EOMI. CN: no focal findings. Muscle tone: within normal. Muscle strength: 5- DTR: 1+ Plantar reflex: Flexor response bilaterally Gait: able to walk. Sensory exam: no abnormal findings. No cerebellar signs elicited. F-T-N test fine. Objective Objective Vital Signs Date Time Temp Pulse Resp B/P (MAP) Pulse Ox O2 Delivery O2 Flow Rate FiO2 08/18/18 11:51 98.2 72 18 121/67 (85) 96 Nasal Cannula 2.0 98.2 Intake and Output 08/18/18 07:00 Intake Total 1320 ml Output Total 250 ml Balance 1070 ml Intake Oral 1320 ml Output Urine Total 250 ml # Voids 4 # Bowel Movements 4 Vitals Signs Vitals VS - Last 72 Hours, by Label Date Time Temp Pulse Resp B/P (MAP) Pulse Ox O2 Delivery O2 Flow Rate FiO2 08/18/18 11:51 98.2 72 18 121/67 (85) 96 Nasal Cannula 2.0 98.2 08/18/18 11:44 98 Nasal Cannula 3.0 08/18/18 08:22 20 Nasal Cannula 3.0 08/18/18 08:21 73 118/66 08/18/18 08:00 Nasal Cannula 3.0 08/18/18 08:00 98.0 69 18 118/66 (83) 96 Nasal Cannula 2.0 98.0 08/18/18 07:50 96 Nasal Cannula 3.0 08/18/18 03:46 98.1 70 16 124/58 (80) 94 Nasal Cannula 2.0 98.1 08/17/18 23:34 98.0 69 16 124/63 (83) 94 Nasal Cannula 3.0 98.0 08/17/18 20:00 Nasal Cannula 3.0 08/17/18 19:40 97 Nasal Cannula 3.0 08/17/18 19:38 98.5 70 16 106/57 (73) 95 Nasal Cannula 3.0 98.5 08/17/18 17:22 75 123/66 08/17/18 16:07 98.2 75 20 123/66 (85) 96 Nasal Cannula 3.0 98.2 08/17/18 15:35 Nasal Cannula 3.0 08/17/18 14:37 98.2 75 20 123/66 (85) 96 Nasal Cannula 3.0 98.2 08/17/18 12:43 20 Nasal Cannula 3.0 08/17/18 12:35 Nasal Cannula 3.0 08/17/18 11:57 98.4 64 18 114/64 (81) 94 Nasal Cannula 3.0 98.4 08/17/18 08:23 67 113/58 08/17/18 08:00 3.0 08/17/18 08:00 Nasal Cannula 3.0 08/17/18 07:50 98.0 67 18 113/58 (76) 97 Nasal Cannula 3.0 98.0 08/17/18 07:22 97 Nasal Cannula 3.0 08/17/18 07:20 Nasal Cannula 2.0 Laboratory Laboratory Laboratory Tests Test 08/17/18 16:55 08/17/18 20:58 08/18/18 03:30 08/18/18 03:35 Glucose (Fingerstick) 182 mg/dL (70-99) 128 mg/dL (70-99) White Blood Count 11.0 x10^3/uL (4.0-11.0) Red Blood Count 3.35 x10^6/uL (3.50-5.40) Hemoglobin 7.3 g/dL (12.0-15.5) Hematocrit 24.9 % (36.0-47.0) Mean Corpuscular Volume 74 fL (79-100) Mean Corpuscular Hemoglobin 22 pg (25-35) Mean Corpuscular Hemoglobin Concent 29 g/dL (31-37) Red Cell Distribution Width 21.0 % (11.5-14.5) Platelet Count 401 x10^3/uL (140-400) Neutrophils (%) (Auto) 55 % (31-73) Lymphocytes (%) (Auto) 35 % (24-48) Monocytes (%) (Auto) 8 % (0-9) Eosinophils (%) (Auto) 2 % (0-3) Basophils (%) (Auto) 1 % (0-3) Neutrophils # (Auto) 6.1 x10^3uL (1.8-7.7) Lymphocytes # (Auto) 3.8 x10^3/uL (1.0-4.8) Monocytes # (Auto) 0.9 x10^3/uL (0.0-1.1) Eosinophils # (Auto) 0.2 x10^3/uL (0.0-0.7) Basophils # (Auto) 0.1 x10^3/uL (0.0-0.2) Sodium Level 143 mmol/L (136-145) Potassium Level 3.9 mmol/L (3.5-5.1) Chloride Level 104 mmol/L (98-107) Carbon Dioxide Level 30 mmol/L (21-32) Anion Gap 9 (6-14) Blood Urea Nitrogen 19 mg/dL (7-20) Creatinine 1.3 mg/dL (0.6-1.0) Estimated GFR (Cockcroft-Gault) 41.9 Glucose Level 73 mg/dL (70-99) Calcium Level 7.4 mg/dL (8.5-10.1) Prothrombin Time 21.4 SEC (11.7-14.0) Prothromb Time International Ratio 1.9 (0.8-1.1) Test 08/18/18 07:50 08/18/18 12:13 Glucose (Fingerstick) 87 mg/dL (70-99) 136 mg/dL (70-99) Microbiology 08/14/18 Blood Culture - Preliminary, Resulted NO GROWTH AFTER 3 DAYS Medication Medications Current Medications Potassium Chloride (Klor-Con) 20 meq BIDAFTMEAL PO Last administered on at 08:20; Start 08/17/18 at 18:00; Stop 08/18/18 at 16:13; Status DC Comment Review of Relevant I have reviewed the following items jarod (where applicable) has been applied. NIESHA STOVER MD Aug 18, 2018 16:47
[2018-08-19 14:18] LABS: GLIA IGA 4 units (0-19); GLIA IGG 3 units (0-19); TRANSGLUTAMINASE IGA AB <2 U/mL (0-3); TRANSGLUTAMINASE IGG AB <2 U/mL (0-5)
== END 2018-08-18 16:12 | disposition home health service (06) | DRG 871 ==
LOC: ER 16:50 → 1 WEST ICU 18:51 → 2 NORTH 08-15 15:33
PROVIDERS: ADMIT Internal Medicine; ATTEND Internal Medicine
PROC: 5A09357 Assistance with Respiratory Ventilation, Less than 24 Consecutive Hours, Continuous Positive Airway Pressure (ICD-10-PCS; principal; 2018-08-14)
PROC: 5A09357 Assistance with Respiratory Ventilation, Less than 24 Consecutive Hours, Continuous Positive Airway Pressure (ICD-10-PCS; 2018-08-15)
DX: A41.9 Sepsis, unspecified organism (principal); G93.41 Metabolic encephalopathy; J96.21 Acute and chronic respiratory failure with hypoxia; J96.22 Acute and chronic respiratory failure with hypercapnia; J68.0 Bronchitis and pneumonitis due to chemicals, gases, fumes and vapors; I13.0 Hypertensive heart and chronic kidney disease with heart failure and stage 1 through stage 4 chronic kidney disease, or unspecified chronic kidney disease; I42.9 Cardiomyopathy, unspecified; I50.22 Chronic systolic (congestive) heart failure; E11.22 Type 2 diabetes mellitus with diabetic chronic kidney disease; E11.42 Type 2 diabetes mellitus with diabetic polyneuropathy; E11.51 Type 2 diabetes mellitus with diabetic peripheral angiopathy without gangrene; E11.65 Type 2 diabetes mellitus with hyperglycemia; E66.01 Morbid (severe) obesity due to excess calories; E78.5 Hyperlipidemia, unspecified; E83.42 Hypomagnesemia; E87.6 Hypokalemia; E89.0 Postprocedural hypothyroidism; F17.210 Nicotine dependence, cigarettes, uncomplicated; F32.9 Major depressive disorder, single episode, unspecified; F41.9 Anxiety disorder, unspecified; G47.33 Obstructive sleep apnea (adult) (pediatric); G89.29 Other chronic pain; I25.10 Atherosclerotic heart disease of native coronary artery without angina pectoris; I25.2 Old myocardial infarction; K21.9 Gastro-esophageal reflux disease without esophagitis; K57.30 Diverticulosis of large intestine without perforation or abscess without bleeding; K76.0 Fatty (change of) liver, not elsewhere classified; M15.9 Polyosteoarthritis, unspecified; M81.0 Age-related osteoporosis without current pathological fracture; M54.5 Low back pain; E11.649 Type 2 diabetes mellitus with hypoglycemia without coma; K58.0 Irritable bowel syndrome with diarrhea; D50.0 Iron deficiency anemia secondary to blood loss (chronic); N18.9 Chronic kidney disease, unspecified; Z79.01 Long term (current) use of anticoagulants; Z79.4 Long term (current) use of insulin; Z79.82 Long term (current) use of aspirin; Z80.9 Family history of malignant neoplasm, unspecified; Z86.010 Personal history of colon polyps; Z86.718 Personal history of other venous thrombosis and embolism; Z86.73 Personal history of transient ischemic attack (TIA), and cerebral infarction without residual deficits; Z87.11 Personal history of peptic ulcer disease; Z87.442 Personal history of urinary calculi; Z90.49 Acquired absence of other specified parts of digestive tract; Z90.710 Acquired absence of both cervix and uterus; Z95.1 Presence of aortocoronary bypass graft; Z95.5 Presence of coronary angioplasty implant and graft; Z99.81 Dependence on supplemental oxygen; Z88.5 Allergy status to narcotic agent; Z88.0 Allergy status to penicillin; Z88.8 Allergy status to other drugs, medicaments and biological substances; Z68.33 Body mass index [BMI] 33.0-33.9, adult
CPT/HCPCS: 36415; 36600; 70450; 71045; 80048; 80053; 80307; 81001; 82140; 82274; 82805; 82962; 83516; 83540; 83550; 83605; 83690; 83735; 83880; 84145; 84484; 85007; 85025; 85610; 85730; 87040; 87077; 87205; 87641; 93005; 94640; 94660; 94760; 96374; 99291; 99292; G0480; J1815; J2310; J2543; J2930; J3370; J3475; J7030; J7040; J7512; J7620; J7626; J8597; 97110; 97116

== ENCOUNTER → 2018-10-24 | Outpatient (CLI) | payer MEDICARE ==
[2018-08-18 11:51] VITALS: BP 121/67
[~2018-10-24] MED LIST changes: +AMOX1TAB11 PO; +MONT10TA49 PO; -MONT10TA6 PO
--- NOTE | 2018-10-24 13:33 | RAD ---
Chest, 2 views, 10/24/2018: HISTORY: Left-sided chest pain, recent fall Comparison is made to a study from 08/14/2018. A left-sided transvenous pacing device remains in place with 2 leads extending in the right heart. A coronary artery stent is projected over the superior aspect of the heart. The heart is at the upper limits of normal in size. The pulmonary vascularity is normal. No pulmonary infiltrate is seen. There is no evidence of pleural fluid or pneumothorax. There are 2 mild midthoracic vertebral compression deformities at least one of which was not present on a previous study from 08/11/2018. There are mild scattered marginal spurs. IMPRESSION: 1. Borderline cardiomegaly with coronary artery disease. 2. No acute infiltrates. 3. New mild midthoracic vertebral compression deformities Electronically signed by: Bari Tate MD (10/24/2018 1:29 PM) [facility]
== END | disposition home or self-care (01) ==
LOC: RAD 09:26
PROVIDERS: ATTEND Internal Medicine
DX: I25.10 Atherosclerotic heart disease of native coronary artery without angina pectoris (principal); I51.7 Cardiomegaly; M43.8X4 Other specified deforming dorsopathies, thoracic region; Z95.5 Presence of coronary angioplasty implant and graft
CPT/HCPCS: 71046

== ENCOUNTER → 2019-05-15 | Day surgery (SDC) | payer MEDICARE ==
[~2019-05-15] MED LIST changes: +APIX5TAB PO; +HYDROmorphone 2 MG/ML VIAL IV PRN; +IV RINGERS,LACTATED 1000ML 1,000 ML IV SCH; +LIDOCAINE 1% PF 2 ML VIAL. ID PRN; +LIDOCAINE 2% PF 5 ML VIAL. ONE; +MORPHINE SULFATE 2 MG/ML VIAL. IV PRN; +ONDANSETRON PF 4 MG/2 ML VIAL. IV PRN; -POTA20TA82 PO; +PROPOFOL 20 ML IV ONE; -TIZA4TAB PO; +TIZA4TAB2 PO; +fentaNYL PF VIAL 100 MCG/2 ML VIAL IV PRN
--- NOTE | 2019-05-15 13:29 | PDOC1 ---
History and Physical Date of Admission Date of Admission DATE: 05/15/19 TIME: 13:26 Source Source: Chart review, Patient History of Present Illness History of Present Illness 59 y/o female with intermittent dysphagia. Taking BID metoclopramide and a PPI. Prior EGD's and dilations. More recent worsening. Past Medical History Cardiovascular: CAD, CHF, HTN, [place], Other Pulmonary: COPD, Pneumonia, Other CENTRAL NERVOUS SYSTEM: CVA, Periperal neuropathy GI: Hemorrhoids, Irritable bowel disease, Peptic Ulcer disease, Other Heme/Onc: Anemia NOS Psych: Anxiety, Depression Musculoskeletal: low back pain, Osteoarthritis Renal/: Chronic renal insuff, Other Endocrine: Diabetes, Hyperthyroidism, Hypothyroidism, Osteoporosis Past Surgical History Past Surgical History: Pacemaker, CABG, Tonsillectomy, Hysterectomy, Other Family History Family History: Cancer Social History Smoke: 1 pack per day ALCOHOL: none Drugs: None Current Medications Current Medications Current Medications Ondansetron HCl (Zofran) 4 mg PRN Q6HRS PRN IV NAUSEA/VOMITING; Start 05/15/19 at 08:00; Stop 05/15/19 at 20:00 Fentanyl Citrate (Fentanyl 2ml Vial) 25 mcg PRN Q5MIN PRN IV MILD PAIN 1-3; Start 05/15/19 at 08:00; Stop 05/15/19 at 20:00 Fentanyl Citrate (Fentanyl 2ml Vial) 50 mcg PRN Q5MIN PRN IV MODERATE TO SEVERE PAIN; Start 05/15/19 at 08:00; Stop 05/15/19 at 20:00 Morphine Sulfate (Morphine Sulfate) 1 mg PRN Q10MIN PRN IV SEVERE PAIN 7-10; Start 05/15/19 at 08:00; Stop 05/15/19 at 20:00 Ringer's Solution 1,000 ml @ 30 mls/hr Q24H IV ; Start 05/15/19 at 07:50; Stop 05/15/19 at 19:49 Lidocaine HCl (Xylocaine-Mpf 1% 2ml Vial) 2 ml PRN 1X PRN ID PRIOR TO IV START; Start 05/15/19 at 08:00; Stop 05/15/19 at 20:00 Hydromorphone HCl (Dilaudid) 0.5 mg PRN Q10MIN PRN IV SEV PAIN, Second choice; Start 05/15/19 at 08:00; Stop 05/15/19 at 20:00 Propofol 20 ml @ As Directed STK-MED ONCE IV ; Start 05/15/19 at 13:22; Stop 05/15/19 at 13:22; Status DC Lidocaine HCl (Lidocaine Pf 2% Vial) 5 ml STK-MED ONCE .ROUTE ; Start 05/15/19 at 13:22; Stop 05/15/19 at 13:22; Status DC Active Scripts Active Novolog Flexpen (Insulin Aspart) 100 Unit/1 Ml Insuln.pen 6 Units SQ TIDBFRMEAL Hold insulin if blood sugar less than 100 Duoneb 0.5-3(2.5) Mg/3 Ml (Albuterol/Ipratropium) 3 Ml Ampul.neb 3 Ml NEB RTQID Proair Hfa Inhaler (Albuterol Sulfate) 8.5 Gm Hfa.aer.ad 1 Puff INH PRN Q6HRS PRN Symbicort 160-4.5 Mcg Inhaler (Budesonide/Formoterol Fumarate) 10.2 Gm Hfa.aer.ad 2 Puff IH BID Mag-Oxide (Magnesium Oxide) 400 Mg Tablet 400 Mg PO TID Fluticasone Propionate Nasal [place] (Fluticasone Propionate) 16 Gm [place].susp 2 [place] NS DAILY Tizanidine Hcl 4 Mg Tablet 4 Mg PO PRN QHS PRN Cetirizine Hcl 10 Mg Tablet 10 Mg PO DAILY Synthroid (Levothyroxine Sodium) 150 Mcg Tablet 150 Mcg PO DAILY07 Metformin Hcl 1,000 Mg Tablet 1,000 Mg PO BID Restart metformin 09/18 Voltaren (Diclofenac Sodium) 100 Gm Gel..gram. 4 Gm TP QID Reported Eliquis (Apixaban) 5 Mg Tablet 5 Mg PO BID Lantus Solostar (Insulin Glargine,Hum.rec.anlog) 100 Unit/1 Ml Insuln.pen 16 Unit SQ AM Hydrocodone-Apap 7.5-325 (Hydrocodone Bit/Acetaminophen) 1 Each Tablet 1 Tab PO PRN Q6HRS PRN Gabapentin (Gabapentin) 300 Mg Capsule 1,200 Mg PO HS Alprazolam 0.25 Mg Tablet 1 Tab PO BID Carvedilol (Carvedilol) 3.125 Mg Tablet 1 Tab PO BID Torsemide 20 Mg Tablet 20 Mg PO DAILY Zocor (Simvastatin) 80 Mg Tablet 80 Mg PO DAILY Reglan (Metoclopramide Hcl) 10 Mg Tablet 10 Mg PO QID Protonix Packet (Pantoprazole Sodium) 40 Mg Granpkt. 40 Mg PO BID Singulair Tablet (Montelukast Sodium) 10 Mg Tablet 10 Mg PO DAILY Aspir 81 (Aspirin) 81 Mg Tablet.dr 81 Mg PO DAILY Allergies Allergies: Coded Allergies: Penicillins (Verified Allergy, Intermediate, Hives, 05/15/19) Tolerated rocephin during prior admit methylprednisolone (Verified Adverse Reaction, Severe, 05/15/19) AMS codeine (Verified Adverse Reaction, Intermediate, Nausea and Vomiting, 05/15/19) diphenhydramine HCl (Verified Adverse Reaction, Intermediate, hyperactive, 05/15/19) ROS Review of System Otherwise negative. Physical Exam General: Alert, Oriented X3, Cooperative, No acute distress Lungs: Clear to auscultation Heart: S1S2, RRR, no gallops, no murmurs Abdomen: Normal bowel sounds, Soft, No tenderness, No hepatosplenomegaly, No masses Rectal Exam: not examined Extremities: No edema Skin: No significant lesion Neuro: Normal speech, Strength at 5/5 X4 ext, Normal tone, Sensation intact, Cranial nerves 3-12 NL, Reflexes 2+ Psych/Mental Status: Mental status NL, Mood NL Vitals Vitals Vital Signs Date Time Temp Pulse Resp B/P (MAP) Pulse Ox O2 Delivery O2 Flow Rate FiO2 05/15/19 13:02 Nasal Cannula 3 05/15/19 12:56 97.0 73 20 87 97.0 VTE Prophylaxis Ordered VTE Prophylaxis Devices: No VTE Pharmacological Prophylaxi: No (outpatient procedure) Assessment/Plan Assessment/Plan IMP: Dysphagia PLAN: HERRERA PURCELL MD May 15, 2019 13:29
--- NOTE | 2019-05-15 13:47 | PDOC4 ---
PROCEDURE Procedure EGD/dilate Indication: dysphagia Meds: per anesthesia Findings; E--healed reflux at 38 G--Normal D--normal to second portion. --empirically dilated with 50F w/o resistance. Daniel. well. IMP: GERD, perhaps associated dysmotility. REC: continue meds, diet as before. F/u in 2 weeks. If no better, consider increase frequency of prokinetic. HERRERA SHOEMAKER MD May 15, 2019 13:47
[2019-05-15 14:24] VITALS: BP 125/59
== END ==
LOC: ENDOS 12:32
PROVIDERS: ATTEND Internal Medicine Gastroenterology
DX: R13.10 Dysphagia, unspecified (principal); K21.0 Gastro-esophageal reflux disease with esophagitis; K44.9 Diaphragmatic hernia without obstruction or gangrene; K58.9 Irritable bowel syndrome, unspecified; I25.2 Old myocardial infarction; I11.0 Hypertensive heart disease with heart failure; I50.9 Heart failure, unspecified; E78.5 Hyperlipidemia, unspecified; J44.9 Chronic obstructive pulmonary disease, unspecified; Z79.899 Other long term (current) drug therapy; Z88.5 Allergy status to narcotic agent; Z88.0 Allergy status to penicillin; Z88.8 Allergy status to other drugs, medicaments and biological substances; Z86.010 Personal history of colon polyps; Z79.82 Long term (current) use of aspirin
CPT/HCPCS: 43235; 43450; 82962; J2001; J2704